=== PATIENT | male | born 1960 ===

== ENCOUNTER 2020-02-18 11:00 | Outpatient (RCR) | payer OTHER, SELFPAY ==
--- NOTE | 2020-02-22 08:10 | MHC.OT.DC ---
[address] [phone] F: [phone] Occupational Therapy Discharge Note Provider: Phil Hogan PA-C Diagnosis: Left Wrist Pain Date of Surgery: Date of Evaluation: 01/10/20 Date of Discharge: 02/18/20 Treatments to Date: 8 Cancellations to Date: 0 No Shows to Date: 0 Discharge Status: Achieved Goals Improved Function Independent with HEP Discharge Summary: Ramiro was referred to OT for management of left wrist pain, he is now mostly pain free, except with some aggravating activities, such as ulnar deviation and weight bearing through palm. He has been educated on activity modification and home exercise program. Please Sign and return to therapist, thank you for your referral.
== END 2020-03-02 10:26 | disposition other institution (70) ==
LOC: HO.OT 11:00
PROVIDERS: Visit Provider Physician Assistant
DX: M25.532 Pain in left wrist (principal)
CPT/HCPCS: 97033; 97535

== ENCOUNTER 2020-03-07 16:50 | Outpatient (REF) | payer OTHER, SELFPAY | END 2020-03-07 16:51 | disposition home or self-care (01) | LOC: HO.LAB 16:50 | PROVIDERS: Visit Provider Internal Medicine | DX: Z20.828 Contact with and (suspected) exposure to other viral communicable diseases (principal) | CPT/HCPCS: 87635 ==

== ENCOUNTER 2020-03-13 09:56 | Outpatient (REF) | payer OTHER, SELFPAY | END 2020-03-13 09:57 | disposition home or self-care (01) | LOC: HO.LAB 09:56 | PROVIDERS: Visit Provider Internal Medicine | DX: Z20.828 Contact with and (suspected) exposure to other viral communicable diseases (principal) | CPT/HCPCS: 87635 ==

== ENCOUNTER 2020-03-14 15:10 | Outpatient (REF) | payer OTHER, SELFPAY ==
--- NOTE | 2020-03-14 15:23 | XR_ITS ---
EXAMINATION: XR LUMBOSACRAL SPINE CLINICAL INFORMATION: Low back pain. COMPARISON: None TECHNIQUE: Three views of the lumbosacral spine. FINDINGS: There is mild straightening of lumbar lordosis. The vertebral heights, alignment and disc heights are normal. There is no visible acute fracture, dislocation or lytic process seen. There is and degenerative spurring L2-L3 disc level. No lytic or sclerotic process seen. The paravertebral soft tissues are normal XR/XR lumbar spine 2-3V IMPRESSION: Mild degenerative disc spurring L2-L3 disc level. Otherwise unremarkable lumbar spine exam
== END 2020-03-14 15:11 | disposition home or self-care (01) ==
LOC: HO.XRAY 15:10
PROVIDERS: Visit Provider Emergency Medicine
DX: M54.5 Low back pain (principal)
CPT/HCPCS: 72100

== ENCOUNTER 2020-06-15 15:35 | Outpatient (REF) | payer OTHER, SELFPAY ==
[2020-06-19 11:23] LABS: Testosterone, Total 220 ng/dL (250-1100)
== END 2020-06-15 15:36 | disposition home or self-care (01) ==
LOC: HO.LAB 15:35
PROVIDERS: PCP Internal Medicine; Visit Provider Urology
DX: R39.12 Poor urinary stream (principal); E29.1 Testicular hypofunction; R00.2 Palpitations; R06.02 Shortness of breath; G47.33 Obstructive sleep apnea (adult) (pediatric); M25.50 Pain in unspecified joint; Z12.5 Encounter for screening for malignant neoplasm of prostate; Z23 Encounter for immunization; Z99.89 Dependence on other enabling machines and devices
CPT/HCPCS: 36415; 84153; 84403

== ENCOUNTER 2020-06-20 08:03 | Outpatient (REF) | payer OTHER, SELFPAY ==
--- NOTE | 2020-06-20 08:29 | ECG_ITS ---
Test Reason : PALPITATIONS Blood Pressure : / mmHG Vent. Rate : 068 BPM Atrial Rate : 068 BPM P-R Int : 156 ms QRS Dur : 112 ms QT Int : 400 ms P-R-T Axes : 064 064 052 degrees QTc Int : 425 ms Normal sinus rhythm Normal ECG No previous ECGs available Referred By: Florina Martienz Electronically Signed By:BÁRBARA QUINN MD
[2020-06-20 08:39] LABS: MANUAL DIFF FLAG NO
--- NOTE | 2020-06-20 08:40 | XR_ITS ---
EXAMINATION: XR CHEST CLINICAL INFORMATION: Shortness of breath COMPARISON: Chest x-ray 09/02/2019 TECHNIQUE: 2 views of the chest were obtained. FINDINGS: Cardiac silhouette is normal in size. The lungs are well aerated. Mild biapical scarring. There is no lobar consolidation. No pleural effusion or pneumothorax. No acute osseous abnormality. XR/XR chest 2V IMPRESSION: No acute pulmonary pathology.
[2020-06-20 08:41] LABS: Basophils Percent Auto 0.7 % (0-2); Eosinophils Absolute Auto 0.2 X10*3/uL (0.0-0.4); Eosinophils Percent Auto 3.6 % (0-4); Hematocrit 43.1 % (42-52); Hemoglobin 14.4 g/dl (14.0-18.0); Imm Gran Abs Auto 0.01 X10*3/uL (0.00-0.03); Imm Gran Pct Auto 0.2 % (0.0-0.4); Lymphocytes Absolute Auto 1.4 X10*3/uL (1.2-4.9); Lymphocytes Percent Auto 30.8 % (20-40); Mean Corpuscular HGB Conc 33.4 g/dl (31.0-36.0); Mean Corpuscular Hemoglobin 30.5 pg (27.0-33.0); Mean Corpuscular Volume 91.3 fL (80-98); Mean Platelet Volume 10.4 fL (9.4-12.4); Monocytes Absolute Auto 0.4 X10*3/uL (0.1-1.2); Monocytes Percent Auto 9.4 % (2-11); Neutrophils Absolute Auto 2.5 X10*3/uL (2.0-8.3); Neutrophils Percent Auto 55.3 % (45-73); Platelet Count 233 X10*3/uL (160-400); Red Blood Count 4.72 X10*6/uL (4.60-5.80); Red Cell Distribution Width 12.4 % (11.0-16.0); White Blood Count 4.5 X10*3/uL (4.8-10.8)
[2020-06-20 09:07] LABS: Alanine Aminotransferase 27 U/L (0-40); Albumin Level 4.1 g/dL (3.5-5.0); Alkaline Phosphatase 57 U/L (39-117); Anion Gap 12 (12-20); Aspartate Amino Transferase 25 U/L (5-37); Bilirubin Total 0.6 mg/dL (0.0-1.0); Blood Urea Nitrogen 19 mg/dL (9-16); Calcium 8.8 mg/dL (8.4-10.2); Carbon Dioxide 25 mmol/L (22-29); Chloride 107 mmol/L (96-108); Cholesterol 191 mg/dL; Estimated Glomerular Filt Rate > 60; Glucose Fasting 83 mg/dL (60-99); HDL Cholesterol 33 mg/dL; LDL Cholesterol Calculated 137 mg/dl; Potassium 4.4 mmol/L (3.3-5.1); Rheumatoid Factor 78.5 IU/mL (<15.0); Sodium 140 mmol/L (135-145); Total Protein 8.6 g/dL (6.5-8.0); Triglycerides 107 mg/dL
[2020-06-20 09:29] LABS: TSH reflex Free T4 1.19 uIU/mL (0.32-4.0)
[2020-06-20 09:51] LABS: Erythrocyte Sedimentation Rate 14 MM/HR (0-15)
[2020-06-20 10:31] LABS: Folate 11.1 ng/mL (> or = 4.0); Vitamin B12 377 pg/mL (200-900)
[2020-06-21 12:22] LABS: Cyclic Citrullinated Peptide <16 UNITS
[2020-06-24 21:52] LABS: Vitamin D 25-OH, D2 <4 ng/mL; Vitamin D 25-OH, D3 21 ng/mL; Vitamin D 25-OH, Total 21 ng/mL (30-100)
== END 2020-06-20 08:04 | disposition home or self-care (01) ==
LOC: HO.LAB 08:03
PROVIDERS: PCP Internal Medicine; Visit Provider Internal Medicine
DX: E66.9 Obesity, unspecified (principal); G47.33 Obstructive sleep apnea (adult) (pediatric); R00.2 Palpitations; M25.50 Pain in unspecified joint; R06.02 Shortness of breath; I10 Essential (primary) hypertension; E78.5 Hyperlipidemia, unspecified; E55.9 Vitamin D deficiency, unspecified; Z99.89 Dependence on other enabling machines and devices
CPT/HCPCS: 36415; 71046; 80053; 80061; 82306; 82607; 82746; 84443; 85025; 85652; 86140; 86200; 86431; 93005

== ENCOUNTER → 2020-06-22 10:41 | Outpatient (BNVA) | payer OTHER, SELFPAY | PROVIDERS: PCP Internal Medicine; Visit Provider Urology ==

== ENCOUNTER 2020-07-14 07:54 | Outpatient (REF) | payer OTHER, SELFPAY ==
[2020-07-14 09:55] LABS: MANUAL DIFF FLAG NO
[2020-07-14 10:04] LABS: Basophils Percent Auto 0.4 % (0-2); Eosinophils Absolute Auto 0.1 X10*3/uL (0.0-0.4); Eosinophils Percent Auto 1.9 % (0-4); Hematocrit 42.5 % (42-52); Imm Gran Abs Auto 0.01 X10*3/uL (0.00-0.03); Imm Gran Pct Auto 0.2 % (0.0-0.4); Lymphocytes Absolute Auto 1.6 X10*3/uL (1.2-4.9); Lymphocytes Percent Auto 35.3 % (20-40); Mean Corpuscular HGB Conc 32.9 g/dl (31.0-36.0); Mean Corpuscular Hemoglobin 30.1 pg (27.0-33.0); Mean Corpuscular Volume 91.4 fL (80-98); Mean Platelet Volume 10.4 fL (9.4-12.4); Monocytes Absolute Auto 0.4 X10*3/uL (0.1-1.2); Monocytes Percent Auto 8.6 % (2-11); Neutrophils Absolute Auto 2.5 X10*3/uL (2.0-8.3); Neutrophils Percent Auto 53.6 % (45-73); Platelet Count 223 X10*3/uL (160-400); Red Blood Count 4.65 X10*6/uL (4.60-5.80); Red Cell Distribution Width 12.6 % (11.0-16.0); White Blood Count 4.7 X10*3/uL (4.8-10.8)
[2020-07-14 10:45] LABS: Erythrocyte Sedimentation Rate 23 MM/HR (0-15)
--- NOTE | 2020-07-14 17:42 | PFT_ITS ---
Forced vital capacity and FEV1 are normal. [id number] and MVV are also normal. Post bronchodilator therapy, there is no significant change. Total lung capacity and residual volume normal. Diffusion capacity normal. CONCLUSION: Normal pulmonary function test. MD SAVANAH Mathis/TRAVISL / [id number]
[2020-07-17 17:06] LABS: Cyclic Citrullinated Peptide <16 UNITS
== END 2020-07-14 07:55 | disposition home or self-care (01) ==
LOC: HO.RESP 07:54
PROVIDERS: PCP Internal Medicine; Visit Provider Internal Medicine
DX: R06.02 Shortness of breath (principal); M25.50 Pain in unspecified joint
CPT/HCPCS: 36415; 85025; 85652; 86200; 94060; 94727; 94729

== ENCOUNTER → 2020-08-10 09:24 | Outpatient (BNVA) | payer OTHER, SELFPAY | PROVIDERS: PCP Internal Medicine; Visit Provider Internal Medicine Pulmonary Disease ==

== ENCOUNTER 2020-08-14 13:07 | Outpatient (REF) | payer OTHER, SELFPAY | END 2020-08-14 13:08 | disposition home or self-care (01) | LOC: HO.LAB 13:07 | PROVIDERS: Visit Provider Internal Medicine | DX: Z20.822 Contact with and (suspected) exposure to COVID-19 (principal) | CPT/HCPCS: 36415; C9803; U0003; U0005 ==

== ENCOUNTER → 2020-09-05 09:50 | Outpatient (REF) | payer OTHER, SELFPAY | LOC: HO.SL 09:50 | PROVIDERS: PCP Internal Medicine; Visit Provider Internal Medicine Pulmonary Disease | DX: G47.33 Obstructive sleep apnea (adult) (pediatric) (principal) | CPT/HCPCS: 95806 ==

== ENCOUNTER 2020-09-08 14:02 | Outpatient (REF) | payer OTHER, SELFPAY ==
--- NOTE | ~2020-09-08 | XR_ITS ---
EXAMINATION: THORACIC AND LUMBAR SPINE X-RAY CLINICAL INFORMATION: Pain COMPARISON: None TECHNIQUE: 3 views of the thoracic spine and 3 views of the lumbar spine FINDINGS: Thoracic spine: Bone alignment is normal. No fracture or dislocation is seen. There is mild degenerative spondylosis of the lower thoracic spine. Disc spaces are normal. Paraspinal soft tissues are normal. Lumbar spine: Bone alignment is normal. No fracture or dislocation is seen. There is degenerative spondylosis at L2-L3. Disc spaces are normal. XR/XR thoracic spine 2V IMPRESSION: Thoracic spine: Mild degenerative spondylosis of the lower thoracic spine. Lumbar spine: Mild degenerative spondylosis at L2-L3.
--- NOTE | ~2020-09-08 | XR_ITS ---
EXAMINATION: XR SHOULDER , RIGHT CLINICAL INFORMATION: Pain COMPARISON: None available at the time of this dictation. TECHNIQUE: AP external rotation, Grashey, scapular Y, and axillary views of the shoulder. FINDINGS: BONES: There is no fracture or dislocation, no osteolytic or osteoblastic lesion. JOINTS: Glenohumeral joint is properly positioned. There is mild degenerative osteoarthritis of the acromioclavicular joint. SOFT TISSUE AND INCLUDED LUNG: Normal. XR/XR shoulder RT min 2V IMPRESSION: Except for mild DJD of the AC joint, exam is normal.
--- NOTE | ~2020-09-08 | XR_ITS ---
EXAMINATION: XR BILATERAL HANDS CLINICAL INFORMATION: Joint pain COMPARISON: Correlation left wrist x-ray 02/27/2018 TECHNIQUE: Bilateral hands each 3 views. FINDINGS: Right Hand: Old healed fracture of the 4th metacarpal diaphysis. Multiple punctate densities suggesting metallic foreign bodies in the soft tissue projected in this region. Prominent cyst in the proximal aspect 4th middle phalanx. Small cyst in the distal 5th proximal phalanx. Mild DIP joint space narrowing, more prominent in the 2nd and 5th DIP joints. No erosions. No abnormal soft tissue calcification. Left hand: Flexed positioning of the 2nd distal phalanx at the 2nd DIP joint. Mild IP joint arthritic changes, including the 3rd and 5th DIP joints. No erosions seen. No abnormal soft tissue calcification. No acute fracture. XR/XR hand RT min 3V IMPRESSION: 1. Prominent flexed positioning of the 2nd distal phalanx at the 2nd DIP joint. 2. Mild bilateral hand arthritis, appearing osteoarthritic in nature. 3. Old right 4th metacarpal fracture.
--- NOTE | ~2020-09-08 | XR_ITS ---
EXAMINATION: XR BILATERAL HANDS CLINICAL INFORMATION: Joint pain COMPARISON: Correlation left wrist x-ray 02/27/2018 TECHNIQUE: Bilateral hands each 3 views. FINDINGS: Right Hand: Old healed fracture of the 4th metacarpal diaphysis. Multiple punctate densities suggesting metallic foreign bodies in the soft tissue projected in this region. Prominent cyst in the proximal aspect 4th middle phalanx. Small cyst in the distal 5th proximal phalanx. Mild DIP joint space narrowing, more prominent in the 2nd and 5th DIP joints. No erosions. No abnormal soft tissue calcification. Left hand: Flexed positioning of the 2nd distal phalanx at the 2nd DIP joint. Mild IP joint arthritic changes, including the 3rd and 5th DIP joints. No erosions seen. No abnormal soft tissue calcification. No acute fracture. XR/XR hand LT min 3V IMPRESSION: 1. Prominent flexed positioning of the 2nd distal phalanx at the 2nd DIP joint. 2. Mild bilateral hand arthritis, appearing osteoarthritic in nature. 3. Old right 4th metacarpal fracture.
--- NOTE | ~2020-09-08 | XR_ITS ---
EXAMINATION: THORACIC AND LUMBAR SPINE X-RAY CLINICAL INFORMATION: Pain COMPARISON: None TECHNIQUE: 3 views of the thoracic spine and 3 views of the lumbar spine FINDINGS: Thoracic spine: Bone alignment is normal. No fracture or dislocation is seen. There is mild degenerative spondylosis of the lower thoracic spine. Disc spaces are normal. Paraspinal soft tissues are normal. Lumbar spine: Bone alignment is normal. No fracture or dislocation is seen. There is degenerative spondylosis at L2-L3. Disc spaces are normal. XR/XR lumbar spine 2-3V IMPRESSION: Thoracic spine: Mild degenerative spondylosis of the lower thoracic spine. Lumbar spine: Mild degenerative spondylosis at L2-L3.
[2020-09-08 15:08] LABS: MANUAL DIFF FLAG NO
[2020-09-08 15:16] LABS: Basophils Percent Auto 0.6 % (0-2); Eosinophils Absolute Auto 0.1 X10*3/uL (0.0-0.4); Eosinophils Percent Auto 2.5 % (0-4); Hematocrit 43.1 % (42-52); Hemoglobin 14.5 g/dl (14.0-18.0); Imm Gran Abs Auto 0.01 X10*3/uL (0.00-0.03); Imm Gran Pct Auto 0.2 % (0.0-0.4); Lymphocytes Percent Auto 21.6 % (20-40); Mean Corpuscular HGB Conc 33.6 g/dl (31.0-36.0); Mean Corpuscular Hemoglobin 30.5 pg (27.0-33.0); Mean Corpuscular Volume 90.7 fL (80-98); Mean Platelet Volume 10.3 fL (9.4-12.4); Monocytes Absolute Auto 0.4 X10*3/uL (0.1-1.2); Monocytes Percent Auto 8.4 % (2-11); Neutrophils Absolute Auto 3.2 X10*3/uL (2.0-8.3); Neutrophils Percent Auto 66.7 % (45-73); Platelet Count 249 X10*3/uL (160-400); Red Blood Count 4.75 X10*6/uL (4.60-5.80); Red Cell Distribution Width 12.6 % (11.0-16.0); White Blood Count 4.8 X10*3/uL (4.8-10.8)
[2020-09-08 15:49] LABS: Alanine Aminotransferase 22 U/L (0-40); Alkaline Phosphatase 56 U/L (39-117); Anion Gap 10 (12-20); Aspartate Amino Transferase 16 U/L (5-37); Bilirubin Total 0.4 mg/dL (0.0-1.0); Blood Urea Nitrogen 18 mg/dL (9-16); C Reactive Protein 0.06 mg/dL (< or = 0.50); Calcium 9.1 mg/dL (8.4-10.2); Carbon Dioxide 25 mmol/L (22-29); Chloride 106 mmol/L (96-108); Estimated Glomerular Filt Rate > 60; Glucose Random 131 mg/dL (60-115); Potassium 4.2 mmol/L (3.3-5.1); Rheumatoid Factor 74.3 IU/mL (<15.0); Sodium 137 mmol/L (135-145); Total Protein 8.2 g/dL (6.5-8.0)
[2020-09-08 16:10] LABS: Thyroid Stimulating Hormone 0.27 uIU/mL (0.32-4.0)
[2020-09-08 16:32] LABS: Erythrocyte Sedimentation Rate 16 MM/HR (0-15)
[2020-09-11 08:12] LABS: Hepatitis B Surface Antigen Negative (Negative); ~HepC Num1 0.11 S/CO (0.00-0.79); ~Hepatitis C Antibody Nonreactive (Nonreactive)
[2020-09-11 08:52] LABS: HBS Num1 0.07 mIU/mL (0-7.99); HBc Num1 0.11 S/CO (0.00-0.79); Hepatitis B Core Antibody Nonreactive (Nonreactive); ~Hepatitis B Surface Antibody NONREACTIVE (Nonreactive)
[2020-09-11 15:41] LABS: Cyclic Citrullinated Peptide <16 UNITS
[2020-09-13 08:22] LABS: ~Hepatitis A Antibody IgM Nonreactive (Nonreactive)
[2020-09-13 20:57] LABS: Vitamin D 25-OH, D2 <4 ng/mL; Vitamin D 25-OH, D3 25 ng/mL; Vitamin D 25-OH, Total 25 ng/mL (30-100)
== END 2020-09-08 14:03 | disposition home or self-care (01) ==
LOC: HO.LAB 14:02
PROVIDERS: PCP Internal Medicine; Visit Provider Student in an Organized Health Care Education/Training Program
DX: M25.50 Pain in unspecified joint (principal); I10 Essential (primary) hypertension; E55.9 Vitamin D deficiency, unspecified; E66.9 Obesity, unspecified; G47.33 Obstructive sleep apnea (adult) (pediatric); R00.2 Palpitations; Z99.89 Dependence on other enabling machines and devices; Z87.891 Personal history of nicotine dependence
CPT/HCPCS: 36415; 72070; 72100; 73030; 73130; 80053; 82306; 84443; 85025; 85652; 86140; 86200; 86431; 86704; 86706; 86709; 86803; 87340

== ENCOUNTER → 2020-09-19 08:50 | Outpatient (BNVA) | payer OTHER, SELFPAY | PROVIDERS: PCP Internal Medicine; Referring Provider Internal Medicine; Visit Provider Psychiatry & Neurology Neurology ==

== ENCOUNTER → 2020-10-06 08:56 | Outpatient (BNVA) | payer OTHER, SELFPAY | PROVIDERS: Visit Provider Student in an Organized Health Care Education/Training Program ==

== ENCOUNTER 2020-10-12 11:44 | Outpatient (REF) | payer OTHER, SELFPAY ==
[2020-10-12 12:57] LABS: Free T4 (Free Thyroxine) 0.92 ng/dL (0.71-1.85); Thyroid Stimulating Hormone 0.57 uIU/mL (0.32-4.0)
[2020-10-13 07:07] LABS: Thyroglobulin Antibodies <1 IU/mL (< or = 1); Thyroid Peroxidase Antibodies 3 IU/mL (<9)
== END 2020-10-12 11:45 | disposition home or self-care (01) ==
LOC: HO.LAB 11:44
PROVIDERS: PCP Internal Medicine; Visit Provider Internal Medicine
DX: R79.89 Other specified abnormal findings of blood chemistry (principal)
CPT/HCPCS: 36415; 84439; 84443; 86376; 86800

== ENCOUNTER → 2020-12-12 10:21 | Outpatient (BNVA) | payer OTHER, SELFPAY | PROVIDERS: PCP Internal Medicine; Visit Provider Psychiatry & Neurology Neurology ==

== ENCOUNTER → 2020-12-21 09:34 | Outpatient (BNVA) | payer OTHER, SELFPAY | PROVIDERS: PCP Internal Medicine; Visit Provider Urology | DX: N40.1 Benign prostatic hyperplasia with lower urinary tract symptoms (principal); N13.8 Other obstructive and reflux uropathy; E29.1 Testicular hypofunction | CPT/HCPCS: 51798 ==

== ENCOUNTER → 2021-01-08 14:56 | Outpatient (BNVA) | payer OTHER, SELFPAY | PROVIDERS: PCP Internal Medicine; Visit Provider Internal Medicine ==

== ENCOUNTER 2021-01-10 07:43 | Outpatient (REF) | payer OTHER, SELFPAY ==
[2021-01-10 08:45] LABS: Anion Gap 11 (12-20); Blood Urea Nitrogen 17 mg/dL (9-16); Calcium 9.2 mg/dL (8.4-10.2); Carbon Dioxide 25 mmol/L (22-29); Chloride 106 mmol/L (96-108); Estimated Glomerular Filt Rate > 60; Glucose Random 98 mg/dL (60-115); Potassium 4.1 mmol/L (3.3-5.1); Sodium 138 mmol/L (135-145)
[2021-01-10 08:56] LABS: Osmolality, Serum 301 mosm/kg (281-305)
[2021-01-10 09:06] LABS: Free T4 (Free Thyroxine) 1.05 ng/dL (0.71-1.85); Thyroid Stimulating Hormone 0.98 uIU/mL (0.32-4.0)
[2021-01-11 09:21] LABS: Thyroid Peroxidase Antibodies 2 IU/mL (<9)
[2021-01-11 18:22] LABS: Thyroglobulin Antibodies <1 IU/mL (< or = 1)
[2021-01-12 02:47] LABS: Triiodothyronine T3 Total 138 ng/dL (76-181)
[2021-01-12 07:12] LABS: Sex Hormone Binding Globulin 21 nmol/L (22-77)
[2021-01-12 12:26] LABS: Follicle Stimulating Hormone 9.9 mIU/mL (1.6-8.0); Lutenizing Hormone 6.4 mIU/mL (1.5-9.3); Prolactin Undiluted 16.5 ng/mL (2.0-18.0)
[2021-01-12 16:16] LABS: Adrenocorticotropic Hormone 74 pg/mL (6-50)
[2021-01-14 08:37] LABS: Thyrotropin Receptor Antibody <1.00 IU/L (<=2.00)
[2021-01-14 15:51] LABS: Testosterone, Free 61.7 pg/mL (35.0-155.0); Testosterone, Total 291 ng/dL (250-1100)
[2021-01-14 16:36] LABS: IGF-1 (Somatomedin C) 171 ng/mL (50-317); IGF-1 Z Score (Male) 0.6 SD (-2.0 - +2.0)
[2021-01-15 15:06] LABS: Thyroid Stimulating Immunoglob <89 % baseline (<140)
== END 2021-01-10 07:44 | disposition home or self-care (01) ==
LOC: HO.LAB 07:43
PROVIDERS: PCP Internal Medicine; Visit Provider Internal Medicine
DX: E05.90 Thyrotoxicosis, unspecified without thyrotoxic crisis or storm (principal); Z86.39 Personal history of other endocrine, nutritional and metabolic disease
CPT/HCPCS: 36415; 80048; 82024; 82533; 83001; 83002; 83520; 83930; 84146; 84270; 84305; 84402; 84403; 84439; 84443; 84445; 84480; 86376; 86800

== ENCOUNTER → 2021-02-20 09:46 | Outpatient (REF) | payer OTHER, SELFPAY | LOC: HO.SL 09:46 | PROVIDERS: PCP Internal Medicine; Visit Provider Psychiatry & Neurology Neurology | DX: G47.33 Obstructive sleep apnea (adult) (pediatric) (principal) | CPT/HCPCS: 99211 ==

== ENCOUNTER → 2021-03-20 09:38 | Outpatient (BNVA) | payer OTHER, SELFPAY | PROVIDERS: PCP Internal Medicine; Visit Provider Internal Medicine Pulmonary Disease ==

== ENCOUNTER 2021-04-17 09:15 | Outpatient (REF) | payer OTHER, SELFPAY ==
[2021-04-17 10:27] LABS: MANUAL DIFF FLAG NO
[2021-04-17 10:43] LABS: Basophils Percent Auto 0.8 % (0-2); Eosinophils Absolute Auto 0.2 X10*3/uL (0.0-0.4); Eosinophils Percent Auto 3.1 % (0-4); Hematocrit 44.5 % (42.0-52.0); Imm Gran Abs Auto 0.01 X10*3/uL (0.00-0.03); Imm Gran Pct Auto 0.2 % (0.0-0.4); Lymphocytes Absolute Auto 1.7 X10*3/uL (1.2-4.9); Lymphocytes Percent Auto 32.6 % (20-40); Mean Corpuscular HGB Conc 33.7 g/dl (31.0-36.0); Mean Corpuscular Hemoglobin 30.2 pg (27.0-33.0); Mean Corpuscular Volume 89.7 fL (80.0-98.0); Mean Platelet Volume 10.2 fL (9.4-12.4); Monocytes Absolute Auto 0.4 X10*3/uL (0.1-1.2); Monocytes Percent Auto 7.7 % (2-11); Neutrophils Absolute Auto 2.9 x10*3/uL (2.0-8.3); Neutrophils Percent Auto 55.6 % (45-73); Platelet Count 231 X10*3/uL (160-400); Red Blood Count 4.96 X10*6/uL (4.60-5.80); Red Cell Distribution Width 12.4 % (11.0-16.0); White Blood Count 5.2 X10*3/uL (4.8-10.8)
[2021-04-17 11:14] LABS: Alanine Aminotransferase 40 U/L (0-40); Albumin Level 4.2 g/dL (3.5-5.0); Alkaline Phosphatase 63 U/L (39-117); Anion Gap 14 (12-20); Aspartate Amino Transferase 28 U/L (5-37); Bilirubin Total 0.4 mg/dL (0.0-1.0); Blood Urea Nitrogen 14 mg/dL (9-16); Calcium 9.3 mg/dL (8.4-10.2); Carbon Dioxide 23 mmol/L (22-29); Chloride 104 mmol/L (96-108); Estimated Glomerular Filt Rate > 60; Glucose Random 95 mg/dL (60-115); Potassium 4.1 mmol/L (3.3-5.1); Sodium 137 mmol/L (135-145); Total Protein 8.7 g/dL (6.5-8.0)
[2021-04-17 11:29] LABS: Vitamin D 25-OH Total 25.3 ng/mL (>30)
[2021-04-17 11:35] LABS: Erythrocyte Sedimentation Rate 14 MM/HR (0-15)
== END 2021-04-17 09:16 | disposition home or self-care (01) ==
LOC: HO.LAB 09:15
PROVIDERS: PCP Internal Medicine; Visit Provider Nurse Practitioner Family
DX: M47.814 Spondylosis without myelopathy or radiculopathy, thoracic region (principal); M25.50 Pain in unspecified joint; E55.9 Vitamin D deficiency, unspecified; Z79.899 Other long term (current) drug therapy
CPT/HCPCS: 36415; 80053; 82306; 85025; 85652; 86140

== ENCOUNTER 2021-05-07 09:50 | Outpatient (REF) | payer OTHER, SELFPAY ==
[2021-05-07 12:02] LABS: COVID-19 Test Negative (Negative)
== END 2021-05-07 09:51 | disposition home or self-care (01) ==
LOC: HO.LAB 09:50
PROVIDERS: Visit Provider Internal Medicine
DX: Z20.822 Contact with and (suspected) exposure to COVID-19 (principal)
CPT/HCPCS: 36415; 87635; C9803

== ENCOUNTER → 2021-06-06 09:15 | Outpatient (BNVA) | payer OTHER, SELFPAY | PROVIDERS: PCP Internal Medicine; Visit Provider Internal Medicine ==

== ENCOUNTER 2021-06-07 08:02 | Outpatient (REF) | payer OTHER, SELFPAY ==
[2021-06-07 08:36] LABS: Anion Gap 12 (12-20); Blood Urea Nitrogen 19 mg/dL (9-16); Calcium 9.4 mg/dL (8.4-10.2); Carbon Dioxide 26 mmol/L (22-29); Chloride 104 mmol/L (96-108); Estimated Glomerular Filt Rate > 60; Glucose Random 88 mg/dL (60-115); Potassium 4.2 mmol/L (3.3-5.1); Sodium 138 mmol/L (135-145)
[2021-06-07 09:46] LABS: Cortisol Random 10.5 ug/dL
[2021-06-10 15:32] LABS: Adrenocorticotropic Hormone 68 pg/mL (6-50)
== END 2021-06-07 08:03 | disposition home or self-care (01) ==
LOC: HO.LAB 08:02
PROVIDERS: PCP Internal Medicine; Visit Provider Internal Medicine
DX: E27.0 Other adrenocortical overactivity (principal)
CPT/HCPCS: 36415; 80048; 82024; 82533

== ENCOUNTER 2021-06-26 07:46 | Outpatient (REF) | payer OTHER, SELFPAY ==
[2021-06-28 06:21] LABS: Cortisol 60 Minute 25.4 mcg/dL; Cortisol Baseline 12.2 mcg/dL
[2021-06-29 11:07] LABS: Adrenocorticotropic Hormone 46 pg/mL (6-50)
== END 2021-06-26 07:47 | disposition home or self-care (01) ==
LOC: HO.MDS 07:46
PROVIDERS: PCP Internal Medicine; Visit Provider Internal Medicine
DX: E27.40 Unspecified adrenocortical insufficiency (principal)
CPT/HCPCS: 36415; 82024; 82533; 96365; J0834

== ENCOUNTER → 2021-07-18 09:34 | Outpatient (BNVA) | payer OTHER, SELFPAY | PROVIDERS: PCP Internal Medicine; Visit Provider Internal Medicine ==

== ENCOUNTER 2021-07-21 07:19 | Outpatient (REF) | payer OTHER, SELFPAY ==
[2021-07-21 09:10] LABS: Cortisol Random < 1.0 ug/dL
[2021-07-23 14:36] LABS: Adrenocorticotropic Hormone 18 pg/mL (6-50)
[2021-08-01 15:37] LABS: Dexamethasone 229 ng/dL
== END 2021-07-21 07:20 | disposition home or self-care (01) ==
LOC: HO.LAB 07:19
PROVIDERS: Visit Provider Internal Medicine
DX: E27.0 Other adrenocortical overactivity (principal)
CPT/HCPCS: 36415; 80299; 82024; 82533

== ENCOUNTER → 2021-10-12 08:33 | Outpatient (BNVA) | payer OTHER, SELFPAY | PROVIDERS: PCP Internal Medicine; Visit Provider Nurse Practitioner Family | DX: M25.50 Pain in unspecified joint (principal) ==

== ENCOUNTER 2021-11-01 07:09 | Outpatient (REF) | payer OTHER, SELFPAY ==
[2021-11-01 08:08] LABS: MANUAL DIFF FLAG NO
[2021-11-01 08:39] LABS: Basophils Percent Auto 0.6 % (0-2); Eosinophils Absolute Auto 0.1 X10*3/uL (0.0-0.4); Eosinophils Percent Auto 2.6 % (0-4); Hematocrit 42.9 % (42.0-52.0); Hemoglobin 14.4 g/dl (14.0-18.0); Imm Gran Abs Auto 0.01 X10*3/uL (0.00-0.03); Imm Gran Pct Auto 0.2 % (0.0-0.4); Lymphocytes Absolute Auto 1.5 X10*3/uL (1.2-4.9); Lymphocytes Percent Auto 32.1 % (20-40); Mean Corpuscular HGB Conc 33.6 g/dl (31.0-36.0); Mean Corpuscular Hemoglobin 30.1 pg (27.0-33.0); Mean Corpuscular Volume 89.7 fL (80.0-98.0); Mean Platelet Volume 10.5 fL (9.4-12.4); Monocytes Absolute Auto 0.4 X10*3/uL (0.1-1.2); Monocytes Percent Auto 8.8 % (2-11); Neutrophils Absolute Auto 2.6 x10*3/uL (2.0-8.3); Neutrophils Percent Auto 55.7 % (45-73); Platelet Count 258 X10*3/uL (160-400); Red Blood Count 4.78 X10*6/uL (4.60-5.80); Red Cell Distribution Width 12.6 % (11.0-16.0); White Blood Count 4.7 X10*3/uL (4.8-10.8)
[2021-11-01 09:03] LABS: Alanine Aminotransferase 29 U/L (0-40); Albumin Level 4.2 g/dL (3.5-5.0); Alkaline Phosphatase 60 U/L (39-117); Anion Gap 10 (12-20); Aspartate Amino Transferase 20 U/L (5-37); Bilirubin Direct 0.2 mg/dL (0.0-0.5); Bilirubin Total 0.5 mg/dL (0.0-1.0); Blood Urea Nitrogen 8 mg/dL (9-16); C Reactive Protein 0.06 mg/dL (< or = 0.50); Carbon Dioxide 26 mmol/L (22-29); Chloride 105 mmol/L (96-108); Estimated Glomerular Filt Rate > 60; Glucose Random 100 mg/dL (60-115); Potassium 4.3 mmol/L (3.3-5.1); Sodium 137 mmol/L (135-145); Total Protein 8.7 g/dL (6.5-8.0)
[2021-11-01 09:13] LABS: Erythrocyte Sedimentation Rate 14 MM/HR (0-15)
[2021-11-01 09:58] LABS: Cortisol Random 8.1 ug/dL
[2021-11-05 23:02] LABS: Adrenocorticotropic Hormone 38 pg/mL (6-50)
== END 2021-11-01 07:10 | disposition home or self-care (01) ==
LOC: HO.LAB 07:09
PROVIDERS: Nurse Practitioner Family; PCP Internal Medicine; Visit Provider Internal Medicine
DX: E27.0 Other adrenocortical overactivity (principal); R10.11 Right upper quadrant pain; M25.50 Pain in unspecified joint
CPT/HCPCS: 36415; 80053; 80076; 82024; 82248; 82533; 85025; 85652; 86140

== ENCOUNTER 2021-12-08 08:39 | Outpatient (REF) | payer OTHER, SELFPAY ==
[2021-12-08 10:24] LABS: Prostate Specific Antigen 1.25 ng/mL (<0.05-4.0)
[2021-12-13 14:36] LABS: Testosterone, Total 318 ng/dL (250-1100)
== END 2021-12-08 08:40 | disposition home or self-care (01) ==
LOC: HO.LAB 08:39
PROVIDERS: PCP Internal Medicine; Visit Provider Urology
DX: Z12.5 Encounter for screening for malignant neoplasm of prostate (principal); N40.1 Benign prostatic hyperplasia with lower urinary tract symptoms; N13.8 Other obstructive and reflux uropathy
CPT/HCPCS: 36415; 84153; 84403

== ENCOUNTER 2021-12-19 07:53 | Outpatient (REF) | payer OTHER, SELFPAY ==
--- NOTE | ~2021-12-19 | US_ITS ---
EXAMINATION: US ABDOMEN COMPLETE CLINICAL INFORMATION: Right upper quadrant pain. COMPARISON: CT abdomen and pelvis 11/11/2018. X-ray abdomen 05/27/2017. Renal ultrasound 01/20/2015. TECHNIQUE: Real-time imaging of the abdominal viscera. FINDINGS: PANCREAS: Normal. ABDOMINAL AORTA: The proximal, mid, and distal segments are normal in caliber. INFERIOR VENA CAVA: Visualized portions are normal. LIVER: The liver is normal in size. The liver contour is normal. Liver echotexture is slightly increased. No focal hepatic lesion. There is no intrahepatic biliary duct dilatation seen. GALLBLADDER: Normal. The gallbladder is physiologically distended without evidence of stones, sludge, polyps, wall thickening or pericholecystic fluid. COMMON BILE DUCT: Normal in caliber measuring 0.4 cm in diameter. RIGHT KIDNEY: Normal. No hydronephrosis. No renal calculi or focal parenchymal lesions. The kidney measures 13.5 cm in maximum dimension. LEFT KIDNEY: Normal. No hydronephrosis. No renal calculi or focal parenchymal lesions. The kidney measures 12.3 cm in maximum dimension. SPLEEN: Normal. The spleen measures 10.1 cm in maximum dimension. FREE FLUID: None. US/US abdomen complete IMPRESSION: Slightly echogenic liver otherwise unremarkable exam.
== END 2021-12-19 07:54 | disposition home or self-care (01) ==
LOC: HO.US 07:53
PROVIDERS: Visit Provider Internal Medicine
DX: R10.11 Right upper quadrant pain (principal)
CPT/HCPCS: 76700

== ENCOUNTER → 2021-12-21 09:33 | Outpatient (BNVA) | payer OTHER, SELFPAY | PROVIDERS: PCP Internal Medicine; Visit Provider Urology | DX: N40.1 Benign prostatic hyperplasia with lower urinary tract symptoms (principal); N13.8 Other obstructive and reflux uropathy; N52.01 Erectile dysfunction due to arterial insufficiency; E29.1 Testicular hypofunction | CPT/HCPCS: 51798 ==

== ENCOUNTER 2022-03-30 07:26 | Outpatient (REF) | payer OTHER, SELFPAY ==
[2022-03-30 08:37] LABS: Alanine Aminotransferase 27 U/L (0-40); Albumin Level 4.2 g/dL (3.5-5.0); Alkaline Phosphatase 62 U/L (39-117); Anion Gap 16 (12-20); Aspartate Amino Transferase 20 U/L (5-37); Bilirubin Total 0.4 mg/dL (0.0-1.0); Blood Urea Nitrogen 16 mg/dL (9-16); Carbon Dioxide 23 mmol/L (22-29); Chloride 104 mmol/L (96-108); Cholesterol 232 mg/dL; Estimated Glomerular Filt Rate > 60; Glucose Fasting 101 mg/dL (60-99); HDL Cholesterol 37 mg/dL; LDL Cholesterol Calculated 173 mg/dl; Potassium 4.5 mmol/L (3.3-5.1); Sodium 138 mmol/L (135-145); Total Protein 8.7 g/dL (6.5-8.0); Triglycerides 110 mg/dL
== END 2022-03-30 07:27 | disposition home or self-care (01) ==
LOC: HO.LAB 07:26
PROVIDERS: PCP Internal Medicine; Visit Provider Internal Medicine
DX: Z00.00 Encounter for general adult medical examination without abnormal findings (principal); E78.5 Hyperlipidemia, unspecified
CPT/HCPCS: 36415; 80053; 80061

== ENCOUNTER 2022-06-09 11:48 | Outpatient (REF) | payer OTHER, SELFPAY ==
[2022-06-09 12:24] LABS: COVID-19 Test Negative (Negative); IDNOW Serial# 16C4AD1C
== END 2022-06-09 11:49 | disposition home or self-care (01) ==
LOC: HO.LAB 11:48
PROVIDERS: Absent Provider Internal Medicine; PCP Internal Medicine; Visit Provider Internal Medicine
DX: Z20.822 Contact with and (suspected) exposure to COVID-19 (principal)
CPT/HCPCS: 87635

== ENCOUNTER 2022-06-10 09:52 | Outpatient (REF) | payer OTHER, SELFPAY ==
[2022-06-10 10:51] LABS: Influenza A PCR NEGATIVE (Negative); Influenza B PCR NEGATIVE (Negative); Resp Syncy Virus RNA Qual PCR NEGATIVE (Negative); SARS COV2 PCR INHOUSE NEGATIVE (Negative)
== END 2022-06-10 09:53 | disposition home or self-care (01) ==
LOC: HO.LAB 09:52
PROVIDERS: Visit Provider Physician Assistant Medical
DX: Z20.822 Contact with and (suspected) exposure to COVID-19 (principal)
CPT/HCPCS: 0241U; C9803

== ENCOUNTER 2022-09-14 07:47 | Outpatient (REF) | payer OTHER, SELFPAY ==
[2022-09-14 08:22] LABS: MANUAL DIFF FLAG NO
[2022-09-14 08:34] LABS: Basophils Absolute Auto 0.1 X10*3/uL (0.0-0.2); Basophils Percent Auto 1.4 % (0-2); Eosinophils Absolute Auto 0.3 X10*3/uL (0.0-0.4); Eosinophils Percent Auto 5.4 % (0-4); Hematocrit 43.3 % (42.0-52.0); Hemoglobin 14.6 g/dl (14.0-18.0); Lymphocytes Absolute Auto 1.3 X10*3/uL (1.2-4.9); Lymphocytes Percent Auto 26.8 % (20-40); Mean Corpuscular HGB Conc 33.7 g/dl (31.0-36.0); Mean Corpuscular Hemoglobin 30.1 pg (27.0-33.0); Mean Corpuscular Volume 89.3 fL (80.0-98.0); Mean Platelet Volume 10.2 fL (9.4-12.4); Monocytes Absolute Auto 0.4 X10*3/uL (0.1-1.2); Monocytes Percent Auto 8.6 % (2-11); Neutrophils Absolute Auto 2.9 x10*3/uL (2.0-8.3); Neutrophils Percent Auto 57.8 % (45-73); Platelet Count 247 X10*3/uL (160-400); Red Blood Count 4.85 X10*6/uL (4.60-5.80); Red Cell Distribution Width 12.6 % (11.0-16.0)
[2022-09-14 11:03] LABS: Alanine Aminotransferase 22 U/L (0-40); Albumin Level 4.1 g/dL (3.5-5.0); Alkaline Phosphatase 57 U/L (39-117); Anion Gap 12 (12-20); Aspartate Amino Transferase 19 U/L (5-37); Bilirubin Total 0.5 mg/dL (0.0-1.0); Blood Urea Nitrogen 13 mg/dL (9-16); Carbon Dioxide 24 mmol/L (22-29); Chloride 107 mmol/L (96-108); Cholesterol 213 mg/dL; Estimated Glomerular Filt Rate > 60; Glucose Fasting 93 mg/dL (60-99); HDL Cholesterol 34 mg/dL; Potassium 4.4 mmol/L (3.3-5.1); Sodium 139 mmol/L (135-145); Total Protein 8.3 g/dL (6.5-8.0)
[2022-09-14 11:09] LABS: Thyroid Stimulating Hormone 1.02 uIU/mL (0.32-4.0); Vitamin D 25-OH Total 21.2 ng/mL (>30)
[2022-09-18 16:06] LABS: LDL Cholesterol Calculated 156 mg/dl; Triglycerides 117 mg/dL
== END 2022-09-14 07:48 | disposition home or self-care (01) ==
LOC: HO.LAB 07:47
PROVIDERS: PCP Internal Medicine; Visit Provider Internal Medicine
DX: R53.83 Other fatigue (principal); E55.9 Vitamin D deficiency, unspecified; R25.2 Cramp and spasm; E78.5 Hyperlipidemia, unspecified
CPT/HCPCS: 36415; 80053; 80061; 82306; 83735; 84443; 85025

== ENCOUNTER 2022-11-14 14:17 | Outpatient (REF) | payer OTHER, SELFPAY ==
--- NOTE | 2022-11-14 14:20 | EMG_ITS ---
Please see scanned EMG / Nerve Conduction Report. MTDD
== END 2022-11-14 14:18 | disposition home or self-care (01) ==
LOC: HO.NEURO 14:17
PROVIDERS: PCP Internal Medicine; Visit Provider Internal Medicine
DX: R20.2 Paresthesia of skin (principal)
CPT/HCPCS: 95885; 95910

== ENCOUNTER 2022-12-07 08:55 | Outpatient (REF) | payer OTHER, SELFPAY ==
[2022-12-07 10:54] LABS: Prostate Specific Antigen 1.32 ng/mL (<0.05-4.0)
[2022-12-12 16:02] LABS: Testosterone, Total 334 ng/dL (250-1100)
== END 2022-12-07 08:56 | disposition home or self-care (01) ==
LOC: HO.LAB 08:55
PROVIDERS: PCP Internal Medicine; Visit Provider Urology
DX: E29.1 Testicular hypofunction (principal); Z12.5 Encounter for screening for malignant neoplasm of prostate
CPT/HCPCS: 36415; 84153; 84403

== ENCOUNTER 2023-01-08 15:40 | Outpatient (AMB) | payer OTHER, SELFPAY ==
--- NOTE | 2023-01-08 15:43 | MHC.OFFVIS ---
Intake Vital Signs 01/08/23 15:44 Height 6 ft Weight 242 lb 1.081 oz BMI 32.8 BP 148/86 H Blood Pressure Location Rt brachial Position Sitting Temp 97.9 F Temp Source Skin Intake Visit Reasons: positive rheumatoid factor. Intake Note: Here for +RF follow up. c/o right hand pain, numbness, hurts more at night. Customer Acquisition Specialist Required: Yes Customer Acquisition Specialist Language: Ice Skating Teacher Name: Zach Mendez236 Accompanied by: Self / Same As Patient Allergies No Known Allergies [No Known Allergies*] Allergy (Verified 01/08/23 15:49) HPI HPI Comments History of Present Illness Details This is a 62-year-old male who presents for evaluation of positive rheumatoid factor. He was last evaluated by Ольга Kruger 03/2022. Patient has history of a positive rheumatoid factor and previously he followed for development of rheumatoid arthritis, he had no signs of inflammatory arthritis. Over the last 6 months patient has been having tingling and numbness, weakness of his right hand, worse with activity, usually worse in the morning and at night. An EMG/NCS was done 2 months ago and it showed moderately severe carpal tunnel syndrome of the right hand. He feels well otherwise [facility] Medical History ACTH elevation Degenerative arthritis of thoracic spine Essential hypertension GERD (gastroesophageal reflux disease) History of hyperprolactinemia Hyperthyroidism Hypovitaminosis D Low TSH level Obesity GARRET on CPAP Palpitations Polyarthralgia Shortness of breath Surgical History H/O umbilical hernia repair Family History Mother Heart problem Father Stroke Social History Housing: House Alcohol intake: current Alcohol intake frequency: holidays/special occasions only Patient Tobacco Use Status: Former Tobacco user Tobacco use type: Cigarette e-Cigarette/Vaping Use: Never Used Second Hand Smoke Exposure: No Advance Directives Date on File: 02/18/20 service: No Current occupational status: employed 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 Current occupational exposures/hazards: No Cognitive needs: No Hearing needs: No Vision needs: No Review of Systems Musc Reports numbness and Reports tingling Neuro Reports numbness and Reports tingling Physical Exam Vital Signs: Last Vital Signs Temp 97.9 F 01/08/23 15:44 BP 148/86 H 01/08/23 15:44 BMI result Body Mass Index 32.8 Const General: cooperative, healthy appearing and comfortable Nutritional Appearance: obese Orientation/consciousness: patient oriented x3 Limitations: no limitations HEENT Head: Yes normocephalic and Yes atraumatic Mouth: moist mucous membranes Resp Effort & Inspection: normal respiratory effort and able to speak in complete sentences Neuro Other: Positive Tinel sign right hand General: patient oriented x3 Extrem Other: Osteoarthritic changes of both hands with no active synovitis Negative MCP squeeze test bilaterally 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 Assessment & Plan Assessment & Plan (1) Carpal tunnel syndrome: Code(s): G56.00 - Carpal tunnel syndrome, unspecified upper limb Qualifiers: Laterality: right Qualified Code(s): G56.01 - Carpal tunnel syndrome, right upper limb Plan: This is a 62-year-old male who is being followed by Rheumatology for a positive rheumatoid factor. On previous evaluation patient did not have any signs of inflammatory arthritis. Over the last 6 months patient has been having tingling, numbness, weakness of his right hand. EMG/NCS was consistent with moderately severe right hand carpal tunnel syndrome. I prescribed a wrist splint. Advised patient to wear it nightly and as much as possible throughout the day. Referred patient to Hand surgery for further evaluation. Follow-up in 1 year Plan I spent 15 minutes reviewing patient's chart, evaluating patient, placing orders, counseling patient and documenting in the chart Orders: Referrals Hand Surgery Referral G56.00 - Carpal tunnel syndrome, unspecified upper limb Medications: New [wrist splint] for right hand. wear nightly & as much as possible throughout the day 1 ea 0RF G56.00 - Carpal tunnel syndrome, unspecified upper limb Coding Level of Care Code Est Pt Level 3 (62229) Diagnoses Carpal tunnel syndrome G56.01 Laterality: right
[2023-01-08 15:44] VITALS: BP 148/86; TEMP 36.6; BMI 32.8
== END 2023-01-08 16:14 | disposition home or self-care (01) ==
PROVIDERS: PCP Internal Medicine; Visit Provider Student in an Organized Health Care Education/Training Program
DX: G56.01 Carpal tunnel syndrome, right upper limb (principal)
CPT/HCPCS: 99213

== ENCOUNTER → 2023-01-08 15:40 | Outpatient (BNVA) | payer OTHER, SELFPAY | PROVIDERS: PCP Internal Medicine; Visit Provider Student in an Organized Health Care Education/Training Program ==

== ENCOUNTER 2023-03-04 11:02 | Outpatient (AMB) | payer OTHER, SELFPAY ==
--- NOTE | 2023-03-04 11:35 | A.OFFVIS_ITS ---
Intake Vital Signs 03/04/23 11:46 Height 6 ft Weight 242 lb BMI 32.8 Intake Visit Reasons: New Prob- CTS right wrist Intake Note: Ramiro 62 yr old right hand dominant male who presents today as a new patient for further evaluation of his right hand CTS. State he has CTS in bilateral hands but his right is worse for the last 6 months. States he has weakness, constant numbness thought out the day. Patient has tried braces with little relieve. States also he has locking of his middle finger and thumb for the last couple months and has worsen. EMG done for his right hand. Allergies No Known Allergies [No Known Allergies*] Allergy (Verified 03/04/23 11:45) HPI New Prob- CTS right wrist HPI Details Ramiro is a 62 year old right hand dominant man who presents to discuss his bilateral hand numbness. He complains of numbness in both of his hands, in the median nerve distribution. He says his right hand is worse, and only completed a NCS for his right side. He says his right hand numbness is constant, and his left is intermittent but daily He has wrist braces he wears at night, without relief. He also complains of painful stiffness in his right hand, primarily in the thumb & middle finger. He says this primarily occurs overnight and patient access coordinator, saying he wakes up with his fingers stuck and he has to manually extend them with his other hand. 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 [facility] Medical History ACTH elevation Degenerative arthritis of thoracic spine Essential hypertension GERD (gastroesophageal reflux disease) History of hyperprolactinemia Hyperthyroidism Hypovitaminosis D Low TSH level Obesity GARRET on CPAP Palpitations Polyarthralgia Shortness of breath Surgical History H/O umbilical hernia repair Family History Mother Heart problem Father Stroke Social History (Reviewed 03/04/23 @ 11:45 by Ama Harrington [facility]) Housing: House Alcohol intake: current Alcohol intake frequency: holidays/special occasions only Patient Tobacco Use Status: Former Tobacco user Tobacco use type: Cigarette e-Cigarette/Vaping Use: Never Used Second Hand Smoke Exposure: No Advance Directives Date on File: 02/18/20 service: No Current occupational status: employed 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 Current occupational exposures/hazards: No Cognitive needs: No Hearing needs: No Vision needs: No Review of Systems Const All systems reviewed & are unremarkable except as noted in HPI and below Physical Exam Vital Signs: BMI result Body Mass Index 32.8 Const General: cooperative, healthy appearing and no acute distress Orientation/consciousness: patient oriented x3 HEENT Head: Yes normocephalic and Yes atraumatic Eyes EOM: EOMs intact bilaterally Resp Effort & Inspection: normal respiratory effort and able to speak in complete sentences Cardio Jugular venous distension: no JVD Skin General skin exam: turgor normal Rashes: no rashes Neuro General: patient oriented x3 Extrem Other: Evaluation of Bilateral Upper Extremity: The patient is alert, oriented, and in no acute distress Neuro: Dense numbness in the median nerve distribution of the right hand. Normal sensation in the median nerve distribution of the left hand Normal sensation in the ulnar nerve distribution bilaterally No thenar or intrinsic wasting Good APB muscle belly firing and good finger cross Vascular: Cap refill brisk ROM: He can make a fist and extend all his digits He has some stiffness in the right middle finger PIP joint This improved after working on ROM exercises in clinic No locking or catching Skin: No lacerations or abrasions. General: No Ecchymosis. No Erythema or evidence of infection. Nerve Conduction Study: Moderately severe right carpal tunnel syndrome Dr. Mercer 11/14/22 Psych Appearance: grossly normal Affect: normal affect Attitude: cooperative Assessment & Plan Assessment & Plan (1) Carpal tunnel syndrome of right wrist: Code(s): G56.01 - Carpal tunnel syndrome, right upper limb (2) Numbness of left hand: Code(s): R20.0 - Anesthesia of skin (3) Polyarthralgia: Code(s): M25.50 - Pain in unspecified joint (4) Stiffness of right hand joint: Code(s): M25.641 - Stiffness of right hand, not elsewhere classified (5) Osteoarthritis of right hand: Code(s): M19.041 - Primary osteoarthritis, right hand Plan Assessment & Plan: 1. Right carpal tunnel syndrome, moderate-severe With dense numbness 2. left Carpal tunnel syndrome, based on PE and history Symptoms intermittent, but daily, worse at night I educated him about this condition I discussed operative and non-operative treatment options The patient would like to proceed with surgery The risks and benefits of operative treatment were discussed with the patient and the patient wishes to proceed with surgery. These risks include, but are not limited to risk of damage to blood vessels, nerves, tendons, infection, recurrence, incomplete relief of preoperative symptoms, persistent pain, possi ble need for further surgery and the risks associated with regional blocks and anesthesia. The plan is to take the patient to the operating room sometime in the next few weeks for the following procedures: 1. Right carpal tunnel release, under local All of the preoperative paperwork including the consent was filled out today. All the patient's questions were answered. The patient understands that they will be contacted by our surgery assistant soon to schedule this procedure He denies Diabetes, blood thinners, asthma, heart, lung, kidney issues 3. Right hand osteoarthritis 4. Right hand stiffness I educated him about this condition I discussed activity modification, he is to limit or avoid any heavy or repetitive pinching or gripping activities He should work on gentle ROM exercises daily to improve his stiffness He should consider using gadgets or assistive tools to assist him with daily activities. Scribed for Ольга Jackson MD by Baldo Mock, special forces medical sergeant, on [ ] at [ ], EST. Coding Level of Care Code New Pt Level 4 (84474) Diagnoses Carpal tunnel syndrome of right wrist G56.01 Numbness of left hand R20.0 Polyarthralgia M25.50 Stiffness of right hand joint M25.641 Osteoarthritis of right hand M19.041
[2023-03-04 11:46] VITALS: BMI 32.8
== END 2023-03-04 11:55 | disposition home or self-care (01) ==
PROVIDERS: PCP Internal Medicine; Visit Provider Orthopaedic Surgery
DX: G56.01 Carpal tunnel syndrome, right upper limb (principal); R20.0 Anesthesia of skin; M25.50 Pain in unspecified joint; M25.641 Stiffness of right hand, not elsewhere classified; M19.041 Primary osteoarthritis, right hand
CPT/HCPCS: 99204

== ENCOUNTER → 2023-03-04 11:02 | Outpatient (BNVA) | payer OTHER, SELFPAY | PROVIDERS: PCP Internal Medicine; Visit Provider Orthopaedic Surgery ==

== ENCOUNTER 2023-03-14 13:03 | Outpatient (AMB) | payer OTHER, SELFPAY ==
--- NOTE | 2023-03-14 13:09 | MHC.OFFVIS ---
Intake Intake Visit Reasons: 1Y PSA/Testo(set) Intake Note: Patient is Present for Follow Up Urology Medication: Tadalafil Antibiotic Allergies: None Blood Thinners: None Pharmacy: [facility] Allergies No Known Allergies [No Known Allergies*] Allergy (Verified 03/14/23 13:12) Medication List - Last Reconciled 03/14/23 by Justice Tran MD atorvastatin 20 mg PO BEDTIME 90 days cholecalciferol (vitamin D3) 25 mcg PO DAILY 90 days losartan 25 mg PO DAILY 90 days omeprazole 20 mg PO DAILY 90 days tadalafil 20 mg PO ONCE PRN 30 days triamcinolone acetonide 0.1% 1 appl topical DAILY 30 days [wrist splint for right hand. wear nightly & as much as possible throughout the day] HPI HPI Comments History of Present Illness Details Mikey BATISTA is a very pleasant Bulgarian male They are a patient of Dr. Lundy They are seen in the office today for the following urologic conditions - hypogonadism - lower urinary tract symptoms - erectile dysfunction Bulgarian translation provided in office by qualified biomedical engineering internship Low normal testosterone Some urinary urge Drinks 3 coffees a day Recommend decrease Continue with terazosin Does respond to 20 mg on demand tadalafil Twelve month follow-up Erectile dysfunction Effective results with 20 mg on demand tadalafil Lower Urinary Tract Symptoms: Nocturia x2 Current visit is for further evaluation of, lower urinary tract symptoms, predominate irritative symptoms, Current treatment includes alpha eric, terazosin. Prostate Symptom Score Moderate (9-19), Bother 3. Symptoms include 10/17 , incomplete emptying, urgency, weak stream, and are stable. Prior Prostate Score moderate. Testing at next visit will include bladder scan. Hypogonadism: Borderline He presents today for evaluated with endocrinology Had over-response with T in 2018 1cc q 2wk IM. Initial symptoms include erectile dysfunction Yes decreased libido Yes change in mood/depression Yes in muscle size/strength Yes increased fatigue/malaise Yes Associate conditions include obstructive sleep apnea Yes Laboratory investigations - 06/08 testosterone 220, PSA 1.2, 12/07 320 P 1.2, 12/08 330 P 1.3 PFSH Medical History ACTH elevation Degenerative arthritis of thoracic spine History of hyperprolactinemia Hyperthyroidism Low TSH level GERD (gastroesophageal reflux disease) Hypovitaminosis D Shortness of breath GARRET on CPAP Palpitations Polyarthralgia Obesity Essential hypertension Surgical History H/O umbilical hernia repair Family History Mother Heart problem Father Stroke Social History Housing: House Alcohol intake: current Alcohol intake frequency: holidays/special occasions only Patient Tobacco Use Status: Former Tobacco user Tobacco use type: Cigarette e-Cigarette/Vaping Use: Never Used Second Hand Smoke Exposure: No Advance Directives Date on File: 02/18/20 service: No Current occupational status: employed 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 Current occupational exposures/hazards: No Cognitive needs: No Hearing needs: No Vision needs: No Review of Systems Const Denies chills and Denies fever(s) Card Reports no additional complaints and Denies syncope Resp Denies cough GI Denies abdominal pain and Denies heartburn Reports as per HPI and Denies change in libido Neuro Denies syncope Psych Denies change in libido Endo Denies change in libido Physical Exam Const General: cooperative, healthy appearing, comfortable and no acute distress Orientation/consciousness: patient oriented x3 HEENT Face and sinus: Yes normal facial exam Mouth: moist mucous membranes Neck Neck: Yes normal visual inspection, Yes full ROM and Yes trachea midline Chest Chest palpation & inspection: normal inspection of the chest Resp Effort & Inspection: normal respiratory effort, able to speak in complete sentences and no respiratory distress GI Inspection: Yes normal to inspection Back/Spine/Pelvis Cervical Spine: normal cervical lordosis Thoracic/Lumbar Spine: thoracic and lumbar spine normal to inspection Skin General skin exam: no rashes or lesions noted Neuro General: patient oriented x3, gait normal, tone normal and moves all extremities Extrem General: Yes normal to inspection and Yes capillary refill normal Assessment & Plan Assessment & Plan (1) Hypogonadism in male: Code(s): E29.1 - Testicular hypofunction (2) Erectile dysfunction due to arterial insufficiency: Code(s): N52.01 - Erectile dysfunction due to arterial insufficiency (3) Nocturia more than twice per night: Code(s): R35.1 - Nocturia Plan Twelve month follow-up Orders: Orders Testosterone, Free/Total 364 Days E29.1 - Testicular hypofunction, R68.82 - Decreased libido Prostate Specific Antigen 364 Days E29.1 - Testicular hypofunction Medications: New terazosin 5 mg PO BEDTIME 90 caps 1RF 90 days E29.1 - Testicular hypofunction, N40.1 - Benign prostatic hyperplasia with lower urinary tract symptoms, R35.0 - Frequency of micturition Refilled tadalafil [facility]IN [facility] DR33 [id number] 20 mg PO ONCE PRN 30 tabs 4RF sexual activity 30 days N52.01 - Erectile dysfunction due to arterial insufficiency Patient Instructions: Imaging studies, laboratory and physical exam results were discussed and reviewed in detail. No major barriers to patient understanding were identified. An opportunity to ask questions regarding the treatment plan was provided. All questions were answered. The patient expressed understanding and agreement with the above treatment plan. The patient is aware they should contact our office by phone for worsening of their current condition or the appearance of new urologic symptoms. Compliance is encouraged with any medications and followup testing that is ordered. It is a privilege to participate in the urologic care of your patient. If you have any questions or concerns regarding treatment for the above conditions, or other urologic issues, please do not hesitate to contact me. The office telephone contact is [phone]. This note is constructed using voice recognition software. While every effort has been made to ensure accuracy wafer abrading machine tender errors may have been included. Yours sincerely, Dr Justice Tran MD, [facility] - Urology Providers of Expert, Compassionate Care for the Genitourinary System Coding Level of Care Code Est Pt Level 4 (71899) Diagnoses Hypogonadism in male E29.1 Erectile dysfunction due to arterial insufficiency N52.01 Nocturia more than twice per night R35.1
== END 2023-03-14 13:34 | disposition home or self-care (01) ==
PROVIDERS: PCP Internal Medicine; Visit Provider Urology
DX: E29.1 Testicular hypofunction (principal); N52.01 Erectile dysfunction due to arterial insufficiency; R35.1 Nocturia
CPT/HCPCS: 99214

== ENCOUNTER → 2023-03-14 13:03 | Outpatient (BNVA) | payer OTHER, SELFPAY | PROVIDERS: PCP Internal Medicine; Visit Provider Urology ==

== ENCOUNTER 2023-04-01 08:20 | Outpatient (AMB) | payer OTHER, SELFPAY ==
[2023-04-01 08:21] VITALS: BP 152/88; PULSE 76; O2SAT 97; BMI 33.4
--- NOTE | 2023-04-01 08:21 | A.OFFPC_ITS ---
Vital Signs 04/01/23 08:21 04/01/23 08:50 Height 6 ft Weight 246 lb BMI 33.4 BP 152/88 H 150/80 H Blood Pressure Location Lt brachial Lt brachial Position Sitting Sitting Pulse 76 Pulse Source Pulse Oximeter Pulse Oximetry (%) 97 Oxygen Delivery Method Room Air Intake Visit Reasons: Annual Exam Intake Note: Patient here for an annual physical exam Embroidery Assistant Required: No Accompanied by: Self / Same As Patient Allergies No Known Allergies [No Known Allergies*] Allergy (Verified 04/01/23 08:36) Medication List - Last Reconciled 04/01/23 by Florina Martinez MD atorvastatin 20 mg PO BEDTIME 90 days cholecalciferol (vitamin D3) 25 mcg PO DAILY 90 days losartan 25 mg PO DAILY 90 days omeprazole 20 mg PO DAILY 90 days tadalafil 20 mg PO ONCE PRN 30 days terazosin 5 mg PO BEDTIME 90 days triamcinolone acetonide 0.1% 1 appl topical DAILY 30 days [wrist splint for right hand. wear nightly & as much as possible throughout the day] Tobacco use date assessed: 09/12/22 Dental Screening Dental Screen Date: 04/01/23 Did you have a dental visit in the last 12 months?: Yes Did you have a dental problem in the last 6 months where you did not have access to dental care?: No Was dental information given to patient?: Patient has dentist HPI HPI Comments History of Present Illness Details This is a 62-year-old male that comes for his physical exam. Last colonoscopy was over 10 years ago as per patient in [place] and was normal. Complains of heartburn that is relieved by PPIs. No chest pain or shortness of breath. Blood pressure elevated and he ran out of losartan for a few weeks now. Blood pressure will be recheck in 3 weeks by nurse navigator. Losartan was refilled today. [facility] Medical History ACTH elevation Degenerative arthritis of thoracic spine History of hyperprolactinemia Hyperthyroidism Low TSH level GERD (gastroesophageal reflux disease) Hypovitaminosis D Shortness of breath GARRET on CPAP Palpitations Polyarthralgia Obesity Essential hypertension Surgical History H/O umbilical hernia repair Family History Mother Heart problem Father Stroke Social History Housing: House Alcohol intake: current Alcohol intake frequency: holidays/special occasions only Patient Tobacco Use Status: Former Tobacco user Tobacco use type: Cigarette e-Cigarette/Vaping Use: Never Used Second Hand Smoke Exposure: No Advance Directives Date on File: 02/18/20 service: No Current occupational status: employed 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 Shimon Kennedy, Hilda De Jesus, Ta De La Garza and colleagues, with an educational quita from [employer]. Review of Systems Const All systems reviewed & are unremarkable except as noted in HPI and below Eyes Reports no additional complaints, Denies change in vision and Denies other visual disturbances Card Denies chest pain at rest, Denies chest pain with activity, Denies edema, Denies irregular heart rhythm, Denies claudication, Denies dyspnea, Denies dyspnea on exertion, Denies orthopnea, Denies paroxysmal nocturnal dyspnea and Denies slow heart rate Resp Denies cough, Denies dyspnea and Denies dyspnea on exertion GI Denies abdominal pain, Denies change in bowel habits, Denies excessive flatus, Denies nausea and Denies vomiting Denies urinary hesitancy, Denies urinary incontinence and Denies urinary urgency Musc Denies abnormal gait, Denies atrophy, Denies deformity and Denies limited range of motion Skin/Breast Denies bleeding lesions, Denies changing lesions and Denies rash Neuro Denies abnormal gait and Denies lack of coordination Physical exam (Primary Care) Vital Signs: Last Vital Signs Pulse 76 04/01/23 08:21 BP 152/88 H 04/01/23 08:21 Pulse Ox 97 04/01/23 08:21 Oxygen Delivery Method Room Air 04/01/23 08:21 BMI result Body Mass Index 33.4 Tobacco/Smoking Status: Tobacco use Status Tobacco use date assessed 09/12/22 04/01/23 08:26 Patient Tobacco Use Status Former Tobacco user 04/01/23 08:26 Tobacco use type Cigarette 04/01/23 08:26 e-Cigarette/Vaping Use Never Used 04/01/23 08:26 Thrive Assessment: Date of Thrive Assessment Date Thrive assessed 09/12/22 04/01/23 08:26 Const Orientation/consciousness: patient oriented x3 HENMT Head: Yes normal to inspection, Yes normocephalic and Yes atraumatic Ears: external ears normal Eyes General: appearance normal, both eyes and all related structures Eyelids: Yes eyelids normal Conjunctivae: conjunctivae normal Neck Neck: Yes normal visual inspection and Yes supple Resp Effort & Inspection: normal respiratory effort Auscultation: clear to auscultation bilaterally Cardio Jugular venous distension: no JVD Rate: regular rate Rhythm: regular rhythm Heart sounds: S1 normal heart sound present and S2 normal heart sound present GI Inspection: Yes normal to inspection Palpation (GI): Soft to palpation and nontender Auscultation: normal bowel sounds Skin General skin exam: no rashes or lesions noted Neuro General: patient oriented x3 and no focal motor deficits Extrem General: Yes full ROM Psych Appearance: grossly normal Office Procedures Flu Questionnaire Does the patient have a severe egg allergy?: No Immunizations flu vacc [id number] 6mos up(PF) 60 mcg(15 mcgx4)/0.5 mL IM syringe Performing Provider: Florina Martinez MD [facility] Documented (not given) by: DAVID Coronel on 04/01/23 08:27 Reason Not Given: Patient Refused Assessment and Plan Assessment & Plan (1) Physical exam: Code(s): Z00.00 - Encounter for general adult medical examination without abnormal findings Plan: Repeat in a year. Orders: Orders Influenza [id number] Immunization Today Z23 - Encounter for immunization Lipid Panel Today E78.5 - Hyperlipidemia, unspecified Thyroid Stimulating Hormone Today R79.89 - Other specified abnormal findings of blood chemistry Comprehensive [place]. Panel Fast Today Z00.00 - Encounter for general adult medical examination without abnormal findings Vitamin D 25-OH Total Today E55.9 - Vitamin D deficiency, unspecified [place] upper GI series Today K21.9 - Gastro-esophageal reflux disease without esophagitis Free T4 (Free Thyroxine) Today R79.89 - Other specified abnormal findings of blood chemistry Referrals Open Access Screening Colonoscopy Referral Z12.11 - Encounter for screening for malignant neoplasm of colon Medications: Refilled losartan 25 mg PO DAILY 90 tabs 3RF 90 days I10 - Essential (primary) hypertension omeprazole 20 mg PO DAILY 90 caps 1RF 90 days K21.9 - Gastro-esophageal reflux disease without esophagitis Coding Level of Care Code Est Pt Prev Care 40-64y(52649) Diagnoses Physical exam Z00.00 Time Spent (min) 31
[2023-04-01 08:50] VITALS: BP 150/80
== END 2023-04-01 08:54 | disposition home or self-care (01) ==
LOC: HO.HMGH 08:20
PROVIDERS: PCP Internal Medicine; Visit Provider Internal Medicine
DX: Z00.00 Encounter for general adult medical examination without abnormal findings (principal)
CPT/HCPCS: 99396

== ENCOUNTER → 2023-05-20 12:31 | Outpatient (BNVA) | payer OTHER, SELFPAY | PROVIDERS: PCP Internal Medicine; Visit Provider Orthopaedic Surgery ==

== ENCOUNTER 2023-05-26 12:57 | Day surgery (SDC) | payer OTHER, SELFPAY ==
[2023-05-26 13:31] VITALS: BMI 33.3
[2023-05-26 13:36] VITALS: BP 119/61; PULSE 78; RESP 16; TEMP 36.4; O2SAT 93
--- NOTE | 2023-05-26 14:24 | MHC.SHP ---
Pre-Procedural Eval Section A Date of Service: 05/26/23 The patient is an INPATIENT: No Changes since office visit: No Cold of Flu in the past 2 weeks, No New Medical Problems, No Changes in Medication and No Patient answered all questions The History & Physical has been completed within 30 days and I have reviewed it.: Yes Section B Chief Complaint: Carpal tunnel syndrome, right upper limb Allergies: Allergies Allergy/AdvReac Type Severity Reaction Status Date / Time No Known Allergies Allergy Verified 05/26/23 13:31 [No Known Allergies*] Plan I have reviewed the history and physical and performed a pertinent physical examination on my patient. No changes have occurred unless specified. Time Spent With Patient Time: Total time managing care of this patient today ____ minutes.
--- NOTE | 2023-05-26 14:30 | PC.NURSE ---
Care transitioned to [facility] PACU.
--- NOTE | 2023-07-16 13:46 | W.PM.OPN ---
Operative Note Operative Note Date of Service: 07/16/23 Narrative: Preop diagnosis: 1. Right Carpal tunnel syndrome Postop diagnosis: same Procedure: 1. Right Carpal tunnel release Surgeon: Ольга Jackson MD Anesthesia: local block using 1% lidocaine with epinephrine Findings: Thickened transverse carpal ligament. EBL: Less than 5 mL Specimens: None Complications: None Disposition: Brought to recovery room in stable condition Plan: Follow-up for 10-14 days for wound check and suture removal Indications: The patient is 62 years old, with right carpal tunnel syndrome that has been unresponsive to nonoperative management. The risks and benefits of operative treatment including but not limited to risk of damage to blood vessels, nerves, tendons, infection, persistent pain, persistent symptoms, or possible need for additional surgery were discussed with the patient and the patient wishes to proceed with surgery. Procedure: Once consent was obtained a local block was performed using a combination of 1% lidocaine with epinephrine. The patient was then brought back to the operating suite and placed on the operative table in supine position. The right upper extremity was prepped and draped in a standard surgical fashion. Once assured that we had a good block, a 2.0 cm longitudinal incision was made centered over the carpal tunnel. The incision was made through the skin to the subcutaneous tissues using a #15 blade. Dissection was made down to the level of the transverse carpal ligament with care being taken to protect the palmar cutaneous nerve. Once the transverse carpal ligament was clearly visualized, a longitudinal incision was made in the transverse carpal ligament 1st using a #15 blade, then using tenotomy scissors under direct visualization. Care was taken to look for and protect the motor branch of the median nerve when seen in this area. Once satisfied with our carpal tunnel release the wound was copiously irrigated with normal saline and hemostasis was obtained with a brief period of local pressure. The skin edges were reapproximated with some 5.0 nylon suture material and a sterile dressing was applied. The patient appears to have tolerated the procedure well and with no complications. All digits were well vascularized at the conclusion of the case.
== END 2023-05-26 16:07 | disposition home or self-care (01) ==
PROVIDERS: PCP Internal Medicine; Visit Provider Orthopaedic Surgery
PROC: (CPT 64721; principal; 2023-05-26 14:10)
DX: G56.01 Carpal tunnel syndrome, right upper limb (principal); R20.0 Anesthesia of skin; M25.641 Stiffness of right hand, not elsewhere classified; M19.041 Primary osteoarthritis, right hand; I10 Essential (primary) hypertension; E27.0 Other adrenocortical overactivity; E55.9 Vitamin D deficiency, unspecified; G47.33 Obstructive sleep apnea (adult) (pediatric); M47.814 Spondylosis without myelopathy or radiculopathy, thoracic region; Z99.89 Dependence on other enabling machines and devices; Z79.899 Other long term (current) drug therapy; Z87.891 Personal history of nicotine dependence
CPT/HCPCS: 64721; J0171

== ENCOUNTER → 2023-05-26 12:57 | Outpatient (BNV) | payer OTHER, SELFPAY | PROVIDERS: PCP Internal Medicine; Visit Provider Orthopaedic Surgery | DX: G56.01 Carpal tunnel syndrome, right upper limb (principal) | CPT/HCPCS: 64721 ==

== ENCOUNTER 2023-06-11 14:21 | Outpatient (AMB) | payer OTHER, SELFPAY ==
--- NOTE | 2023-06-11 14:26 | A.OFFVIS_ITS ---
Intake Vital Signs 06/11/23 14:33 Height 6 ft Weight 245 lb BMI 33.2 Intake Visit Reasons: PO RT CTR 05/26/23AR Intake Note: Ramiro a 62 year old male presents today for a post operative right CTR on 05/26/23 AR. Patient reports he is doing well, however he has discomfort with making a fist. Allergies No Known Allergies [No Known Allergies*] Allergy (Verified 06/11/23 14:34) HPI PO RT CTR 05/26/23AR HPI Details 62-year-old male who returns to the [facility] today with an seismic interpreter for post-op right CTR, 05/26/[address] Jackson. He continues to have numbness in his right wrist as well as discomfort with making a fist. He is doing well otherwise and has no other concerns today. [facility] Medical History ACTH elevation Degenerative arthritis of thoracic spine History of hyperprolactinemia Hyperthyroidism Low TSH level GERD (gastroesophageal reflux disease) Hypovitaminosis D Shortness of breath GARRET on CPAP Palpitations Polyarthralgia Obesity Essential hypertension Surgical History H/O umbilical hernia repair Family History Mother Heart problem Father Stroke Social History Housing: House Alcohol intake: current Alcohol intake frequency: holidays/special occasions only Patient Tobacco Use Status: Former Tobacco user Tobacco use type: Cigarette e-Cigarette/Vaping Use: Never Used Second Hand Smoke Exposure: No Advance Directives Date on File: 02/18/20 service: No Current occupational status: employed 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 No erythema or drainage. NVI. Assessment & Plan Assessment & Plan (1) Carpal tunnel syndrome of right wrist: Code(s): G56.01 - Carpal tunnel syndrome, right upper limb Plan Sutures removed today, steri strips applied. He will continue working on ROM and unix systems administrator strengthening. I did put in an order for occupational therapy in the office today. He will see us back as symptoms arise, otherwise as needed. Orders: Orders OT Evaluation and Treatment 06/11/23 G56.01 - Carpal tunnel syndrome, right upper limb Patient Instructions: Scribed for Phil Hogan PA-C, by Declan Garcia medical technical writer, on 06/11/2023 at 2:30 PM EST. I, Phil Hogan PA-C, have personally reviewed and agree with the information entered by the scribe. Coding Level of Care Code Global (85444) Diagnoses Carpal tunnel syndrome of right wrist G56.01
[2023-06-11 14:33] VITALS: BMI 33.2
== END 2023-06-11 14:48 | disposition home or self-care (01) ==
PROVIDERS: PCP Internal Medicine; Visit Provider Physician Assistant
DX: G56.01 Carpal tunnel syndrome, right upper limb (principal)
CPT/HCPCS: 99024

== ENCOUNTER → 2023-06-11 14:21 | Outpatient (BNVA) | payer OTHER, SELFPAY | PROVIDERS: PCP Internal Medicine; Visit Provider Physician Assistant ==

== ENCOUNTER 2023-06-20 10:06 | Outpatient (REF) | payer OTHER, SELFPAY ==
--- NOTE | ~2023-06-20 | FL_ITS ---
EXAMINATION: XR FLUOROSCOPY UPPER GI WITH AIR CLINICAL INFORMATION: Dysphagia. Reflux. COMPARISON: Barium swallow 07/29/2018 TECHNIQUE: Fluoroscopic air contrast upper GI examination was performed utilizing standard techniques with thin and thick barium and effervescent granules. Numerous spot images were obtained. FINDINGS: Lateral cine images of the oropharynx and hypopharynx demonstrate normal swallow mechanism with normal epiglottic inversion and soft palate elevation. There is trace laryngeal penetration with thick barium. No tracheal penetration, glottic or subglottic aspiration identified. No nasopharyngeal reflux present. Hypopharyngeal structures appear normal without evidence of mass or diverticulum. There was no significant cricopharyngeal achalasia. Dual and single contrast images of the esophagus demonstrate normal caliber, contour, and mucosal pattern. No evidence of stricture, mass, or ulcerations identified. Primary Esophageal peristalsis was normal. There are mild disorganized tertiary contractions noted in the distal esophagus. A small type I hiatal hernia is present. Gastroesophageal reflux is seen up to the thoracic inlet. Dual contrast and single contrast images of the stomach demonstrated normal contour and mucosal pattern without evidence of mass, ulceration, or other abnormality. Contrast freely passed into the gastric antrum and duodenal bulb without delay. Single and air-contrast images of the duodenal bulb demonstrate no abnormality. The duodenal sweep has a normal appearance, course, and mucosal fold appearance. No malrotation. The imaged proximal jejunum has a normal fold pattern and caliber. FLUOROSCOPY TIME: 3 minutes 13 seconds Number of Spot Images: 9 Number of Cine: 12 DOSE AREA PRODUCT: 2416 uGy-m2 (microgray-meter squared) FL/FL upper GI series IMPRESSION: 1. Trace laryngeal penetration with thick barium 2. Mildly disorganized esophageal peristalsis 3. Small type I hiatal hernia 4. Significant gastroesophageal reflux This procedure was performed by Oscar Lee PA-C, and supervised by Dr. Mansfield
== END 2023-06-20 10:07 | disposition home or self-care (01) ==
LOC: HO.XRAY 10:06
PROVIDERS: PCP Internal Medicine; Visit Provider Internal Medicine
DX: K21.9 Gastro-esophageal reflux disease without esophagitis (principal)
CPT/HCPCS: 74240

== ENCOUNTER → 2023-06-20 10:08 | Outpatient (BNV) | payer OTHER, SELFPAY | PROVIDERS: PCP Internal Medicine; Visit Provider Radiology Diagnostic Radiology | DX: K21.9 Gastro-esophageal reflux disease without esophagitis (principal); R13.10 Dysphagia, unspecified | CPT/HCPCS: 74246 ==

== ENCOUNTER 2023-07-28 09:00 | Outpatient (RCR) | payer OTHER, SELFPAY ==
--- NOTE | 2023-06-17 08:53 | MHC.OT.OEV ---
[address] [phone] F: [phone] Occupational Therapy Evaluation Patient Name: Ramiro Coleman Diagnosis: post (R)CTR on 05/26/2023 Date of Onset: Date of Surgery: 05/26/23 Attending Provider: Phil Hogan Prescribed Treatment: MD Follow Up Appointment: History of Current Condition: Patient a 62 year old right hand dominate male who presents s/p operative right CTR on 05/26/23, referred by SONNY Andrews for strengthening and ROM. 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/IADLs Living Situation, Family and/or Social Support: Lives with in apartment on the 1st floor with 3 NIRAV Current Level of Function and Occupation Self Care, Employment, Leisure: Currently out on medical leave, will return to work in about 4 weeks assists with IADLs mod (A)IADLs Sleep: (I) Driving: Vision: Balance: Pain Assessment Pain Score: 6 Pain Scale Used: Numeric (0 - 10) Pain Location and Description: volar hand to forearm Aggravating Factors: movement, heavy lifting Alleviating Factors: Ibuprofen Skin and Soft Tissue Assessment Skin and Soft Tissue: Scar Tissue Comments: scare on volar wrist, no sign/symptom of infection Nerve assessment Ulnar Nerve: Median Nerve: Right Impaired Radial Nerve: Comments: Patient reports mild pins and needles in finger tips Sensory Assessment Temperature: WFL Light Touch: WFL Proprioception: WFL Vibration: Comments: Monofilament Test Edema Assessment Upper Extremity: WNL Lower Extremity: Comments: Dexterity Assessment Dexterity: B/L Impaired Comments: Finger opposition minimally impaired Functional Dexterity Test: (R) 34.19 seconds (L) 31.08 seconds Special Tests Comments: AROM(PROM) Strength Cervical Cervical Flexion: Cervical Extension: Cervical Lateral Flexion: Cervical Rotation: Comments: Shoulder Flexion: Extension: Abduction: Internal Rotation: External Rotation: Comments: WFL Flexion: Extension: Abduction: Internal Rotation: External Rotation: Comments: WFL Elbow Flexion: Extension: Pronation: Supination: Comments: WFL Flexion: Extension: Pronation: Supination: Comments: WFL Wrist Flexion: (R)75 Extension: (R)35 Ulnar Deviation: Radial Deviation: Comments: Flexion: Extension: Ulnar Deviation: Radial Deviation: Comments: not tested Thumb Thumb CMC Flexion: Thumb MCP Flexion: Thumb IP Flexion: Radial Abduction: Palmar Abduction: Bertram (Kapandji 0-10): Comments: WFL Digits Index MCP: PIP: DIP: Long MCP: PIP: DIP: Ring MCP: PIP: DIP: Small MCP: PIP: DIP: Comments: WFL Gross Grasp: Lateral Pinch: Two-Point Pinch: Three-Jaw Alec: Comments: (R) not tested (L) 83.3 lbs. submaximal effort Patient Education Primary Language: Storage Center Manager Required: Yes Current Knowledge: Understands information with skills for self-management Teaching Method: Demonstration Handouts Verbal Education Needs Identified on Evaluation: ADL's Exercise Pain How did patient/family demonstrate learning? Patient demonstrates Barriers to Learning: None Readiness for Learning: Accepting Who was educated? 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 Patient reports he lives with his in an apartment on the 1 floor. 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 He reports his has 0/10 pain at rest and 6/10 pain during movement, at times he has pins an needles in his finger types. His (R) litigator strength was not tested due to surgical precaution. (R)wrist ROM measurements are as follows: 75* flexion, 35* extension. Quick DASH score= 63.3 indicating patient's perceived impairment of upper extremity during self care tasks. Functional Dexterity Test= (R) 34.19 seconds, (L) 31.08 second indicating impairment. Based on initial evaluation patient's current level of function is min (A) ADLs as patient presents with impaired functional activity tolerance as patient reports 6/10 pain, impaired strength, impaired ROM and impaired performance during self care tasks. Due to the documented impairments it is recommended that patient receive skilled OT in order for patient to achieve his PLOF. Thank you for your referral. STG Duration: 2 weeks Short Term Goals: Patient will increase wrist ROM by 10* in order to perform ADLs (I) Patient will report decreased pain to 5/10 Patient will be (I) with scare massage LTG Duration: 4 weeks Custodial Goals: Patient will have wrist ROM WFL for (I) performance of ADLS Patient will report 0/10 pain Patient will be (I) with HEP Frequency and Duration: The patient will be seen 2x a week for 4 weeks Treatment Plan: Therapeutic Exercise Therapeutic Activity Home Exercise Program Patient Education Edema Control ADL Training Ultrasound Kinesiotaping OT eval and teat Electronically Signed By: Marychuy Rm Reviewed/agree with student documentation: Therapist: Please sign and return to therapist, Thank you for your referral.
--- NOTE | 2023-07-28 11:54 | MHC.OT.DC ---
[address] [phone] F: [phone] Occupational Therapy Discharge Note Patient Name: Ramiro Coleman Provider: Phil Hogan Diagnosis: post (R)CTR on 05/26/2023 Date of Surgery: 05/26/23 Date of Evaluation: 06/16/23 Date of Discharge: Treatments to Date: 8 Cancellations to Date: 1 No Shows to Date: Discharge Status: Achieved Goals Improved Function Independent with HEP Discharge Summary: Patient is discharged from skilled occupational therapy as he has achieved all of his ST and LTGs. Patient reports 0/10 pain in (R)wrist, has full range of motion of the wrist and (I) with his HEP and scar massage. He reports pain and stiffness of the fingers when he wakes and will contact his PCP about having a referral sent for OA of the hands. Thank you for your referral, patient was a pleasure to work with. Electronically Signed By: Marychuy Rm Reviewed/agree with student documentation: Therapist: Please Sign and return to therapist, thank you for your referral.
== END 2023-07-28 11:54 | disposition home or self-care (01) ==
LOC: HO.OT 09:00
PROVIDERS: PCP Internal Medicine; Visit Provider Physician Assistant
DX: G56.01 Carpal tunnel syndrome, right upper limb (principal)
CPT/HCPCS: 97110; 97140; 97166

== ENCOUNTER 2023-08-25 07:17 | Outpatient (REF) | payer OTHER, SELFPAY ==
[2023-08-25 08:45] LABS: Alanine Aminotransferase 23 U/L (0-40); Albumin Level 3.9 g/dL (3.5-5.0); Alkaline Phosphatase 66 U/L (39-117); Anion Gap 8 (12-20); Aspartate Amino Transferase 16 U/L (5-37); Bilirubin Total 0.3 mg/dL (0.0-1.0); Blood Urea Nitrogen 13 mg/dL (9-16); Carbon Dioxide 28 mmol/L (22-29); Chloride 106 mmol/L (96-108); Cholesterol 205 mg/dL (<200); Estimated Glomerular Filt Rate > 60; Glucose Fasting 92 mg/dL (60-99); HDL Cholesterol 30 mg/dL (>40); LDL Cholesterol Calculated 144 mg/dL (<100); Potassium 3.7 mmol/L (3.3-5.1); Sodium 138 mmol/L (135-145); Total Protein 8.7 g/dL (6.5-8.0); Triglycerides 159 mg/dL (<150)
[2023-08-25 09:00] LABS: Free T4 (Free Thyroxine) 0.98 ng/dL (0.71-1.85); Thyroid Stimulating Hormone 0.92 uIU/mL (0.32-4.0); Vitamin D 25-OH Total 19.9 ng/mL (>30)
== END 2023-08-25 07:18 | disposition home or self-care (01) ==
LOC: HO.LAB 07:17
PROVIDERS: PCP Internal Medicine; Visit Provider Internal Medicine
DX: Z00.00 Encounter for general adult medical examination without abnormal findings (principal); E55.9 Vitamin D deficiency, unspecified; R79.89 Other specified abnormal findings of blood chemistry; E78.5 Hyperlipidemia, unspecified
CPT/HCPCS: 36415; 80053; 80061; 82306; 84439; 84443

== ENCOUNTER 2023-09-01 07:59 | Outpatient (AMB) | payer OTHER, SELFPAY ==
--- NOTE | 2023-09-01 08:09 | A.OFFPC_ITS ---
Vital Signs 09/01/23 08:10 Height 6 ft Weight 246 lb BMI 33.4 BP 132/86 Blood Pressure Location Lt brachial Position Sitting Intake Visit Reasons: 5M Follow up, Lipids Intake Note: Patient here for a 5 month follow up lipids, c/o bilateral hand pain, unable to make fist in the mornings, frequent headaches Insurance Legal Assistant Required: No Accompanied by: Self / Same As Patient Allergies No Known Allergies [No Known Allergies*] Allergy (Verified 09/01/23 08:22) Medication List - Last Reconciled 09/01/23 by Florina Martinez MD atorvastatin 20 mg PO BEDTIME 90 days cholecalciferol (vitamin D3) 25 mcg PO DAILY 90 days losartan 25 mg PO DAILY 90 days omeprazole 20 mg PO DAILY 90 days tadalafil 20 mg PO ONCE PRN 30 days terazosin 5 mg PO BEDTIME 90 days triamcinolone acetonide 0.1% 1 appl topical DAILY 30 days [wrist splint for right hand. wear nightly & as much as possible throughout the day] Tobacco use date assessed: 09/01/23 Dental Screening Dental Screen Date: 09/01/23 Did you have a dental visit in the last 12 months?: Yes Did you have a dental problem in the last 6 months where you did not have access to dental care?: No Was dental information given to patient?: Patient has dentist HPI HPI Comments History of Present Illness Details This is a 63-year-old male with pure hypercholesterolemia and GERD that complains of bilateral hand pain secondary to osteoarthritis making him not able to make a fist at a.m. for about 30 minutes. Will be referred to occupational therapy. He also complains of headaches that happens either in parietal area or occipital area that happens almost every day and an MRI will be order. No neurological deficit associated with it. He also has occasional dizziness and I will start him on meclizine as needed. Has an elevated total protein and protein electrophoresis was ordered. Cholesterol well controlled with statins. On PPIs for GERD in which upper GI series shows severe GERD and this is follow by Gastroenterology which has an appointment next month. [facility] Medical History (Updated 09/01/23 @ 08:57 by Florina Martinez MD) ACTH elevation Degenerative arthritis of thoracic spine History of hyperprolactinemia Hyperthyroidism Low TSH level GERD (gastroesophageal reflux disease) Hypovitaminosis D Shortness of breath GARRET on CPAP Palpitations Polyarthralgia Obesity Essential hypertension Surgical History Carpal tunnel syndrome of right wrist H/O umbilical hernia repair Family History Mother Heart problem Father Stroke Social History Housing: House Alcohol intake: current Alcohol intake frequency: holidays/special occasions only Patient Tobacco Use Status: Former Tobacco user Tobacco use type: Cigarette e-Cigarette/Vaping Use: Never Used Second Hand Smoke Exposure: No Advance Directives Date on File: 02/18/20 service: No Current occupational status: employed 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 1. Little interest or pleasure in doing things: not at all 2. Feeling down, depressed, or hopeless: not at all 3. Trouble falling or staying asleep, or sleeping too much: not at all 4. Feeling tired or having little energy: not at all 5. Poor appetite or overeating: not at all 6. Feeling bad about yourself - or that you are a failure or have let yourself or your family down: not at all 7. Trouble concentrating on things, such as reading the newspaper or watching television: not at all 8. Moving or speaking so slowly that other people could have noticed. Or the opposite - being so fidgety or restless that you have been moving around a lot more than usual: not at all 9. Thoughts that you would be better off or of hurting yourself in some way: not at all Total score: 0 Depression Screening Interpretation: Negative Depression Screening Done: Yes 42647 - PHQ-9 Billing: Yes Source: Developed by Drs. Shimon Kennedy, Hilda De Jesus, Ta De La Garza and colleagues, with an educational quita from [employer]. Thrive Questionnaire Date Thrive assessed: 09/01/23 I am a: Patient What is your living situation today?: I have a steady place to live Within the past 12 months, did the food you bought not last and you didn't have the money to get more?: Never true Within the past 12 months, did you worry whether your food would run out before you got money to buy more?: Never true Do you have trouble paying for medicines?: No Do you have trouble getting transportation to medical appointments?: No Do you have trouble paying your heating and electricity bill?: No Do you have trouble taking care of your child, family member or friend?: No Do you have trouble with day-to-day activities such as bathing, preparing meals, shopping, managing finances, etc.?: No Are you currently unemployed and looking for a job?: No Are you interested in more education?: No Please select the resources that you would like help with: None Currently or been in a relationship where the following occur: no concerns reported THRIVE Score: 0 AUDIT C Alcohol Use Questionnaire (AUDIT-C) 1. How often do you have a drink containing alcohol?: Never Total Score: 0 ORIANA-7 AMB Questionnaire ORIANA-7 Date ORIANA - 7 assessed: 09/01/23 Feeling nervous, anxious, or on edge: 0 = Not at all Not being able to stop or control worryin = Not at all Worrying too much about different things: 0 = Not at all Trouble relaxin = Not at all Being so restless that it is hard to sit still: 0 = Not at all Becoming easily annoyed or irritable: 0 = Not at all Feeling afraid as if something awful might happen: 0 = Not at all Total ORIANA-7 score (0-4 normal; 5-9 mild; 10-14 moderate; 15-21 severe): 0 Source: Developed by Drs. Shimon Kennedy, Hilda De Jesus, Ta De La Garza and colleagues, with an educational quita from [employer]. Review of Systems Const All systems reviewed & are unremarkable except as noted in HPI and below Eyes Reports no additional complaints, Denies change in vision and Denies other visual disturbances Musc Reports arthralgias Skin/Breast Denies bleeding lesions, Denies changing lesions and Denies rash Neuro Denies lack of coordination Physical exam (Primary Care) Vital Signs: Last Vital Signs BP 132/86 09/01/23 08:10 BMI result Body Mass Index 33.4 Tobacco/Smoking Status: Tobacco use Status Tobacco use date assessed 09/01/23 09/01/23 08:18 Patient Tobacco Use Status Former Tobacco user 09/01/23 08:18 Tobacco use type Cigarette 09/01/23 08:18 e-Cigarette/Vaping Use Never Used 09/01/23 08:18 PHQ-9: PHQ-9 Score PHQ-9: Total score 0 09/01/23 08:24 Depression Screening Interpretation: Negative Thrive Assessment: Date of Thrive Assessment Date Thrive assessed 09/01/23 09/01/23 08:18 Currently or been in a relationship where the following occur: no concerns reported Resp Effort & Inspection: normal respiratory effort Auscultation: clear to auscultation bilaterally Cardio Jugular venous distension: no JVD Rate: regular rate Rhythm: regular rhythm Heart sounds: S1 normal heart sound present and S2 normal heart sound present Extrem General: Yes full ROM Assessment and Plan Assessment & Plan (1) Pure hypercholesterolemia: Code(s): E78.00 - Pure hypercholesterolemia, unspecified Plan: Continue statins. (2) Osteoarthritis of right hand: Code(s): M19.041 - Primary osteoarthritis, right hand Plan: X-ray of the hand order. Referred to occupational therapy. (3) Left hand pain: Code(s): M79.642 - Pain in left hand Plan: X-ray of the hand ordered. Referred to occupational therapy. (4) Persistent headaches: Code(s): R51.9 - Headache, unspecified Plan: MRI of the brain ordered. (5) Elevated total protein: Code(s): R77.8 - Other specified abnormalities of plasma proteins Plan: Protein electrophoresis order. (6) Dizziness: Code(s): R42 - Dizziness and giddiness Plan: Start meclizine as needed. (7) GERD (gastroesophageal reflux disease): Code(s): K21.9 - Gastro-esophageal reflux disease without esophagitis Qualifiers: Esophagitis presence: esophagitis presence not specified Qualified Code(s): K21.9 - Gastro-esophageal reflux disease without esophagitis Plan: Follow-up with Gastroenterology. Continue PPIs. Orders: Orders XR hand RT 2V Today M19.041 - Primary osteoarthritis, right hand MR head/brain wo con Today R51.9 - Headache, unspecified Protein Electrophoresis, Serum Today R77.8 - Other specified abnormalities of plasma proteins XR hand LT 2V Today M79.642 - Pain in left hand OT Evaluation and Treatment Today M19.041 - Primary osteoarthritis, right hand, M79.642 - Pain in left hand Medications: New meclizine 25 mg PO BID 7 days PRN 14 tabs 1RF dizziness Changed From omeprazole 20 mg PO DAILY 90 days 90 caps 1RF K21.9 - Gastro-esophageal reflux disease without esophagitis To omeprazole 20 mg PO DAILY 30 days 30 caps 6RF K21.9 - Gastro-esophageal reflux disease without esophagitis Refilled triamcinolone acetonide 0.1% 1 appl topical DAILY 30 days 30 grams 3RF cholecalciferol (vitamin D3) 25 mcg PO DAILY 90 days 90 caps 1RF E55.9 - Vitamin D deficiency, unspecified Coding Level of Care Code Est Pt Level 4 (99231) Diagnoses Pure hypercholesterolemia E78.00 Osteoarthritis of right hand M19.041 Left hand pain M79.642 Persistent headaches R51.9 Elevated total protein R77.8 Dizziness R42 Gastroesophageal reflux disease, unspecified whether esophagitis present K21.9 Esophagitis presence: esophagitis presence not specified Time Spent (min) 23
[2023-09-01 08:10] VITALS: BP 132/86; BMI 33.4
== END 2023-09-01 08:33 | disposition home or self-care (01) ==
PROVIDERS: PCP Internal Medicine; Visit Provider Internal Medicine
DX: E78.00 Pure hypercholesterolemia, unspecified (principal); M19.041 Primary osteoarthritis, right hand; M79.642 Pain in left hand; R51.9 Headache, unspecified; R77.8 Other specified abnormalities of plasma proteins; R42 Dizziness and giddiness; K21.9 Gastro-esophageal reflux disease without esophagitis
CPT/HCPCS: 99214

== ENCOUNTER 2023-09-02 07:45 | Outpatient (REF) | payer OTHER, SELFPAY ==
--- NOTE | ~2023-09-02 | XR_ITS ---
EXAMINATION: X-RAYS BILATERAL HANDS CLINICAL INFORMATION: Primary osteoarthritis right hand. Pain in left hand. COMPARISON: 09/08/2020 TECHNIQUE: 3 views of each hand. FINDINGS: Left hand: Redemonstration of flexion positioning of the distal phalanx of the second digit with degenerative changes. Mild degenerative changes in the third DIP joint. Right hand: Redemonstration of old healed fracture of the fourth metacarpal shaft. Redemonstration of multiple punctate densities in the soft tissues in this region suggesting metallic foreign bodies. 5 mm cyst redemonstrated at the base of the third middle phalanx. Mild degenerative changes first carpometacarpal joint and in second and fifth DIP joints. XR/XR hand RT 2V IMPRESSION: 1. Redemonstration of old healed fracture of the right fourth metacarpal shaft with multiple punctate densities in the soft tissues in this region suggesting metallic foreign bodies. 2. Redemonstration of flexion positioning of the distal phalanx of the left second digit with degenerative changes. 3. Mild degenerative changes in bilateral hands as detailed above.
--- NOTE | ~2023-09-02 | XR_ITS ---
EXAMINATION: X-RAYS BILATERAL HANDS CLINICAL INFORMATION: Primary osteoarthritis right hand. Pain in left hand. COMPARISON: 09/08/2020 TECHNIQUE: 3 views of each hand. FINDINGS: Left hand: Redemonstration of flexion positioning of the distal phalanx of the second digit with degenerative changes. Mild degenerative changes in the third DIP joint. Right hand: Redemonstration of old healed fracture of the fourth metacarpal shaft. Redemonstration of multiple punctate densities in the soft tissues in this region suggesting metallic foreign bodies. 5 mm cyst redemonstrated at the base of the third middle phalanx. Mild degenerative changes first carpometacarpal joint and in second and fifth DIP joints. XR/XR hand LT 2V IMPRESSION: 1. Redemonstration of old healed fracture of the right fourth metacarpal shaft with multiple punctate densities in the soft tissues in this region suggesting metallic foreign bodies. 2. Redemonstration of flexion positioning of the distal phalanx of the left second digit with degenerative changes. 3. Mild degenerative changes in bilateral hands as detailed above.
[2023-09-03 21:29] LABS: Prot Elec - Albumin 4.3 g/dL (3.8-4.8); Prot Elec - Alpha1 0.2 g/dL (0.2-0.3); Prot Elec - Alpha2 0.6 g/dL (0.5-0.9); Prot Elec - Beta 1 0.4 g/dL (0.4-0.6); Prot Elec - Beta 2 0.4 g/dL (0.2-0.5); Prot Elec - Gamma 2.7 g/dL (0.8-1.7); Prot Elec - Total Protein 8.6 g/dL (6.1-8.1)
== END 2023-09-02 07:46 | disposition home or self-care (01) ==
LOC: HO.LAB 07:45
PROVIDERS: PCP Internal Medicine; Visit Provider Internal Medicine
DX: M19.041 Primary osteoarthritis, right hand (principal); R77.8 Other specified abnormalities of plasma proteins; M79.642 Pain in left hand
CPT/HCPCS: 36415; 73120; 84165

== ENCOUNTER 2023-09-12 10:22 | Outpatient (REF) | payer OTHER, SELFPAY ==
--- NOTE | ~2023-09-12 | MR_ITS ---
EXAMINATION: MR BRAIN WITHOUT CONTRAST CLINICAL INFORMATION: Headache COMPARISON: MR brain 05/25/2019 TECHNIQUE: MRI of the brain was obtained using routine sequences without contrast. FINDINGS: There is no reduced diffusion to suggest acute infarct. Susceptibility weighted sequence is within normal limits. No mass effect, extra-axial collection, midline shift, or other herniation. Stable mild flattening of the pituitary gland. Mild generalized volume loss with associated ventricular and sulcal prominence. Scattered periventricular and subcortical T2/FLAIR hyperintense foci are nonspecific but likely represent chronic microvascular ischemic change. Intracranial flow voids are preserved. Moderate mucosal thickening in the ethmoid air cells with additional scattered paranasal sinus because of thickening. Right maxillary sinus mucus retention cyst/polyp. Large left greater the right mastoid effusions. MR/MR head/brain wo con IMPRESSION: No acute infarction or mass effect. Mild chronic microvascular ischemic change. Large left greater than right mastoid effusions.
== END 2023-09-12 10:23 | disposition home or self-care (01) ==
LOC: HO.MRI 10:22
PROVIDERS: PCP Internal Medicine; Visit Provider Internal Medicine
DX: R51.9 Headache, unspecified (principal)
CPT/HCPCS: 70551

== ENCOUNTER 2023-09-17 10:00 | Outpatient (AMB) | payer OTHER, SELFPAY ==
[2023-09-17 10:04] VITALS: BP 137/69; PULSE 80; BMI 33.8
--- NOTE | 2023-09-17 10:04 | A.OFFVIS_ITS ---
Vital Signs 3 09/17/23 10:04 Height 6 ft Weight 248 lb 14.43 oz BMI 33.8 BP 137/69 Blood Pressure Location Lt brachial Position Sitting Pulse 80 Intake Visit Reasons: Colonoscopy Screening Intake Note: Patient presents as a new patient in office today for colonoscopy screening. CC: Patient last colonoscopy in 2009 per PT. He reports nausea, acid reflux, heartburn, and abdominal cramps sometimes. 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 He is referred by Florina Kincaid of [facility] [place] [facility]. PMX GARRET Hypertension High cholesterol Hyperthyroidism Persistent headaches Degenerative disc disease of the thoracic spine Polyarthralgia BPH Erectile dysfunction GERD Carpal tunnel syndrome of the wrist Nephrolithiasis History of H pylori infection-treated with quadruple therapy patient failed to do test for eradication -2018 * SURGICAL HISTORY Carpal tunnel release right hand Umbilical hernia repair Lithotripsy * ALLERGIES: NKDA * [place] LABS: Laboratory Tests 09/14/22 08/25/23 08:20 07:26 WBC 5.0 Hgb 14.6 Hct 43.3 Plt Count 247 Estimated GFR > 60 Total Bilirubin 0.3 AST 16 ALT 23 Alkaline Phosphatase 66 TODAY'S VISIT He has had a prior colonoscopy and it was in [place] and was negative. (he works in [employer]!) He has occasional CIC skipping a day of BM and when he pushes he will have some RLQ cramping. He has dysphagia in the oropharyngeal phase and recent barium swallow showed disorganized esophageal peristalsis. He had an EGD for this in 2019. There are no prior problems with anesthesia or sedation. He has Garret and denies any cardiac problems NO ID problems. There is no known FHX of crc or polyps. [facility] Medical History Physical exam ACTH elevation Degenerative arthritis of thoracic spine History of hyperprolactinemia Hyperthyroidism Low TSH level GERD (gastroesophageal reflux disease) Hypovitaminosis D Shortness of breath GARRET on CPAP Palpitations Polyarthralgia Obesity Essential hypertension Surgical History H/O colonoscopy H/O lithotripsy Carpal tunnel syndrome of right wrist H/O umbilical hernia repair Family History Mother Heart problem Father Stroke Social History Housing: House Alcohol intake: current Alcohol intake frequency: holidays/special occasions only Patient Tobacco Use Status: Former Tobacco user Tobacco use type: Cigarette e-Cigarette/Vaping Use: Never Used Second Hand Smoke Exposure: No Advance Directives Date on File: 02/18/20 service: No Current occupational status: employed 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 Current occupational exposures/hazards: No Cognitive needs: No Hearing needs: No Vision needs: No Review of Systems Const Denies fatigue, Denies fever(s), Denies night sweats, Denies poor appetite and Denies weight loss ENT Reports Normal hearing present, Denies dental pain, Reports dysphagia, Denies hearing loss, Denies mouth pain, Denies odynophagia, Denies throat swelling, Denies tongue swelling and Reports other (Dentition adequate) Card Reports no additional complaints Resp Reports no additional complaints GI Details: Denies abdominal pain, Denies melena, Denies bloating, Denies hematochezia, Reports constipation, Denies GI cramping, Reports dysphagia, Denies excessive flatus, Denies early satiety, Reports heartburn, Denies diarrhea, Denies nausea, Denies odynophagia, Denies vomiting and Denies hematemesis Skin/Breast Denies pruritus, Denies lesions, Denies rash and Denies jaundice Neuro Reports Normal hearing present and Denies Abnormal speech present Endo Denies fatigue Aller/Immun Denies throat swelling and Denies tongue swelling Physical Exam Vital Signs: Last Vital Signs Pulse 80 09/17/23 10:04 BP 137/69 09/17/23 10:04 BMI result Body Mass Index 33.8 Const General: cooperative, no acute distress, well developed and well groomed Nutritional Appearance: average body habitus and well nourished Orientation/consciousness: oriented to person, oriented to place and oriented to time Limitations: language barrier HEENT Head: Yes normocephalic and Yes atraumatic Eyes General: appearance normal, both eyes and all related structures Pupils: Equal, round and reactive pupils present Neck Neck: Yes normal visual inspection and Yes no lymphadenopathy Thyroid: Thyroid normal Resp Effort & Inspection: normal respiratory effort and able to speak in complete sentences Auscultation: clear to auscultation bilaterally Cardio Rate: regular rate Rhythm: regular rhythm Heart sounds: Normal, physiologic split S2 sound present Peripheral pulses: radial pulses present and posterior tibial pulses present GI Inspection: No distended, No Abdominal panniculus present and Yes scar Palpation (GI): Soft to palpation, nontender, no guarding, not rigid and No hepatosplenomegaly present Percussion: Yes normal to percussion Auscultation: normal bowel sounds Rectal Exam - Male: Yes deferred Abdomen image: 2 1. surgical scar Skin General skin exam: no rashes or lesions noted, turgor normal, skin not dry, no jaundice, No spider nevi and no striae Rashes: no rashes Nails: normal Neuro General: oriented to person, oriented to place and oriented to time Cranial nerves: Yes Equal, round and reactive pupils present and Yes Normal hearing present Speech: No Abnormal speech present Extrem General: Yes normal to inspection, No clubbing, No cyanosis and No edema Psych Appearance: grossly normal and well kempt Mental Status: mental status grossly normal Speech and movement: Normal speech and movement present Affect: normal affect Attitude: cooperative Thought process: Normal thought process present and not confabulating Thought content: Normal thought content present Insight: Limited insight present (Psych) Judgement: Limited judgement present (Psych) Assessment & Plan Assessment & Plan (1) Pre-op examination: Code(s): Z01.818 - Encounter for other preprocedural examination Category: Medical (2) GERD (gastroesophageal reflux disease): Code(s): K21.9 - Gastro-esophageal reflux disease without esophagitis Category: Medical Qualifiers: Esophagitis presence: esophagitis presence not specified Qualified Code(s): K21.9 - Gastro-esophageal reflux disease without esophagitis (3) GARRET on CPAP: Code(s): G47.33 - Obstructive sleep apnea (adult) (pediatric); Z99.89 - Dependence on other enabling machines and devices Category: Medical Plan He has had a prior colonoscopy and it was in [facility] and was negative. (he works in [employer]!) He has occasional CIC skipping a day of BM and when he pushes he will have some RLQ cramping. He has dysphagia in the oropharyngeal phase and recent barium swallow showed disorganized esophageal peristalsis. He had an EGD for this in 2019. There are no prior problems with anesthesia or sedation. He has Garret and denies any cardiac problems NO ID problems. There is no known FHX of crc or polyps. Orders: Orders 2 Colonoscopy - GI Use Only Today Medications: New 2 sod sulf-pot chloride-mag sulf 1.479-0.188- 0.225 gram (Sutab) PO PER PKG DIR for colonoscopy prep 24 tabs 0RF Coding Level of Care Code New Pt Level 3 (68927) Diagnoses Pre-op examination Z01.818 Gastroesophageal reflux disease, unspecified whether esophagitis present K21.9 Esophagitis presence: esophagitis presence not specified GARRET on CPAP G47.33; Z99.89
== END 2023-09-17 10:45 | disposition home or self-care (01) ==
PROVIDERS: PCP Internal Medicine; Visit Provider Nurse Practitioner
DX: Z01.818 Encounter for other preprocedural examination (principal); Z12.11 Encounter for screening for malignant neoplasm of colon; K21.9 Gastro-esophageal reflux disease without esophagitis; K59.04 Chronic idiopathic constipation; G47.33 Obstructive sleep apnea (adult) (pediatric); Z99.89 Dependence on other enabling machines and devices
CPT/HCPCS: S0285

== ENCOUNTER → 2023-09-17 10:00 | Outpatient (BNVA) | payer OTHER, SELFPAY | PROVIDERS: PCP Internal Medicine; Visit Provider Nurse Practitioner ==

== ENCOUNTER → 2023-09-22 07:52 | Outpatient (BNV) | payer OTHER, SELFPAY | PROVIDERS: PCP Internal Medicine; Visit Provider Internal Medicine Medical Oncology | DX: D47.2 Monoclonal gammopathy (principal) | CPT/HCPCS: 99204; 99213 ==

== ENCOUNTER 2023-10-08 12:38 | Outpatient (AMB) | payer OTHER, SELFPAY ==
[2023-10-08 12:48] VITALS: BMI 33.6
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
== END 2023-10-08 13:25 | disposition home or self-care (01) ==
PROVIDERS: PCP Internal Medicine; Visit Provider Orthopaedic Surgery
DX: M79.641 Pain in right hand (principal); M25.641 Stiffness of right hand, not elsewhere classified; M19.041 Primary osteoarthritis, right hand; G56.01 Carpal tunnel syndrome, right upper limb; R20.0 Anesthesia of skin; M85.641 Other cyst of bone, right hand
CPT/HCPCS: 99213

== ENCOUNTER → 2023-10-08 12:38 | Outpatient (BNVA) | payer OTHER, SELFPAY | PROVIDERS: PCP Internal Medicine; Visit Provider Orthopaedic Surgery ==

== ENCOUNTER 2023-10-15 12:38 | Emergency (ER) | payer OTHER, SELFPAY ==
--- NOTE | 2023-10-15 12:41 | ED_ITS ---
HPI - General Adult General Chief complaint: Skin/Abscess/Foreign Body Stated complaint: Rash? Time Seen by Provider: 10/15/23 12:41 Source: patient and parts interpreter (all interactions with this patient were facilitated via an [facility] [place] interpreter/translator) Mode of arrival: ambulatory Limitations: language barrier (all interactions with this patient were facilitated via an [facility] [place] interpreter/translator) History of Present Illness ED Provider: Nancy Rebolledo PA-C HPI narrative: Patient is a 63 year old assigned male at with a history of GERD, HTN, hyperthyroidism, and GARRET presenting to the emergency department today with a left chest wall abscess. Patient states that he has been having this mass to the left side of his chest for over a week. Patient denies any dizziness, lightheadedness, abdominal pain, nausea, vomiting, fever, chills, blurry vision, double vision, loss of vision, chest pain, difficulty breathing, shortness of breath, back pain, night sweats, pain with urination, increased urinary frequency, increased urinary urgency, blood in his urine or stool, syncope or a near syncopal episode, recent trauma or falls, bowel incontinence, bladder incontinence, bowel retention, bladder retention, or any other complaints at this time. Onset (ago): week(s) Location: chest and left Radiation: non-radiation Severity: mild Severity scale (1-10): 3 Relieving factors: none Exacerbating factors: none Associated symptoms: denies other symptoms Treatments prior to arrival: none Related Data Previous Rx's ?Medication ?Instructions ?Recorded atorvastatin 20 mg tablet 20 mg PO BEDTIME 90 days #90 tabs 09/15/22 wrist splint #1 ea 01/08/23 tadalafil 20 mg tablet 20 mg PO ONCE PRN sexual activity 03/14/23 30 days #30 tabs losartan 25 mg tablet 25 mg PO DAILY 90 days #90 tabs 04/01/23 cholecalciferol (vitamin D3) 25 25 mcg PO DAILY 90 days #90 caps 09/01/23 mcg (1,000 unit) capsule meclizine 25 mg tablet 25 mg PO BID PRN dizziness 7 days 09/01/23 #14 tabs omeprazole 20 mg capsule,delayed 20 mg PO DAILY 30 days #30 caps 09/01/23 release triamcinolone acetonide 0.1 % 1 appl topical DAILY 30 days #30 09/01/23 topical cream grams sodium sul 1.479 gram-potas ch See Rx Instructions PO PER PKG DIR 09/17/23 0.188 gram-magnes sul 0.225 gram #24 tabs tablet (Sutab) cephalexin 500 mg capsule 500 mg PO Q6H 7 days #28 caps 10/15/23 Allergies Allergy/AdvReac Type Severity Reaction Status Date / Time No Known Allergies Allergy Verified 10/15/23 13:11 [No Known Allergies*] Review of Systems 2 Constitutional: Constitutional: Reports no additional constitutional complaints, Denies chills, Denies fever(s) and Denies night sweats Eyes: Eyes: Reports no additional eye complaints, Denies blurry vision, Denies change in vision, Denies diplopia, Denies eye discharge, Denies loss of vision and Denies eye pain ENT: Denies dizziness Cardiovascular: Cardiovascular: Reports no additional cardiovascular complaints, Denies chest pain, Denies lightheadedness, Denies Loss of Consciousness and Denies dyspnea Respiratory: Respiratory: Reports no additional respiratory complaints and Denies dyspnea Gastrointestinal: Gastrointestinal: Reports no additional gastrointestinal complaints, Denies abdominal pain, Denies melena, Denies hematochezia, Denies change in bowel habits and Denies change in stool character Genitourinary: Genitourinary: Reports no additional male genitourinary complaints, Denies hematuria, Denies oliguria, Denies difficulty urinating, Denies dysuria, Denies urinary frequency, Denies urinary hesitancy, Denies urinary incontinence and Denies urinary urgency Musculoskeletal: Musculoskeletal: Reports no additional musculoskeletal complaints, Denies numbness and Denies tingling Comments: left chest abscess Neurologic: Denies dizziness, Denies loss of vision, Denies numbness and Denies tingling Psychiatric: Psychiatric: Reports no additional psychiatric complaints Endocrine: Endocrine: Reports no additional endocrine complaints Hematologic/Lymphatic: Hematologic/Lymphatic: Reports no additional hematologic/lymphatic complaints Allergic/Immunologic: Allergic/Immunologic: Reports no additional allergic/immunologic complaints PMFSH Past Medical History Attestation statement: The following information was validated with the patient. Source: old records reviewed and nursing notes reviewed Medical History Physical exam ACTH elevation Degenerative arthritis of thoracic spine History of hyperprolactinemia Hyperthyroidism Low TSH level GERD (gastroesophageal reflux disease) Hypovitaminosis D Shortness of breath GARRET on CPAP Palpitations Polyarthralgia Obesity Essential hypertension Surgical History H/O colonoscopy H/O lithotripsy Carpal tunnel syndrome of right wrist H/O umbilical hernia repair Family History Family History Mother Heart problem Father Stroke Social History Social History Housing: House Alcohol intake: current Alcohol intake frequency: holidays/special occasions only Patient Tobacco Use Status: Former Tobacco user Tobacco use type: Cigarette e-Cigarette/Vaping Use: Never Used Second Hand Smoke Exposure: No Advance Directives: Yes Advance Directives on File: Yes Advance Directives Date on File: 02/18/20 service: No Current occupational status: employed 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 Current occupational exposures/hazards: No Cognitive needs: No Hearing needs: No Vision needs: No Physical Exam ED Const General: cooperative, no acute distress, alert and awake Nutritional Appearance: well nourished Orientation/consciousness: patient oriented x3 Limitations: no limitations HENMT Head: Yes normal to inspection and Yes atraumatic Ears: hearing grossly normal bilaterally and external ears normal General nose exam: Normal external nose present, no nasal discharge noted and no epistaxis Face and sinus: Yes normal facial exam, No abrasion and No laceration Mouth: Normal oral and palatal mucosa present, no drooling and no muffled voice Eyes General: appearance normal, both eyes and all related structures Periorbital: periorbital findings normal Eyelids: Yes eyelids normal Conjunctivae: conjunctivae normal Pupils: Equal, round and reactive pupils present EOM: EOMs intact bilaterally Neck Neck: Yes normal visual inspection, Yes full ROM and Yes no lymphadenopathy Chest Chest/axillae images: 2 1. large indurated area with a fluctuant center, erythematous, and warm to the touch Resp Effort & Inspection: normal respiratory effort and able to speak in complete sentences GI Inspection: Yes normal to inspection Neuro General: patient oriented x3 and moves all extremities Cranial nerves: Yes Equal, round and reactive pupils present Cognition (Neuro): normal cognition Motor exam (neuro): 5/5 motor strength present throughout Sensory Exam: Normal double simultaneous stimulation for sensation Coordination: [id number] test normal Extrem General: Yes normal to inspection, Yes full ROM and Yes capillary refill normal Psych Appearance: grossly normal Mental Status: mental status grossly normal Affect: normal affect Attitude: cooperative Thought process: Normal thought process present Thought content: Normal thought content present Insight: Good insight present (Psych) Procedures Abscess I/D Site: chest Side (if applicable): left Local Anesthetic: lidocaine 1% Amount of anesthesia used (mL): 5 Technique: incised with blade Amount of fluid expressed (mL): 15 Sent for culture/gram staining?: No Irrigation: No Packing used?: none Medical Decision Making Medical Decision Making MDM Narrative: Patient is a 63 year old assigned male at with a history of GERD, HTN, hyperthyroidism, and GARRET presenting to the emergency department today with a left chest wall abscess. Patient's physical exam was as noted in the physical exam portion of this note. I explained my physical exam findings to the patient. I answered all questions asked by the patient. Patient's abscess was incised and drained however, the purulent discharge had multiple areas of loculation. I consulted with general surgery who agreed to see him in the office, tomorrow. Patient's I&D site was bandaged. I stressed the importance of the patient taking his medication as prescribed. I stressed the importance of the patient following up with his primary care provider and the general surgeon. I stressed the importance of the patient returning to the emergency department immediately if his symptoms were to worsen or if he were to develop any dizziness, shortness of breath, difficulty breathing, chest pain, blurry vision, loss of vision, nausea, vomiting, abdominal pain, fever, chills, back pain, or any other complaints. Patient verbalized agreement and understanding with this treatment plan and discharge. Differential Diagnosis Differential Diagnoses: The differential diagnosis associated with the presentation includes Chest wall abscess Abscess Admission/Observation Consideration of admission/observation: Escalation of care including admission/observation considered Patient would have been admitted to the hospital had his clinical presentation warranted hospital admission. Consult Healthcare Provider Management of the patient was discussed with: Intelligence Senior Sergeant (consulted the general surgery team as noted in the MDM Rationale portion of this note.) Prescription Management I considered prescription management with: Antibiotic (patient prescribed an antibiotic given clinical presentation) Chronic Conditions Patient?s care impacted by: Hypertension Critical Care Time Critical Care Time Critical Care Time: Yes Total Critical Care Time: 38 Attestation: I spent 38 minutes of Critical Care Time with this patient. This does not include time spent on separately reported billable procedures. Discharge Plan Discharge Clinical Impression: Chest wall abscess Patient Disposition: Home, Self-Care Instructions: Abscess (ED), Abscess Incision and Drainage (DC) Additional Instructions: Call today to schedule an appointment with Dr. Rodriguez tomorrow in the office. Be sure to tell them that you were in seen in the emergency department and the surgeon has requested to see you tomorrow. Take your antibiotic as prescribed. Follow up with your primary care provider. Return to the emergency department immediately if your symptoms worsen or if you develop any dizziness, shortness of breath, difficulty breathing, chest pain, blurry vision, loss of vision, nausea, vomiting, abdominal pain, fever, chills, back pain, or any other complaints. Prescriptions: New cephalexin 500 mg capsule 500 mg PO Q6H 7 Days Qty: 28 0RF No Action atorvastatin 20 mg tablet 20 mg PO BEDTIME 90 Days Qty: 90 3RF losartan 25 mg tablet 25 mg PO DAILY 90 Days Qty: 90 3RF triamcinolone acetonide 0.1 % cream 1 appl topical DAILY 30 Days Qty: 30 3RF cholecalciferol (vitamin D3) 25 mcg (1,000 unit) capsule 25 mcg PO DAILY 90 Days Qty: 90 1RF omeprazole 20 mg capsule,delayed release(DR/EC) 20 mg PO DAILY 30 Days Qty: 30 6RF meclizine 25 mg tablet 25 mg PO BID PRN (Reason: dizziness) 7 Days Qty: 14 1RF (DME) wrist splint See Rx Instructions .Route .MEDSUPPLY Qty: 1 0RF Rx Instructions: for right hand. wear nightly & as much as possible throughout the day Sutab 1.479-0.188- 0.225 gram tablet See Rx Instructions PO PER PKG DIR Qty: 24 0RF Rx Instructions: PO PER PKG DIR for colonoscopy prep tadalafil 20 mg tablet 20 mg PO ONCE PRN (Reason: sexual activity) 30 Days Qty: 30 4RF Rx Instructions: [facility] PCN Group [facility] [id number] [place] [facility] [place] Sur[place] [Provider Group] (Call to establish and follow up with Dr. Rodriguez.) Florina Kincaid MD [Primary Care Provider] - Print Language: Latvian
[2023-10-15 13:09] VITALS: BMI 33.6
== END 2023-10-15 14:14 | disposition home or self-care (01) ==
PROVIDERS: Emergency Provider Emergency Medicine; PCP Internal Medicine
DX: L02.213 Cutaneous abscess of chest wall (principal)
CPT/HCPCS: 10060; 99281; 99284

== ENCOUNTER 2023-10-16 12:57 | Outpatient (AMB) | payer OTHER, SELFPAY ==
--- NOTE | 2023-10-16 12:59 | A.OFFVIS_ITS ---
Vital Signs 10/16/23 13:05 Height 6 ft Weight 247 lb BMI 33.5 BP 153/83 H Blood Pressure Location Lt brachial Position Sitting Pulse 79 Intake Visit Reasons: post I&D chest wall abscess Intake Note: Patient is seen in office for ER follow up visit, post I&D of a chest wall abscess. Pt admits to pain, discharge, redness and warm to the touch, is taking antbx Maintenance And Engineering Manager Required: Yes Maintenance And Engineering Manager Language: Slate Worker Name: Mahnaz HERNANDEZ Information Interpreted: non-clinical & clinical Accompanied by: Self / Same As Patient Allergies No Known Allergies [No Known Allergies*] Allergy (Verified 10/15/23 13:11) Medication List - Last Reconciled 10/21/23 by Bartolo Rodriguez MD atorvastatin 20 mg PO BEDTIME 90 days cephalexin 500 mg PO Q6H 7 days cholecalciferol (vitamin D3) 25 mcg PO DAILY 90 days losartan 25 mg PO DAILY 90 days meclizine 25 mg PO BID PRN 7 days omeprazole 20 mg PO DAILY 30 days sod sulf-pot chloride-mag sulf 1.479-0.188- 0.225 gram (Sutab) PO PER PKG DIR for colonoscopy prep tadalafil 20 mg PO ONCE PRN 30 days triamcinolone acetonide 0.1% 1 appl topical DAILY 30 days [wrist splint for right hand. wear nightly & as much as possible throughout the day] HPI Comments Details: 63-year-old male patient returning following recent evaluation in the emergency department yesterday for an abscess of the left chest wall. He reports a painful lump in this location with surrounding area of redness. Evaluation in the emergency department suggested an abscess and he subsequently underwent incision and drainage. Incision did not produce a significant amount of purulent discharge. He was subsequently discharged home and placed on Keflex 500 mg p.o. q.i.d. for 7 days. Since yesterday he reports improvement in the pain and redness. He denies any fever or chills. [facility] Medical History Physical exam ACTH elevation Degenerative arthritis of thoracic spine History of hyperprolactinemia Hyperthyroidism Low TSH level GERD (gastroesophageal reflux disease) Hypovitaminosis D Shortness of breath GARRET on CPAP Palpitations Polyarthralgia Obesity Essential hypertension Surgical History H/O colonoscopy H/O lithotripsy Carpal tunnel syndrome of right wrist H/O umbilical hernia repair Family History Mother Heart problem Father Stroke Social History Housing: House Alcohol intake: current Alcohol intake frequency: holidays/special occasions only Patient Tobacco Use Status: Former Tobacco user Tobacco use type: Cigarette e-Cigarette/Vaping Use: Never Used Second Hand Smoke Exposure: No Advance Directives Date on File: 02/18/20 service: No Current occupational status: employed 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 Current occupational exposures/hazards: No Cognitive needs: No Hearing needs: No Vision needs: No Review of Systems Const All systems reviewed & are unremarkable except as noted in HPI and below Physical Exam Vital Signs: Last Vital Signs Pulse 79 10/16/23 13:05 BP 153/83 H 10/16/23 13:05 BMI result Body Mass Index 33.5 Const General: cooperative and no acute distress Nutritional Appearance: well nourished Orientation/consciousness: patient oriented x3 Limitations: no limitations HEENT Head: Yes normocephalic and Yes atraumatic Ears: hearing grossly normal bilaterally Chest Other: Incision and drainage site at the left upper chest is clean with no purulence and no fluctuance. No evidence of residual abscess. There is a mild area of slight erythema. No further incision and drainage is required at this time. Resp Effort & Inspection: normal respiratory effort, no audible wheezes, no cough and no respiratory distress Cardio Jugular venous distension: no JVD GI Inspection: Yes normal to inspection Skin Other: Warm, dry, no rash Neuro General: patient oriented x3 Extrem General: Yes no clubbing, cyanosis or edema Assessment & Plan Assessment & Plan (1) Chest wall abscess: Code(s): L02.213 - Cutaneous abscess of chest wall Category: Medical Plan 63-year-old male patient returning for ER follow-up after incision and drainage performed yesterday. ED physician was concerned about residual abscess however on examined no residual abscess is identified. Overall the patient is improved following the procedure. He should continue with the antibiotics as prescribed and follow-up in 1 week wound examination. He is welcome to call p.r.n. for any new concerns. Coding Level of Care Code New Pt Level 4 (40509) Diagnoses Chest wall abscess L02.213
[2023-10-16 13:05] VITALS: BP 153/83; PULSE 79; BMI 33.5
== END 2023-10-16 13:13 | disposition home or self-care (01) ==
PROVIDERS: PCP Internal Medicine; Visit Provider Surgery
DX: L02.213 Cutaneous abscess of chest wall (principal)
CPT/HCPCS: 99203

== ENCOUNTER → 2023-10-16 12:57 | Outpatient (BNVA) | payer OTHER, SELFPAY | PROVIDERS: PCP Internal Medicine; Visit Provider Surgery ==

== ENCOUNTER 2023-10-24 11:26 | Outpatient (AMB) | payer OTHER, SELFPAY ==
--- NOTE | 2023-10-24 11:29 | MHC.OFFVIS ---
Intake Visit Reasons: 1 wk follow up post I&D chest wall abscess Intake Note: Patient is seen in office for one week follow up visit, post I&D chest wall abscess. Pt c/o: reports pain, hard lump. Central Office Operator Required: Yes Central Office Operator Language: Pulp Grinder Feeder Name: Stephani Information Interpreted: non-clinical & clinical Accompanied by: Self / Same As Patient Allergies No Known Allergies [No Known Allergies*] Allergy (Verified 10/24/23 11:33) Medication List - Last Reconciled 10/27/23 by Bartolo Rodriguez MD atorvastatin 20 mg PO BEDTIME 90 days cephalexin 500 mg PO Q6H 7 days cholecalciferol (vitamin D3) 25 mcg PO DAILY 90 days losartan 25 mg PO DAILY 90 days meclizine 25 mg PO BID PRN 7 days omeprazole 20 mg PO DAILY 30 days sod sulf-pot chloride-mag sulf 1.479-0.188- 0.225 gram (Sutab) PO PER PKG DIR for colonoscopy prep tadalafil 20 mg PO ONCE PRN 30 days triamcinolone acetonide 0.1% 1 appl topical DAILY 30 days [wrist splint for right hand. wear nightly & as much as possible throughout the day] HPI Comments Details: 63-year-old male patient returning 1 week following incision and drainage of a left chest wall abscess. He continues to have some pain but denies any further discharge. He feels a residual lump similar to the initial lump. He completed antibiotics as recommended. He denies any fever or chills. [facility] Medical History Physical exam ACTH elevation Degenerative arthritis of thoracic spine History of hyperprolactinemia Hyperthyroidism Low TSH level GERD (gastroesophageal reflux disease) Hypovitaminosis D Shortness of breath GARRET on CPAP Palpitations Polyarthralgia Obesity Essential hypertension Surgical History H/O colonoscopy H/O lithotripsy Carpal tunnel syndrome of right wrist H/O umbilical hernia repair Family History Mother Heart problem Father Stroke Social History Housing: House Alcohol intake: current Alcohol intake frequency: holidays/special occasions only Patient Tobacco Use Status: Former Tobacco user Tobacco use type: Cigarette e-Cigarette/Vaping Use: Never Used Second Hand Smoke Exposure: No Advance Directives Date on File: 02/18/20 service: No 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 occupational status: employed 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 No further discharge or fluctuance is appreciated. The overlying erythema has resolved. A residual epidermal inclusion cyst is palpable within the subcutaneous tissue. Chest/axillae images: 1. Site of epidermal inclusion cyst Resp Effort & Inspection: normal respiratory effort, no audible wheezes, no cough and no respiratory distress Cardio Jugular venous distension: no JVD GI Inspection: Yes normal to inspection Skin Other: Warm, dry, no rash Neuro General: patient oriented x3 Extrem General: Yes no clubbing, cyanosis or edema Assessment & Plan Assessment & Plan (1) Chest wall abscess: Code(s): L02.213 - Cutaneous abscess of chest wall Category: Medical Plan 63-year-old male patient returning for ER follow-up after incision and drainage performed last week. He is much improved with decreased erythema and no further fluctuance. I recommended consideration of a wider excision of the epidermal inclusion cyst to help prevent further infections. After discussion of the procedure, risks, and alternatives, he consents to the surgery. He will be scheduled as an office based procedure at his earliest convenience. Coding Level of Care Code Est Pt Level 3 (53544) Diagnoses Chest wall abscess L02.213
== END 2023-10-24 11:37 | disposition home or self-care (01) ==
PROVIDERS: PCP Internal Medicine; Visit Provider Surgery
DX: L02.213 Cutaneous abscess of chest wall (principal)
CPT/HCPCS: 99213

== ENCOUNTER → 2023-10-24 11:26 | Outpatient (BNVA) | payer OTHER, SELFPAY | PROVIDERS: PCP Internal Medicine; Visit Provider Surgery ==

== ENCOUNTER 2023-10-31 08:39 | Outpatient (REF) | payer OTHER, SELFPAY ==
[2023-10-31 10:22] LABS: Appearance Urine Clear; Color Urine Yellow; Glucose Urine UA Negative (Negative); Leukocyte Esterase Urine Negative (Negative); Nitrite Urine Negative (Negative); PH 5.5 (5.0-9.0); Urine Blood Negative (Negative); Urine Ketones Negative (Negative); Urine Protein Negative (Neg-Trace)
[2023-10-31 10:31] LABS: Bacteria Urine None Seen (None Seen); Hyaline Casts Urine 0-2 /LPF (0-2); RBC Urine 0-2 /HPF (0-2); Squamous Epithelial Cell Urine 0-2 /HPF (0-2); WBC Urine 0-5 /HPF (0-5)
== END 2023-10-31 08:40 | disposition home or self-care (01) ==
LOC: HO.LAB 08:39
PROVIDERS: Visit Provider Urology
DX: N40.1 Benign prostatic hyperplasia with lower urinary tract symptoms (principal); N13.8 Other obstructive and reflux uropathy; R35.1 Nocturia
CPT/HCPCS: 81001; 87086

== ENCOUNTER 2023-11-06 08:46 | Outpatient (REF) | payer OTHER, SELFPAY ==
[2023-11-06 10:25] LABS: Appearance Urine Clear; Color Urine Yellow; Glucose Urine UA Negative (Negative); Leukocyte Esterase Urine Negative (Negative); Nitrite Urine Negative (Negative); PH 5.5 (5.0-9.0); Urine Blood Negative (Negative); Urine Ketones Negative (Negative); Urine Protein Negative (Neg-Trace)
[2023-11-06 10:35] LABS: Bacteria Urine None Seen (None Seen); Hyaline Casts Urine 0-2 /LPF (0-2); RBC Urine 0-2 /HPF (0-2); Squamous Epithelial Cell Urine 0-2 /HPF (0-2); WBC Urine 0-5 /HPF (0-5)
== END 2023-11-06 08:47 | disposition home or self-care (01) ==
LOC: HO.LAB 08:46
PROVIDERS: PCP Internal Medicine; Visit Provider Urology
DX: N40.1 Benign prostatic hyperplasia with lower urinary tract symptoms (principal); N13.8 Other obstructive and reflux uropathy; R35.1 Nocturia; L72.0 Epidermal cyst
CPT/HCPCS: 11402; 81001; 87086

== ENCOUNTER 2023-11-06 10:06 | Outpatient (AMB) | payer OTHER, SELFPAY ==
--- NOTE | 2023-11-06 10:16 | A.OFFVIS_ITS ---
Vital Signs 11/06/23 10:20 Height 6 ft Weight 246 lb BMI 33.4 BP 136/76 Blood Pressure Location Lt brachial Position Sitting Pulse 82 Intake Visit Reasons: excision cyst left chest wall Intake Note: Patient is seen in office for office procedure, excision of cyst of the left chest wall. 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: No Accompanied by: Self / Same As Patient Allergies No Known Allergies [No Known Allergies*] Allergy (Verified 11/06/23 10:20) Medication List - Last Reconciled 11/06/23 by Bartolo Rodriguez MD atorvastatin 20 mg PO BEDTIME 90 days cephalexin 500 mg PO Q6H 7 days cholecalciferol (vitamin D3) 25 mcg PO DAILY 90 days losartan 25 mg PO DAILY 90 days meclizine 25 mg PO BID PRN 7 days omeprazole 20 mg PO DAILY 30 days sod sulf-pot chloride-mag sulf 1.479-0.188- 0.225 gram (Sutab) PO PER PKG DIR for colonoscopy prep tadalafil 20 mg PO ONCE PRN 30 days triamcinolone acetonide 0.1% 1 appl topical DAILY 30 days [wrist splint for right hand. wear nightly & as much as possible throughout the day] HPI Comments Details: Patient returns for excision of a previously infected epidermal inclusion cyst of the left chest. [facility] Medical History Physical exam ACTH elevation Degenerative arthritis of thoracic spine History of hyperprolactinemia Hyperthyroidism Low TSH level GERD (gastroesophageal reflux disease) Hypovitaminosis D Shortness of breath GARRET on CPAP Palpitations Polyarthralgia Obesity Essential hypertension Surgical History H/O colonoscopy H/O lithotripsy Carpal tunnel syndrome of right wrist H/O umbilical hernia repair Family History Mother Heart problem Father Stroke Social History Housing: House Alcohol intake: current Alcohol intake frequency: holidays/special occasions only Patient Tobacco Use Status: Former Tobacco user Tobacco use type: Cigarette e-Cigarette/Vaping Use: Never Used Second Hand Smoke Exposure: No Advance Directives Date on File: 02/18/20 service: No Current occupational status: employed 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 Current occupational exposures/hazards: No Cognitive needs: No Hearing needs: No Vision needs: No Office Procedures Excision Details: Preoperative diagnosis: Epidermal inclusion cyst left chest Postoperative diagnosis: Same Procedure: Excision of epidermal inclusion cyst left chest Surgeon: Bartolo Rodriguez MD Fabrication Supervisor: None Anesthesia: Local lidocaine 1% with epinephrine Indications for procedure: 63-year-old male with a previous infected epidermal inclusion cyst of the left chest status post incision and drainage now presenting for excision to prevent further infection Operative findings: 1.5 cm epidermal inclusion cyst left chest Specimen: Epidermal inclusion cyst left chest Estimated blood loss: Less than 2 mL Complications: None Procedure details: Patient was brought to the procedure room and placed in a supine position. The site of surgery was confirmed with the patient in the left chest. After assuring informed consent, the skin was prepped with Betadine and draped in a sterile fashion. Local anesthesia consisting of lidocaine 1% with epinephrine was infiltrated around the cyst. An elliptical incision oriented transversely was then created with a scalpel. This was carried out through subcutaneous tissue and around the cyst wall. The lesion was completely excised and sent to pathology for further examination. Wounds were then irrigated with saline solution and additional local was infiltrated into the subcutaneous tissue. Skin was then closed using interrupted 3-0 nylon sutures. Sterile dressings consisting of 2 x 2 gauze and Tegaderm were then applied. The patient tolerated the procedure well and was discharged in stable condition. 45218-fhcfs/arms/legs 1.1-2cm Procedure code (CPT) selection complete Assessment & Plan Assessment & Plan (1) Epidermal inclusion cyst: Code(s): L72.0 - Epidermal cyst Category: Medical Plan 63-year-old male with a prior history of infected sebaceous cyst of the left chest returning for excision of this previously infected cyst. He tolerated the procedure well and will return in 1 week for suture removal. He should remain out of work today but may return to normal activity tomorrow. Orders: Orders Surgical Today L72.0 - Epidermal cyst Coding Level of Care Code Procedure Only Diagnoses Epidermal inclusion cyst L72.0 CPT Codes Trunk/Arms/Legs - CPT: 83643-hyeif/arms/legs 1.1-2cm ([id number])
[2023-11-06 10:20] VITALS: BP 136/76; PULSE 82; BMI 33.4
== END 2023-11-06 10:42 | disposition home or self-care (01) ==
PROVIDERS: PCP Internal Medicine; Visit Provider Surgery
DX: L72.0 Epidermal cyst (principal)
CPT/HCPCS: 11402

== ENCOUNTER 2023-11-06 10:21 | Outpatient (REF) | payer OTHER, SELFPAY | END 2023-11-06 10:22 | disposition home or self-care (01) | LOC: HO.LNP 10:21 | PROVIDERS: Visit Provider Surgery | DX: L72.0 Epidermal cyst (principal) | CPT/HCPCS: 88304 ==

== ENCOUNTER 2023-11-07 14:59 | Outpatient (AMB) | payer OTHER, SELFPAY ==
--- NOTE | 2023-11-07 15:03 | MHC.OFFVIS ---
Intake Visit Reasons: Urinating issues Intake Note: Pt presents to the office today for urinating issues. Urology Meds: Tadalafil Blood Thinners: None Allergies No Known Allergies [No Known Allergies*] Allergy (Verified 11/07/23 15:03) HPI Comments Details: Mikey BATISTA is a very pleasant Togolese male They are a patient of Dr. Lundy They are seen in the office today for the following urologic conditions - hypogonadism - lower urinary tract symptoms - erectile dysfunction Togolese translation provided in office by qualified medical lab tech instructor Weakness of stream Apparently no longer taking terazosin Restart terazosin Bladder ultrasound Erectile dysfunction Effective results with 20 mg on demand tadalafil Lower Urinary Tract Symptoms: Nocturia x2 Current visit is for further evaluation of, lower urinary tract symptoms, predominate irritative symptoms, Current treatment includes alpha eric, terazosin. Prostate Symptom Score Moderate (9-19), Bother 3. Symptoms include 10/17 , incomplete emptying, urgency, weak stream, and are stable. Prior Prostate Score moderate. Testing at next visit will include bladder scan. Hypogonadism: Borderline He presents today for evaluated with endocrinology Had over-response with T in 2018 1cc q 2wk IM. Initial symptoms include erectile dysfunction Yes decreased libido Yes change in mood/depression Yes in muscle size/strength Yes increased fatigue/malaise Yes Associate conditions include obstructive sleep apnea Yes Laboratory investigations - 06/08 testosterone 220, PSA 1.2, 12/07 320 P 1.2, 12/08 330 P 1.3 PFSH Medical History Physical exam ACTH elevation Degenerative arthritis of thoracic spine History of hyperprolactinemia Hyperthyroidism Low TSH level GERD (gastroesophageal reflux disease) Hypovitaminosis D Shortness of breath GARRET on CPAP Palpitations Polyarthralgia Obesity Essential hypertension Surgical History H/O colonoscopy H/O lithotripsy Carpal tunnel syndrome of right wrist H/O umbilical hernia repair Family History Mother Heart problem Father Stroke Social History Housing: House Alcohol intake: current Alcohol intake frequency: holidays/special occasions only Patient Tobacco Use Status: Former Tobacco user Tobacco use type: Cigarette e-Cigarette/Vaping Use: Never Used Second Hand Smoke Exposure: No Advance Directives Date on File: 02/18/20 service: No Current occupational status: employed 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 Current occupational exposures/hazards: No Cognitive needs: No Hearing needs: No Vision needs: No Review of Systems Const Denies chills and Denies fever(s) Card Reports no additional complaints and Denies syncope Resp Denies cough GI Denies abdominal pain and Denies heartburn Reports as per HPI and Denies change in libido Neuro Denies syncope Psych Denies change in libido Endo Denies change in libido Physical Exam Const General: cooperative, healthy appearing, comfortable and no acute distress Orientation/consciousness: patient oriented x3 HEENT Face and sinus: Yes normal facial exam Mouth: moist mucous membranes Neck Neck: Yes normal visual inspection, Yes full ROM and Yes trachea midline Chest Chest palpation & inspection: normal inspection of the chest Resp Effort & Inspection: normal respiratory effort, able to speak in complete sentences and no respiratory distress GI Inspection: Yes normal to inspection Back/Spine/Pelvis Cervical Spine: normal cervical lordosis Thoracic/Lumbar Spine: thoracic and lumbar spine normal to inspection Skin General skin exam: no rashes or lesions noted Neuro General: patient oriented x3, gait normal, tone normal and moves all extremities Extrem General: Yes normal to inspection and Yes capillary refill normal Office Procedures Post Void Residual Post Residual Void Post Void Residual (PVR): 29 [id number] Void Residual by ultrasound Assessment & Plan Assessment & Plan (1) Nephrolithiasis: Code(s): N20.0 - Calculus of kidney Category: Medical (2) Erectile dysfunction due to arterial insufficiency: Code(s): N52.01 - Erectile dysfunction due to arterial insufficiency Category: Medical (3) BPH w urinary obs/LUTS: Code(s): N40.1 - Benign prostatic hyperplasia with lower urinary tract symptoms; N13.8 - Other obstructive and reflux uropathy Category: Medical Plan Restart terazosin Bladder ultrasound February follow-up Orders: Orders AMB Post Void Residual by ultrasound 11/07/23 Z13.9 - Encounter for screening, unspecified Medications: New terazosin 5 mg PO BEDTIME 90 caps 1RF 90 days N40.1 - Benign prostatic hyperplasia with lower urinary tract symptoms, R35.0 - Frequency of micturition, R35.1 - Nocturia Patient Instructions: Imaging studies, laboratory and physical exam results were discussed and reviewed in detail. No major barriers to patient understanding were identified. An opportunity to ask questions regarding the treatment plan was provided. All questions were answered. The patient expressed understanding and agreement with the above treatment plan. The patient is aware they should contact our office by phone for worsening of their current condition or the appearance of new urologic symptoms. Compliance is encouraged with any medications and followup testing that is ordered. It is a privilege to participate in the urologic care of your patient. If you have any questions or concerns regarding treatment for the above conditions, or other urologic issues, please do not hesitate to contact me. The office telephone contact is [phone]. This note is constructed using voice recognition software. While every effort has been made to ensure accuracy teacher of the emotionally disturbed errors may have been included. Yours sincerely, Dr Justice Tran MD, MIN [facility] - Urology Providers of Expert, Compassionate Care for the Genitourinary System Coding Level of Care Code Est Pt Level 4 (10983) Diagnoses Nephrolithiasis N20.0 Erectile dysfunction due to arterial insufficiency N52.01 BPH w urinary obs/LUTS N40.1; N13.8 CPT Codes Post Residual Void - PVR CPT Code: 49109-Ywjn Void Residual by ultrasound ([id number])
== END 2023-11-07 16:26 | disposition home or self-care (01) ==
PROVIDERS: PCP Internal Medicine; Visit Provider Urology
DX: N20.0 Calculus of kidney (principal); N52.01 Erectile dysfunction due to arterial insufficiency; N40.1 Benign prostatic hyperplasia with lower urinary tract symptoms; N13.8 Other obstructive and reflux uropathy
CPT/HCPCS: 99213

== ENCOUNTER → 2023-11-07 14:59 | Outpatient (BNVA) | payer OTHER, SELFPAY | PROVIDERS: PCP Internal Medicine; Visit Provider Urology | DX: N20.0 Calculus of kidney (principal); N52.01 Erectile dysfunction due to arterial insufficiency; N40.1 Benign prostatic hyperplasia with lower urinary tract symptoms; N13.8 Other obstructive and reflux uropathy; R35.0 Frequency of micturition; R35.1 Nocturia | CPT/HCPCS: 51798 ==

== ENCOUNTER 2023-11-13 11:20 | Outpatient (AMB) | payer OTHER, SELFPAY ==
--- NOTE | 2023-11-13 11:34 | A.OFFVIS_ITS ---
Intake Visit Reasons: post off proc, exc left chest wall cyst Intake Note: Patient is seen in office for post op assessment post excision of left chest wall cyst. Pt c/o: denies any concerns at the time of visit Allergies No Known Allergies [No Known Allergies*] Allergy (Verified 11/07/23 15:03) HPI Comments Details: 63-year-old male patient status post excision of a previously infected epidermal inclusion cyst of the left chest. He returns today for wound check and suture removal. Pathology confirmed a benign epidermal inclusion cyst. He tolerated the procedure well. [facility] Medical History Physical exam ACTH elevation Degenerative arthritis of thoracic spine History of hyperprolactinemia Hyperthyroidism Low TSH level GERD (gastroesophageal reflux disease) Hypovitaminosis D Shortness of breath GARRET on CPAP Palpitations Polyarthralgia Obesity Essential hypertension Surgical History H/O colonoscopy H/O lithotripsy Carpal tunnel syndrome of right wrist H/O umbilical hernia repair Family History Mother Heart problem Father Stroke Social History Housing: House Alcohol intake: current Alcohol intake frequency: holidays/special occasions only Patient Tobacco Use Status: Former Tobacco user Tobacco use type: Cigarette e-Cigarette/Vaping Use: Never Used Second Hand Smoke Exposure: No Advance Directives Date on File: 02/18/20 service: No Current occupational status: employed 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 Sutures removed and wounds found to be well healed. Resp Effort & Inspection: normal respiratory effort Skin Other: Warm, dry, no rash Assessment & Plan Assessment & Plan (1) Epidermal inclusion cyst: Code(s): L72.0 - Epidermal cyst Category: Medical Plan 63-year-old male patient status post excision of an epidermal inclusion cyst of left chest. He tolerated the procedure well the wounds healing nicely. Should follow up as needed. Coding Level of Care Code Global (77406) Diagnoses Epidermal inclusion cyst L72.0
[2023-11-13 11:41] VITALS: BP 120/80; BMI 33.2
== END 2023-11-13 11:42 | disposition home or self-care (01) ==
PROVIDERS: PCP Internal Medicine; Visit Provider Surgery
DX: L72.0 Epidermal cyst (principal)
CPT/HCPCS: 99024

== ENCOUNTER → 2023-11-13 11:20 | Outpatient (BNVA) | payer OTHER, SELFPAY | PROVIDERS: PCP Internal Medicine; Visit Provider Surgery ==

== ENCOUNTER 2023-11-18 11:24 | Outpatient (REF) | payer OTHER, SELFPAY ==
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
[2023-11-18] MEDS: gadobutroL 10 ML VIAL IVPUSH (12:52)
== END 2023-11-18 11:25 | disposition home or self-care (01) ==
LOC: HO.MRI 11:24
PROVIDERS: PCP Internal Medicine; Visit Provider Orthopaedic Surgery
DX: M19.041 Primary osteoarthritis, right hand (principal); M85.641 Other cyst of bone, right hand
CPT/HCPCS: 73220; A9585

== ENCOUNTER 2024-01-15 08:23 | Outpatient (AMB) | payer OTHER, SELFPAY ==
[2024-01-15 08:29] VITALS: BP 124/78; PULSE 69; O2SAT 96; BMI 34.7
--- NOTE | 2024-01-15 08:29 | MHC.OFFVIS ---
Vital Signs 01/15/24 08:29 Height 6 ft Weight 255 lb 8.252 oz BMI 34.7 BP 124/78 Blood Pressure Location Lt brachial Position Sitting Pulse 69 Pulse Source Pulse Oximeter Pulse Oximetry (%) 96 Oxygen Delivery Method Room Air Intake Visit Reasons: +RF Intake Note: Patient is here for follow up on +RF. Asset Availability Leader Required: Yes Asset Availability Leader Services: Asset Availability Leader Present Asset Availability Leader Name: Bernardo [id number] Allergies No Known Allergies [No Known Allergies*] Allergy (Verified 01/15/24 08:33) Medication List - Last Reconciled 01/15/24 by Alaina Elizabeth MD atorvastatin 20 mg PO BEDTIME 90 days cholecalciferol (vitamin D3) 25 mcg PO DAILY 90 days losartan 25 mg PO DAILY 90 days meclizine 25 mg PO BID PRN 7 days omeprazole 20 mg PO DAILY 30 days sod sulf-pot chloride-mag sulf 1.479-0.188- 0.225 gram (Sutab) PO PER PKG DIR for colonoscopy prep tadalafil 20 mg PO ONCE PRN 30 days terazosin 5 mg PO BEDTIME 90 days triamcinolone acetonide 0.1% 1 appl topical DAILY 30 days [wrist splint for right hand. wear nightly & as much as possible throughout the day] HPI Comments Details: This is a 63-year-old male who was follow-up periodically by Rheumatology for a positive rheumatoid factor. Last visit his symptoms were more consistent with carpal tunnel syndrome, I referred him to hand surgery, he is s/p right hand carpal tunnel release with improved numbness. Denies to have some stiffness, mild achiness and limited range of motion of the joints in his hands. [facility] Medical History Physical exam ACTH elevation Degenerative arthritis of thoracic spine History of hyperprolactinemia Hyperthyroidism Low TSH level GERD (gastroesophageal reflux disease) Hypovitaminosis D Shortness of breath GARRET on CPAP Palpitations Polyarthralgia Obesity Essential hypertension Surgical History H/O colonoscopy H/O lithotripsy Carpal tunnel syndrome of right wrist H/O umbilical hernia repair Family History Mother Heart problem Father Stroke Social History Housing: House Alcohol intake: current Alcohol intake frequency: holidays/special occasions only Patient Tobacco Use Status: Former Tobacco user Tobacco use type: Cigarette e-Cigarette/Vaping Use: Never Used Second Hand Smoke Exposure: No Advance Directives Date on File: 02/18/20 service: No Current occupational status: employed 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 Current occupational exposures/hazards: No Cognitive needs: No Hearing needs: No Vision needs: No Review of Systems Musc Reports arthralgias, Denies joint swelling and Reports limited range of motion Physical Exam Vital Signs: Last Vital Signs Pulse 69 01/15/24 08:29 BP 124/78 01/15/24 08:29 Pulse Ox 96 01/15/24 08:29 Oxygen Delivery Method Room Air 01/15/24 08:29 BMI result Body Mass Index 34.7 Const General: cooperative, healthy appearing and comfortable Nutritional Appearance: obese Orientation/consciousness: patient oriented x3 Limitations: no limitations HEENT Head: Yes normocephalic and Yes atraumatic Mouth: moist mucous membranes Resp Effort & Inspection: normal respiratory effort and able to speak in complete sentences Neuro General: patient oriented x3 Extrem Other: Osteoarthritic changes of both hands with no active synovitis Negative MCP squeeze test bilaterally 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 Assessment & Plan Assessment & Plan (1) Osteoarthritis of hands, bilateral: Code(s): M19.041 - Primary osteoarthritis, right hand; M19.042 - Primary osteoarthritis, left hand Category: Medical Qualifiers: Osteoarthritis type: primary Qualified Code(s): M19.041 - Primary osteoarthritis, right hand; M19.042 - Primary osteoarthritis, left hand Plan: This is a 63-year-old male who followed periodically by Rheumatology for a positive rheumatoid factor. He has not developed inflammatory arthritis on multiple evaluations. Right hand MRI 02/2024 did not show synovitis or tenosynovitis. Today his symptoms are more consistent with bilateral hand osteoarthritis. I discussed nature of this condition. Follow-up with me as needed Plan I spent 15 minutes reviewing patient's chart, evaluating patient, counseling patient and documenting in the chart Coding Level of Care Code Est Pt Level 3 (74815) Diagnoses Primary osteoarthritis of both hands M19.041; M19.042 Osteoarthritis type: primary
== END 2024-01-15 08:48 | disposition home or self-care (01) ==
PROVIDERS: PCP Internal Medicine; Visit Provider Student in an Organized Health Care Education/Training Program
DX: M19.041 Primary osteoarthritis, right hand (principal); M19.042 Primary osteoarthritis, left hand
CPT/HCPCS: 99213

== ENCOUNTER → 2024-01-15 08:23 | Outpatient (BNVA) | payer OTHER, SELFPAY | PROVIDERS: PCP Internal Medicine; Visit Provider Student in an Organized Health Care Education/Training Program ==

== ENCOUNTER 2024-01-20 08:51 | Outpatient (REF) | payer OTHER, SELFPAY ==
--- NOTE | ~2024-01-20 | US_ITS ---
EXAMINATION: US RETROPERITONEAL COMPLETE (RENAL) CLINICAL INFORMATION: Calculus of kidney. COMPARISON: Ultrasound of the abdomen 12/19/2021. TECHNIQUE: Real-time imaging of the kidneys and bladder. FINDINGS: RIGHT KIDNEY: 13.4 x 7.3 x 7.8 cm (SAG x AP x TRV). A 0.4 cm right midpole calculus. No hydronephrosis. Renal cortical thickness is normal. Limited visualization. LEFT KIDNEY: 13.0 x 7.0 x 5.2 cm (SAG x AP x TRV). No hydronephrosis. No renal calculi. Renal cortical thickness is normal. Limited visualization. US/US renal BI IMPRESSION: Right renal 0.4 cm mid pole calculus. No hydronephrosis Electronically signed by: Gabby Nelson MD 01/21/2024 04:50 PM EDT
== END 2024-01-20 08:52 | disposition home or self-care (01) ==
LOC: HO.US 08:51
PROVIDERS: PCP Internal Medicine; Visit Provider Urology
DX: N20.0 Calculus of kidney (principal)
CPT/HCPCS: 76775

== ENCOUNTER 2024-02-17 08:44 | Day surgery (SDC) | payer OTHER, SELFPAY ==
--- NOTE | 2024-02-16 13:20 | HO.ANESPROP2 ---
Documented by User: Marychuy Dyson NP 02/16/24 13:21 HPI - Anesthesia Eval Consult details Narrative: 63yo M for Colonoscopy PMFSH Active Problems Active Problems: All Active Problems Osteoarthritis of hands, bilateral (Acute) Epidermal inclusion cyst (Acute) Mass of finger of right hand (Acute) MGUS (monoclonal gammopathy of unknown significance) (Acute) Pre-op examination (Acute) Nephrolithiasis (Acute) Foreign body of right hand (Acute) Left hand pain (Acute) Persistent headaches (Acute) Elevated total protein (Acute) Osteoarthritis of right hand (Acute) Stiffness of right hand joint (Acute) Numbness of left hand (Acute) Carpal tunnel syndrome of right wrist (Acute) Carpal tunnel syndrome (Acute) Pure hypercholesterolemia (Acute) Paresthesia (Acute) Muscle cramps (Acute) Fatigue (Acute) Dizziness (Acute) Abdominal pain (Acute) Hypogonadism in male (Acute) Degenerative arthritis of thoracic spine (Acute) History of hyperprolactinemia (Acute) Hyperthyroidism (Acute) Low TSH level (Acute) GERD (gastroesophageal reflux disease) (Acute) GARRET (obstructive sleep apnea) (Acute) Hypovitaminosis D (Acute) Erectile dysfunction due to arterial insufficiency (Acute) Nocturia more than twice per night (Acute) BPH w urinary obs/LUTS (Acute) Shortness of breath (Acute) GARRET on CPAP (Acute) Palpitations (Acute) Polyarthralgia (Acute) Obesity (Acute) Essential hypertension (Acute) Past Medical History Medical History Physical exam ACTH elevation Degenerative arthritis of thoracic spine History of hyperprolactinemia Hyperthyroidism Low TSH level GERD (gastroesophageal reflux disease) Hypovitaminosis D Shortness of breath GARRET on CPAP Palpitations Polyarthralgia Obesity Essential hypertension Family History Family History Mother Heart problem Father Stroke Surgical History Surgical History H/O colonoscopy H/O lithotripsy Carpal tunnel syndrome of right wrist H/O umbilical hernia repair Social History Social History Housing: House Alcohol intake: current Alcohol intake frequency: does not drink Patient Tobacco Use Status: Former Tobacco user Tobacco use type: Cigarette e-Cigarette/Vaping Use: Never Used Second Hand Smoke Exposure: No Use of substances other than those prescribed or required for medical reasons: No Advance Directives: No Advance Directives Information Provided: Yes Advance Directives Date on File: 02/18/20 service: No Current occupational status: employed 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 Current occupational exposures/hazards: No Cognitive needs: No Hearing needs: No Vision needs: No Meds Allergies Allergy/AdvReac Type Severity Reaction Status Date / Time No Known Allergies Allergy Verified 02/17/24 10:31 [No Known Allergies*] Assessment and Plan Assessment Anesthesia Assessment: Chart Reviewed Documented by User: Edna Lopes MD 02/17/24 11:38 PMFSH Past Medical History Medical History Physical exam ACTH elevation Degenerative arthritis of thoracic spine History of hyperprolactinemia Hyperthyroidism Low TSH level GERD (gastroesophageal reflux disease) Hypovitaminosis D Shortness of breath GARRET on CPAP Palpitations Polyarthralgia Obesity Essential hypertension Family History Family History Mother Heart problem Father Stroke Family history of problems with anesthesia: No Surgical History Surgical History H/O colonoscopy H/O lithotripsy Carpal tunnel syndrome of right wrist H/O umbilical hernia repair History of Problems with Anesthesia: No Social History Social History Housing: House Alcohol intake: current Alcohol intake frequency: does not drink Patient Tobacco Use Status: Former Tobacco user Tobacco use type: Cigarette e-Cigarette/Vaping Use: Never Used Second Hand Smoke Exposure: No Use of substances other than those prescribed or required for medical reasons: No Advance Directives: No Advance Directives Information Provided: Yes Advance Directives Date on File: 02/18/20 service: No Current occupational status: employed 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 Current occupational exposures/hazards: No Cognitive needs: No Hearing needs: No Vision needs: No Meds Allergies Allergy/AdvReac Type Severity Reaction Status Date / Time No Known Allergies Allergy Verified 02/17/24 10:31 [No Known Allergies*] Exam Airway Mallampati Class: II TM Dist: >3cm Neck ROM: Full Heart: rrr Lungs: cta Assessment and Plan Assessment Anesthesia Assessment: Anesthesia Plan Discussed Final Anesthetic Review Family History of Problems with Anesthesia: No History of Problems with Anesthesia: No NPO: Yes ASA Class: III Final Preanesthetic Review: No Changes in Pt Med Stat, Meds/Allgs Chart Reviewed, Consent Obtained/Reviewed and Anes Risks/Benef Reviewed Patient Risk: Intermediate Procedure Risk: Low Anesthetic Plan Anesthetic Plan: MAC: Disposition: Standard PACU
--- NOTE | 2024-02-17 10:12 | MHC.SHP ---
Pre-Procedural Eval Section A - 24 Hr Update-Section A only Date of Service: 02/17/24 Section B - Complete if H&P > 30 days Chief Complaint: screening Relevant Family History (Specify if Yes): No Relevant Social History: None Present Medications: see Short Stay Collaborative assessment Medical History: Significant History (ACTH elevation Degenerative arthritis of thoracic spine History of hyperprolactinemia Hyperthyroidism Low TSH level GERD (gastroesophageal reflux disease) Hypovitaminosis D Shortness of breath GARRET on CPAP Palpitations Polyarthralgia Obesity Essential hypertension) History of Previous Operations: Relevant previous surgery/procedure and date(s) ( H/O colonoscopy H/O lithotripsy Carpal tunnel syndrome of right wrist H/O umbilical hernia repair) Allergies: Allergies Allergy/AdvReac Type Severity Reaction Status Date / Time No Known Allergies Allergy Verified 01/15/24 08:33 [No Known Allergies*] Review of Systems Sugical H&P ROS: Negative: Constitution, Cardiovascular, Respiratory, Neurological, Psychiatric, Hem-Onc, Allergic/Immunologic, Gastrointestinal, Genitourinary, Musculoskeletal, Integumentary, Endocrine and Eyes/Ears/Nose/Throat Exam Surgical H&P Exam: Normal: HEENT, Normal: Heart, Normal: Lungs, Normal: Extremities, Normal: Abdomen, Normal: Skin and Normal: Neurological Plan Diagnosis/Plan: Unchanged I have reviewed the history and physical and performed a pertinent physical examination on my patient. No changes have occurred unless specified. Time Spent With Patient Time: Total time managing care of this patient today ____ minutes.
[2024-02-17 10:32] VITALS: BMI 33.2
[2024-02-17 10:33] VITALS: BP 163/83; PULSE 75; RESP 16; TEMP 36.9; O2SAT 96
[2024-02-17] MEDS: Lactated Ringers 1,000 ML 100 ML IVCONT (10:46)
--- NOTE | 2024-02-17 13:21 | P.OPN-COLO_ITS ---
Colonoscopy Operative Note Operative Note Date of Service: 02/17/24 Narrative: Operative Information Procedure Description: Colonoscopy Indication: screening Anesthesia: MAC COLONOSCOPY Instrument: Olympus variable stiffness pediatric scope 190L Colonoscopy Monitoring: Vital signs and clinical assessment, continuous EKG monitoring, Pulse oximetry, Carbon Dioxide monitoring and blood pressure monitoring were done throughout the procedure. Colon withdrawal time was 10 minutes. Procedure: The patient was placed in the left lateral decubitis position and pre-procedure medications were administered. After a digital rectal examination of the ano-rectum, the video colonoscope was inserted into the rectum and advanced through the colon to the cecum/TI. The colonoscope was slowly withdrawn in a retrograde panoramic fashion and the colon mucosa was carefully examined including a retroflexed view of the rectum. Findings and interventions are described below. Procedure Difficulty: easy Findings: Terminal Ileum-normal Cecum:normal right sided retrofelxion- normal Ascending Colon: normal Transverse Colon -normal Descending Colon: x 4 sessile polyps 8-10 mm removed with cold snare Sigmoid Colon: normal Rectum: Retroflexion with small internal hemorrhoids seen, grade I, 4-6 mm sessile polyp removed with cold forceps Anorectum - normal Intervention: cold forceps, cold snare Colon preparation: Garvin Bowel Preparation Scale Right colon; 2 Transverse colon: 2 Left colon; 2 (0 = Unprepared colon segment with mucosa not seen due to solid stool that cannot be cleared. 1 = Portion of mucosa of the colon segment seen, but other areas of the colon se gment not well seen due to staining, residual stool and/or opaque liquid. 2 = Minor amount of residual staining, small fragments of stool and/or opaque liquid, but mucosa of colon segment seen well. 3 = Entire mucosa of colon segment seen well with no residual staining, small fragments of stool or opaque liquid) Impression and Post Procedure Diagnosis: colon polyps internal hemorrhoids Plan: High fiber diet leaflet Avoid straining at stool, epsom salts and sitz bath, anusol supps or cream Repeat Colonoscopy in 3-5 years if adenomatous polyps, 10 yrs if hyperplastic or earlier if clinically indicated Above findings were reviewed with the patient and relevant handouts were provided if indicated.
[2024-02-17 13:28] VITALS: BP 122/62; PULSE 63; RESP 16; TEMP 36.6; O2SAT 96
[2024-02-17 13:43] VITALS: BP 135/60; PULSE 60; RESP 15; O2SAT 98
[2024-02-17 13:58] VITALS: BP 125/67; PULSE 66; RESP 16; TEMP 36.8; O2SAT 99
== END 2024-02-17 14:21 | disposition home or self-care (01) ==
PROVIDERS: PCP Internal Medicine; Visit Provider Internal Medicine Gastroenterology
PROC: 0DJD8ZZ Inspection of Lower Intestinal Tract, Via Natural or Artificial Opening Endoscopic (ICD-10-PCS; CPT 45378; principal; 2024-02-17 11:00)
DX: Z12.11 Encounter for screening for malignant neoplasm of colon (principal); D12.4 Benign neoplasm of descending colon; K62.1 Rectal polyp; K64.8 Other hemorrhoids; I10 Essential (primary) hypertension; E78.00 Pure hypercholesterolemia, unspecified; E05.90 Thyrotoxicosis, unspecified without thyrotoxic crisis or storm; G47.33 Obstructive sleep apnea (adult) (pediatric); Z99.89 Dependence on other enabling machines and devices; Z87.891 Personal history of nicotine dependence
CPT/HCPCS: 45385; 45380; 88305; J2704

== ENCOUNTER → 2024-02-17 08:44 | Outpatient (BNV) | payer OTHER, SELFPAY | PROVIDERS: PCP Internal Medicine; Visit Provider Internal Medicine Gastroenterology | DX: Z12.11 Encounter for screening for malignant neoplasm of colon (principal); D12.4 Benign neoplasm of descending colon; K63.5 Polyp of colon; K64.0 First degree hemorrhoids | CPT/HCPCS: 45380; 45385 ==

== ENCOUNTER 2024-03-02 13:16 | Outpatient (AMB) | payer OTHER, SELFPAY ==
[2024-03-02 13:23] VITALS: BP 142/71; PULSE 78; BMI 34.4
--- NOTE | 2024-03-02 13:23 | A.OFFVIS_ITS ---
Vital Signs 03/02/24 13:23 Height 6 ft Weight 253 lb 8.505 oz BMI 34.4 BP 142/71 H Blood Pressure Location Lt brachial Position Sitting Pulse 78 Intake Visit Reasons: s/p colon Intake Note: Ramiro presents to in office follow up s/p colonoscopy. CC: Patient continues to have nausea, acid reflux, and heartburn sometimes. Denies other GI concerns today. [employer]airer [employer] Building Required: Yes Accompanied by: Self / Same As Patient Allergies No Known Allergies [No Known Allergies*] Allergy (Verified 04/30/24 10:59) HPI HPI s/p colon: Details: Assessment & Plan (1) Pre-op examination: Code(s): Z01.818 - Encounter for other preprocedural examination Category: Medical (2) GERD (gastroesophageal reflux disease): Code(s): K21.9 - Gastro-esophageal reflux disease without esophagitis Category: Medical Qualifiers: Esophagitis presence: esophagitis presence not specified Qualified C ode(s): K21.9 - Gastro-esophageal reflux disease without esophagitis (3) GARRET on CPAP: Code(s): G47.33 - Obstructive sleep apnea (adult) (pediatric); Z99.89 - Dependence on other enabling machines and devices Category: Medical Plan He has had a prior colonoscopy and it was in [place] and was negative. 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 He has dysphagia in the oropharyngeal phase and recent barium swallow showed disorganized esophageal peristalsis. He had an EGD for this in 2019. There are no prior problems with anesthesia or sedation. He has Garret and denies any cardiac problems NO ID problems. There is no known FHX of crc or polyps. Orders: Orders Colonoscopy - GI Use Only Today Medications: New sod sulf-pot chloride-mag sulf 1.479-0.188- 0.225 gram (Sutab) PO PER PKG DIR for colonoscopy prep 24 tabs 0RF COLONOSCOPY 02/17/24 Findings: Terminal Ileum-normal Cecum:normal right sided retrofelxion- normal Ascending Colon: normal Transverse Colon -normal Descending Colon: x 4 sessile polyps 8-10 mm removed with cold snare Sigmoid Colon: normal Rectum: Retroflexion with small internal hemorrhoids seen, grade I, 4-6 mm sessile polyp removed with cold forceps Anorectum - normal Intervention: cold forceps, cold snare Impression and Post Procedure Diagnosis: colon polyps internal hemorrhoids Plan: High fiber diet leaflet Avoid straining at stool, epsom salts and sitz bath, anusol supps or cream Repeat Colonoscopy in 3-5 years if adenomatous polyps, 10 yrs if hyperplastic or earlier if clinically indicated BISOPSY Received: 02/17/24 Diagnosis A. Colon, descending, polypectomy: Tubular adenoma; negative for high-grade dysplasia or carcinoma. B. Rectum, polypectomy: Hyperplastic mucosal polyp TODAYS VISIT He is agreeable to a 5 year follow up. The procedure was well tolerated. The results were explained and the patient is agreeable to the follow-up interval as stated. The bowel pattern has returned to normal. Education was provided to tell any 1st degree relatives about their findings to be sure that they are screened by age 45. Educated that they will be put on a recall list when it is time for their repeat scope but should they move out of state or away from the hospital they will need to remember along with their primary to repeat the procedure in a timely fashion to avoid any adverse complications. The only thing he has trouble swallowing is a fruit that grows only in [place]. He dislikes taking the omeprazole daily and finds he has rebound HB when he is taking it p.r.n.. WIll change to famotidine 40mg. 8 weeks. [facility] Medical History (Updated 05/04/24 @ 13:50 by MERRICK Villasenor) Physical exam ACTH elevation Degenerative arthritis of thoracic spine History of hyperprolactinemia Hyperthyroidism Low TSH level GERD (gastroesophageal reflux disease) Hypovitaminosis D Shortness of breath GARRET on CPAP Palpitations Polyarthralgia Obesity Essential hypertension Surgical History H/O colonoscopy H/O lithotripsy Carpal tunnel syndrome of right wrist H/O umbilical hernia repair Family History Mother Heart problem Father Stroke Social History (Updated 04/07/24 @ 08:47 by Florina Martinez MD) Housing: House Alcohol intake: current Alcohol intake frequency: does not drink Alcohol type: beer and hard liquor Patient Tobacco Use Status: Former Tobacco user Tobacco use type: Cigarette e-Cigarette/Vaping Use: Never Used Second Hand Smoke Exposure: No Advance Directives Date on File: 02/18/20 service: No Current occupational status: employed 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 Current occupational exposures/hazards: No Cognitive needs: No Hearing needs: No Vision needs: No Review of Systems Const Denies fatigue, Denies fever(s), Denies night sweats, Denies poor appetite and Denies weight loss ENT Reports Normal hearing present, Denies dental pain, Denies dysphagia, Denies hearing loss, Denies mouth pain, Denies odynophagia, Denies throat swelling, Denies tongue swelling and Reports other (Dentition adequate) Card Reports no additional complaints Resp Reports no additional complaints GI Details: Denies abdominal pain, Denies melena, Denies bloating, Denies hematochezia, Denies constipation, Denies GI cramping, Denies dysphagia, Denies excessive flatus, Denies early satiety, Reports heartburn, Denies diarrhea, Denies nausea, Denies odynophagia, Denies vomiting and Denies hematemesis Skin/Breast Denies pruritus, Denies lesions, Denies rash and Denies jaundice Neuro Reports Normal hearing present and Denies Abnormal speech present Endo Denies fatigue Aller/Immun Denies throat swelling and Denies tongue swelling Physical Exam Vital Signs: Last Vital Signs Pulse 78 03/02/24 13:23 BP 142/71 H 03/02/24 13:23 BMI result Body Mass Index 34.4 Const General: cooperative, no acute distress, well developed and well groomed Nutritional Appearance: average body habitus and well nourished Orientation/consciousness: oriented to person, oriented to place and oriented to time Limitations: No language barrier HEENT Head: Yes normocephalic and Yes atraumatic Eyes General: appearance normal, both eyes and all related structures Pupils: Equal, round and reactive pupils present Neck Neck: Yes normal visual inspection and Yes no lymphadenopathy Thyroid: Thyroid normal Resp Effort & Inspection: normal respiratory effort and able to speak in complete sentences Auscultation: clear to auscultation bilaterally Cardio Rate: regular rate Rhythm: regular rhythm Heart sounds: Normal, physiologic split S2 sound present Peripheral pulses: radial pulses present and posterior tibial pulses present GI Inspection: No distended and No Abdominal panniculus present Palpation (GI): Soft to palpation, nontender, no guarding, not rigid and No hepatosplenomegaly present Percussion: Yes normal to percussion Auscultation: normal bowel sounds Rectal Exam - Male: Yes deferred Skin General skin exam: no rashes or lesions noted, turgor normal, skin not dry, no jaundice, No spider nevi and no striae Rashes: no rashes Nails: normal Neuro General: oriented to person, oriented to place and oriented to time Cranial nerves: Yes Equal, round and reactive pupils present and Yes Normal hearing present Speech: No Abnormal speech present Extrem General: Yes normal to inspection, No clubbing, No cyanosis and No edema Psych Appearance: grossly normal and well kempt Mental Status: mental status grossly normal Speech and movement: Normal speech and movement present Affect: normal affect Attitude: cooperative Thought process: Normal thought process present and not confabulating Thought content: Normal thought content present Insight: Fair insight present (Psych) Judgement: Fair judgement present (Psych) Results Reviewed Results Reviewed: COLONOSCOPY 02/17/24 Findings: Terminal Ileum-normal Cecum:normal right sided retrofelxion- normal Ascending Colon: normal Transverse Colon -normal Descending Colon: x 4 sessile polyps 8-10 mm removed with cold snare Sigmoid Colon: normal Rectum: Retroflexion with small internal hemorrhoids seen, grade I, 4-6 mm sessile polyp removed with cold forceps Anorectum - normal Intervention: cold forceps, cold snare Impression and Post Procedure Diagnosis: colon polyps internal hemorrhoids Plan: High fiber diet leaflet Avoid straining at stool, epsom salts and sitz bath, anusol supps or cream Repeat Colonoscopy in 3-5 years if adenomatous polyps, 10 yrs if hyperplastic or earlier if clinically indicated BISOPSY Received: 02/17/24 Diagnosis A. Colon, descending, polypectomy: Tubular adenoma; negative for high-grade dysplasia or carcinoma. B. Rectum, polypectomy: Hyperplastic mucosal polyp Assessment & Plan Assessment & Plan (1) GERD (gastroesophageal reflux disease): Code(s): K21.9 - Gastro-esophageal reflux disease without esophagitis Category: Medical Qualifiers: Esophagitis presence: esophagitis presence not specified Qualified Code(s): K21.9 - Gastro-esophageal reflux disease without esophagitis (2) Tubular adenoma of colon: Comment: 2023 scope repeat 5 years Code(s): D12.6 - Benign neoplasm of colon, unspecified Category: Medical Plan e is agreeable to a 5 year follow up. The procedure was well tolerated. The results were explained and the patient is agreeable to the follow-up interval as stated. The bowel pattern has returned to normal. Education was provided to tell any 1st degree relatives about their findings to be sure that they are screened by age 45. Educated that they will be put on a recall list when it is time for their repeat scope but should they move out of state or away from the hospital they will need to remember along with their primary to repeat the procedure in a timely fashion to avoid any adverse complications. The only thing he has trouble swallowing is a fruit that grows only in [place]. He dislikes taking the omeprazole daily and finds he has rebound HB when he is taking it p.r.n.. WIll change to famotidine 40mg. 8 weeks. Medications: New famotidine (Pepcid) 40 mg PO DAILY PRN 30 tabs 6RF heartburn K21.9 - Gastro-esophageal reflux disease without esophagitis Discontinued omeprazole Discontinued Reason: Doctor's Order 20 mg PO DAILY 30 days 30 caps 6RF K21.9 - Gastro-esophageal reflux disease without esophagitis Coding Level of Care Code Est Pt Level 3 (49543) Diagnoses Gastroesophageal reflux disease, unspecified whether esophagitis present K21.9 Esophagitis presence: esophagitis presence not specified Tubular adenoma of colon D12.6
== END 2024-03-02 15:14 | disposition home or self-care (01) ==
PROVIDERS: PCP Internal Medicine; Visit Provider Nurse Practitioner
DX: K21.9 Gastro-esophageal reflux disease without esophagitis (principal); D12.6 Benign neoplasm of colon, unspecified
CPT/HCPCS: 99213

== ENCOUNTER → 2024-03-02 13:16 | Outpatient (BNVA) | payer OTHER, SELFPAY | PROVIDERS: PCP Internal Medicine; Visit Provider Nurse Practitioner ==

== ENCOUNTER 2024-03-16 09:29 | Outpatient (AMB) | payer OTHER, SELFPAY ==
--- NOTE | 2024-03-16 09:36 | A.OFFVIS_ITS ---
Intake Visit Reasons: PVR/Ultrasound(set) Intake Note: Patient is present for Ultrasound/PVR Follow Up Urology Med:Tadalafil Antibiotic Allergy: None Blood Thinner: None Last PVR: 29 Todays PVR: 0ml Last Labs: PSA: 11/2022 1.32 TESTOSTERONE: 334 Development Professional Required: Yes Development Professional Language: American Indian Policy Specialist Services: Development Professional Present Accompanied by: Self / Same As Patient Allergies No Known Allergies [No Known Allergies*] Allergy (Verified 04/30/24 10:59) Medication List - Last Reconciled 03/16/24 by Justice Tran MD famotidine (Pepcid) 40 mg PO DAILY PRN losartan 25 mg PO DAILY 90 days tadalafil 20 mg (4 x 5 mg) PO DAILY 90 days [wrist splint for right hand. wear nightly & as much as possible throughout the day] HPI Comments Details: Mikey BATISTA is a very pleasant [place] male They are a patient of Dr. Lundy They are seen in the office today for the following urologic conditions - hypogonadism - lower urinary tract symptoms - erectile dysfunction Swiss translation provided by qualified medical collections Follow-up after restarting terazosin Bladder scan 0 cc Recent ultrasound with small stone right side 4 mm asymptomatic Does not feel starting terazosin was beneficial Has nocturia 3-4 times Does have urgency during the day but not severe frequency Also states urine has foul smell Check UA Plan office cystoscopy Erectile dysfunction Effective results with 20 mg on demand tadalafil Lower Urinary Tract Symptoms: Nocturia x2 Current visit is for further evaluation of, lower urinary tract symptoms, predominate irritative symptoms, Current treatment includes alpha eric, terazosin. Prostate Symptom Score Moderate (9-19), Bother 3. Symptoms include 10/17 , incomplete emptying, urgency, weak stream, and are stable. Prior Prostate Score moderate. Testing at next visit will include bladder scan. Hypogonadism: Borderline He presents today for evaluated with endocrinology Had over-response with T in 2018 1cc q 2wk IM. Initial symptoms include erectile dysfunction Yes decreased libido Yes change in mood/depression Yes in muscle size/strength Yes increased fatigue/malaise Yes Associate conditions include obstructive sleep apnea Yes Laboratory investigations - 06/08 testosterone 220, PSA 1.2, 12/07 320 P 1.2, 12/08 330 P 1.3 PFSH Medical History (Updated 11/20/24 @ 08:57 by Florina Martinez MD) Physical exam ACTH elevation Degenerative arthritis of thoracic spine History of hyperprolactinemia Hyperthyroidism Low TSH level GERD (gastroesophageal reflux disease) Hypovitaminosis D Shortness of breath GARRET on CPAP Palpitations Polyarthralgia Obesity Essential hypertension Surgical History H/O colonoscopy H/O lithotripsy Carpal tunnel syndrome of right wrist H/O umbilical hernia repair Family History Mother Heart problem Father Stroke Social History (Updated 04/07/24 @ 08:47 by Florina Martinez MD) Housing: House Alcohol intake: current Alcohol intake frequency: does not drink Alcohol type: beer and hard liquor Patient Tobacco Use Status: Former Tobacco user Tobacco use type: Cigarette e-Cigarette/Vaping Use: Never Used Second Hand Smoke Exposure: No Advance Directives Date on File: 02/18/20 service: No Current occupational status: employed 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 Current occupational exposures/hazards: No Cognitive needs: No Hearing needs: No Vision needs: No Review of Systems Const Denies chills and Denies fever(s) Card Reports no additional complaints and Denies syncope Resp Denies cough GI Denies abdominal pain and Denies heartburn Reports as per HPI and Denies change in libido Neuro Denies syncope Psych Denies change in libido Endo Denies change in libido Physical Exam Const General: cooperative, healthy appearing, comfortable and no acute distress Orientation/consciousness: patient oriented x3 HEENT Face and sinus: Yes normal facial exam Mouth: moist mucous membranes Neck Neck: Yes normal visual inspection, Yes full ROM and Yes trachea midline Chest Chest palpation & inspection: normal inspection of the chest Resp Effort & Inspection: normal respiratory effort, able to speak in complete sentences and no respiratory distress GI Inspection: Yes normal to inspection Back/Spine/Pelvis Cervical Spine: normal cervical lordosis Thoracic/Lumbar Spine: thoracic and lumbar spine normal to inspection Skin General skin exam: no rashes or lesions noted Neuro General: patient oriented x3, gait normal, tone normal and moves all extremities Extrem General: Yes normal to inspection and Yes capillary refill normal Office Procedures Post Void Residual Post Residual Void Post Void Residual (PVR): 0 [id number] Void Residual by ultrasound Assessment & Plan Assessment & Plan (1) BPH w urinary obs/LUTS: Code(s): N40.1 - Benign prostatic hyperplasia with lower urinary tract symptoms; N13.8 - Other obstructive and reflux uropathy Category: Medical (2) Nocturia more than twice per night: Code(s): R35.1 - Nocturia Category: Medical Plan Office cystoscopy Orders: Orders AMB Post Void Residual by ultrasound 03/16/24 N40.1 - Benign prostatic hyperplasia with lower urinary tract symptoms, N13.8 - Other obstructive and reflux uropathy Medications: New tadalafil 20 mg (4 x 5 mg) PO DAILY 90 tabs 1RF 90 days N52.01 - Erectile dysfunction due to arterial insufficiency Patient Instructions: Imaging studies, laboratory and physical exam results were discussed and reviewed in detail. No major barriers to patient understanding were identified. An opportunity to ask questions regarding the treatment plan was provided. All questions were answered. The patient expressed understanding and agreement with the above treatment plan. The patient is aware they should contact our office by phone for worsening of their current condition or the appearance of new urologic symptoms. Compliance is encouraged with any medications and followup testing that is ordered. It is a privilege to participate in the urologic care of your patient. If you have any questions or concerns regarding treatment for the above conditions, or other urologic issues, please do not hesitate to contact me. The office telephone contact is [phone]. This note is constructed using voice recognition software. While every effort has been made to ensure accuracy rn sexual assault errors may have been included. Yours sincerely, Dr Justice Tran MD, [facility] - Urology Providers of Expert, Compassionate Care for the Genitourinary System Coding Level of Care Code Est Pt Level 3 (67088) Diagnoses BPH w urinary obs/LUTS N40.1; N13.8 Nocturia more than twice per night R35.1 CPT Codes Post Residual Void - PVR CPT Code: 80282-[id number] Void Residual by ultrasound ([id number])
== END 2024-03-16 10:27 | disposition home or self-care (01) ==
LOC: HO.HUSH 09:30
PROVIDERS: PCP Internal Medicine; Visit Provider Urology
DX: N40.1 Benign prostatic hyperplasia with lower urinary tract symptoms (principal); N13.8 Other obstructive and reflux uropathy; R35.1 Nocturia
CPT/HCPCS: 99213

== ENCOUNTER → 2024-03-16 09:29 | Outpatient (BNVA) | payer OTHER, SELFPAY | PROVIDERS: PCP Internal Medicine; Visit Provider Urology | DX: N40.1 Benign prostatic hyperplasia with lower urinary tract symptoms (principal); N31.8 Other neuromuscular dysfunction of bladder; R35.1 Nocturia; N52.01 Erectile dysfunction due to arterial insufficiency | CPT/HCPCS: 51798 ==

== ENCOUNTER 2024-04-05 09:54 | Emergency (ER) | payer OTHER, SELFPAY ==
--- NOTE | ~2024-04-05 | XR_ITS ---
EXAMINATION: XR LUMBOSACRAL SPINE CLINICAL INFORMATION: pain, injury COMPARISON: Lumbar spine 09/08/2000 TECHNIQUE: Three views of the lumbosacral spine. FINDINGS: There is straightening of the lumbar spine. Degenerative changes are seen at L2-L3 with some disc space narrowing sclerosis and osteophyte formation. These findings have progressed slightly when compared to 09/08/2020. No acute finding is seen. XR/XR lumbar spine 2-3V IMPRESSION: Degenerative changes at L2-L3 with some progression when compared to 09/08/2020. Electronically signed by: Otto Robert MD 04/05/2024 04:52 PM EST
[2024-04-05 10:01] VITALS: BP 142/68; PULSE 83; RESP 16; TEMP 36.9; O2SAT 98; BMI 33.8
[2024-04-05 10:26] LABS: MANUAL DIFF FLAG NO
[2024-04-05 10:32] LABS: Basophils Percent Auto 0.9 % (0-2); Eosinophils Absolute Auto 0.2 X10*3/uL (0.0-0.4); Eosinophils Percent Auto 3.5 % (0-4); Hematocrit 41.7 % (42.0-52.0); Hemoglobin 14.4 g/dl (14.0-18.0); Imm Gran Abs Auto 0.01 X10*3/uL (0.00-0.03); Imm Gran Pct Auto 0.2 % (0.0-0.4); Lymphocytes Percent Auto 23.9 % (20-40); Mean Corpuscular HGB Conc 34.5 g/dl (31.0-36.0); Mean Corpuscular Hemoglobin 30.2 pg (27.0-33.0); Mean Corpuscular Volume 87.4 fL (80.0-98.0); Mean Platelet Volume 10.5 fL (9.4-12.4); Monocytes Absolute Auto 0.4 X10*3/uL (0.1-1.2); Monocytes Percent Auto 8.2 % (2-11); Neutrophils Absolute Auto 2.7 x10*3/uL (2.0-8.3); Neutrophils Percent Auto 63.3 % (45-73); Platelet Count 80 X10*3/uL (160-400); Red Blood Count 4.77 X10*6/uL (4.60-5.80); Red Cell Distribution Width 12.5 % (11.0-16.0); White Blood Count 4.3 X10*3/uL (4.8-10.8)
[2024-04-05 10:34] LABS: Appearance Urine Clear; Color Urine Yellow; Glucose Urine UA Negative (Negative); Leukocyte Esterase Urine Negative (Negative); Nitrite Urine Negative (Negative); PH 5.5 (5.0-9.0); Specific Gravity - Urine 1.025 (1.005-1.025); UMIC TRIGGER UACC YES; Urine Blood Negative (Negative); Urine Ketones Negative (Negative); Urine Protein 30 (1+) mg/dL (Neg-Trace)
[2024-04-05 10:39] LABS: Bacteria Urine None Seen (None Seen); RBC Urine 0-2 /HPF (0-2); Squamous Epithelial Cell Urine 0-2 /HPF (0-2); WBC Urine 0-5 /HPF (0-5)
[2024-04-05 10:51] LABS: Anion Gap 12 (12-20); Blood Urea Nitrogen 16 mg/dL (9-16); Calcium 8.9 mg/dL (8.4-10.2); Carbon Dioxide 21 mmol/L (22-29); Chloride 108 mmol/L (96-108); Creatinine Clr Calc Pharmacy 94.6; Estimated Glomerular Filt Rate > 60; Glucose Random 137 mg/dL (60-115); Potassium 3.9 mmol/L (3.3-5.1); Sodium 137 mmol/L (135-145)
--- NOTE | 2024-04-05 14:12 | ED.GENADULT ---
HPI - General Adult General Chief complaint: Back Pain/Injury Stated complaint: back pain Time Seen by Provider: 04/05/24 14:11 Source: patient and translator/interpreter (all interactions with this patient were facilitated with an [facility] educational interpreter) Mode of arrival: ambulatory Limitations: language barrier (all interactions with this patient were facilitated with an [facility] educational interpreter) History of Present Illness ED Provider: Nancy Rebolledo PA-C HPI narrative: Patient is a 63 year old assigned male at with a history of HTN and GERD presenting to the emergency department today with left sided low back pain. Patient states that over the last 2 weeks he has had left lower back pain that does not radiate anywhere. Patient states that the pain is worse with certain movements. Patient denies any dizziness, lightheadedness, abdominal pain, nausea, vomiting, fever, chills, blurry vision, double vision, loss of vision, chest pain, difficulty breathing, shortness of breath, night sweats, pain with urination, increased urinary frequency, increased urinary urgency, blood in his urine or stool, syncope or a near syncopal episode, recent trauma or falls, bowel incontinence, bladder incontinence, or any other complaints at this time. Onset (ago): week(s) (2) Location: back and left Relieving factors: none Exacerbating factors: none Associated symptoms: denies other symptoms Treatments prior to arrival: none Related Data Previous Rx's ?Medication ?Instructions ?Recorded wrist splint #1 ea 01/08/23 losartan 25 mg tablet 25 mg PO DAILY 90 days #90 tabs 11/05/23 famotidine 40 mg tablet (Pepcid) 40 mg PO DAILY PRN heartburn #30 03/02/24 tabs tadalafil 5 mg tablet 20 mg (4 x 5 mg) PO DAILY 90 days 03/16/24 #90 tabs prednisone 20 mg tablet See Rx Instructions .Route 04/05/24 .COMPLEX 12 days #26 tabs Allergies Allergy/AdvReac Type Severity Reaction Status Date / Time No Known Allergies Allergy Verified 04/05/24 10:07 [No Known Allergies*] Review of Systems Constitutional: Constitutional: Reports no additional constitutional complaints, Denies chills, Denies fever(s) and Denies night sweats Eyes: Eyes: Reports no additional eye complaints, Denies blurry vision, Denies change in vision, Denies diplopia, Denies eye discharge, Denies loss of vision and Denies eye pain ENT: Denies dizziness Cardiovascular: Cardiovascular: Reports no additional cardiovascular complaints, Denies chest pain, Denies lightheadedness, Denies Loss of Consciousness and Denies dyspnea Respiratory: Respiratory: Reports no additional respiratory complaints and Denies dyspnea Gastrointestinal: Gastrointestinal: Reports no additional gastrointestinal complaints, Denies abdominal pain, Denies melena, Denies hematochezia, Denies change in bowel habits and Denies change in stool character Genitourinary: Genitourinary: Reports no additional male genitourinary complaints, Denies hematuria, Denies oliguria, Denies difficulty urinating, Denies dysuria, Denies urinary frequency, Denies urinary hesitancy, Denies urinary incontinence and Denies urinary urgency Musculoskeletal: Musculoskeletal: Reports no additional musculoskeletal complaints, Reports back pain, Denies numbness and Denies tingling Neurologic: Denies dizziness, Denies loss of vision, Denies numbness and Denies tingling Psychiatric: Psychiatric: Reports no additional psychiatric complaints Endocrine: Endocrine: Reports no additional endocrine complaints Hematologic/Lymphatic: Hematologic/Lymphatic: Reports no additional hematologic/lymphatic complaints Allergic/Immunologic: Allergic/Immunologic: Reports no additional allergic/immunologic complaints [facility] Past Medical History Attestation statement: The following information was validated with the patient. Source: old records reviewed and nursing notes reviewed Medical History Physical exam ACTH elevation Degenerative arthritis of thoracic spine History of hyperprolactinemia Hyperthyroidism Low TSH level GERD (gastroesophageal reflux disease) Hypovitaminosis D Shortness of breath GARRET on CPAP Palpitations Polyarthralgia Obesity Essential hypertension Surgical History H/O colonoscopy H/O lithotripsy Carpal tunnel syndrome of right wrist H/O umbilical hernia repair Family History Family History Mother Heart problem Father Stroke Social History Social History Housing: House Alcohol intake: current Alcohol intake frequency: does not drink Patient Tobacco Use Status: Former Tobacco user Tobacco use type: Cigarette e-Cigarette/Vaping Use: Never Used Second Hand Smoke Exposure: No Advance Directives: Yes Advance Directives on File: Yes Advance Directives Date on File: 02/18/20 Do you have a plan to hurt others: No Plan service: No Current occupational status: employed 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 Current occupational exposures/hazards: No Cognitive needs: No Hearing needs: No Vision needs: No Physical Exam ED Vital Signs: Vital Signs - 24 hr 04/05/24 10:01 04/05/24 17:12 Temperature 98.4 F 98.4 F Pulse Rate 83 83 Respiratory Rate 16 16 Blood Pressure 142/68 H 142/68 H Pulse Oximetry 98 98 Oxygen Delivery Method Room Air Room Air BMI result Body Mass Index 33.8 Const General: cooperative, no acute distress, alert and awake Nutritional Appearance: well nourished Orientation/consciousness: patient oriented x3 Limitations: no limitations HENMT Head: Yes normal to inspection and Yes atraumatic Ears: hearing grossly normal bilaterally and external ears normal General nose exam: Normal external nose present, no nasal discharge noted and no epistaxis Face and sinus: Yes normal facial exam, No abrasion and No laceration Mouth: Normal oral and palatal mucosa present, no drooling and no muffled voice Eyes General: appearance normal, both eyes and all related structures Periorbital: periorbital findings normal Eyelids: Yes eyelids normal Conjunctivae: conjunctivae normal Pupils: Equal, round and reactive pupils present EOM: EOMs intact bilaterally Neck Neck: Yes normal visual inspection, Yes full ROM and Yes no lymphadenopathy Chest Chest palpation & inspection: normal inspection of the chest Resp Effort & Inspection: normal respiratory effort and able to speak in complete sentences GI Inspection: Yes normal to inspection Neuro General: patient oriented x3 and moves all extremities Cranial nerves: Yes Equal, round and reactive pupils present Cognition (Neuro): normal cognition Extrem General: Yes normal to inspection, Yes full ROM and Yes capillary refill normal Psych Appearance: grossly normal Mental Status: mental status grossly normal Affect: normal affect Attitude: cooperative Thought process: Normal thought process present Thought content: Normal thought content present Insight: Good insight present (Psych) Medications Administered Discontinued Medications Generic Name Dose Route Start Last Admin Trade Name Freq PRN Reason Stop Dose Admin Cyclobenzaprine HCl 5 mg 04/05/24 14:24 04/05/24 14:57 Cyclobenzaprine Hcl 5 Mg Tablet PO 04/05/24 14:25 5 mg ONCE ONE Administration Ketorolac Tromethamine 15 mg 04/05/24 14:24 04/05/24 14:59 Ketorolac Tromethamine 15 Mg/Ml Vial IM 04/05/24 14:25 15 mg ONCE ONE Administration Methylprednisolone Sodium Succinate 60 mg 04/05/24 14:24 04/05/24 14:58 Methylprednisolone Sod Succ 125 Mg/2 Ml Vial IM 04/05/24 14:25 60 mg ONCE ONE Administration Medical Decision Making Medical Decision Making [facility] Narrative: Patient is a 63 year old assigned male at with a history of HTN and GERD presenting to the emergency department today with left sided low back pain. Patient's physical exam was as noted in the physical exam portion of this note. Patient's blood work was unremarkable. Patient's urine showed no acute process. Patient's lumbar x-ray showed increased degenerative changes. I explained my physical exam findings as well as all test results to the patient. I answered all questions asked by the patient. Patient received PO Flexeril, IM Toradol, and IM ceferino-medrol which, upon re-evaluation, he stated it helped his symptoms significantly. I stressed the importance of the patient taking his medication as directed (either prescribed or as the over the counter packaging recommends). I stressed the importance of the patient following up with his primary care provider and a mechanical specialist. I stressed the importance of the patient returning to the emergency department immediately if his symptoms were to worsen or if he were to develop any dizziness, shortness of breath, difficulty breathing, chest pain, blurry vision, loss of vision, nausea, vomiting, abdominal pain, fever, chills, back pain, or any other complaints. Patient verbalized agreement and understanding with this treatment plan and discharge. Differential Diagnosis Differential Diagnoses: The differential diagnosis associated with the presentation includes Low back pain Lumbar radiculopathy Sciatica DDD Admission/Observation Consideration of admission/observation: Escalation of care including admission/observation considered Patient would have been admitted to the hospital had his work up had any findings where hospital admission was appropriate and his clinical presentation warranted hospital admission. Lab Data [facility] Lab Attestation statement: I reviewed the patient's lab results. My interpretation of these results are in the [facility] Rationale portion of this note. 04/05/24 10:23 04/05/24 10:23 Labs: Lab Results 04/05/24 04/05/24 Range/Units 10:23 10:28 WBC 4.3 L (4.8-10.8) X10*3/uL RBC 4.77 (4.60-5.80) X10*6/uL Hgb 14.4 (14.0-18.0) g/dl Hct 41.7 L (42.0-52.0) % MCV 87.4 (80.0-98.0) fL MCH 30.2 (27.0-33.0) pg MCHC 34.5 (31.0-36.0) g/dl RDW 12.5 (11.0-16.0) % Plt Count 80 L (160-400) X10*3/uL MPV 10.5 (9.4-12.4) fL Immature Gran % (Auto) 0.2 (0.0-0.4) % Neut % (Auto) 63.3 (45-73) % Lymph % (Auto) 23.9 (20-40) % [place] % (Auto) 8.2 (2-11) % Eos % (Auto) 3.5 (0-4) % Baso % (Auto) 0.9 (0-2) % Lymph # (Auto) 1.0 L (1.2-4.9) X10*3/uL [place] # (Auto) 0.4 (0.1-1.2) X10*3/uL Eos # (Auto) 0.2 (0.0-0.4) X10*3/uL Baso # (Auto) 0.0 (0.0-0.2) X10*3/uL Abs Immat Gran (auto) 0.01 (0.00-0.03) X10*3/uL Absolute Neuts (auto) 2.7 (2.0-8.3) x10*3/uL Absolute Nucleated RBC 0.000 (0.0-0.012) X10*3/uL Nucleated RBC % (auto) 0.0 (0.0-0.2) /100WBC Sodium 137 (135-145) mmol/L Potassium 3.9 (3.3-5.1) mmol/L Chloride 108 (96-108) mmol/L Carbon Dioxide 21 L (22-29) mmol/L Anion Gap 12 (12-20) BUN 16 (9-16) mg/dL Creatinine 1.05 (0.5-1.4) mg/dL Estim Creat Clear Calc 94.6 Estimated GFR > 60 Random Glucose 137 H (60-115) mg/dL Calcium 8.9 (8.4-10.2) mg/dL Urine Color Yellow Urine Appearance Clear Urine pH 5.5 (5.0-9.0) Ur Specific [place] 1.025 (1.005-1.025) Urine Protein 30 (1+) H (Neg-Trace) mg/dL Urine Glucose (UA) Negative (Negative) mg/dL Urine Ketones Negative (Negative) mg/dL Urine Blood Negative (Negative) Urine Nitrite Negative (Negative) Ur Leukocyte Esterase Negative (Negative) Urine RBC 0-2 (0-2) /HPF Urine WBC 0-5 (0-5) /HPF Ur Squamous Epith Cells 0-2 (0-2) /HPF Urine Bacteria None Seen (None Seen) Hyaline Casts 3-5 (0-2) /LPF Independent Interpretation I performed an independent interpretation of an: Plain X-Ray Interpretation: My interpretation is in agreement with the radiologist's impression of this imaging study. EXAMINATION: XR LUMBOSACRAL SPINE CLINICAL INFORMATION: pain, injury COMPARISON: Lumbar spine 09/08/2000 TECHNIQUE: Three views of the lumbosacral spine. FINDINGS: There is straightening of the lumbar spine. Degenerative changes are seen at L2-L3 with some disc space narrowing sclerosis and osteophyte formation. These findings have progressed slightly when compared to 09/08/2020. No acute finding is seen. XR/XR lumbar spine 2-3V IMPRESSION: Degenerative changes at L2-L3 with some progression when compared to 09/08/2020. Electronically signed by: Otto Robert MD 04/05/2024 04:52 PM [facility] Dictated By: Otto Robert MD Signed By: Electronically signed by Otto Robert MD 04/05/24 1964 Radiology Impression Discussion of test interpretation with radiology: I have reviewed the radiologist's reading. Discharge Plan Discharge Clinical Impression: Low back pain Patient Disposition: Home, Self-Care Instructions: Acute Low Back Pain (ED) Additional Instructions: Follow up with your primary care provider and a mechanical specialist. Return to the emergency department immediately if your symptoms worsen or if you develop any dizziness, shortness of breath, difficulty breathing, chest pain, blurry vision, loss of vision, nausea, vomiting, abdominal pain, fever, chills, back pain, or any other complaints. Acuda a quezada m?dico de cabecera y a un especialista en [place] vertebral. Vuelva al servicio de urgencias inmediatamente si brigitte s?ntomas empeoran o si presenta mareos, falta de aliento, dificultad para respirar, dolor tor?cico, visi?n borrosa, p?rdida de visi?n, n?useas, v?mitos, dolor abdominal, fiebre, escalofr?os, dolor de espalda o cualquier otra molestia. Prescriptions: New prednisone 20 mg tablet See Rx Instructions .ROUTE .COMPLEX 12 Days Qty: 26 0RF Rx Instructions: 20 mg orally, Take 3 tablets for 5 days THEN; Take 2 tablets for 4 days THEN; Take 1 tablet for 3 days No Action losartan 25 mg tablet 25 mg PO DAILY 90 Days Qty: 90 3RF (DME) wrist splint See Rx Instructions .Route .MEDSUPPLY Qty: 1 0RF Rx Instructions: for right hand. wear nightly & as much as possible throughout the day tadalafil 5 mg tablet 20 mg PO DAILY 90 Days Qty: 90 1RF famotidine [Pepcid] 40 mg tablet 40 mg PO DAILY PRN (Reason: heartburn) Qty: 30 6RF Referrals: [facility] [Provider Group] (Call to establish and follow up with a mechanical specialist. Llame para establecer y realizar un seguimiento con un especialista en [place] vertebral.) Florina Kincaid MD [Primary Care Provider] - Stand Alone Forms: Work/School Release Interventions: ED Discharge Assessment Last Done: 04/05/24 17:12 Discharge Date/Time: 04/05/24 17:15 Print Language: Urdu
[2024-04-05] MEDS: Cyclobenzaprine HCl 5 MG TABLET PO (14:57)
[2024-04-05] MEDS: methylPREDNISolone Sod Succ 125 MG/2 ML VIAL 60 MG IM (14:58)
[2024-04-05] MEDS: Ketorolac Tromethamine 15 MG/ML VIAL IM (14:59)
[2024-04-05 17:12] VITALS: BP 142/68; PULSE 83; RESP 16; TEMP 36.9; O2SAT 98
== END 2024-04-05 17:15 | disposition home or self-care (01) ==
PROVIDERS: Emergency Provider Emergency Medicine Emergency Medical Services; PCP Internal Medicine
DX: M54.50 Low back pain, unspecified (principal); I10 Essential (primary) hypertension
CPT/HCPCS: 36415; 72100; 80048; 81001; 85025; 96372; 99283; 99284; J1885; J2919

== ENCOUNTER 2024-04-07 07:54 | Outpatient (AMB) | payer OTHER, SELFPAY ==
--- NOTE | 2024-04-07 08:00 | A.OFFPC_ITS ---
Vital Signs 04/07/24 08:01 Height 6 ft Weight 253 lb BMI 34.3 BP 150/82 H Blood Pressure Location Lt brachial Position Sitting Intake Visit Reasons: annual Intake Note: Patient here for an annual physical exam Planning Consultant Required: No Accompanied by: Self / Same As Patient Allergies No Known Allergies [No Known Allergies*] Allergy (Verified 04/07/24 08:42) Medication List - Last Reconciled 04/07/24 by Florina Martinez MD famotidine (Pepcid) 40 mg PO DAILY PRN losartan 25 mg PO DAILY 90 days tadalafil 20 mg (4 x 5 mg) PO DAILY 90 days [wrist splint for right hand. wear nightly & as much as possible throughout the day] Tobacco use date assessed: 09/01/23 Dental Screening Dental Screen Date: 04/07/24 Did you have a dental visit in the last 12 months?: No Did you have a dental problem in the last 6 months where you did not have access to dental care?: No Was dental information given to patient?: Patient has dentist HPI HPI Comments History of Present Illness Details The patient is a 63-year-old male presenting with concerns about elevated blood pressure and persistent back pain presents today for his physical exam. He reports taking Losartan 25 mg for hypertension but did not take the medication on the day of the visit due to missing breakfast. The patient notes that his blood pressure was elevated, potentially influenced by a recent physical activity involving walking nearly a mile. Additionally, he experiences persistent back pain that prompts occasional visits to the emergency department. A previous X-ray revealed findings consistent with arthritis, but the patient denies leg pain or urinary incontinence associated with this. He also experiences dyspnea and fatigue upon exertion. The patient has a history of monoclonal gammopathy of undetermined significance (MGUS), with recent lab results indicating decreased platelets. He is under the care of hematology, with recommended follow-ups including additional lab work and a urine protein electrophoresis. The patient?s back pain has been attributed to lumbar degeneration. Will send him to physical therapy and refer him to pain management. Colonoscopy was done last month and showed tubular adenoma and hyperplastic polyp. Next colonoscopy should be in 3-5 years. No rectal bleeding. No chest pain or shortness on breath. [facility] Medical History (Updated 04/07/24 @ 08:57 by Florina Martinez MD) Physical exam ACTH elevation Degenerative arthritis of thoracic spine History of hyperprolactinemia Hyperthyroidism Low TSH level GERD (gastroesophageal reflux disease) Hypovitaminosis D Shortness of breath GARRET on CPAP Palpitations Polyarthralgia Obesity Essential hypertension Surgical History H/O colonoscopy H/O lithotripsy Carpal tunnel syndrome of right wrist H/O umbilical hernia repair Family History Mother Heart problem Father Stroke Social History (Updated 04/07/24 @ 08:47 by Florina Martinez MD) Housing: House Alcohol intake: current Alcohol intake frequency: does not drink Alcohol type: beer and hard liquor Patient Tobacco Use Status: Former Tobacco user Tobacco use type: Cigarette e-Cigarette/Vaping Use: Never Used Second Hand Smoke Exposure: No Advance Directives Date on File: 02/18/20 service: No Current occupational status: employed 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 Shimon Kennedy, Hilda De Jesus, Ta De La Garza and colleagues, with an educational quita from [employer]. Review of Systems Const All systems reviewed & are unremarkable except as noted in HPI and below Card Denies chest pain at rest, Denies chest pain with activity, Denies edema, Denies irregular heart rhythm, Denies claudication, Denies dyspnea, Denies dyspnea on exertion, Denies orthopnea, Denies paroxysmal nocturnal dyspnea and Denies slow heart rate Resp Denies cough, Denies dyspnea and Denies dyspnea on exertion Physical exam (Primary Care) Vital Signs: Last Vital Signs BP 150/82 H 04/07/24 08:01 BMI result Body Mass Index 34.3 BMI Assessment/Plan discussion: High BMI High, discussed plan: lifestyle, weight reduction, dietary and physical activity Tobacco/Smoking Status: Tobacco use Status Tobacco use date assessed 09/01/23 04/07/24 08:08 Patient Tobacco Use Status Former Tobacco user 04/07/24 08:47 Tobacco use type Cigarette 04/07/24 08:47 e-Cigarette/Vaping Use Never Used 04/07/24 08:47 Thrive Assessment: Date of Thrive Assessment Date Thrive assessed 09/01/23 04/07/24 08:08 HENMT Head: Yes normal to inspection, Yes normocephalic and Yes atraumatic Ears: external ears normal Eyes General: appearance normal, both eyes and all related structures Eyelids: Yes eyelids normal Conjunctivae: conjunctivae normal Neck Neck: Yes normal visual inspection and Yes supple Resp Effort & Inspection: normal respiratory effort Auscultation: clear to auscultation bilaterally Cardio Jugular venous distension: no JVD Rate: regular rate Rhythm: regular rhythm Heart sounds: Murmur heart sound present GI Inspection: Yes normal to inspection Palpation (GI): Soft to palpation and nontender Auscultation: normal bowel sounds Skin General skin exam: no rashes or lesions noted Neuro General: no focal motor deficits Extrem General: Yes full ROM Psych Appearance: grossly normal Office Procedures Flu Questionnaire Does the patient have a severe egg allergy?: No Immunizations Fluarix Triv [id number] (PF) 45 mcg (15 mcg x 3)/0.5 mL IM syringe Performing Provider: Florina Martinez MD [facility] Documented (not given) by: DAVID Coronel on 04/07/24 08:09 Reason Not Given: Patient Refused Coding Level of Care Code Est Pt Level 4 (97317) Est Pt Prev Care 40-64y(52625) Diagnoses Physical exam Z00.00 Lumbar pain M54.50 Murmur R01.1 MGUS (monoclonal gammopathy of unknown significance) D47.2 Essential hypertension I10 Time Spent (min) 40 Assessment & Plan Assessment & Plan (1) Physical exam: Code(s): Z00.00 - Encounter for general adult medical examination without abnormal findings Category: Medical (2) Lumbar pain: Code(s): M54.50 - Low back pain, unspecified Category: Medical (3) Murmur: Code(s): R01.1 - Cardiac murmur, unspecified Category: Medical (4) MGUS (monoclonal gammopathy of unknown significance): Code(s): D47.2 - Monoclonal gammopathy Category: Medical (5) Essential hypertension: Code(s): I10 - Essential (primary) hypertension Category: Medical Plan - Essential Hypertension: Repeat blood pressure monitoring; continue Losartan 25 mg daily. - Monoclonal Gammopathy of Undetermined Significance MGUS): Follow up with hematology; repeat lab tests and urine protein electrophoresis as scheduled. - Erectile Dysfunction: Transition from Tadalafil 20 mg to 5 mg daily if recommended by urology. - Lumbar Degeneration and Arthritis: Referral to pain management and physical therapy. - Adenomatous and Hyperplastic Polyps: Follow-up appointment scheduled next month to discuss future colonoscopy. - Cardiac Murmur: Schedule an echocardiogram for further evaluation. Patient was informed and verbally consented to the use of an ambient scribe for clinic note documentation during this visit. During the visit, I discussed with the patient the management of essential hypertension, including medication adherence and the impact of physical activity on blood pressure. We reviewed the implications of monoclonal gammopathy of undetermined significance (MGUS) and the need for ongoing monitoring and tests. The patient's back pain, attributed to lumbar degeneration, was addressed with referrals for physical therapy and pain management. We also evaluated a heart murmur noted on examination, recommending an echocardiogram. The patient opted not to receive the flu vaccine today. Future appointments for follow-up on his hematological and gastrointestinal conditions were confirmed, and I emphasized the importance of adhering to the follow-up plan, including laboratory evaluations. Orders: Orders PT Evaluation and Treatment Today M54.50 - Low back pain, unspecified Influenza [id number] Immunization Today Z23 - Encounter for immunization Comprehensive [place]. Panel Fast Today Z00.00 - Encounter for general adult medical examination without abnormal findings Lipid Panel Today Z00.00 - Encounter for general adult medical examination without abnormal findings CA echo transthoracic complete Today R01.1 - Cardiac murmur, unspecified Referrals Pain Management Referral M54.50 - Low back pain, unspecified Patient Instructions: - Adhere to daily Losartan 25 mg intake and monitor blood pressure at home. - Follow up with hematology as scheduled and complete required laboratory testing next month. - Engage with physical therapy as referred, and attend scheduled visits for pain management. - Attend the appointment with the custodial worker and discuss colonoscopy timeline. - Undergo an echocardiogram for further cardiac evaluation. - Maintain record of any new or worsening symptoms and seek immediate care if necessary.
[2024-04-07 08:01] VITALS: BP 150/82; BMI 34.3
== END 2024-04-07 09:04 | disposition home or self-care (01) ==
PROVIDERS: PCP Internal Medicine; Visit Provider Internal Medicine
DX: Z00.00 Encounter for general adult medical examination without abnormal findings (principal); M54.50 Low back pain, unspecified; R01.1 Cardiac murmur, unspecified; D47.2 Monoclonal gammopathy; I10 Essential (primary) hypertension

== ENCOUNTER 2024-04-21 11:16 | Outpatient (AMB) | payer OTHER, SELFPAY ==
--- NOTE | 2024-04-21 11:30 | MHC.OFFVIS ---
Vital Signs 04/21/24 11:46 Height 6 ft Weight 247 lb 4 oz BMI 33.5 BP 144/76 H Blood Pressure Location Rt brachial Position Sitting Respiration 17 Pulse 62 Pulse Source Pulse Oximeter Pulse Oximetry (%) 95 Oxygen Delivery Method Room Air Intake Visit Reasons: Low back pain, unspecified Intake Note: Patient comes in for initial visit was referred by [facility] primary care. Reports pain 05/28. Residential Mortgage Underwriter Required: Yes Residential Mortgage Underwriter Services: Residential Mortgage Underwriter Present Residential Mortgage Underwriter Name: Tarsha Ferrell Allergies No Known Allergies [No Known Allergies*] Allergy (Verified 04/21/24 11:48) HPI Comments Details: Ramiro is very pleasant 63 years old gentleman he is employee of [employer], he has Latvian-speaking individual, he presented today in my office with complains on 2 months of the lower back pain. Pain is mostly located in the projection of the most lateral portion of the left iliac crest. He denies radiation of the pain. Flexing forward and flexing backwards does not aggravate the pain. Prolonged sitting or prolonged standing does not aggravate the pain. He has onset of the pain was gradual. He is able to sleep normally, he can do activities of daily living he can take care of himself he can function normally. In terms of tissue damage he reports his pain as pulsing, throbbing, pounding, stabbing, lancinating, dull, sore, hurting, aching, heavy sensation. He received x-ray of the lumbar spine results of which dictated as below. It demonstrates some spondylotic changes. It demonstrates straightening of the lumbar spine. He never had any physical therapy. He never had chiropractic manipulations. No massage therapy was offered to the patient. No injections was done to the patient. His past medical history significant for hypertension. His past surgical history significant for hernia repair and carpal tunnel syndrome surgery. He denies smoking cigarettes he does not drink alcohol he denies recreational drugs. He is employee of [employer]. [facility] Medical History (Updated 04/07/24 @ 08:57 by Florina Martinez MD) Physical exam ACTH elevation Degenerative arthritis of thoracic spine History of hyperprolactinemia Hyperthyroidism Low TSH level GERD (gastroesophageal reflux disease) Hypovitaminosis D Shortness of breath GARRET on CPAP Palpitations Polyarthralgia Obesity Essential hypertension Surgical History H/O colonoscopy H/O lithotripsy Carpal tunnel syndrome of right wrist H/O umbilical hernia repair Family History Mother Heart problem Father Stroke Social History (Updated 04/07/24 @ 08:47 by Florina Martinez MD) Housing: House Alcohol intake: current Alcohol intake frequency: does not drink Alcohol type: beer and hard liquor Patient Tobacco Use Status: Former Tobacco user Tobacco use type: Cigarette e-Cigarette/Vaping Use: Never Used Second Hand Smoke Exposure: No Advance Directives Date on File: 02/18/20 service: No Current occupational status: employed 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 Current occupational exposures/hazards: No Cognitive needs: No Hearing needs: No Vision needs: No Review of Systems Const All systems reviewed & are unremarkable except as noted in HPI and below ENT Reports Normal hearing present Neuro Reports Normal hearing present, Denies Abnormal speech present, Denies confusion and Denies Sensory deficit (Neuro) Psych Denies confusion Physical Exam Vital Signs: Last Vital Signs Pulse 62 04/21/24 11:46 Resp 17 04/21/24 11:46 BP 144/76 H 04/21/24 11:46 Pulse Ox 95 04/21/24 11:46 Oxygen Delivery Method Room Air 04/21/24 11:46 BMI result Body Mass Index 33.5 Const General: no acute distress; No confusion Orientation/consciousness: patient oriented x3 and No confusion Eyes General: appearance normal, both eyes and all related structures Pupils: Equal, round and reactive pupils present EOM: EOMs intact bilaterally Neck Neck: Yes full ROM Chest Chest palpation & inspection: normal inspection of the chest Resp Effort & Inspection: normal respiratory effort, able to speak in complete sentences, normal respiratory pattern, no audible wheezes and no cough Cardio Jugular venous distension: no JVD GI Inspection: Yes normal to inspection Back/Spine/Pelvis Other: There is tenderness on palpation in projection of the most lateral portion of the left iliac crest. No tenderness on palpation in projection of the lumbar spine or medial left iliac crest. Sgae test is negative on the left. Flexing forward and flexing backwards do not affect his pain. Valsalva maneuver is negative for pain increase. The pain is not radiating into the lower extremities. Neuro General: patient oriented x3, gait normal and No confusion Cranial nerves: Yes CN's II-XII intact bilaterally, Yes Equal, round and reactive pupils present, Yes Normal hearing present and Yes Ability to bilaterally elevate shoulders present Speech: No Abnormal speech present Gait exam (Neuro): Normal gait present Motor exam (neuro): 5/5 motor strength present throughout Sensory Exam: No Sensory deficit (Neuro) Extrem General: No pedal edema Psych Speech and movement: Normal speech and movement present Affect: normal affect Attitude: cooperative Thought process: Normal thought process present Thought content: Normal thought content present Insight: Good insight present (Psych) Judgement: Good judgement present (Psych) Results Reviewed Results Reviewed: XR LUMBOSACRAL SPINE CLINICAL INFORMATION: pain, injury COMPARISON: Lumbar spine 09/08/2000 TECHNIQUE: Three views of the lumbosacral spine. FINDINGS: There is straightening of the lumbar spine. Degenerative changes are seen at L2-L3 with some disc space narrowing sclerosis and osteophyte formation. These findings have progressed slightly when compared to 09/08/2020. No acute finding is seen. Assessment & Plan Assessment & Plan (1) Low back pain: Code(s): M54.50 - Low back pain, unspecified Category: Medical Plan The x-ray changes of this patient are demonstrating mostly advanced changes at L2-L3 interval. However the pain of the patient is located at the most lower portion of the lumbar area on the left in the projection of the left lateral iliac crest . Therefore I do not believe this changes on the lumbar spine are related to the pain in the lower back. He has straightening of the lumbar spine due to the probably heavy lifting and hardworking. I decided to send him for physical therapy of the lumbar spine. I also will prescribe him ibuprofen 400 mg on the clock p.r.n. for next 10 days. He was explained how to use the medication. Orders: Orders PT Evaluation and Treatment Today M54.50 - Low back pain, unspecified Medications: New ibuprofen 400 mg PO Q6H 8 days 32 tabs 0RF Patient Instructions: Tarsha Ferrell donor relations officer who is certified event marketing coordinator helped us to maintain this conversation in Latvian. Coding Level of Care Code New Pt Level 3 (94435) Diagnoses Low back pain M54.50
[2024-04-21 11:46] VITALS: BP 144/76; PULSE 62; RESP 17; O2SAT 95; BMI 33.5
== END 2024-04-21 11:57 | disposition home or self-care (01) ==
PROVIDERS: PCP Internal Medicine; Visit Provider Anesthesiology
DX: M54.50 Low back pain, unspecified (principal)
CPT/HCPCS: 99203

== ENCOUNTER → 2024-04-21 11:16 | Outpatient (BNVA) | payer OTHER, SELFPAY | PROVIDERS: PCP Internal Medicine; Visit Provider Anesthesiology ==

== ENCOUNTER → 2024-04-28 07:48 | Outpatient (REF) | payer OTHER, SELFPAY ==
--- NOTE | 2024-04-28 07:51 | CA_ITS ---
Transthoracic Echocardiogram Patient (Last, First, Middle): Ramiro Lerma A Gender: Male Date of : 1960 Age: 63 Procedure Date: 04/28/2024 Procedure Type: Transthoracic Echocardiogram Location: OP Height: 182.88 cm Weight: 112.04 kg BSA: 2.33 m2 Heart Rate: bpm BP: 144 / 76 mmHg Nut Sorter Operator: Referring MD: Florina Martinez MD Ferry Captain: Rick Briggs MD Symptoms: R01.1 - Cardiac murmur, unspecified Study Quality: Good ECG Rhythm: Sinus Conclusions: - 1. Normal LV ejection fraction of 60 65% with impaired relaxation filling pattern 2. Normal cardiac valvular Dopplers 3. No gross pericardial effusion Findings Left Ventricle Normal left ventricular size, thickness, and systolic function. The visually estimated ejection fraction is between 60-65%. Spectral Doppler is indicative of an impaired relaxation filling pattern. E/E prime ratio is between 8 and 15 consistent with indeterminate filling pressures. Right Ventricle Normal right ventricular cavity size and systolic function. Atria The left atrium is likely dilated. Interatrial shunt cannot be excluded. The right atrium is normal in size. Aortic Valve Normal aortic valve structure and function. There is no aortic valve stenosis. There is no aortic valve regurgitation. Mitral Valve Normal mitral valve structure and function. There is trace mitral valve regurgitation. There is no mitral valve stenosis. Pulmonic Valve The pulmonic valve was not well visualized. Tricuspid Valve Likely normal tricuspid valve structure and function. Tricuspid regurgitation envelope is inadequate for calculation of right ventricular systolic pressure. Normal right atrial pressure. Great Vessels All visible segments of the aorta are normal in size. The pulmonary artery was not well visualized. There is no dilatation of the ascending aorta measuring 3.20 cm. Venous The inferior vena cava is normal in size and collapses greater than 50% with inspiration. Pericardium/Pleural There is no evidence of pericardial effusion. Prior Study Comparison No prior study available for comparison. Measurements 2D Linear Measurements IVSd: 1.23 0.6-0.9/0.6-1.0 cm LVIDd: 4.66 3.9-5.3/4.2-5.9 cm LVIDd Index: 2.00 2.4-3.2/2.2-3.1 cm/m2 LVIDs: 2.67 2.0-3.6 cm LVPWd: 1.21 0.7-1.1 cm Ao Root: 3.00 2.1-3.5 cm LA Diam: 4.10 2.7-3.8/3.0-4.0 cm LAIDs Index: 1.76 1.5-2.3 cm/m2 LV Mass: 266.98 67-162/88-224 g LV Mass Index: 114.59 43-95/49-115 g/m2 LVOT Diam: 2.20 3.0+(-)1.3 cm Mitral Valve MV Pk E: 0.76 MV PK A: 1.08 MV Decel Time: 190.00 E/A: 0.70 E'Lateral: 6.96 E'Medial: 5.66 E/E' Med: 13.40 E/E' Lat: 10.90 PHT: 56.00 MVA PHT: 3.93 Decel Metcalfe: 4.00 Aortic Valve AoV Pk Zurdo: 1.56 AoV Mn Zurdo: 1.06 AoV VTI: 0.34 AoV Pk Grad: 10.00 Aov Mn Grad: 5.00 ROCK Cont.VTI: 2.67 LVOT LVOT Pk Zurdo: 1.10 LVOT Mn Zurdo: 0.75 LVOT VTI: 0.24 LVOT Pk Grad: 5.00 LVOT Mn Grad: 3.00 LVOT Diam: 2.20 LVOT Area: 3.80 Diastolic Function MV Pk E: 0.76 MV Pk A: 1.08 E/A: 0.70 E'Medial: 5.66 E/E' Med: 13.40 E' Laterial: 6.96 E/E' Lat: 10.90 Right Ventricle TAPSE (mm): 32.00 Tricuspid Valve TR Pk Zurdo: 2.30 TR Pk Grad: 21.00 RA Press: 3.00 Great Vessels Aorta Ao Root-2D: 3.00 2.0-3.7 cm Ao Asc: 3.20 2.1-3.4 cm Pulmonary Valve PV Pk Zurdo: 1.22 Peak PV Grad: 6.00 Updated in Other Vendor System with Status of Final Rick Briggs MD electronically signed on 04/29/2024 1:26:47 PM with status of Final
== END ==
LOC: HO.CARD 07:48
PROVIDERS: PCP Internal Medicine; Visit Provider Internal Medicine
DX: R01.1 Cardiac murmur, unspecified (principal)
CPT/HCPCS: 93306

== ENCOUNTER → 2024-04-28 07:51 | Outpatient (BNV) | payer OTHER, SELFPAY | PROVIDERS: PCP Internal Medicine; Visit Provider Internal Medicine Cardiovascular Disease | DX: I51.89 Other ill-defined heart diseases (principal) | CPT/HCPCS: 93306 ==

== ENCOUNTER 2024-04-30 10:53 | Outpatient (AMB) | payer OTHER, SELFPAY ==
--- NOTE | 2024-04-30 10:56 | MHC.OFFVIS ---
Intake Visit Reasons: cysto Intake Note: Patient is present for Cystoscopy Urology Medication:TADALAFIL Antibiotic Allergy:NONE Blood Thinner:NONE Lot:[id number] Exp:03/22/27 Terminal Gauger Required: No Allergies No Known Allergies [No Known Allergies*] Allergy (Verified 04/30/24 10:59) HPI Comments Details: Mikey BATISTA is a very pleasant Monegasque male They are a patient of Dr. Lundy They are seen in the office today for the following urologic conditions - hypogonadism - lower urinary tract symptoms - erectile dysfunction Monegasque translation provided by qualified medical physics teacher Here for cystoscopy Persistent nocturia 3-4 times with urgency UA normal Recent ultrasound with small stone right side 4 mm asymptomatic Cystoscopy with irritated bladder Mildly enlarged prostate Trial low-dose Bactrim with finasteride May benefit from prostate procedure Erectile dysfunction Effective results with 20 mg on demand tadalafil Lower Urinary Tract Symptoms: Nocturia x2 Current visit is for further evaluation of, lower urinary tract symptoms, predominate irritative symptoms, Current treatment includes alpha eric, terazosin. Prostate Symptom Score Moderate (9-19), Bother 3. Symptoms include 10/17 , incomplete emptying, urgency, weak stream, and are stable. Prior Prostate Score moderate. Testing at next visit will include bladder scan. Hypogonadism: Borderline He presents today for evaluated with endocrinology Had over-response with T in 2018 1cc q 2wk IM. Initial symptoms include erectile dysfunction Yes decreased libido Yes change in mood/depression Yes in muscle size/strength Yes increased fatigue/malaise Yes Associate conditions include obstructive sleep apnea Yes Laboratory investigations - 06/08 testosterone 220, PSA 1.2, 12/07 320 P 1.2, 12/08 330 P 1.3 PFSH Medical History (Updated 04/07/24 @ 08:57 by Florina Martinez MD) Physical exam ACTH elevation Degenerative arthritis of thoracic spine History of hyperprolactinemia Hyperthyroidism Low TSH level GERD (gastroesophageal reflux disease) Hypovitaminosis D Shortness of breath GARRET on CPAP Palpitations Polyarthralgia Obesity Essential hypertension Surgical History H/O colonoscopy H/O lithotripsy Carpal tunnel syndrome of right wrist H/O umbilical hernia repair Family History Mother Heart problem Father Stroke Social History (Updated 04/07/24 @ 08:47 by Florina Martinez MD) Housing: House Alcohol intake: current Alcohol intake frequency: does not drink Alcohol type: beer and hard liquor Patient Tobacco Use Status: Former Tobacco user Tobacco use type: Cigarette e-Cigarette/Vaping Use: Never Used Second Hand Smoke Exposure: No Advance Directives Date on File: 02/18/20 service: No Current occupational status: employed 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 Current occupational exposures/hazards: No Cognitive needs: No Hearing needs: No Vision needs: No Review of Systems Const Denies chills and Denies fever(s) Card Reports no additional complaints and Denies syncope Resp Denies cough GI Denies abdominal pain and Denies heartburn Reports as per HPI and Denies change in libido Neuro Denies syncope Psych Denies change in libido Endo Denies change in libido Physical Exam Const General: cooperative, healthy appearing, comfortable and no acute distress Orientation/consciousness: patient oriented x3 HEENT Face and sinus: Yes normal facial exam Mouth: moist mucous membranes Neck Neck: Yes normal visual inspection, Yes full ROM and Yes trachea midline Chest Chest palpation & inspection: normal inspection of the chest Resp Effort & Inspection: normal respiratory effort, able to speak in complete sentences and no respiratory distress GI Inspection: Yes normal to inspection Back/Spine/Pelvis Cervical Spine: normal cervical lordosis Thoracic/Lumbar Spine: thoracic and lumbar spine normal to inspection Skin General skin exam: no rashes or lesions noted Neuro General: patient oriented x3, gait normal, tone normal and moves all extremities Extrem General: Yes normal to inspection and Yes capillary refill normal Office Procedures Cystoscopy Consent Discussed risk and benefit or proposed procedure with the patient. Information consent for procedure given to the patient. Discussed technical aspects, risks, benefits and alternatives in full. Addressed all of the patient's questions and concerns regarding the procedure. The patient demonstrated knowledge and understanding. They wish to proceed with this procedure. Preparation The patient was prepped in the usual manner. A chief sales officer was present and in the room. Genitalia was prepped with betadine solution in a sterile manner. Lidocaine Jelly 2% was placed into the urethra and 16Fr flexible Olympus cystoscope was inserted into the meatus after adequate lubrication. Procedure Cystoscopy performed using a disposable MonkeyFindvue digital 16 Congolese cystoscope. Meatus uncircumcised Urethra anterior and posterior urethra normal Prostatic Urethra unremarkable Bladder examination with retroflexion of cystoscope Bladder Orifices normal shape and position Bladder Capacity median Trabeculations grade 1 Cellule Formation yes Diverticulum Formation no Mucosal Erythema irritation Bladder Tumor - [id number] DISPOSABLE SCOPE URO-G FLEXIBLE SCOPE Procedure code (CPT) selection complete Office Meds lidocaine HCl 2 % mucosal jelly in applicator Performing Provider: Justice Tran MD [place] [facility] [place] [facility] Administered by: Justice Tran MD on 05/02/24 17:33 Dose Route Admin Location Dispensed Lot Number Expiration Date [facility] Trust Operations Assistant 10 mL intra-urethral 10 mL Results AMB Urinalysis, Automated UA Leukoctes 0 Harjit/uL Last Edit by VALDEMAR Hussein on 04/30/24 11:34 UA Nitrite Negative Last Edit by VALDEMAR Hussein on 04/30/24 11:34 UA Urobilinogen 0.2 mg/dL Last Edit by VALDEMAR Hussein on 04/30/24 11:34 UA Protein 30 mg/dL Last Edit by VALDEMAR Hussein on 04/30/24 11:34 UA pH 5.5 Last Edit by VALDEMAR Hussein on 04/30/24 11:34 UA Blood 25 Phil/uL Last Edit by VALDEMAR Hussein on 04/30/24 11:34 UA Specific [place] 1.030 Last Edit by VALDEMAR Hussein on 04/30/24 11:34 UA Ketone Negative Last Edit by VALDEMAR Hussein on 04/30/24 11:34 UA Bilirubin 0 mg/dL Last Edit by VALDEMAR Hussein on 04/30/24 11:34 UA Glucose 0 mg/dL Last Edit by VALDEMAR Hussein on 04/30/24 11:34 Results Reviewed Results Reviewed: Laboratory Last Values Urine pH (Auto) 5.5 04/30/24 11:33 Specific [place] (Auto) 1.030 04/30/24 11:33 Urine Protein (Auto) 30 mg/dL 04/30/24 11:33 Glucose (UA)(Auto) 0 mg/dL 04/30/24 11:33 Urine Ketones (Auto) Negative 04/30/24 11:33 Urine Blood (Auto) 25 Phil/uL 04/30/24 11:33 Urine Nitrite (Auto) Negative 04/30/24 11:33 Urine Bilirubin (Auto) 0 mg/dL 04/30/24 11:33 Urine Urobilinogen (Auto) 0.2 mg/dL 04/30/24 11:33 Leukocyte Esterase (Auto) 0 Harjit/uL 04/30/24 11:33 Assessment & Plan Assessment & Plan (1) Nocturia more than twice per night: Code(s): R35.1 - Nocturia Category: Medical (2) Erectile dysfunction due to arterial insufficiency: Code(s): N52.01 - Erectile dysfunction due to arterial insufficiency Category: Medical (3) Nephrolithiasis: Code(s): N20.0 - Calculus of kidney Category: Medical Plan Bactrim plus finasteride Orders: Orders AMB Urinalysis Automated 04/30/24 Z13.9 - Encounter for screening, unspecified AMB Cystoscopy 04/30/24 R35.1 - Nocturia Medications: New sulfamethoxazole-trimethoprim 400-80 mg (Bactrim) 1 tab PO BEDTIME 90 tabs 0RF 90 days N13.8 - Other obstructive and reflux uropathy, N39.0 - Urinary tract infection, site not specified, N40.1 - Benign prostatic hyperplasia with lower urinary tract symptoms lidocaine HCl 2% 10 mL intra-urethral ONCE 10 mL 0RF R35.1 - Nocturia finasteride 5 mg PO DAILY 90 tabs 1RF 90 days N13.8 - Other obstructive and reflux uropathy, N40.1 - Benign prostatic hyperplasia with lower urinary tract symptoms, R33.9 - Retention of urine, unspecified Patient Instructions: Imaging studies, laboratory and physical exam results were discussed and reviewed in detail. No major barriers to patient understanding were identified. An opportunity to ask questions regarding the treatment plan was provided. All questions were answered. The patient expressed understanding and agreement with the above treatment plan. The patient is aware they should contact our office by phone for worsening of their current condition or the appearance of new urologic symptoms. Compliance is encouraged with any medications and followup testing that is ordered. It is a privilege to participate in the urologic care of your patient. If you have any questions or concerns regarding treatment for the above conditions, or other urologic issues, please do not hesitate to contact me. The office telephone contact is [phone]. This note is constructed using voice recognition software. While every effort has been made to ensure accuracy data entry specialist errors may have been included. Yours sincerely, Dr Justice Tran MD, [facility] - Urology Providers of Expert, Compassionate Care for the Genitourinary System Coding Level of Care Code Est Pt Level 4 (40911) Diagnoses Nocturia more than twice per night R35.1 Erectile dysfunction due to arterial insufficiency N52.01 Nephrolithiasis N20.0 CPT Codes Cystoscopy - CPT: 27889-[id number] ([id number])
== END 2024-04-30 12:11 | disposition home or self-care (01) ==
PROVIDERS: PCP Internal Medicine; Visit Provider Urology
DX: Z13.9 Encounter for screening, unspecified (principal)

== ENCOUNTER 2024-05-06 09:54 | Outpatient (AMB) | payer OTHER, SELFPAY ==
--- NOTE | 2024-05-06 10:01 | A.OFFVIS_ITS ---
Vital Signs 05/06/24 10:03 Height 6 ft Weight 247 lb 5.738 oz BMI 33.5 BP 145/79 H Blood Pressure Location Lt brachial Position Sitting Pulse 76 Intake Visit Reasons: GERD 8 wks f/u Intake Note: Ramiro presents to in office follow up of GERD. CC: Patient continues to acid reflux, and heartburn sometimes. Denies other GI concerns today. Commissary Officer Required: Yes Accompanied by: Self / Same As Patient Allergies No Known Allergies [No Known Allergies*] Allergy (Verified 05/06/24 10:04) HPI HPI GERD 8 wks f/u: Details: Assessment & Plan (1) GERD (gastroesophageal reflux disease): Code(s): K21.9 - Gastro-esophageal reflux disease without esophagitis Category: Medical Qualifiers: Esophagitis presence: esophagitis presence not specified Qualified Code(s): K21.9 - Gastro-esophageal reflux disease without esophagitis (2) Tubular adenoma of colon: Comment: 2023 scope repeat 5 years Code(s): D12.6 - Benign neoplasm of colon, unspecified Category: Medical Plan e is agreeable to a 5 year follow up. The procedure was well tolerated. The results were explained and the patient is agreeable to the follow-up interval as stated. The bowel pattern has returned to normal. Education was provided to t ell any 1st degree relatives about their findings to be sure that they are screened by age 45. Educated that they will be put on a recall list when it is time for their repeat scope but should they move out of state or away from the hospital they will need to remember along with their primary to repeat the procedure in a timely fashion to avoid any adverse complications. The only thing he has trouble swallowing is a fruit that grows only in [place]. He dislikes taking the omeprazole daily and finds he has rebound HB when he is taking it p.r.n.. WIll change to famotidine 40mg. 8 weeks. Medications: New famotidine (Pepcid) 40 mg PO DAILY PRN 30 tabs 6RF heartburn K21.9 - Gastro- esophageal reflux disease without esophagitis Discontinued omeprazole Discontinued Reason: Doctor's Order 20 mg PO DAILY 30 days 30 caps 6RF K21.9 - Gastro-esophageal reflux disease without esophagitis A TODAY'S VISIT [place] #Ambar Escoto He finds that the famotidine does not work well enough for him, but he does not want to go back to the omeprazole. He really dislikes taking any medication and would prefer something that he does not HAVE to take every day. He is complaining of malodorous gas. We review his diet and he eats a lot of eggs, which may be the cause. I also tell him about OdaFree. ROV 8 weeks. [facility] Medical History (Updated 05/06/24 @ 10:30 by MERRICK Villasenor) GARRET on CPAP Shortness of breath Low TSH level Abdominal pain Fatigue Muscle cramps Paresthesia Numbness of left hand Stiffness of right hand joint Nephrolithiasis Left hand pain Foreign body of right hand Physical exam ACTH elevation Degenerative arthritis of thoracic spine History of hyperprolactinemia Hyperthyroidism GERD (gastroesophageal reflux disease) Hypovitaminosis D Palpitations Polyarthralgia Obesity Essential hypertension Surgical History (Updated 05/06/24 @ 10:12 by MERRICK Villasenor) Carpal tunnel syndrome of right wrist H/O colonoscopy H/O lithotripsy H/O umbilical hernia repair Family History Mother Heart problem Father Stroke Social History Housing: House Alcohol intake: current Alcohol intake frequency: does not drink Alcohol type: beer and hard liquor Patient Tobacco Use Status: Former Tobacco user Tobacco use type: Cigarette e-Cigarette/Vaping Use: Never Used Second Hand Smoke Exposure: No Advance Directives Date on File: 02/18/20 service: No Current occupational status: employed 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 Current occupational exposures/hazards: No Cognitive needs: No Hearing needs: No Vision needs: No Review of Systems Const Denies fatigue, Denies fever(s), Denies night sweats, Denies poor appetite and Denies weight loss ENT Reports Normal hearing present, Denies dental pain, Denies dysphagia, Denies hearing loss, Denies mouth pain, Denies odynophagia, Denies throat swelling, Denies tongue swelling and Reports other (Dentition adequate) Card Reports no additional complaints Resp Reports no additional complaints GI Details: Denies abdominal pain, Denies melena, Denies bloating, Denies hematochezia, Denies constipation, Denies GI cramping, Denies dysphagia, Reports excessive flatus, Denies early satiety, Reports heartburn, Denies diarrhea, Denies nausea, Denies odynophagia, Denies vomiting and Denies hematemesis Skin/Breast Denies pruritus, Denies lesions, Denies rash and Denies jaundice Neuro Reports Normal hearing present and Denies Abnormal speech present Endo Denies fatigue Aller/Immun Denies throat swelling and Denies tongue swelling Physical Exam Vital Signs: Last Vital Signs Pulse 76 05/06/24 10:03 BP 145/79 H 05/06/24 10:03 BMI result Body Mass Index 33.5 Const General: cooperative, no acute distress, well developed and well groomed Nutritional Appearance: well nourished and overweight Orientation/consciousness: oriented to person, oriented to place and oriented to time Limitations: language barrier HEENT Head: Yes normocephalic and Yes atraumatic Eyes General: appearance normal, both eyes and all related structures Pupils: Equal, round and reactive pupils present Neck Neck: Yes normal visual inspection and Yes no lymphadenopathy Thyroid: Thyroid normal Resp Effort & Inspection: normal respiratory effort and able to speak in complete sentences Auscultation: clear to auscultation bilaterally Cardio Rate: regular rate Rhythm: regular rhythm Heart sounds: Normal, physiologic split S2 sound present Peripheral pulses: radial pulses present and posterior tibial pulses present GI Inspection: No distended and No Abdominal panniculus present Palpation (GI): Soft to palpation, nontender, no guarding, not rigid and No hepatosplenomegaly present Percussion: Yes normal to percussion Auscultation: normal bowel sounds Rectal Exam - Male: Yes deferred Skin General skin exam: no rashes or lesions noted, turgor normal, skin not dry, no jaundice, No spider nevi and no striae Rashes: no rashes Nails: normal Neuro General: oriented to person, oriented to place and oriented to time Cranial nerves: Yes Equal, round and reactive pupils present and Yes Normal hearing present Speech: No Abnormal speech present Extrem General: Yes normal to inspection, No clubbing, No cyanosis and No edema Psych Appearance: grossly normal and well kempt Mental Status: mental status grossly normal Speech and movement: Normal speech and movement present Affect: normal affect Attitude: cooperative Thought process: Normal thought process present and not confabulating Thought content: Normal thought content present Insight: Fair insight present (Psych) Judgement: Fair judgement present (Psych) Assessment & Plan Assessment & Plan (1) GERD (gastroesophageal reflux disease): Code(s): K21.9 - Gastro-esophageal reflux disease without esophagitis Category: Medical Qualifiers: Esophagitis presence: esophagitis presence not specified Qualified Code(s): K21.9 - Gastro-esophageal reflux disease without esophagitis (2) Flatulence: Comment: Malodorous Code(s): R14.3 - Flatulence Category: Medical Plan [place] #Ambar Escoto He finds that the famotidine does not work well enough for him, but he does not want to go back to the omeprazole. He really dislikes taking any medication and would prefer something that he does not HAVE to take every day. He is complaining of malodorous gas. We review his diet and he eats a lot of eggs, which may be the cause. I also tell him about OdaFree. ROV 8 weeks. Medications: New cimetidine 800 mg PO BEDTIME 30 tabs 6RF K21.9 - Gastro-esophageal reflux disease without esophagitis Discontinued famotidine (Pepcid) Discontinued Reason: Change Referral Type 40 mg PO DAILY PRN 30 tabs 6RF heartburn K21.9 - Gastro-esophageal reflux disease without esophagitis Coding Level of Care Code Est Pt Level 3 (48040) Diagnoses Gastroesophageal reflux disease, unspecified whether esophagitis present K21.9 Esophagitis presence: esophagitis presence not specified Flatulence R14.3
[2024-05-06 10:03] VITALS: BP 145/79; PULSE 76; BMI 33.5
== END 2024-05-06 13:08 | disposition home or self-care (01) ==
PROVIDERS: PCP Internal Medicine; Visit Provider Nurse Practitioner
DX: K21.9 Gastro-esophageal reflux disease without esophagitis (principal); R14.3 Flatulence
CPT/HCPCS: 99213

== ENCOUNTER → 2024-05-14 08:20 | Outpatient (BNVA) | payer OTHER, SELFPAY | PROVIDERS: PCP Internal Medicine ==

== ENCOUNTER 2024-06-11 09:55 | Outpatient (AMB) | payer OTHER, SELFPAY ==
--- NOTE | 2024-06-11 09:56 | A.OFFVIS_ITS ---
Intake Visit Reasons: Office cryotherapy wart 15 minute Intake Note: Patient is present for OFFICE CRYOTHERAPY WART 15 MINUTE Urology Medication:TADALAFIL,FINASTERIDE,BACTRIM Antibiotic Allergy:NONE Blood Thinner:NONE Survey Data Technician Required: No Allergies No Known Allergies [No Known Allergies*] Allergy (Verified 06/11/24 09:57) HPI Comments Details: Mikey BATISTA is a very pleasant Serbian male They are a patient of Dr. Lundy They are seen in the office today for the following urologic conditions - hypogonadism - lower urinary tract symptoms - erectile dysfunction Serbian translation provided by qualified director medical science Presents for cryotherapy of penile lesion Office procedure - penile wart cryotherapy CPT penile lesion greater than 7 mm [id number] Penile lesion greater than 7 mm - location superior dorsal base Double freeze thaw method using office cryo ablation was performed This allows full thickness freezing Cryo cone was taken and measured 9 mm Cryogen sprayed at 45 degree angle inside cone for accumulation of 1/4 inch cryo edge in Collagen allowed to evaporate for 35-40 seconds Full-time of 40 seconds performed Repeat cryogen application performed [facility] Medical History (Updated 06/11/24 @ 11:12 by Justice Tran MD) GARRET on CPAP Shortness of breath Low TSH level Abdominal pain Fatigue Muscle cramps Paresthesia Numbness of left hand Stiffness of right hand joint Nephrolithiasis Left hand pain Foreign body of right hand Physical exam ACTH elevation Degenerative arthritis of thoracic spine History of hyperprolactinemia Hyperthyroidism GERD (gastroesophageal reflux disease) Hypovitaminosis D Palpitations Polyarthralgia Obesity Essential hypertension Surgical History (Updated 05/06/24 @ 10:12 by MERRICK Villasenor) Carpal tunnel syndrome of right wrist H/O colonoscopy H/O lithotripsy H/O umbilical hernia repair Family History Mother Heart problem Father Stroke Social History Housing: House Alcohol intake: current Alcohol intake frequency: does not drink Alcohol type: beer and hard liquor Patient Tobacco Use Status: Former Tobacco user Tobacco use type: Cigarette e-Cigarette/Vaping Use: Never Used Second Hand Smoke Exposure: No Advance Directives Date on File: 02/18/20 service: No Current occupational status: employed 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 Current occupational exposures/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: No Cognitive needs: No Hearing needs: No Vision needs: No Review of Systems Const Denies chills and Denies fever(s) Card Reports no additional complaints and Denies syncope Resp Denies cough GI Denies abdominal pain and Denies heartburn Reports as per HPI and Denies change in libido Neuro Denies syncope Psych Denies change in libido Endo Denies change in libido Physical Exam Const General: cooperative, healthy appearing, comfortable and no acute distress Orientation/consciousness: patient oriented x3 HEENT Face and sinus: Yes normal facial exam Mouth: moist mucous membranes Neck Neck: Yes normal visual inspection, Yes full ROM and Yes trachea midline Chest Chest palpation & inspection: normal inspection of the chest Resp Effort & Inspection: normal respiratory effort, able to speak in complete sentences and no respiratory distress GI Inspection: Yes normal to inspection Back/Spine/Pelvis Cervical Spine: normal cervical lordosis Thoracic/Lumbar Spine: thoracic and lumbar spine normal to inspection Skin General skin exam: no rashes or lesions noted Neuro General: patient oriented x3, gait normal, tone normal and moves all extremities Extrem General: Yes normal to inspection and Yes capillary refill normal Results AMB Urinalysis, Automated UA Leukoctes 0 Harjit/uL Last Edit by VALDEMAR Hussein on 06/11/24 10:51 UA Nitrite Negative Last Edit by VALDEMAR Hussein on 06/11/24 10:51 UA Urobilinogen 0.2 mg/dL Last Edit by VALDEMAR Hussein on 06/11/24 10:5 1 UA Protein 15 mg/dL Last Edit by VALDEMAR Hussein on 06/11/24 10:51 UA pH 6.0 Last Edit by VALDEMAR Hussein on 06/11/24 10:51 UA Blood 10 Phil/uL Last Edit by VALDEMAR Hussein on 06/11/24 10:51 UA Specific Howe 1.025 Last Edit by VALDEMAR Hussein on 06/11/24 10: 51 UA Ketone Negative Last Edit by VALDEMAR Hussein on 06/11/24 10:51 UA Bilirubin 0 mg/dL Last Edit by Phillip Boothe CCM on 06/11/24 10:51 UA Glucose 0 mg/dL Last Edit by VALDEMAR Hussein on 06/11/24 10:51 Results Reviewed Results Reviewed: Laboratory Last Values Urine pH (Auto) 6.0 06/11/24 10:50 Specific Howe (Auto) 1.025 06/11/24 10:50 Urine Protein (Auto) 15 mg/dL 06/11/24 10:50 Glucose (UA)(Auto) 0 mg/dL 06/11/24 10:50 Urine Ketones (Auto) Negative 06/11/24 10:50 Urine Blood (Auto) 10 Phil/uL 06/11/24 10:50 Urine Nitrite (Auto) Negative 06/11/24 10:50 Urine Bilirubin (Auto) 0 mg/dL 06/11/24 10:50 Urine Urobilinogen (Auto) 0.2 mg/dL 06/11/24 10:50 Leukocyte Esterase (Auto) 0 Harjit/uL 06/11/24 10:50 Assessment & Plan Assessment & Plan (1) Penile wart: Code(s): A63.0 - Anogenital (venereal) warts Category: Medical Plan Cryotherapy performed Orders: Orders AMB Urinalysis Automated Today Z13.9 - Encounter for screening, unspecified Patient Instructions: Imaging studies, laboratory and physical exam results were discussed and reviewed in detail. No major barriers to patient understanding were identified. An opportunity to ask questions regarding the treatment plan was provided. All questions were answered. The patient expressed understanding and agreement with the above treatment plan. The patient is aware they should contact our office by phone for worsening of their current condition or the appearance of new urologic symptoms. Compliance is encouraged with any medications and followup testing that is ordered. It is a privilege to participate in the urologic care of your patient. If you have any questions or concerns regarding treatment for the above conditions, or other urologic issues, please do not hesitate to contact me. The office telephone contact is [phone]. This note is constructed using voice recognition software. While every effort has been made to ensure accuracy pharmacy care coordinator errors may have been included. Yours sincerely, Dr Justice Tran MD, [facility] - Urology Providers of Expert, Compassionate Care for the Genitourinary System Coding Level of Care Code Procedure Only Diagnoses Penile wart A63.0
--- OUTSIDE RECORDS SUMMARY | 2024-06-11 10:51 | XMS_ITS | Clinical Summary ---
Author Organization [employer] Address [address] [place] [address] Care Team Providers Care Sous Chef Name Role Phone Unavailable Primary Care Provider Unavailabl e Social History Tobacco Use Types Packs/Day Years Used Date Smoking Tobacco: Never Assessed Sex and Gender Information Value Date Recorded Sex Assigned at Male 03/18/2022 10:25 AM EDT Legal Sex Male 10:25 AM EDT Gender Identity Choose not to disclose 10:25 AM EDT Sexual Orientation Choose not to disclose 2021 10:25 AM EDT Last Filed Vital Signs Vital Sign Reading Time Taken Comments Blood Pressure 132/90 07/11/2020 12:02 AM EST Pulse 78 07/11/2020 12:02 AM EST Temperature - - Respiratory Rate - - Oxygen Saturation - - Inhaled Oxygen Concentration - - Weight 108 kg (237 lb) 07/22/2019 12:03 AM EST Height 185.4 cm (6' 1 ) 07/11/2020 12:02 AM EST Body Mass Index 31.27 07/22/2019 12:03 AM EST Plan of Treatment Health Maintenance Due Date Last Done Comments CT Colonography 1961 Colonoscopy 1961 Colorectal Cancer Screening 1961 Depression Screening 1961 FIT DNA/Cologuard 1961 FIT 1961 FOBT 1961 Lipid Panel 1961 Sigmoidoscopy 1961 Alcohol/Substance Use Screening 1973 Tobacco Screening 1973 DTaP/Tdap/Td Vaccines (1 - Tdap) 1980 Zoster Vaccines (1 of 2) 07/19/2011 COVID-19 Vaccine ( season) 2024 08/03/2021, 07/06/2020, 06/08/2020 Influenza Vaccine (#1) 2024 9, 02/26/2018, 02/12/2017, Additional history exists RSV Patients and Patients Aged 60 years or older (1 - 1-dose 75+ series) 2036 Hepatitis B Vaccines Aged Out 09/12/2017, 10/21/2016, 09/18/2016 No longer eligible based on patient's age to complete this topic HIB Vaccines Aged Out No longer eligi ble based on patient's age to complete this topic HPV Vaccines Aged Out No longer eligi ble based on patient's age to complete this topic Hepatitis A Vaccines Aged Out No long er eligible based on patient's age to complete this topic IPV Vaccines Aged Out No longer eligi ble based on patient's age to complete this topic Meningococcal Vaccine Aged Out No godfrey jeovanny eligible based on patient's age to complete this topic Pneumococcal Vaccine: Pediatrics (0 to 5 Years) and At-Risk Patients (6 to 64 Years) Aged Out No longer eligible based on patient's age to complete this topic RSV under 20 months Aged Out No longe r eligible based on patient's age to complete this topic Rotavirus Vaccines Aged Out No longer eligible based on patient's age to complete this topic
== END 2024-06-11 11:09 | disposition home or self-care (01) ==
PROVIDERS: PCP Internal Medicine; Visit Provider Urology
DX: A63.0 Anogenital (venereal) warts (principal); Z13.9 Encounter for screening, unspecified
CPT/HCPCS: 54056

== ENCOUNTER → 2024-06-11 09:55 | Outpatient (BNVA) | payer OTHER, SELFPAY | PROVIDERS: PCP Internal Medicine; Visit Provider Urology | DX: A63.0 Anogenital (venereal) warts (principal) | CPT/HCPCS: 54056; 81003 ==

== ENCOUNTER 2024-06-22 09:49 | Outpatient (AMB) | payer OTHER, SELFPAY ==
[2024-06-22 10:17] VITALS: BMI 33.5
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
--- OUTSIDE RECORDS SUMMARY | 2024-06-22 10:30 | XMS_ITS | Clinical Summary ---
Author Organization [employer] Address [address] [place] [address] Care Team Providers Care Hand Deicer Element Winder Name Role Phone Unavailable Primary Care Provider [...] 1973 DTaP/Tdap/Td Vaccines (1 - Tdap) 1980 Pneumococcal Vaccine: 50+ Years (1 of 1 - PCV) 07/19/2011 Zoster Vaccines (1 of 2) 07/19/2011 COVID-19 [...] 5 Years) and At-Risk Patients (6 to 49) Years) Aged Out No longer eligible based on patient's age to complete this topic RSV under 20 months Aged Out No longe r eligible based on patient's age to complete this topic Rotavirus Vaccines Aged Out No longer eligible based on patient's age to complete this topic
== END 2024-06-22 10:53 | disposition home or self-care (01) ==
PROVIDERS: PCP Internal Medicine; Visit Provider Orthopaedic Surgery
DX: M79.642 Pain in left hand (principal); R29.898 Other symptoms and signs involving the musculoskeletal system
CPT/HCPCS: 99214

== ENCOUNTER → 2024-06-22 09:49 | Outpatient (BNVA) | payer OTHER, SELFPAY | PROVIDERS: PCP Internal Medicine; Visit Provider Orthopaedic Surgery ==

== ENCOUNTER 2024-07-16 10:58 | Outpatient (AMB) | payer OTHER, SELFPAY ==
--- NOTE | 2024-07-16 10:59 | MHC.OFFVIS ---
Intake Visit Reasons: Office cryotherapy wart 15 minute Intake Note: Pt presents to the office today for a follow up cryotherapy wart. Allergies No Known Allergies [No Known Allergies*] Allergy (Verified 07/16/24 10:59) HPI Comments Details: Mikey BATISTA is a very pleasant [place] male They are a patient of Dr. Lundy They are seen in the office today for the following urologic conditions - hypogonadism - lower urinary tract symptoms - erectile dysfunction Danish translation provided by qualified medical diagnostic radiographer Well-healed after cryoablation of penile wart Balanitis Describes recurrent balanitis Would like to proceed with circumcision Risks and benefits have been discussed [facility] Medical History Left hand pain GARRET on CPAP Shortness of breath Low TSH level Abdominal pain Fatigue Muscle cramps Paresthesia Numbness of left hand Stiffness of right hand joint Nephrolithiasis Foreign body of right hand Physical exam ACTH elevation Degenerative arthritis of thoracic spine History of hyperprolactinemia Hyperthyroidism GERD (gastroesophageal reflux disease) Hypovitaminosis D Palpitations Polyarthralgia Obesity Essential hypertension Surgical History Carpal tunnel syndrome of right wrist H/O colonoscopy H/O lithotripsy H/O umbilical hernia repair Family History Mother Heart problem Father Stroke Social History Housing: House Alcohol intake: current Alcohol intake frequency: does not drink Alcohol type: beer and hard liquor Patient Tobacco Use Status: Former Tobacco user Tobacco use type: Cigarette e-Cigarette/Vaping Use: Never Used Second Hand Smoke Exposure: No Advance Directives Date on File: 02/18/20 service: No Current occupational status: employed 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 Current occupational exposures/hazards: No Cognitive needs: No Hearing needs: No Vision needs: No Review of Systems Const Denies chills and Denies fever(s) Card Reports no additional complaints and Denies syncope Resp Denies cough GI Denies abdominal pain and Denies heartburn Reports as per HPI and Denies change in libido Neuro Denies syncope Psych Denies change in libido Endo Denies change in libido Physical Exam Const General: cooperative, healthy appearing, comfortable and no acute distress Orientation/consciousness: patient oriented x3 HEENT Face and sinus: Yes normal facial exam Mouth: moist mucous membranes Neck Neck: Yes normal visual inspection, Yes full ROM and Yes trachea midline Chest Chest palpation & inspection: normal inspection of the chest Resp Effort & Inspection: normal respiratory effort, able to speak in complete sentences and no respiratory distress GI Inspection: Yes normal to inspection Back/Spine/Pelvis Cervical Spine: normal cervical lordosis Thoracic/Lumbar Spine: thoracic and lumbar spine normal to inspection Skin General skin exam: no rashes or lesions noted Neuro General: patient oriented x3, gait normal, tone normal and moves all extremities Extrem General: Yes normal to inspection and Yes capillary refill normal Assessment & Plan Assessment & Plan (1) Balanitis: Code(s): N48.1 - Balanitis Category: Medical Plan Risks, benefits and alternatives to therapy were discussed. These include but are not limited to infection, bleeding, damage to local organs and tissues, need for further interventions. Anesthetic risks regarding cardiac arrhythmia, blood clots, and potential mortality were discussed. The patient understands the typical recovery time and the outpatient nature of the procedure. After consideration of these risks the patient gives full informed consent and they wish to move ahead with the procedure. - circumcision Patient Instructions: This note is constructed using voice recognition software. While every effort has been made to ensure accuracy transverse abdominal muscle nurse errors may have been included. Imaging studies, laboratory and physical exam results were discussed and reviewed in detail. No major barriers to patient understanding were identified. An opportunity to ask questions regarding the treatment plan was provided. All questions were answered. The patient expressed understanding and agreement with the above treatment plan. The patient is aware they should contact our office by phone for worsening of their current condition or the appearance of new urologic symptoms. Compliance is encouraged with any medications and followup testing that is ordered. It is a privilege to participate in the urologic care of your patient. If you have any questions or concerns regarding treatment for the above conditions, or other urologic issues, please do not hesitate to contact me. The office telephone contact is [phone]. Sincerely, Dr Justice Tran MD, [facility] - Urology Compassionate Specialist Care for the Genitourinary System Coding Level of Care Code Est Pt Level 4 (20700) Diagnoses Balanitis N48.1
--- OUTSIDE RECORDS SUMMARY | 2024-07-16 12:36 | XMS_ITS | Clinical Summary ---
Author Organization [employer] Address [address] [place] [address] Care Team Providers Care Employment Officer Name Role Phone Unavailable Primary Care Provider [...]
--- OUTSIDE RECORDS SUMMARY | 2024-07-16 12:36 | XMS_ITS | Encounter Summary ---
Author Organization [employer] Address [address] [facility] [address] [place] [address] Care Team Providers Care Clay Artist Name Role Phone Unavailable Primary Care Provider Unavailabl e Encounter Details Date Type Department Care Team (Latest Contact Info) Description 05/05/2019 Abstract [facility] CONVERSIONS Dental, Provider, DDS Social History Tobacco Use Types Packs/Day Years Used Date Smoking Tobacco: Never Assessed Sex and Gender Information Value Date Recorded Sex Assigned at Male 03/18/2022 10:25 AM EDT Legal Sex Male 10:25 AM EDT Gender Identity Choose not to disclose 10:25 AM EDT Sexual Orientation Choose not to disclose 2021 10:25 AM EDT documented as of this encounter Plan of Treatment Not on file documented as of this encounter Visit Diagnoses Not on filedocumented in this encounter
== END 2024-07-16 11:23 | disposition home or self-care (01) ==
PROVIDERS: PCP Internal Medicine; Visit Provider Urology
DX: N48.1 Balanitis (principal)
CPT/HCPCS: 99214

== ENCOUNTER → 2024-07-16 10:58 | Outpatient (BNVA) | payer OTHER, SELFPAY | PROVIDERS: PCP Internal Medicine; Visit Provider Urology ==

== ENCOUNTER 2024-08-06 07:10 | Outpatient (REF) | payer OTHER, SELFPAY ==
[2024-08-06 08:30] LABS: Alanine Aminotransferase 35 U/L (0-40); Albumin Level 3.9 g/dL (3.5-5.0); Alkaline Phosphatase 62 U/L (39-117); Anion Gap 9 (12-20); Aspartate Amino Transferase 25 U/L (5-37); Bilirubin Total 0.3 mg/dL (0.0-1.0); Blood Urea Nitrogen 14 mg/dL (9-16); Calcium 8.8 mg/dL (8.4-10.2); Carbon Dioxide 25 mmol/L (22-29); Chloride 110 mmol/L (96-108); Cholesterol 217 mg/dL (<200); Estimated Glomerular Filt Rate > 60; Glucose Fasting 88 mg/dL (60-99); HDL Cholesterol 34 mg/dL (>40); LDL Cholesterol Calculated 161 mg/dL (<100); Sodium 140 mmol/L (135-145); Total Protein 8.7 g/dL (6.5-8.0); Triglycerides 113 mg/dL (<150)
== END 2024-08-06 07:11 | disposition home or self-care (01) ==
LOC: HO.LAB 07:10
PROVIDERS: PCP Internal Medicine; Visit Provider Internal Medicine
DX: Z00.00 Encounter for general adult medical examination without abnormal findings (principal); Z13.6 Encounter for screening for cardiovascular disorders
CPT/HCPCS: 36415; 80053; 80061

== ENCOUNTER 2024-08-11 15:15 | Outpatient (AMB) | payer OTHER, SELFPAY ==
--- NOTE | 2024-08-11 15:19 | A.OFFPC_ITS ---
Vital Signs 08/11/24 15:21 Height 6 ft Weight 250 lb BMI 33.9 BP 130/80 Blood Pressure Location Lt brachial Position Sitting Intake Visit Reasons: 4mth f/u Intake Note: Patient here for a 4 month follow up Recreation Therapy Director Required: Yes Recreation Therapy Director Language: Cooker Casing Name: Florina Martinez MD Information Interpreted: non-clinical & clinical Accompanied by: Self / Same As Patient Allergies No Known Allergies [No Known Allergies*] Allergy (Verified 08/11/24 15:26) Tobacco use date assessed: 08/11/24 Dental Screening Dental Screen Date: 08/11/24 Did you have a dental visit in the last 12 months?: Yes Did you have a dental problem in the last 6 months where you did not have access to dental care?: No Was dental information given to patient?: Patient has dentist HPI HPI Comments History of Present Illness Details The patient is a 64-year-old male presenting with hypercholesterolemia. Laboratory findings revealed elevated cholesterol levels. The patient expresses concerns about the associated risk of cerebrovascular incidents, given a calculated 10-year risk of 19.6%. He reports class 1 obesity with a BMI of 33. Additionally, the patient is under observation for elevated protein levels, possibly related to his monoclonal gammopathy of undetermined significance. This is follow by Hematology-Oncology. An echocardiogram performed in April showed an impaired relaxation filling pattern, although it was not deemed significantly abnormal. The patient requires a follow-up immunofixation urine test. Essential hypertension well control with losartan 25 mg. [facility] Medical History (Updated 08/11/24 @ 15:46 by Florina Martinez MD) Left hand pain GARRET on CPAP Shortness of breath Low TSH level Abdominal pain Fatigue Muscle cramps Paresthesia Numbness of left hand Stiffness of right hand joint Nephrolithiasis Foreign body of right hand Physical exam ACTH elevation Degenerative arthritis of thoracic spine History of hyperprolactinemia Hyperthyroidism GERD (gastroesophageal reflux disease) Hypovitaminosis D Palpitations Polyarthralgia Obesity Essential hypertension Surgical History Carpal tunnel syndrome of right wrist H/O colonoscopy H/O lithotripsy H/O umbilical hernia repair Family History Mother Heart problem Father Stroke Social History Housing: House Alcohol intake: current Alcohol intake frequency: does not drink Alcohol type: beer and hard liquor Patient Tobacco Use Status: Former Tobacco user Tobacco use type: Cigarette e-Cigarette/Vaping Use: Never Used Second Hand Smoke Exposure: No Advance Directives Date on File: 02/18/20 service: No Current occupational status: employed 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 1. Little interest or pleasure in doing things: not at all 2. Feeling down, depressed, or hopeless: not at all 3. Trouble falling or staying asleep, or sleeping too much: not at all 4. Feeling tired or having little energy: not at all 5. Poor appetite or overeating: not at all 6. Feeling bad about yourself - or that you are a failure or have let yourself or your family down: not at all 7. Trouble concentrating on things, such as reading the newspaper or watching television: not at all 8. Moving or speaking so slowly that other people could have noticed. Or the opposite - being so fidgety or restless that you have been moving around a lot more than usual: not at all 9. Thoughts that you would be better off or of hurting yourself in some way: not at all Total score: 0 Depression Screening Interpretation: Negative Depression Screening Done: Yes 31958 - PHQ-9 Billing: Yes Source: Developed by Drs. Shimon Kennedy, Hilda De Jesus, Ta De La Garza and colleagues, with an educational quita from [employer]. Thrive Questionnaire Date Thrive assessed: 08/11/24 I am a: Patient What is your living situation today?: I have a steady place to live Within the past 12 months, did the food you bought not last and you didn't have the money to get more?: Never true Within the past 12 months, did you worry whether your food would run out before you got money to buy more?: Never true Do you have trouble paying for medicines?: No Do you have trouble getting transportation to medical appointments?: No Do you have trouble paying your heating and electricity bill?: No Do you have trouble taking care of your child, family member or friend?: No Do you have trouble with day-to-day activities such as bathing, preparing meals, shopping, managing finances, etc.?: No Are you currently unemployed and looking for a job?: No Are you interested in more education?: No Please select the resources that you would like help with: None Currently or been in a relationship where the following occur: No concerns reported THRIVE Score: 0 AUDIT C Alcohol Use Questionnaire (AUDIT-C) 1. How often do you have a drink containing alcohol?: Never Total Score: 0 Score Reviewed/Action Taken: No ORIANA-7 AMB Questionnaire ORIANA-7 Date ORIANA - 7 assessed: 08/11/24 Feeling nervous, anxious, or on edge: 0 = Not at all Not being able to stop or control worryin = Not at all Worrying too much about different things: 0 = Not at all Trouble relaxin = Not at all Being so restless that it is hard to sit still: 0 = Not at all Becoming easily annoyed or irritable: 0 = Not at all Feeling afraid as if something awful might happen: 0 = Not at all Total ORIANA-7 score (0-4 normal; 5-9 mild; 10-14 moderate; 15-21 severe): 0 Source: Developed by Drs. Shimon Kennedy, Hilda De Jesus, Ta De La Garza and colleagues, with an educational quita from [employer]. ORIANA-7 Assessment Billing ORIANA-7 Assessment Tool: ORIANA-7 Assessment 61071 Review of Systems Const All systems reviewed & are unremarkable except as noted in HPI and below Card Denies chest pain at rest, Denies chest pain with activity, Denies edema, Denies irregular heart rhythm, Denies claudication, Denies dyspnea, Denies dyspnea on exertion, Denies orthopnea, Denies paroxysmal nocturnal dyspnea and Denies slow heart rate Resp Denies cough, Denies dyspnea and Denies dyspnea on exertion GI Denies abdominal pain, Denies change in bowel habits, Denies excessive flatus, Denies nausea and Denies vomiting Denies urinary hesitancy, Denies urinary incontinence and Denies urinary urgency Physical exam (Primary Care) Vital Signs: Last Vital Signs BP 130/80 08/11/24 15:21 BMI result Body Mass Index 33.9 BMI Assessment/Plan discussion: High BMI High, discussed plan: lifestyle, weight reduction, dietary and physical activity Tobacco/Smoking Status: Tobacco use Status Tobacco use date assessed 08/11/24 08/11/24 15:27 Patient Tobacco Use Status Former Tobacco user 08/11/24 15:27 Tobacco use type Cigarette 08/11/24 15:27 e-Cigarette/Vaping Use Never Used 08/11/24 15:27 PHQ-9: PHQ-9 Score PHQ-9: Total score 0 08/11/24 15:40 Depression Screening Interpretation: Negative Thrive Assessment: Date of Thrive Assessment Date Thrive assessed 08/11/24 08/11/24 15:27 Currently or been in a relationship where the following occur: No concerns reported Resp Effort & Inspection: normal respiratory effort Auscultation: clear to auscultation bilaterally Cardio Jugular venous distension: no JVD Rate: regular rate Rhythm: regular rhythm Heart sounds: S1 normal heart sound present and S2 normal heart sound present Neuro General: no focal motor deficits Extrem General: Yes full ROM Coding Level of Care Code Est Pt Level 4 (67046) Complex EM visit Add On G2211 Diagnoses Pure hypercholesterolemia E78.00 MGUS (monoclonal gammopathy of unknown significance) D47.2 Class 1 obesity due to excess calories with serious comorbidity and body mass index (BMI) of 31.0 to 31.9 in adult E66.09; Z68.31 Obesity type: due to excess calories Obesity classification: adult class 1 (BMI 30 - 34.9) Serious obesity comorbidity presence: with serious comorbidity Body mass index: BMI 31.0-31.9 Essential hypertension I10 Additional Codes ORIANA-7 Assessment Billing - ORIANA-7 Assessment Tool: ORIANA-7 Assessment 73226 ([id number]) PHQ-9 - 22257 - PHQ-9 Billing: Yes ([id number]) Time Spent (min) 22 Assessment & Plan Assessment & Plan (1) Pure hypercholesterolemia: Code(s): E78.00 - Pure hypercholesterolemia, unspecified Category: Medical (2) MGUS (monoclonal gammopathy of unknown significance): Code(s): D47.2 - Monoclonal gammopathy Category: Medical (3) Obesity: Code(s): E66.9 - Obesity, unspecified Category: Medical Qualifiers: Obesity type: due to excess calories Obesity classification: adult class 1 (BMI 30 - 34.9) Serious obesity comorbidity presence: with serious comorbidity Body mass index: BMI 31.0-31.9 Qualified Code(s): E66.09 - Other obesity due to excess calories; Z68.31 - Body mass index [BMI] 31.0-31.9, adult (4) Essential hypertension: Code(s): I10 - Essential (primary) hypertension Category: Medical Plan For the management of hypercholesterolemia, we have initiated a cholesterol- lowering medication with instructions to take it at night, recognizing possible side effects like muscle aches and elevated enzyme levels. The necessity of repeated lipid panel testing in four months is emphasized to gauge the treatment's impact. Concerning monoclonal gammopathy, we plan a repeat immunofixation urine test. Coordination with his oncologist will continue to manage elevated protein levels, including addressing chronic fatigue. The patient is advised to adhere closely to scheduled consultations with all healthcare specialists managing his care. Patient was informed and verbally consented to the use of an ambient scribe for clinic note documentation during this visit. I provided a detailed discussion with the patient regarding the risks associated with his elevated cholesterol, including the substantial 19.6% ten-year risk of cerebrovascular events and discussed the necessity of initiating statin therapy. Benefits and potential adverse effects were discussed, including possible muscle soreness and enzyme elevation. I emphasized the importance of lifestyle modifications alongside pharmacotherapy. The patient is aware of follow-up requirements, including repeat lipid testing after four months. Discussion also covered the need for ongoing monitoring of protein levels connected to his MGUS, and a new immunofixation urine test was ordered. I advised the patient to continue his follow-ups with all necessary specialists to manage his overall health effectively. Orders: Orders Lipid Panel Today E78.5 - Hyperlipidemia, unspecified Immunofixation, Random Urine 5 Months D47.2 - Monoclonal gammopathy Comprehensive [place]. Panel Fast Today E78.00 - Pure hypercholesterolemia, unspecified Medications: New atorvastatin 40 mg PO BEDTIME 90 days 90 tabs 1RF E78.00 - Pure hypercholesterolemia, unspecified atorvastatin 40 mg PO BEDTIME 90 tabs 1RF 90 days E78.00 - Pure hypercholesterolemia, unspecified Refilled losartan 25 mg PO DAILY 90 tabs 3RF 90 days I10 - Essential (primary) hypertension Patient Instructions: - Begin taking the prescribed cholesterol medication at night as directed. - Be alert for possible muscle aches or enzyme changes and report any concerns immediately. - Repeat cholesterol testing in four months' time. - Follow up with oncologist about elevated protein levels and complete ordered urine test. - Maintain scheduled appointments with specialists, including gastroenterology in September. - Continue any recommended lifestyle modifications for weight management and cardiovascular health.
[2024-08-11 15:21] VITALS: BP 130/80; BMI 33.9
--- OUTSIDE RECORDS SUMMARY | 2024-08-11 18:17 | XMS_ITS | Encounter Summary ---
Author Organization [employer] Address [address] [place] [address] Care Team Providers Care Space Systems Operations Craftsman Name Role Phone Unavailable Primary Care Provider Unavailabl e Encounter Details Date Type Department Care Team (Latest Contact Info) Description 05/05/2019 Abstract [facility] CONVERSIONS Dental, Provider, DDS Social History Tobacco [...]
--- OUTSIDE RECORDS SUMMARY | 2024-08-11 18:17 | XMS_ITS | Clinical Summary ---
Author Organization [employer] Address [address] [place] [address] Care Team Providers Care Swim Coach Name Role Phone Unavailable Primary Care Provider [...]
== END 2024-08-11 15:56 | disposition home or self-care (01) ==
LOC: HO.HMCH 15:16
PROVIDERS: PCP Internal Medicine; Visit Provider Internal Medicine
DX: E78.00 Pure hypercholesterolemia, unspecified (principal); D47.2 Monoclonal gammopathy; E66.09 Other obesity due to excess calories; Z68.31 Body mass index [BMI] 31.0-31.9, adult; I10 Essential (primary) hypertension

== ENCOUNTER → 2024-08-11 15:15 | Outpatient (BNVA) | payer OTHER, SELFPAY | PROVIDERS: PCP Internal Medicine; Visit Provider Internal Medicine | DX: E78.00 Pure hypercholesterolemia, unspecified (principal); D47.2 Monoclonal gammopathy; E66.09 Other obesity due to excess calories; Z68.31 Body mass index [BMI] 31.0-31.9, adult; I10 Essential (primary) hypertension | CPT/HCPCS: 96127 ==

== ENCOUNTER 2024-08-14 11:28 | Emergency (ER) | payer OTHER, SELFPAY ==
[2024-08-14 11:55] VITALS: BP 121/80; PULSE 100; RESP 18; TEMP 36.6; O2SAT 95; BMI 33.9
--- NOTE | 2024-08-14 12:07 | ED_ITS ---
HPI - Male Genitourinary General Chief complaint: Urogenital-Male Stated complaint: pain upon urination Time Seen by Provider: 08/14/24 12:07 Source: patient, RN notes reviewed, old records reviewed and peoplesoft hr developer (luxembourger) Mode of arrival: ambulatory Limitations: language barrier (luxembourger) History of Present Illness ED Provider: MONY WASSERMAN PA-C HPI Narrative: 64 year old Indonesian speaking male with pmhx significant for GERD, HTN, HLD, hyperthyroidism, erectile dysfunction, BPH with urinary obstruction presents to the ED today for evaluation of dysuria and sensation of incomplete bladder emptying x2 days. Reports history of similar however cannot recall what he was diagnosed with. He states he is sexually active with one female partner. He occasionally uses protection. He has never been tested for STDs. No hx of renal stones. Denies fever, chills, abdominal pain, flank pain, back pain, hematuria, penile discharge or lesions, constipation/ diarrhea, N/V. Related Data Previous Rx's ?Medication ?Instructions ?Recorded wrist splint #1 ea 01/08/23 tadalafil 5 mg tablet 20 mg (4 x 5 mg) PO DAILY 90 days 06/18/24 #360 tabs atorvastatin 40 mg tablet 40 mg PO BEDTIME 90 days #90 tabs 08/11/24 losartan 25 mg tablet 25 mg PO DAILY 90 days #90 tabs 08/11/24 clotrimazole-betamethasone 1 1 appl topical BID 4 weeks #45 08/12/24 %-0.05 % topical cream grams cefuroxime axetil 250 mg tablet 250 mg PO BID 7 days #14 tabs 08/14/24 Allergies Allergy/AdvReac Type Severity Reaction Status Date / Time No Known Allergies Allergy Verified 08/14/24 11:58 [No Known Allergies*] Review of Systems Review of Systems: Yes all other systems are reviewed and are negative PMFSH Past Medical History Attestation statement: The following information was validated with the patient. Source: old records reviewed and nursing notes reviewed Medical History Left hand pain GARRET on CPAP Shortness of breath Low TSH level Abdominal pain Fatigue Muscle cramps Paresthesia Numbness of left hand Stiffness of right hand joint Nephrolithiasis Foreign body of right hand Physical exam ACTH elevation Degenerative arthritis of thoracic spine History of hyperprolactinemia Hyperthyroidism GERD (gastroesophageal reflux disease) Hypovitaminosis D Palpitations Polyarthralgia Obesity Essential hypertension Surgical History Carpal tunnel syndrome of right wrist H/O colonoscopy H/O lithotripsy H/O umbilical hernia repair Family History Family History Mother Heart problem Father Stroke Social History Social History Housing: House Alcohol intake: current Alcohol intake frequency: does not drink Alcohol type: beer and hard liquor Patient Tobacco Use Status: Former Tobacco user Tobacco use type: Cigarette Smoked in Last 30 Days: No e-Cigarette/Vaping Use: Never Used Second Hand Smoke Exposure: No Advance Directives: No Advance Directives Information Provided: No Advance Directives Date on File: 02/18/20 Do you have a plan to hurt others: No Plan service: No Current occupational status: employed 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 Skin: Warm, dry, intact. No rashes or lesions. Head: Normocephalic, atraumatic. EENT: Hearing is intact b/l. Conjunctiva clear. PERRLA. EOM intact. Moist mucous membranes.? Cardiac: Chest wall symmetric. RRR Lungs: Normal respiratory effort without accessory muscle use. CTA bilaterally Abdomen: Soft, non-tender, non-distended. No rebound tenderness or guarding. Po sitive BS x4. no cvat. Back: No midline spinous or paraspinal tenderness. No step off deformity. : deferred per patient Ext: Upper and lower extremities atraumatic, without tenderness, deformity, swelling or erythema Neuro: AOx3. Normal speech.Ambulating with steady gait. Psych: Appropriate mood and affect. Responds appropriately to questions. Course Course Course Narrative: Medical screening exam performed. Please refer to detailed history, exam, evaluation, and management by primary provider. Dysuria and incomplete voiding. UA and bladder scan. Reevaluation(s) Reevaluation #1: bladder scan shows 23 ml in bladder. he has been able to void twice while in ED. no concern for obstructive uropathy. urine mildly infected. ct/ng pending. will treat for UTI. patient will be called with results from ctng testing. does not wish to be treated presumptively at this time. no indication for imaging/ blood work. well appearing, no abdominal or flank pain. Patient has remained stable throughout ED visit today. Discussed worrisome signs and symptoms and when to return to the ED. All questions answered at this time. Patient is agreeable with disposition and stable for discharge. Medical Decision Making Medical Decision Making [facility] Narrative: 64 year old Indonesian speaking male with pmhx significant for GERD, HTN, HLD, hyperthyroidism, erectile dysfunction, BPH with urinary obstruction presents to the ED today for evaluation of dysuria and sensation of incomplete bladder emptying x2 days. vitals stable. well appearing. exam is benign. exam deferred per patient. Differential diagnosis includes UTI, sexually transmitted infection. Lower suspicion for renal colic, nephrolithiasis, hydronpehrosis, prostatitis. No concern for obstructive uropathy, urosepsis, testicular torsion, orchitis. Plan - UA, ct/ng, bladder scan, disposition. Differential Diagnosis Differential Diagnoses: The differential diagnosis associated with the presentation includes as above Admission/Observation not indicated. Lab Data [facility] Lab Attestation statement: I reviewed the patient's lab results. as above. Labs: Lab Results 08/14/24 08/14/24 Range/Units 12:15 13:34 Urine Color Yellow Urine Appearance Clear Urine pH 6.0 (5.0-9.0) Ur Specific [place] 1.025 (1.005-1.025) Urine Protein Trace (Neg-Trace) mg/dL Urine Glucose (UA) Negative (Negative) mg/dL Urine Ketones Trace (Negative) mg/dL Urine Blood Negative (Negative) Urine Nitrite Negative (Negative) Ur Leukocyte Esterase Moderate (2+) H (Negative) Urine RBC 0-2 (0-2) /HPF Urine WBC 21-50 H (0-5) /HPF Ur Squamous Epith Cells 0-2 (0-2) /HPF Urine Bacteria None Seen (None Seen) Hyaline Casts 0-2 (0-2) /LPF Chlam trachomat DNA PCR NOT DETECTED (Not Detect.) N.gonorrhoeae DNA (PCR) NOT DETECTED (Not Detect.) External Record Review External record reviewed: Inpatient record, Office record, Outpatient record, Prior outpatient labs, Prior outpatient radiology, Primary care record and Outside ED record Prescription Management I considered prescription management with: Antibiotic (ceftin) Social Determinants Patient?s care significantly limited by Social Determinants of Health including: Other Social Determinant of Health Critical Care Time Critical Care Time Critical Care Time: No Discharge Plan Discharge Clinical Impression: Urinary tract infection Patient Disposition: Home, Self-Care Instructions: Urinary Tract Infection in Men (ED) Additional Instructions: Your urine today is positive for infection. Ceftin is an antibiotic that has been sent to your pharmacy. Take this as prescribed and do not miss any doses. You must complete the entire course of antibiotics. If you do not, there is a risk of the infection coming back or worsening. Your urine was sent to the lab to test for gonorrhea and chlamydia. You will be called with any positive results and will be treated appropriately at that time. Follow up with your primary care provider as needed. If you develop a fever or new/ worsening symptoms call 911 or come back to the ER for further evaluation. Prescriptions: New cefuroxime axetil 250 mg tablet 250 mg PO BID 7 Days Qty: 14 0RF No Action tadalafil 5 mg tablet 20 mg PO DAILY 90 Days Qty: 360 1RF Rx Instructions: USE COUPON ATTACHED NOT INSURANCE BIN N Group [facility] [id number] clotrimazole-betamethasone 1-0.05 % cream 1 appl topical BID 28 Days Qty: 45 0RF Rx Instructions: Apply thin coat 2 times per day (DME) wrist splint See Rx Instructions .Route .MEDSUPPLY Qty: 1 0RF Rx Instructions: for right hand. wear nightly & as much as possible throughout the day atorvastatin 40 mg tablet 40 mg PO BEDTIME 90 Days Qty: 90 1RF losartan 25 mg tablet 25 mg PO DAILY 90 Days Qty: 90 3RF Referrals: Florina Kincaid MD [Primary Care Provider] - 5 days Interventions: ED Discharge Assessment Last Done: 08/14/24 14:11 Discharge Date/Time: 08/14/24 14:17 Print Language: Indonesian
[2024-08-14 12:46] LABS: Appearance Urine Clear; Color Urine Yellow; Glucose Urine UA Negative (Negative); Leukocyte Esterase Urine Moderate (2+) (Negative); Nitrite Urine Negative (Negative); Specific Gravity - Urine 1.025 (1.005-1.025); UMIC TRIGGER UACC YES; Urine Blood Negative (Negative); Urine Ketones Trace mg/dL (Negative); Urine Protein Trace mg/dL (Neg-Trace)
[2024-08-14 13:26] LABS: Bacteria Urine None Seen (None Seen); Hyaline Casts Urine 0-2 /LPF (0-2); RBC Urine 0-2 /HPF (0-2); Squamous Epithelial Cell Urine 0-2 /HPF (0-2); UACC Culture Trigger YES; WBC Urine 21-50 /HPF (0-5)
[2024-08-14 14:11] VITALS: BP 133/77; PULSE 78; RESP 16; TEMP 36.5; O2SAT 97
[2024-08-14 15:11] LABS: CT PCR NOT DETECTED (Not Detect.); NG PCR NOT DETECTED (Not Detect.)
== END 2024-08-14 14:17 | disposition home or self-care (01) ==
PROVIDERS: Physician Assistant Medical; Emergency Provider Internal Medicine; PCP Internal Medicine
DX: R30.0 Dysuria (principal); R33.9 Retention of urine, unspecified; N40.0 Benign prostatic hyperplasia without lower urinary tract symptoms; Z87.891 Personal history of nicotine dependence; Z79.899 Other long term (current) drug therapy
CPT/HCPCS: 51798; 81001; 81003; 87086; 87491; 87591; 99283; 99284

== ENCOUNTER 2024-09-16 10:42 | Outpatient (AMB) | payer OTHER, SELFPAY ==
--- NOTE | 2024-09-16 10:44 | MHC.OFFVIS ---
Vital Signs 09/16/24 10:46 Height 6 ft Weight 248 lb BMI 33.6 BP 136/86 Blood Pressure Location Rt brachial Position Sitting Pulse 70 Pulse Source Pulse Oximeter Pulse Oximetry (%) 96 Oxygen Delivery Method Room Air Intake Visit Reasons: Follow up GERD Intake Note: ESTABLISHED PATIENT for GERD mgmt. Originally was supposed to have FUV in 8 weeks. SHRUTHI 05/06/2024. Chief Complaint; C/O esophageal burning + discomfort. Pt confirms still taking PPI. Pt also reports intermittent dysphagia with certain foods. No additional sx or concerns at this time. Cardiology Clinical Consultant Required: Yes Cardiology Clinical Consultant Services: Cardiology Clinical Consultant Present Cardiology Clinical Consultant Name: Aravind Haney2 Information Interpreted: clinical only Accompanied by: Self / Same As Patient Allergies No Known Allergies [No Known Allergies*] Allergy (Verified 09/16/24 10:45) HPI HPI Follow up GERD: Details: Assessment & Plan (1) GERD (gastroesophageal reflux disease): Code(s): K21.9 - Gastro-esophageal reflux disease without esophagitis Category: Medical Qualifiers: Esophagitis presence: esophagitis presence not specified Qualified Code(s): K21.9 - Gastro-esophageal reflux disease without esophagitis (2) Flatulence: Comment: Malodorous Code(s): R14.3 - Flatulence Category: Medical Plan Turkmen #[employer] He finds that the famotidine does not work well enough for him, but he does not want to go back to the omeprazole. He really dislikes taking any medication and would prefer something that he does not HAVE to take every day. He is complaining of malodorous gas. We review his diet and he eats a lot of eggs, which may be the cause. I also tell him about OdaFree. ROV 8 weeks. Medications: New cimetidine 800 mg PO BEDTIME 30 tabs 6RF K21.9 - Gastro-esophageal reflux disease without esophagitis Discontinued famotidine (Pepcid) Discontinued Reason: Change Referral Type 40 mg PO DAILY PRN 30 tabs 6RF heartburn K21.9 - Gastro-esophageal reflux disease without esophagitis TODAY'S VISIT Danish #[id number] I ask how he has been and he says the same. He had disliked the idea of taking a daily medication so I had changed him to cimetidine but this is not working well for him. He also did not do well with omeprazole, so we will progress to pantoprazole. His c/o severe burning in the upper throat and globus sensation. EOV 3 weeks. [facility] Medical History Left hand pain GARRET on CPAP Shortness of breath Low TSH level Abdominal pain Fatigue Muscle cramps Paresthesia Numbness of left hand Stiffness of right hand joint Nephrolithiasis Foreign body of right hand Physical exam ACTH elevation Degenerative arthritis of thoracic spine History of hyperprolactinemia Hyperthyroidism GERD (gastroesophageal reflux disease) Hypovitaminosis D Palpitations Polyarthralgia Obesity Essential hypertension Surgical History Carpal tunnel syndrome of right wrist H/O colonoscopy H/O lithotripsy H/O umbilical hernia repair Family History Mother Heart problem Father Stroke Social History Housing: House Alcohol intake: current Alcohol intake frequency: does not drink Alcohol type: beer and hard liquor Patient Tobacco Use Status: Former Tobacco user Tobacco use type: Cigarette e-Cigarette/Vaping Use: Never Used Second Hand Smoke Exposure: No Advance Directives Date on File: 02/18/20 service: No Current occupational status: employed 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 Current occupational exposures/hazards: No Cognitive needs: No Hearing needs: No Vision needs: No Review of Systems Const Denies fatigue, Denies fever(s), Denies night sweats, Denies poor appetite and Denies weight loss ENT Reports Normal hearing present, Denies dental pain, Denies dysphagia, Denies hearing loss, Denies mouth pain, Denies odynophagia, Denies throat swelling, Denies tongue swelling and Reports other (Dentition adequate) Card Reports no additional complaints Resp Reports no additional complaints GI Details: Denies abdominal pain, Denies melena, Denies bloating, Denies hematochezia, Denies constipation, Denies GI cramping, Denies dysphagia, Reports excessive flatus, Denies early satiety, Reports heartburn, Denies diarrhea, Denies nausea, Denies odynophagia, Denies vomiting and Denies hematemesis Skin/Breast Denies pruritus, Denies lesions, Denies rash and Denies jaundice Neuro Reports Normal hearing present and Denies Abnormal speech present Endo Denies fatigue Aller/Immun Denies throat swelling and Denies tongue swelling Physical Exam Vital Signs: Last Vital Signs Pulse 70 09/16/24 10:46 BP 136/86 09/16/24 10:46 Pulse Ox 96 09/16/24 10:46 Oxygen Delivery Method Room Air 09/16/24 10:46 BMI result Body Mass Index 33.6 Const General: cooperative, no acute distress, well developed and well groomed Nutritional Appearance: well nourished and overweight Orientation/consciousness: oriented to person, oriented to place and oriented to time Limitations: language barrier HEENT Head: Yes normocephalic and Yes atraumatic Eyes General: appearance normal, both eyes and all related structures Pupils: Equal, round and reactive pupils present Neck Neck: Yes normal visual inspection and Yes no lymphadenopathy Thyroid: Thyroid normal Resp Effort & Inspection: normal respiratory effort and able to speak in complete sentences Auscultation: clear to auscultation bilaterally Cardio Rate: regular rate Rhythm: regular rhythm Heart sounds: Normal, physiologic split S2 sound present Peripheral pulses: radial pulses present and posterior tibial pulses present GI Inspection: No distended, No Abdominal panniculus present and Yes obesity Palpation (GI): Soft to palpation, nontender, no guarding, not rigid and No hepatosplenomegaly present Percussion: Yes normal to percussion Auscultation: normal bowel sounds Rectal Exam - Male: Yes deferred Skin General skin exam: no rashes or lesions noted, turgor normal, skin not dry, no jaundice, No spider nevi and no striae Rashes: no rashes Nails: normal Neuro General: oriented to person, oriented to place and oriented to time Cranial nerves: Yes Equal, round and reactive pupils present and Yes Normal hearing present Speech: No Abnormal speech present Extrem General: Yes normal to inspection, No clubbing, No cyanosis and No edema Psych Appearance: grossly normal and well kempt Mental Status: mental status grossly normal Speech and movement: Normal speech and movement present Affect: normal affect Attitude: cooperative Thought process: Normal thought process present and not confabulating Thought content: Normal thought content present Insight: Limited insight present (Psych) Judgement: Limited judgement present (Psych) Assessment & Plan Assessment & Plan (1) GERD (gastroesophageal reflux disease): Code(s): K21.9 - Gastro-esophageal reflux disease without esophagitis Category: Medical Qualifiers: Esophagitis presence: esophagitis presence not specified Qualified Code(s): K21.9 - Gastro-esophageal reflux disease without esophagitis (2) Flatulence: Comment: Malodorous Code(s): R14.3 - Flatulence Category: Medical Plan Danish #[id number], Aravind I ask how he has been and he says the same. He had disliked the idea of taking a daily medication so I had changed him to cimetidine but this is not working well for him. He also did not do well with omeprazole, so we will progress to pantoprazole. His c/o severe burning in the upper throat and globus sensation. EOV 3 weeks. Orders: Orders EGD - GI Use Only Today K21.9 - Gastro-esophageal reflux disease without esophagitis FL barium swallow Today K21.9 - Gastro-esophageal reflux disease without esophagitis Medications: New pantoprazole (Protonix) 40 mg PO DAILY 30 days 30 tabs 1RF Coding Level of Care Code Est Pt Level 3 (82901) Diagnoses Gastroesophageal reflux disease, unspecified whether esophagitis present K21.9 Esophagitis presence: esophagitis presence not specified Flatulence R14.3
[2024-09-16 10:46] VITALS: BP 136/86; PULSE 70; O2SAT 96; BMI 33.6
--- OUTSIDE RECORDS SUMMARY | 2024-09-16 12:18 | XMS_ITS | Encounter Summary ---
Author Organization [employer] Address [address] [facility] [address] [place] [address] Care Team Providers Care Motor Runner Name Role Phone Unavailable Primary Care Provider Unavailabl e Encounter Details Date Type Department Care Team (Latest Contact Info) Description 05/05/2019 Abstract [facility] CONVERSIONS Dental, Provider, DDS Social History [...]
--- OUTSIDE RECORDS SUMMARY | 2024-09-16 12:18 | XMS_ITS | Clinical Summary ---
Author Organization [employer] Address [address] [facility] [address] [place] [address] Care Team Providers Care District Administrator Name Role Phone Unavailable Primary Care Provider [...]
== END 2024-09-16 11:27 | disposition home or self-care (01) ==
LOC: HO.HGI 10:43
PROVIDERS: PCP Internal Medicine; Visit Provider Nurse Practitioner
DX: K21.9 Gastro-esophageal reflux disease without esophagitis (principal); R14.3 Flatulence
CPT/HCPCS: 99213

== ENCOUNTER → 2024-09-16 10:42 | Outpatient (BNVA) | payer OTHER, SELFPAY | PROVIDERS: PCP Internal Medicine; Visit Provider Nurse Practitioner ==

== ENCOUNTER 2024-10-07 09:01 | Outpatient (AMB) | payer OTHER, SELFPAY ==
--- NOTE | 2024-10-07 09:13 | A.OFFVIS_ITS ---
Vital Signs 10/07/24 09:14 Height 6 ft Weight 249 lb BMI 33.8 BP 138/72 Blood Pressure Location Rt brachial Position Sitting Pulse 86 Pulse Source Pulse Oximeter Pulse Oximetry (%) 96 Oxygen Delivery Method Room Air Intake Visit Reasons: 3w GERD Intake Note: ESTABLISHED PATIENT for mgmt of GERD. CC; Pt denies any GI sx or concerns at this time and comments that his PPI is working well for him. Office Communication Professor Required: Yes Office Communication Professor Services: Office Communication Professor Present Office Communication Professor Name: Loraine [id number] + [facility] [place] Information Interpreted: clinical only Accompanied by: Self / Same As Patient Allergies No Known Allergies [No Known Allergies*] Allergy (Verified 10/07/24 09:14) HPI HPI 3w GERD: Details: Assessment & Plan (1) GERD (gastroesophageal reflux disease): Code(s): K21.9 - Gastro-esophageal reflux disease without esophagitis Category: Medical Qualifiers: Esophagitis presence: esophagitis presence not specified Qualified Code(s): K21.9 - Gastro-esophageal reflux disease without esophagitis (2) Flatulence: Comment: Malodorous Code(s): R14.3 - Flatulence Category: Medical Plan Amharic #[id number], Aravind I ask how he has been and he says the same. He had disliked the idea of taking a daily medication so I had changed him to cimetidine but this is not working well for him. He also did not do well with omeprazole, so we will progress to pantoprazole. His c/o severe burning in the upper throat and globus sensation. EOV 3 weeks. Orders: Orders EGD - GI Use Only Today K21.9 - Gastro-esophageal reflux disease without esophagitis FL barium swallow Today K21.9 - Gastro-esophageal reflux disease without esophagitis Medications: New pantoprazole (Protonix) 40 mg PO DAILY 30 days 30 tabs 1RF BARIUM SWALLOW 12/22/2024 EGD BIOPSY TODAY'S VISIT Vincentian #[employer] He says the medication agrees wtih him, but it will be good for 2 days, then the same. BUT he is forgetting to take the pantoprazole EVERY DAY. This prompts education about the need to take it every day, I s uggest that he move it to qhs dosing to promote easier compliance. After Barium Swallow PFSH Medical History Left hand pain GARRET on CPAP Shortness of breath Low TSH level Abdominal pain Fatigue Muscle cramps Paresthesia Numbness of left hand Stiffness of right hand joint Nephrolithiasis Foreign body of right hand Physical exam ACTH elevation Degenerative arthritis of thoracic spine History of hyperprolactinemia Hyperthyroidism GERD (gastroesophageal reflux disease) Hypovitaminosis D Palpitations Polyarthralgia Obesity Essential hypertension Surgical History Carpal tunnel syndrome of right wrist H/O colonoscopy H/O lithotripsy H/O umbilical hernia repair Family History Mother Heart problem Father Stroke Social History Housing: House Alcohol intake: current Alcohol intake frequency: does not drink Alcohol type: beer and hard liquor Patient Tobacco Use Status: Former Tobacco user Tobacco use type: Cigarette e-Cigarette/Vaping Use: Never Used Second Hand Smoke Exposure: No Advance Directives Date on File: 02/18/20 service: No Current occupational status: employed 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 Current occupational exposures/hazards: No Cognitive needs: No Hearing needs: No Vision needs: No Review of Systems Const Denies fatigue, Denies fever(s), Denies night sweats, Denies poor appetite and Denies weight loss ENT Reports Normal hearing present, Denies dental pain, Denies dysphagia, Denies hearing loss, Denies mouth pain, Denies odynophagia, Denies throat swelling, Denies tongue swelling and Reports other (Dentition adequate) Card Reports no additional complaints Resp Reports no additional complaints GI Details: Denies abdominal pain, Denies melena, Denies bloating, Denies hematochezia, Denies constipation, Denies GI cramping, Denies dysphagia, Denies excessive flatus, Denies early satiety, Reports heartburn, Denies diarrhea, Denies nausea, Denies odynophagia, Denies vomiting and Denies hematemesis Skin/Breast Denies pruritus, Denies lesions, Denies rash and Denies jaundice Neuro Reports Normal hearing present and Denies Abnormal speech present Endo Denies fatigue Aller/Immun Denies throat swelling and Denies tongue swelling Physical Exam Vital Signs: Last Vital Signs Pulse 86 10/07/24 09:14 BP 138/72 10/07/24 09:14 Pulse Ox 96 10/07/24 09:14 Oxygen Delivery Method Room Air 10/07/24 09:14 BMI result Body Mass Index 33.8 Const General: cooperative, no acute distress, well developed and well groomed Nutritional Appearance: well nourished and obese Orientation/consciousness: oriented to person, oriented to place and oriented to time Limitations: language barrier HEENT Head: Yes normocephalic and Yes atraumatic Eyes General: appearance normal, both eyes and all related structures Pupils: Equal, round and reactive pupils present Neck Neck: Yes normal visual inspection and Yes no lymphadenopathy Thyroid: Thyroid normal Resp Effort & Inspection: normal respiratory effort and able to speak in complete sentences Auscultation: clear to auscultation bilaterally Cardio Rate: regular rate Rhythm: regular rhythm Heart sounds: Normal, physiologic split S2 sound present Peripheral pulses: radial pulses present and posterior tibial pulses present GI Inspection: No distended and No Abdominal panniculus present Palpation (GI): Soft to palpation, nontender, no guarding, not rigid and No hepatosplenomegaly present Percussion: Yes normal to percussion Auscultation: normal bowel sounds Rectal Exam - Male: Yes deferred Skin General skin exam: no rashes or lesions noted, turgor normal, skin not dry, no jaundice, No spider nevi and no striae Rashes: no rashes Nails: normal Neuro General: oriented to person, oriented to place and oriented to time Cranial nerves: Yes Equal, round and reactive pupils present and Yes Normal hearing present Speech: No Abnormal speech present Extrem General: Yes normal to inspection, No clubbing, No cyanosis and No edema Psych Appearance: grossly normal and well kempt Mental Status: mental status grossly normal Speech and movement: Normal speech and movement present Affect: normal affect Attitude: cooperative Thought process: Normal thought process present and not confabulating Thought content: Normal thought content present Insight: Limited insight present (Psych) Judgement: Limited judgement present (Psych) Assessment & Plan Assessment & Plan (1) GERD (gastroesophageal reflux disease): Code(s): K21.9 - Gastro-esophageal reflux disease without esophagitis Category: Medical Qualifiers: Esophagitis presence: esophagitis presence not specified Qualified Code(s): K21.9 - Gastro-esophageal reflux disease without esophagitis Plan Vincentian #[employer] He says the medication agrees wtih him, but it will be good for 2 days, then the same. BUT he is forgetting to take the pantoprazole EVERY DAY. This prompts education about the need to take it every day, I s uggest that he move it to qhs dosing to promote easier compliance. After Barium Swallow Coding Level of Care Code Est Pt Level 3 (07745) Diagnoses Gastroesophageal reflux disease, unspecified whether esophagitis present K21.9 Esophagitis presence: esophagitis presence not specified
[2024-10-07 09:14] VITALS: BP 138/72; PULSE 86; O2SAT 96; BMI 33.8
--- OUTSIDE RECORDS SUMMARY | 2024-10-07 09:14 | XMS_ITS | Clinical Summary ---
Author Organization [employer] Address [address] [facility] [address] [place] [address] Care Team Providers Care Washhouse Hand Name Role Phone Unavailable Primary Care Provider [...] FOBT 1961 Lipid Panel 1961 Sigmoidoscopy 1961 Disability Screening 1961 Alcohol/Substance Use Screening 1973 Tobacco Screening [...] patient's age to complete this topic Meningococcal B Vaccine Aged Out No l onger eligible based on patient's age to complete [...]
--- OUTSIDE RECORDS SUMMARY | 2024-10-07 09:14 | XMS_ITS | Encounter Summary ---
Author Organization [employer] Address [address] [facility] [address] [place] [address] Care Team Providers Care Elementary [employer] Science Teacher Name Role Phone Unavailable Primary Care Provider Unavailabl e Encounter Details Date Type Department Care Team (Latest Contact Info) Description 05/05/[address] [facility] CONVERSIONS Dental, Provider, DDS Social History Tobacco [...]
== END 2024-10-07 09:42 | disposition home or self-care (01) ==
LOC: HO.HGI 09:01
PROVIDERS: PCP Internal Medicine; Visit Provider Nurse Practitioner
DX: K21.9 Gastro-esophageal reflux disease without esophagitis (principal)
CPT/HCPCS: 99213

== ENCOUNTER → 2024-10-25 07:24 | Day surgery (SDC) | payer OTHER, SELFPAY ==
--- OUTSIDE RECORDS SUMMARY | 2024-10-19 13:34 | XMS_ITS | Encounter Summary ---
Author Organization [employer] Address [address] [facility] [address] [place] [address] Care Team Providers Care Toolroom Keeper Name Role Phone Unavailable Primary Care Provider Unavailabl e Encounter Details Date Type Department Care Team (Latest Contact Info) Description 05/05/2019 Abstract [facility] CONVERSIONS Dental, Provider, DDS Social [...]
[2024-10-21 11:24] VITALS: BMI 33.8
--- NOTE | 2024-10-22 10:27 | HO.ANESPROP2 ---
HPI - Anesthesia Eval Consult details Narrative: 64yo M for Circumcision PMFSH Active Problems Active Problems: All Active Problems Pure hypercholesterolemia (Acute) Balanitis (Acute) Left hand weakness (Acute) Left hand pain (Acute) Penile wart (Acute) Flatulence (Acute) Tubular adenoma of colon (Acute) Lumbar pain (Acute) Murmur (Acute) Osteoarthritis of hands, bilateral (Acute) Epidermal inclusion cyst (Acute) Mass of finger of right hand (Acute) MGUS (monoclonal gammopathy of unknown significance) (Acute) Persistent headaches (Acute) Elevated total protein (Acute) Osteoarthritis of right hand (Acute) Carpal tunnel syndrome (Acute) Pure hypercholesterolemia (Acute) Dizziness (Acute) Hypogonadism in male (Acute) Degenerative arthritis of thoracic spine (Acute) History of hyperprolactinemia (Acute) Hyperthyroidism (Acute) GERD (gastroesophageal reflux disease) (Acute) GARRET (obstructive sleep apnea) (Acute) Hypovitaminosis D (Acute) Erectile dysfunction due to arterial insufficiency (Acute) Nocturia more than twice per night (Acute) BPH w urinary obs/LUTS (Acute) Palpitations (Acute) Polyarthralgia (Acute) Obesity (Acute) Essential hypertension (Acute) Past Medical History Medical History Left hand pain GARRET on CPAP Shortness of breath Low TSH level Abdominal pain Fatigue Muscle cramps Paresthesia Numbness of left hand Stiffness of right hand joint Nephrolithiasis Foreign body of right hand Physical exam ACTH elevation Degenerative arthritis of thoracic spine History of hyperprolactinemia Hyperthyroidism GERD (gastroesophageal reflux disease) Hypovitaminosis D Palpitations Polyarthralgia Obesity Essential hypertension Family History Family History Mother Heart problem Father Stroke Family history of problems with anesthesia: No Surgical History Surgical History Carpal tunnel syndrome of right wrist H/O colonoscopy H/O lithotripsy H/O umbilical hernia repair History of Problems with Anesthesia: No Social History Social History Housing: House Alcohol intake: current Alcohol intake frequency: does not drink Alcohol type: beer and hard liquor Patient Tobacco Use Status: Former Tobacco user Tobacco use type: Cigarette e-Cigarette/Vaping Use: Never Used Second Hand Smoke Exposure: No Advance Directives Date on File: 02/18/20 service: No Current occupational status: employed 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 Normal LV ejection fraction of 60 65% with impaired relaxation filling pattern 2. Normal cardiac valvular Dopplers 3. No gross pericardial effusion Assessment and Plan Assessment Anesthesia Assessment: Chart Reviewed Final Anesthetic Review Family History of Problems with Anesthesia: No History of Problems with Anesthesia: No
[2024-10-25 07:46] VITALS: BP 173/81; PULSE 83; RESP 16; TEMP 36.5; O2SAT 96
[2024-10-25 07:55] VITALS: BMI 33.5
--- NOTE | 2024-10-25 08:24 | MHC.SHP ---
Pre-Procedural Eval Section A - 24 Hr Update-Section A only Date of Service: 10/25/24 The patient is an INPATIENT: No Changes since office visit: No Cold of Flu in the past 2 weeks, No New Medical Problems, No Changes in Medication and No Patient answered all questions The patient has been examined within 24 hours of the surgical procedure. The History & Physical has been completed within 30 days and I have reviewed it.: Yes Section B - Complete if H&P > 30 days Chief Complaint: Balanitis Allergies: Allergies Allergy/AdvReac Type Severity Reaction Status Date / Time No Known Allergies Allergy Verified 10/25/24 07:49 [No Known Allergies*] Review of Systems Sugical H&P ROS: Negative: Constitution, Cardiovascular, Respiratory, Neurological, Psychiatric, Hem-Onc, Allergic/Immunologic, Gastrointestinal, Genitourinary, Musculoskeletal, Integumentary, Endocrine and Eyes/Ears/Nose/Throat Exam Surgical H&P Exam: Normal: HEENT, Normal: Heart, Normal: Lungs, Normal: Extremities, Normal: Abdomen, Normal: Skin and Normal: Neurological Plan Diagnosis/Plan: Unchanged (circumcision) I have reviewed the history and physical and performed a pertinent physical examination on my patient. No changes have occurred unless specified. Time Spent With Patient Time: Total time managing care of this patient today ____ minutes.
[2024-10-25] MEDS: Lactated Ringers 1,000 ML 100 ML IVCONT (08:26)
--- NOTE | 2024-10-25 08:47 | PC.NURSE ---
Dr Chopra Anesthesiologist at bedside with superintendent overhead distribution. patient stated he was having chest discomfort symptoms off and on, procedure cancelled, patient instructed to follow up with radio performer at this time, if symptoms persist to report to ER.
== END ==
LOC: HO.SSS 07:25
PROVIDERS: PCP Internal Medicine; Visit Provider Urology
DX: N48.1 Balanitis (principal); Z53.8 Procedure and treatment not carried out for other reasons; R07.9 Chest pain, unspecified
CPT/HCPCS: J0690

== ENCOUNTER 2024-10-25 11:28 | Inpatient (IN) | payer OTHER, SELFPAY ==
--- NOTE | ~2024-10-25 | CT_ITS ---
CLINICAL HISTORY: Bibasilar crackles, abnormal CXR, no PNA symptoms CT chest without contrast Comparison: None Findings: The heart is normal size. No pericardial effusion. The visualized thyroid and mediastinum are unremarkable. Bilateral patchy areas of ground-glass consolidation within the medial aspect of both lung bases, greater on the left than the right as well as within the anterior right middle lobe. The largest area of nodularity measures 14 mm left lower lobe image 102 series 4. Additional subsolid nodule medial right upper lobe image 76 measuring 13 mm. Biapical scarring. No dense consolidation or effusion. No pneumothorax. The upper abdomen is unremarkable. No acute fractures. IMPRESSION: 1. Scattered bilateral areas of nodular consolidation, ground-glass nodules and sub solid nodules. Findings could represent multifocal infection with malignancy not excluded. Follow-up to resolution is recommended. 2. No dense consolidation or effusion. No significant adenopathy within the chest. This document has been electronically signed by: Supriya Freire MD on 10/27/2024 08:35:16
--- NOTE | ~2024-10-25 | XR_ITS ---
EXAMINATION: XR CHEST 2 VIEWS HISTORY: pain COMPARISON: Comparison is made with the prior examination dated 06/20/2020. FINDINGS: PA and lateral views of the chest are submitted. There is patchy opacity at the right lung base, suspicious for early pneumonia. The left lung is clear. There is no pleural effusion, pneumothorax, or pulmonary vascular congestion. The heart is normal in size. The bones are intact. XR/XR chest 2V IMPRESSION: Patchy opacity at the right lung base, suspicious for early pneumonia. Follow-up is recommended, to document resolution. Electronically signed by: Shimon Laird MD 10/25/2024 11:50 AM EDT
--- NOTE | 2024-10-25 11:30 | ECG_ITS ---
Test Reason : cp Blood Pressure : */* mmHG Vent. Rate : 73 BPM Atrial Rate : 73 BPM P-R Int : 166 ms QRS Dur : 112 ms QT Int : 378 ms P-R-T Axes : 44 27 49 degrees QTcB Int : 416 ms Normal sinus rhythm Normal ECG When compared with ECG of 20-Jun-2020 08:36, No significant change was found Referred By: Generic ED Physician Electronically Signed By: BÁRBARA QUINN MD
[2024-10-25 11:36] VITALS: BP 192/93; PULSE 76; RESP 18; TEMP 36.8; O2SAT 98; BMI 33.5
--- NOTE | 2024-10-25 11:36 | ED_ITS ---
[facility] - General Adult General Chief complaint: Chest Pain Stated complaint: Chest Pain Time Seen by Provider: 10/25/24 12:39 Source: patient and heel seat laster Mode of arrival: ambulatory Limitations: language barrier History of Present Illness ED Provider: Kiley Murray PA-C HPI narrative: This is a 64-year-old Slovenian-speaking male, with a past medical history of hyperlipidemia, hypertension, GERD, hyperthyroidism, who presents emergency department with concerns of chest pressure and dizziness for the last month, worsening over the last 2-3 days. Patient describes his chest pain as a burning sensation, left-sided, and radiates to left back/shoulder. Patient states that the chest pain is typically occurring exertionally, denies any current pain at this time. Also reports associated fatigue. Denies any recent illness, no fevers, chills, shortness of breath, abdominal pain, nausea, vomiting or diarrhea. He does report recent travel to [place] in June. No calf tenderness or lower extremity swelling. No other complaints or concerns at this time. MD complaint: Chest pain Relieving factors: none Exacerbating factors: none Associated symptoms: denies other symptoms Treatments prior to arrival: none Related Data Previous Rx's ?Medication ?Instructions ?Recorded wrist splint #1 ea 01/08/23 losartan 25 mg tablet 25 mg PO DAILY 90 days #90 tabs 08/11/24 pantoprazole 40 mg tablet,delayed 40 mg PO DAILY 30 days #30 tabs 09/16/24 release (Protonix) aspirin 81 mg chewable tablet 81 mg PO DAILY #30 tabs 10/26/24 atorvastatin 40 mg tablet 40 mg PO BEDTIME #30 tabs 10/26/24 heparin (porcine) 25,000 unit/250 25,000 unit (250 mL) continuous IV 10/26/24 mL in 0.45 % sodium chloride IV infusion .Q0M #6,000 mL soln Allergies Allergy/AdvReac Type Severity Reaction Status Date / Time No Known Allergies Allergy Verified 10/25/24 11:37 [No Known Allergies*] Review of Systems 2 Review of Systems: Yes all other systems are reviewed and are negative Constitutional: Constitutional: Reports as per [facility] Past Medical History Attestation statement: The following information was validated with the patient. Medical History Left hand pain GARRET on CPAP Shortness of breath Low TSH level Abdominal pain Fatigue Muscle cramps Paresthesia Numbness of left hand Stiffness of right hand joint Nephrolithiasis Foreign body of right hand Physical exam ACTH elevation Degenerative arthritis of thoracic spine History of hyperprolactinemia Hyperthyroidism GERD (gastroesophageal reflux disease) Hypovitaminosis D Palpitations Polyarthralgia Obesity Essential hypertension Surgical History Carpal tunnel syndrome of right wrist H/O colonoscopy H/O lithotripsy H/O umbilical hernia repair Family History Family History Mother Heart problem Father Stroke Social History Social History Household Members: Family Housing: Apartment Are you a primary home health care physician to a significant other at home: No Do you presently have visiting nurse or other home services: No Alcohol intake: current Alcohol intake frequency: does not drink Alcohol type: beer and hard liquor Patient Tobacco Use Status: Former Tobacco user Tobacco use type: Cigarette Years Smoked: 20 e-Cigarette/Vaping Use: Former Use Second Hand Smoke Exposure: No Advance Directives Date on File: 02/18/20 service: No Current occupational status: employed 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 Current occupational exposures/hazards: No Cognitive needs: No Hearing needs: No Vision needs: No Physical Exam ED Vital Signs: Vital Signs - 24 hr 10/25/24 11:36 10/25/24 14:21 Temperature 98.2 F Pulse Rate 76 Respiratory Rate 18 Blood Pressure 192/93 H 145/78 H Pulse Oximetry 98 BMI result Body Mass Index 33.5 Const General: cooperative, comfortable and no acute distress Orientation/consciousness: patient oriented x3 Limitations: no limitations [facility] Head: Yes normal to inspection, Yes normocephalic and Yes atraumatic Ears: hearing grossly normal bilaterally General nose exam: Normal external nose present Face and sinus: Yes normal facial exam Mouth: Normal oral and palatal mucosa present, oropharynx normal and moist mucous membranes Throat: Yes posterior oropharynx normal Eyes General: appearance normal, both eyes and all related structures Eyelids: Yes eyelids normal Conjunctivae: conjunctivae normal Sclerae: sclerae normal Pupils: Equal, round and reactive pupils present EOM: EOMs intact bilaterally Neck Neck: Yes normal visual inspection, Yes full ROM and Yes no lymphadenopathy Lymphatic: no lymphadenopathy noted Chest Chest palpation & inspection: normal inspection of the chest Resp Effort & Inspection: normal respiratory effort and able to speak in complete sentences Auscultation: clear to auscultation bilaterally, no crackles, no rales, no rhonchi and no wheezes Cardio Rate: regular rate Rhythm: regular rhythm Heart sounds: S1 normal heart sound present and S2 normal heart sound present GI Inspection: Yes normal to inspection Skin General skin exam: no rashes or lesions noted Trauma: no lacerations or abrasions Wounds: no wounds Neuro General: patient oriented x3 and moves all extremities Cranial nerves: Yes Equal, round and reactive pupils present Extrem Other: No calf tenderness, no pedal edema. General: Yes normal to inspection Right upper extremity: normal to inspection Left upper extremity: normal to inspection Right lower extremity: normal to inspection Left lower extremity: normal to inspection Course Course Course Narrative: RME, this is a rapid medical exam performed by Dick Quigley please refer to primary provider for complete H&P- 64 year old male presents for evaluation of chest pain. Symptoms started a month ago but have gotten worse over the last 2-3 days. Plan for cardiac worlkup Medications Administered Discontinued Medications Generic Name Dose Route Start Last Admin Trade Name Freq PRN Reason Stop Dose Admin Aspirin 324 mg 10/25/24 16:03 10/25/24 16:39 Aspirin 81 Mg Tab.Chew PO 10/25/24 16:04 324 mg ONCE STA Administration Aspirin 324 mg 10/25/24 16:12 10/25/24 16:37 Aspirin 81 Mg Tab.Chew PO 10/25/24 16:13 Not Given ONCE ONE Aspirin 81 mg 10/26/24 09:00 10/26/24 08:31 Aspirin 81 Mg Tab.Chew PO 81 mg DAILY ARIANNA Administration Atorvastatin Calcium 40 mg 10/25/24 21:00 10/26/24 21:01 Atorvastatin Calcium 40 Mg Tablet PO 40 mg BEDTIME ARIANNA Administration Heparin Sodium (Porcine) 4,000 unit 10/25/24 15:46 10/25/24 15:56 Heparin Sodium,Porcine 5,000 Unit/Ml Vial IVPUSH 10/25/24 15:47 4,000 unit ONCE ONE Administration Heparin Sodium (Porcine) 4,500 unit 10/25/24 17:00 10/26/24 12:38 Heparin Sodium,Porcine 5,000 Unit/Ml Vial 40 unit/kg (4500 unit) 4,500 unit IVPUSH Administration PROTOCOL BOLUS PRN 40 unit/kg - Heparin Protocol Protocol Heparin Sodium/Sodium Chloride 25,000 unit in 250 mls @ 0 mls/hr 10/25/24 17:00 10/27/24 01:45 Heparin Sodium,Porcine/1/2ns IVCONT 10.93 units/kg/hr .Q0M ARIANNA 12.25 mls/hr Titration Protocol Per Protocol Losartan Potassium 25 mg 10/26/24 09:00 10/26/24 08:31 Losartan Potassium 25 Mg Tablet PO 25 mg DAILY ARIANNA Administration Protocol Nitroglycerin 0.5 inch 10/25/24 17:22 10/25/24 17:38 Nitroglycerin 2 % Oint 1 Gm Packet TRANSDERMA 10/25/24 17:23 0.5 inch ONCE ONE Administration Sodium Chloride 3 ml 10/26/24 00:00 10/27/24 01:47 0.9 % Sodium Chloride Flush 3 Ml Syringe IVFLUSH Not Given QSHIFT [facility] Procedures Procedure Narrative Procedure Narrative: EMERGENCY ULTRASOUND INTERPRETATION-Limited Echocardiography [This study was ordered, performed, and interpreted by myself. The study reveals: Impression: NORMAL LV FUNCTION, NO RV DYSFUNCTION, NO PERICARDIAL EFFUSION] [Emergent Cardiac for Indication: Views Used: PLAX, PSSA, A4, SX, Pericardial Effusion/Tamponade Findings: NONE RV Dilation (> LV diam in 4ch apical): NONE Global LV Fxn: NORMAL Performed by: MD Amelia Images were stored CPT:24464] Medical Decision Making Medical Decision Making MDM Narrative: This is a 64-year-old male who presents emergency department with ongoing intermittent chest pain for the last month. On arrival, blood pressure elevated 192/93 however I repeated this as blood pressure did not seem to be appropriately fitting him, repeat blood pressure 145/78. EKG normal sinus rhythm with no STEMI. Labs were obtained, slight leukopenia at 4.5, chemistry revealing no acute findings patient does have an elevated troponin at 1:33 a.m.. Case was discussed with Dr. Briggs, cardiology who recommends repeat in 3 hours. Patient is currently asymptomatic. Symptoms seem to start with exertion. Chest x-ray revealing possible early right lower lobe infiltrate, this does not fit clinical picture. Discussed case with my attending physician, Dr. Osito Díaz. BNP, and D-dimer added. Patient has no pleuritic chest pain. 1538 - repeat troponin revealing elevated troponin at 225.7, BNP within normal limits, D-dimer less than 150. Bedside echo was performed by my attending physician, see procedure note for detail. Discussed case with Dr. Briggs, recommending heparin and admission to hospital. Recommending trending troponins every 6-8 hours. Discussed with hospitalist, transfer of care initiated. Differential Diagnosis Differential Diagnoses: The differential diagnosis associated with the presentation includes ACS, NSTEMI, STEMI, costochondritis Admission/Observation Consideration of admission/observation: Escalation of care including admission/observation considered Consult Healthcare Provider Management of the patient was discussed with: Hospitalist and Skein Bander Dr. Briggs, commercial leasing manager Dr. Caden Devi Lab Data [facility] Lab Attestation statement: I reviewed the patient's lab results. See MDM and course 10/26/24 06:14 10/26/24 06:14 Labs: Lab Results 10/25/24 10/25/24 10/25/24 Range/Units 11:54 12:53 13:53 WBC 4.5 L (4.8-10.8) X10*3/uL RBC 4.75 (4.60-5.80) X10*6/uL Hgb 14.5 (14.0-18.0) g/dl Hct 42.5 (42.0-52.0) % MCV 89.5 (80.0-98.0) fL MCH 30.5 (27.0-33.0) pg MCHC 34.1 (31.0-36.0) g/dl RDW 12.6 (11.0-16.0) % Plt Count 201 (160-400) X10*3/uL MPV 10.4 (9.4-12.4) fL Immature Gran % (Auto) 0.2 (0.0-0.4) % Neut % (Auto) 64.1 (45-73) % Lymph % (Auto) 25.6 (20-40) % [place] % (Auto) 6.6 (2-11) % Eos % (Auto) 2.6 (0-4) % Baso % (Auto) 0.9 (0-2) % Lymph # (Auto) 1.2 (1.2-4.9) X10*3/uL [place] # (Auto) 0.3 (0.1-1.2) X10*3/uL Eos # (Auto) 0.1 (0.0-0.4) X10*3/uL Baso # (Auto) 0.0 (0.0-0.2) X10*3/uL Abs Immat Gran (auto) 0.01 (0.00-0.03) X10*3/uL Absolute Neuts (auto) 2.9 (2.0-8.3) x10*3/uL Absolute Nucleated RBC 0.000 (0.0-0.012) X10*3/uL Nucleated RBC % (auto) 0.0 (0.0-0.2) /100WBC PT (10.9-12.4) SEC INR (0.9-1.1) APTT (26.0-36.8) SEC D-Dimer High Sensitivty < 150 NG/ML Sodium 138 (135-145) mmol/L Potassium 4.2 (3.3-5.1) mmol/L Chloride 107 (96-108) mmol/L Carbon Dioxide 26 (22-29) mmol/L Anion Gap 9 L (12-20) BUN 13 (9-16) mg/dL Creatinine 0.93 (0.5-1.4) mg/dL Estim Creat Clear Calc 105.0 Estimated GFR > 60 Random Glucose 131 H (60-115) mg/dL Calcium 8.9 (8.4-10.2) mg/dL Magnesium 2.0 (1.6-2.6) mg/dL Total Bilirubin 0.4 (0.0-1.0) mg/dL AST 27 (5-37) U/L ALT 24 (0-40) U/L Alkaline Phosphatase 58 (39-117) U/L Troponin I High Sens 133.0 H* (<3.5-35.0) ng/L B-Natriuretic Peptide < 10 (<100) pg/mL Total Protein 8.2 H (6.5-8.0) g/dL Albumin 4.1 (3.5-5.0) g/dL Lipase 21 (8-78) U/L Influenza Type A (PCR) NEGATIVE (Negative) Influenza Type B (PCR) NEGATIVE (Negative) RSV RNA Qual (PCR) NEGATIVE (Negative) SARS-CoV-2 RNA (RT-PCR) NEGATIVE (Negative) 10/25/24 10/25/24 Range/Units 15:01 15:56 WBC (4.8-10.8) X10*3/uL RBC (4.60-5.80) X10*6/uL Hgb (14.0-18.0) g/dl Hct (42.0-52.0) % MCV (80.0-98.0) fL MCH (27.0-33.0) pg MCHC (31.0-36.0) g/dl RDW (11.0-16.0) % Plt Count (160-400) X10*3/uL MPV (9.4-12.4) fL Immature Gran % (Auto) (0.0-0.4) % Neut % (Auto) (45-73) % Lymph % (Auto) (20-40) % [place] % (Auto) (2-11) % Eos % (Auto) (0-4) % Baso % (Auto) (0-2) % Lymph # (Auto) (1.2-4.9) X10*3/uL [place] # (Auto) (0.1-1.2) X10*3/uL Eos # (Auto) (0.0-0.4) X10*3/uL Baso # (Auto) (0.0-0.2) X10*3/uL Abs Immat Gran (auto) (0.00-0.03) X10*3/uL Absolute Neuts (auto) (2.0-8.3) x10*3/uL Absolute Nucleated RBC (0.0-0.012) X10*3/uL Nucleated RBC % (auto) (0.0-0.2) /100WBC PT 12.6 H (10.9-12.4) SEC INR 1.1 (0.9-1.1) APTT 25.6 L (26.0-36.8) SEC D-Dimer High Sensitivty NG/ML Sodium (135-145) mmol/L Potassium (3.3-5.1) mmol/L Chloride (96-108) mmol/L Carbon Dioxide (22-29) mmol/L Anion Gap (12-20) BUN (9-16) mg/dL Creatinine (0.5-1.4) mg/dL Estim Creat Clear Calc Estimated GFR Random Glucose (60-115) mg/dL Calcium (8.4-10.2) mg/dL Magnesium (1.6-2.6) mg/dL Total Bilirubin (0.0-1.0) mg/dL AST (5-37) U/L ALT (0-40) U/L Alkaline Phosphatase (39-117) U/L Troponin I High Sens 225.7 H* D (<3.5-35.0) ng/L B-Natriuretic Peptide (<100) pg/mL Total Protein (6.5-8.0) g/dL Albumin (3.5-5.0) g/dL Lipase (8-78) U/L Influenza Type A (PCR) (Negative) Influenza Type B (PCR) (Negative) RSV RNA Qual (PCR) (Negative) SARS-CoV-2 RNA (RT-PCR) (Negative) Independent Interpretation I performed an independent interpretation of an: EKG Interpretation: 10/25/2024 1129 AM EKG normal sinus rhythm at a ventricular rate of 73 beats per minute, HI interval 166, QT QTC 378/416, no STEMI 10/25/2024 1543 normal sinus rhythm at a ventricular rate of 71, HI interval 170, QT QTC 400/434, no STEMI. Radiology Impression Discussion of test interpretation with radiology: I have reviewed the radiologist's reading. Radiologist Impression: HISTORY: pain COMPARISON: Comparison is made with the prior examination dated 06/20/2020. FINDINGS: PA and lateral views of the chest are submitted. There is patchy opacity at the right lung base, suspicious for early pneumonia. The left lung is clear. There is no pleural effusion, pneumothorax, or pulmonary vascular congestion. The heart is normal in size. The bones are intact. XR/XR chest 2V IMPRESSION: Patchy opacity at the right lung base, suspicious for early pneumonia. Follow-up is recommended, to document resolution. Electronically signed by: Shimon Laird MD 10/25/2024 11:50 AM EDT Dictated By: Shimon Laird MD External Record Review External record reviewed: Inpatient record, Office record, Outpatient record, Prior outpatient labs, Prior outpatient radiology, Primary care record and Outside ED record Chronic Conditions Patient?s care impacted by: Hypertension and Other (Hyperlipidemia) Critical Care Time Critical Care Time Critical Care Time: Yes Total Critical Care Time: 67 Attestation: I have personally provided critical care time exclusive of time spent on separately billable procedures. Time includes review of lab data, radiology results, discussion with consultants, and monitoring for potential decompensation. Intervention performed as documented. Discharge Plan Discharge Clinical Impression: Non-ST elevation ND (NSTEMI) Patient Disposition: Admitted As Inpatient Interventions: Admission Worksheet (ED) Last Done: 10/25/24 17:15 Discharge Date/Time: 10/25/24 18:25
[2024-10-25 12:12] LABS: MANUAL DIFF FLAG NO
[2024-10-25 12:15] LABS: Basophils Percent Auto 0.9 % (0-2); Eosinophils Absolute Auto 0.1 X10*3/uL (0.0-0.4); Eosinophils Percent Auto 2.6 % (0-4); Hematocrit 42.5 % (42.0-52.0); Hemoglobin 14.5 g/dl (14.0-18.0); Imm Gran Abs Auto 0.01 X10*3/uL (0.00-0.03); Imm Gran Pct Auto 0.2 % (0.0-0.4); Lymphocytes Absolute Auto 1.2 X10*3/uL (1.2-4.9); Lymphocytes Percent Auto 25.6 % (20-40); Mean Corpuscular HGB Conc 34.1 g/dl (31.0-36.0); Mean Corpuscular Hemoglobin 30.5 pg (27.0-33.0); Mean Corpuscular Volume 89.5 fL (80.0-98.0); Mean Platelet Volume 10.4 fL (9.4-12.4); Monocytes Absolute Auto 0.3 X10*3/uL (0.1-1.2); Monocytes Percent Auto 6.6 % (2-11); Neutrophils Absolute Auto 2.9 x10*3/uL (2.0-8.3); Neutrophils Percent Auto 64.1 % (45-73); Platelet Count 201 X10*3/uL (160-400); Red Blood Count 4.75 X10*6/uL (4.60-5.80); Red Cell Distribution Width 12.6 % (11.0-16.0); White Blood Count 4.5 X10*3/uL (4.8-10.8)
[2024-10-25 12:34] LABS: Alanine Aminotransferase 24 U/L (0-40); Albumin Level 4.1 g/dL (3.5-5.0); Alkaline Phosphatase 58 U/L (39-117); Anion Gap 9 (12-20); Aspartate Amino Transferase 27 U/L (5-37); Bilirubin Total 0.4 mg/dL (0.0-1.0); Blood Urea Nitrogen 13 mg/dL (9-16); Calcium 8.9 mg/dL (8.4-10.2); Carbon Dioxide 26 mmol/L (22-29); Chloride 107 mmol/L (96-108); Estimated Glomerular Filt Rate > 60; Glucose Random 131 mg/dL (60-115); Lipase 21 U/L (8-78); Potassium 4.2 mmol/L (3.3-5.1); Sodium 138 mmol/L (135-145); Total Protein 8.2 g/dL (6.5-8.0)
--- OUTSIDE RECORDS SUMMARY | 2024-10-25 13:25 | XMS_ITS | Encounter Summary ---
Author Organization [employer] Address [address] [place] [address] Care Team Providers Care Director Sales And Marketing Name Role Phone Unavailable Primary Care Provider Unavailabl e Encounter Details Date Type Department Care Team (Latest Contact Info) Description 05/05/2019 Abstract [facility] CONVERSIONS Dental, Provider, DDS Social [...]
[2024-10-25 13:38] LABS: Influenza A PCR NEGATIVE (Negative); Influenza B PCR NEGATIVE (Negative); Resp Syncy Virus RNA Qual PCR NEGATIVE (Negative); SARS COV2 PCR INHOUSE NEGATIVE (Negative)
[2024-10-25 14:06] LABS: B Type Natriuretic Peptide < 10 pg/mL (<100)
[2024-10-25 14:11] LABS: D Dimer High Sensitivity < 150 NG/ML
[2024-10-25 14:21] VITALS: BP 145/78
[2024-10-25 15:32] LABS: Troponin-I High Sensitivity 225.7 ng/L (<3.5-35.0)
--- NOTE | 2024-10-25 15:34 | ECG_ITS ---
Test Reason : REPEAT Blood Pressure : */* mmHG Vent. Rate : 71 BPM Atrial Rate : 71 BPM P-R Int : 170 ms QRS Dur : 108 ms QT Int : 400 ms P-R-T Axes : 56 37 44 degrees QTcB Int : 434 ms Normal sinus rhythm Normal ECG When compared with ECG of 25-Oct-2024 11:29, No significant change was found Referred By: Kiley Murray Electronically Signed By: BÁRBARA QUINN MD
--- NOTE | 2024-10-25 15:53 | PC.NURSE ---
MD preforming bedside echo; pt resting comfortably, care ongoing
[2024-10-25] MEDS: Heparin Sodium,Porcine 5,000 UNIT/ML VIAL 4000 UNIT IVPUSH (15:56)
[2024-10-25 16:11] LABS: INTERNATIONAL NORM RATIO 1.1 (0.9-1.1); Prothrombin Time 12.6 SEC (10.9-12.4)
[2024-10-25] MEDS: Aspirin 81 MG TAB.CHEW 324 MG PO (16:39)
[2024-10-25 16:42] LABS: Partial Thromboplastin Time 25.6 SEC (26.0-36.8)
[2024-10-25 16:56] LABS: Hematocrit 43.1 % (42.0-52.0); Hemoglobin 14.9 g/dl (14.0-18.0); Mean Corpuscular HGB Conc 34.6 g/dl (31.0-36.0); Mean Corpuscular Hemoglobin 30.5 pg (27.0-33.0); Mean Corpuscular Volume 88.1 fL (80.0-98.0); Platelet Count 206 X10*3/uL (160-400); Red Blood Count 4.89 X10*6/uL (4.60-5.80); Red Cell Distribution Width 12.7 % (11.0-16.0); White Blood Count 5.4 X10*3/uL (4.8-10.8)
--- NOTE | 2024-10-25 16:57 | PM.IMHP ---
History of Present Illness Date of Service: 10/25/24 Attending physician on admission: Cliff Devi Chief Complaint: Chest pain Interview addressed in Czech. Ramiro Coleman is a 64 years old man with past medical history significant for essential hypertension and hyperlipidemia presents to the emergency department complaining of left-sided chest pain that has been going on for the last month but has been getting worse over the last 3 days. He described the pain as a burning sensation and radiate to the back. Intensity is 7/10 and released with rest. Pain increases with exertion. Last night he experience diaphoresis but denied nausea, vomiting or abdominal pain. He also reported associated shortness of breath with exertion. Denied cough, fever or chills. 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 He denies history of CAD/myocardial infarction, congestive heart failure and diabetes mellitus. He does not take aspirin daily. Denies tobacco smoking, alcohol abuse or illicit drug use. He is currently free of chest pain. In the ED, he was found to have stable vital signs. His blood pressure has been elevated (max 192/93). Last blood pressure is 145/78. There is no tachycardia, fever and oxygen saturation is normal on room air. Blood workup showed normal CBC. There are no electrolyte imbalances. BUN creatinine are normal. Initial troponin was 133, most recent 1 is 225.7. BNP is < 10. LFTs and lipase are normal. Viral testing is negative for COVID-19, influenza and RSV. ECG X2 showed normal sinus rhythm without ischemic changes. CXR showed patchy opacity in the right lung base suspicious for early pneumonia. ED tx: Heparin 4000 units IV x1. Review of Systems Review of Systems: All 12 systems were reviewed and normal except as noted in HPI. FORMERLY [facility] Medical History Left hand pain GARRET on CPAP Shortness of breath Low TSH level Abdominal pain Fatigue Muscle cramps Paresthesia Numbness of left hand Stiffness of right hand joint Nephrolithiasis Foreign body of right hand Physical exam ACTH elevation Degenerative arthritis of thoracic spine History of hyperprolactinemia Hyperthyroidism GERD (gastroesophageal reflux disease) Hypovitaminosis D Palpitations Polyarthralgia Obesity Essential hypertension Family History Mother Heart problem Father Stroke Surgical History Carpal tunnel syndrome of right wrist H/O colonoscopy H/O lithotripsy H/O umbilical hernia repair Social History Housing: House Are you a primary early breastfeeding care specialist to a significant other at home: No Do you presently have visiting nurse or other home services: No Alcohol intake: current Alcohol intake frequency: does not drink Alcohol type: beer and hard liquor Patient Tobacco Use Status: Former Tobacco user Tobacco use type: Cigarette Years Smoked: 20 e-Cigarette/Vaping Use: Never Used Second Hand Smoke Exposure: No Advance Directives: No Advance Directives Information Provided: Yes Advance Directives Date on File: 02/18/20 Do you have a plan to hurt others: No Plan service: No Current occupational status: employed 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 Current occupational exposures/hazards: No Cognitive needs: No Hearing needs: No Vision needs: No Meds Allergies Allergy/AdvReac Type Severity Reaction Status Date / Time No Known Allergies Allergy Verified 10/25/24 11:37 [No Known Allergies*] Active Medications: Current Medications Acetaminophen (Acetaminophen 325 Mg Tablet) 975 mg PO Q6H PRN PRN Reason: Pain, Mild 1-3,fever,headache Aspirin (Aspirin 81 Mg Tab.Chew) 81 mg PO DAILY [facility] Atorvastatin Calcium (Atorvastatin Calcium 40 Mg Tablet) 40 mg PO DAILY [facility] Calcium Carbonate (Calcium Carbonate 750 Mg Tab.Chew) 750 mg PO Q4H PRN PRN Reason: Heartburn Heparin Sodium (Porcine) (Heparin Sodium,Porcine 5,000 Unit/Ml Vial) 9,000 unit 80 unit/kg (9000 unit) IVPUSH PROTOCOL BOLUS PRN; Protocol PRN Reason: 80 unit/kg - Heparin Protocol Heparin Sodium (Porcine) (Heparin Sodium,Porcine 5,000 Unit/Ml Vial) 4,500 unit 40 unit/kg (4500 unit) IVPUSH PROTOCOL BOLUS PRN; Protocol PRN Reason: 40 unit/kg - Heparin Protocol Heparin Sodium/Sodium Chloride (Heparin Sodium,Porcine/1/2ns) 25,000 unit in 250 mls @ 0 mls/hr IVCONT .Q0M ARIANNA; Protocol Melatonin (Melatonin 3 Mg Tablet) 6 mg PO BEDTIME PRN PRN Reason: Insomnia Morphine Sulfate (Morphine Sulfate 4 Mg/Ml Cartridge) 2 mg IVPUSH Q6H PRN; Protocol PRN Reason: Chest Pain Sodium Chloride (0.9 % Sodium Chloride Flush 3 Ml Syringe) 3 ml IVFLUSH QSHIFT [facility] Home Medications ?Medication ?Instructions ?Recorded ?Confirmed ?Last Taken ?Type meloxicam 15 mg tablet 15 mg PO DAILY 10/25/24 Unknown History tadalafil 5 mg tablet 20 mg PO DAILY 10/25/24 Unknown History Physical Exam Vital Signs and Narrative: Vital Signs: Last Vital Signs Temp 98.2 F 10/25/24 11:36 Pulse 76 10/25/24 11:36 Resp 18 10/25/24 11:36 BP 145/78 H 10/25/24 14:21 Pulse Ox 98 10/25/24 11:36 BMI result Body Mass Index 33.5 Constitutional - Awake and Alert, No apparent distress. Pleasant. Cooperative. HEENT - PER, EOMI Heart - S1S2, RRR, No murmurs. Lungs - Normal lung expansion, Normal respiratory effort, No respiratory distress. No tachypnea. Minimal bibasilar crackles R>L Gastrointestinal - NT / ND; +BS; No rebound or guarding Extremities - no calf tenderness bilaterally, no swelling Musculoskeletal - Normal inspection, normal ROM Skin - Warm/Dry. No pallor. No jaundice. Neurological - Alert & oriented x3. No focal weakness grossly noted. Normal speech. Psychological - Appropriate affect Results Labs 10/25/24 16:49 10/25/24 11:54 Labs: Laboratory Results - last 24 hr 10/25/24 10/25/24 10/25/24 11:54 12:53 13:53 MCV 89.5 MCH 30.5 MCHC 34.1 RDW 12.6 Plt Count 201 MPV 10.4 Immature Gran % (Auto) 0.2 Neut % (Auto) 64.1 Lymph % (Auto) 25.6 [place] % (Auto) 6.6 Eos % (Auto) 2.6 Baso % (Auto) 0.9 Lymph # (Auto) 1.2 [place] # (Auto) 0.3 Eos # (Auto) 0.1 Baso # (Auto) 0.0 Abs Immat Gran (auto) 0.01 Absolute Neuts (auto) 2.9 Absolute Nucleated RBC 0.000 Nucleated RBC % (auto) 0.0 PT INR APTT D-Dimer High Sensitivty < 150 Anion Gap 9 L Estim Creat Clear Calc 105.0 Estimated GFR > 60 Random Glucose 131 H Calcium 8.9 Magnesium 2.0 Total Bilirubin 0.4 AST 27 ALT 24 Alkaline Phosphatase 58 Troponin I High Sens 133.0 H* B-Natriuretic Peptide < 10 Total Protein 8.2 H Albumin 4.1 Lipase 21 Influenza Type A (PCR) NEGATIVE Influenza Type B (PCR) NEGATIVE RSV RNA Qual (PCR) NEGATIVE SARS-CoV-2 RNA (RT-PCR) NEGATIVE 10/25/24 10/25/24 15:01 15:56 MCV MCH MCHC RDW Plt Count MPV Immature Gran % (Auto) Neut % (Auto) Lymph % (Auto) [place] % (Auto) Eos % (Auto) Baso % (Auto) Lymph # (Auto) [place] # (Auto) Eos # (Auto) Baso # (Auto) Abs Immat Gran (auto) Absolute Neuts (auto) Absolute Nucleated RBC Nucleated RBC % (auto) PT 12.6 H INR 1.1 APTT 25.6 L D-Dimer High Sensitivty Anion Gap Estim Creat Clear Calc Estimated GFR Random Glucose Calcium Magnesium Total Bilirubin AST ALT Alkaline Phosphatase Troponin I High Sens 225.7 H* D B-Natriuretic Peptide Total Protein Albumin Lipase Influenza Type A (PCR) Influenza Type B (PCR) RSV RNA Qual (PCR) SARS-CoV-2 RNA (RT-PCR) Imaging Radiologist's Impressions: Impressions Chest X-Ray 10/25/24 11:35 IMPRESSION: Patchy opacity at the right lung base, suspicious for early pneumonia. Follow-up is recommended, to document resolution. Electronically signed by: Shimon Laird MD 10/25/2024 11:50 AM EDT Assessment and Plan (1) Non-ST elevation CA (NSTEMI): Status: Acute (2) Essential hypertension: Status: Acute Plan Ramiro Coleman is a 64 yea/o man admitted with: Non-ST elevation myocardial infarction, currently free of chest pain. Admit to hospitalist service. Telemetry. Aspirin 325 mg PO STAT then 81 mg p.o. daily. Continue heparin IV infusion. Continue statin. Obtain TTE. Check lipid panel. Trend troponin. Cardiology consult -per ED Dr. Briggs aware. Right lower base opacity ? Pneumonia (however no symptoms of PNA, PE showed mild bibasilar crackles; BNP negative). Check routine chest CT scan without contrast for better evaluation of lung parenchyma. Essential hypertension, uncontrolled. Nitroglycerin ointment. Continue losartan. Hyperlipidemia. Continue statin. Obstructive sleep apnea. Nocturnal CPAP. DVT prophylaxis: On heparin IV infusion Code status: Full Patient will need hospitalization for at least 2 midnights for non-STEMI treatment/evaluation with continuous cardiac monitoring, IV heparin and evaluation by subspecialty. Quality Stroke Does the patient have a stroke diagnosis?: No VTE Prior VTE?: No VTE Risk Level:: Medical - moderate - high VTE Device Contraindication: Treatment Not Indicated VTE Drug Contraindication: N/A - Med Ordered
--- NOTE | 2024-10-25 17:01 | PC.NURSE ---
Delay in administration of heparin drip due to order issues. Pharmacy contacted, pending new orders for start time.
[2024-10-25 17:03] LABS: INTERNATIONAL NORM RATIO 1.1 (0.9-1.1); Prothrombin Time 12.8 SEC (10.9-12.4)
[2024-10-25 17:05] LABS: PTT Heparin Drip 82.3 SEC (53-77.9)
[2024-10-25] MEDS: Heparin Sodium,Porcine/1/2NS 25,000 UNIT/250 ML IV.SOLN 10 UNIT IVCONT (17:09)
[2024-10-25] MEDS: Nitroglycerin 2 % Oint 1 GM Packet 0.5 INCH TRANSDERMA (17:38)
--- NOTE | 2024-10-25 18:13 | PC.NURSE ---
PTT results at 1649 drawn by lab DROBIM were mistakenly drawn after IV heparin bolus given. Drip started @ 10mL/hr after initial correct 25.6 PTT result. aware, CN aware.
[2024-10-25 18:32] VITALS: BMI 33.6
--- NOTE | 2024-10-25 18:54 | PHA.MEDREC ---
Addendum entered by Lázaro Nelson PharmD 10/25/24 19:01: reviewed Original Note: Pharmacy Consult ? Medication Reconciliation Pharmacy has completed the medication reconciliation spoke to patient through special events driver service (Rita). to confirm med list. patient states he is no longer taking Atorvastatin 40 mg and Meloxicam 15 mg. Patient states he last had his medications yesterday.
[2024-10-25 19:16] VITALS: BP 145/84; PULSE 68; RESP 20; TEMP 36.3; O2SAT 96
[2024-10-25] MEDS: 0.9 % Sodium Chloride Flush 3 ML SYRINGE IVFLUSH (19:37)
[2024-10-25 20:25] LABS: PTT Heparin Drip 46.9 SEC (53-77.9)
[2024-10-25 23:38] VITALS: BP 138/81; PULSE 75; RESP 16; TEMP 36.7; O2SAT 95
[2024-10-25 23:48] LABS: PTT Heparin Drip 44.4 SEC (53-77.9)
[2024-10-26] MEDS: Heparin Sodium,Porcine 5,000 UNIT/ML VIAL 4500 UNIT IVPUSH ×2 (00:04→12:38)
[2024-10-26 03:26] VITALS: BP 162/87; PULSE 65; RESP 16; TEMP 36.7; O2SAT 96
--- NOTE | 2024-10-26 06:00 | ECG_ITS ---
Test Reason : f/u nstemi Blood Pressure : */* mmHG Vent. Rate : 67 BPM Atrial Rate : 67 BPM P-R Int : 174 ms QRS Dur : 116 ms QT Int : 402 ms P-R-T Axes : 50 42 52 degrees QTcB Int : 424 ms Normal sinus rhythm Normal ECG When compared with ECG of 25-Oct-2024 15:43, No significant change was found Referred By: Cliff Devi Electronically Signed By: BÁRBARA QUINN MD
[2024-10-26 06:35] LABS: Hematocrit 42.8 % (42.0-52.0); Hemoglobin 14.4 g/dl (14.0-18.0); Mean Corpuscular HGB Conc 33.6 g/dl (31.0-36.0); Mean Corpuscular Hemoglobin 29.8 pg (27.0-33.0); Mean Corpuscular Volume 88.6 fL (80.0-98.0); Mean Platelet Volume 10.4 fL (9.4-12.4); Platelet Count 198 X10*3/uL (160-400); Red Blood Count 4.83 X10*6/uL (4.60-5.80); Red Cell Distribution Width 12.6 % (11.0-16.0); White Blood Count 4.7 X10*3/uL (4.8-10.8)
--- NOTE | 2024-10-26 07:00 | CA_ITS ---
Transthoracic Echocardiogram Patient (Last, First, Middle): Ramiro Lerma A Gender: Male Date of : 1960 Age: 64 Procedure Date: 10/26/2024 Procedure Type: Transthoracic Echocardiogram Location[place] [facility] [place] Height: 182.88 cm Weight: 112.49 kg BSA: 2.33 m2 Heart Rate: bpm BP: 146 / 77 mmHg [employer]: TO Referring MD: Cliff Devi MD Renal Medicine Physician: Rick Briggs MD Symptoms: NSTEMI Study Quality: Fair/Contrast ECG Rhythm: Sinus Conclusions: - 1. Low normal LV ejection fraction 50-55% with impaired relaxation filling pattern 2. Normal cardiac valvular Dopplers 3. Normal RV systolic pressure 4. No gross pericardial effusion Findings Procedure Information Contrast agent, definity, is being given per protocol without apparent complications. Left Ventricle Normal left ventricular cavity size. There is normal left ventricular wall thickness. The left ventricular systolic function is low normal. The visually estimated ejection fraction is between 50-55%. Spectral Doppler is indicative of an impaired relaxation filling pattern. E/E prime ratio is between 8 and 15 consistent with indeterminate filling pressures. Wall Motion Rest Echo Findings The basal inferior and basal inferoseptal segments are hypokinetic. All other scored wall segments showed normal motion. Right Ventricle Normal right ventricular cavity size and systolic function. Atria Both atria are normal in size. There is no evidence of interatrial shunt. Aortic Valve There is mild calcification of the aortic valve. There is mild thickening of the aortic valve. There is no aortic valve stenosis. There is no aortic valve regurgitation. Mitral Valve Normal mitral valve structure and function. There is trace mitral valve regurgitation. There is no mitral valve stenosis. Pulmonic Valve The pulmonic valve was not well visualized. Tricuspid Valve Normal tricuspid valve structure. There is trace tricuspid valve regurgitation. The right ventricular systolic pressure is normal. The right ventricular systolic pressure is 28 mmHg. Normal right atrial pressure. There is no evidence of pulmonary hypertension. Great Vessels All visible segments of the aorta are normal in size. The pulmonary artery was not well visualized. There is no dilatation of the ascending aorta measuring 3.10 cm. Venous The inferior vena cava is normal in size and collapses greater than 50% with inspiration. Pericardium/Pleural There is no evidence of pericardial effusion. Measurements 2D Linear Measurements IVSd: 1.12 0.6-0.9/0.6-1.0 cm LVIDd: 5.17 3.9-5.3/4.2-5.9 cm LVIDd Index: 2.22 2.4-3.2/2.2-3.1 cm/m2 LVIDs: 3.84 2.0-3.6 cm LVPWd: 0.85 0.7-1.1 cm LV Mass: 235.47 67-162/88-224 g LV Mass Index: 101.06 43-95/49-115 g/m2 LVOT Diam: 2.30 3.0+(-)1.3 cm Mitral Valve MV Pk E: 0.50 MV PK A: 0.63 MV Decel Time: 239.00 E/A: 0.80 E'Lateral: 6.85 E'Medial: 4.79 E/E' Med: 10.40 E/E' Lat: 7.30 PHT: 70.00 MVA PHT: 3.14 Decel Leake: 2.08 Aortic Valve AoV Pk Zurdo: 1.54 AoV Mn Zurdo: 1.18 AoV VTI: 0.35 AoV Pk Grad: 9.00 Aov Mn Grad: 6.00 ROCK Cont.VTI: 2.42 LVOT LVOT Pk Zurdo: 1.04 LVOT Mn Zurdo: 0.65 LVOT VTI: 0.20 LVOT Pk Grad: 4.00 LVOT Mn Grad: 2.00 LVOT Diam: 2.30 LVOT Area: 4.15 Diastolic Function MV Pk E: 0.50 MV Pk A: 0.63 E/A: 0.80 E'Medial: 4.79 E/E' Med: 10.40 E' Laterial: 6.85 E/E' Lat: 7.30 Right Ventricle TAPSE (mm): 25.70 TVS' Zurdo: 13.10 Tricuspid Valve TR Pk Zurdo: 2.22 TR Pk Grad: 20.00 RA Press: 8.00 RVSP: 28.00 Great Vessels Aorta Sinus of Valsalva: 3.47 2.0-3.5 cm Ao Asc: 3.10 2.1-3.4 cm Updated in Other Vendor System with Status of Final Rick Briggs MD electronically signed on 10/26/2024 1:06:14 PM with status of Final
[2024-10-26 07:01] LABS: Anion Gap 11 (12-20); Blood Urea Nitrogen 14 mg/dL (9-16); Calcium 9.3 mg/dL (8.4-10.2); Carbon Dioxide 23 mmol/L (22-29); Chloride 108 mmol/L (96-108); Creatinine Clr Calc Pharmacy 112.5; Estimated Glomerular Filt Rate > 60; Glucose Random 92 mg/dL (60-115); INTERNATIONAL NORM RATIO 1.1 (0.9-1.1); Potassium 4.1 mmol/L (3.3-5.1); Prothrombin Time 12.9 SEC (10.9-12.4); Sodium 138 mmol/L (135-145)
[2024-10-26 07:04] LABS: PTT Heparin Drip 65.1 SEC (53-77.9)
[2024-10-26 07:07] LABS: Estimated Average Glucose 120 mg/dL; Hemoglobin A1C 150.0353 umol/L; Hemoglobin A1c % 5.8 % (<6.0); Total Hemoglobin (HGBA1C) 3809.5987 umol/L
[2024-10-26 07:17] VITALS: BP 146/77; PULSE 69; RESP 18; TEMP 36.2; O2SAT 97
[2024-10-26 07:33] LABS: Troponin-I High Sensitivity 350.9 ng/L (<3.5-35.0)
[2024-10-26] MEDS: 0.9 % Sodium Chloride Flush 3 ML SYRINGE IVFLUSH ×2 (07:40→15:48)
[2024-10-26] MEDS: Aspirin 81 MG TAB.CHEW PO (08:31)
[2024-10-26] MEDS: Losartan Potassium 25 MG TABLET PO (08:31)
--- NOTE | 2024-10-26 10:39 | MHC.CM.PN ---
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 HCP discussed and he will complete the form here and it will be added to his chart. He may be transferred to [facility] for cardiac care there. CM to follow for DC needs.
--- NOTE | 2024-10-26 11:07 | HO.PM.IMPN ---
Subjective Subjective Date of Service: 10/26/24 Review of Systems Follow up NSTEMI Denies chest pain, nausea, vomiting, diarrhea No shortness breath Physical Exam Vital Signs: Vital Signs: Last Vital Signs Temp 97.1 F 10/26/24 07:17 Pulse 69 10/26/24 07:17 Resp 18 10/26/24 07:17 BP 146/77 H 10/26/24 07:17 Pulse Ox 97 10/26/24 07:17 O2 Del Method Room Air 10/26/24 07:17 BMI result Body Mass Index 33.6 Appearing in no acute distress lung sounds are clear to auscultation heart regular rate rhythm, clear S1, S2 positive bowel sounds, abdomen is soft, nontender neuro patient is alert x3, no focal deficits Objective Data Active Medications Acetaminophen (Acetaminophen 325 Mg Tablet) 975 mg PO Q6H PRN PRN Reason: Pain, Mild 1-3,fever,headache Aspirin (Aspirin 81 Mg Tab.Chew) 81 mg PO DAILY [facility] Last Admin: 10/26/24 08:31 Dose: 81 mg Documented By: EDSON Atorvastatin Calcium (Atorvastatin Calcium 40 Mg Tablet) 40 mg PO BEDTIME [facility] Last Admin: 10/25/24 19:38 Dose: Not Given Documented By: PRABHJOT Non-Admin Reason: Patient Refused Calcium Carbonate (Calcium Carbonate 750 Mg Tab.Chew) 750 mg PO Q4H PRN PRN Reason: Heartburn Heparin Sodium (Porcine) (Heparin Sodium,Porcine 5,000 Unit/Ml Vial) 4,500 unit 40 unit/kg (4500 unit) IVPUSH PROTOCOL BOLUS PRN; Protocol PRN Reason: 40 unit/kg - Heparin Protocol Last Admin: 10/26/24 00:04 Dose: 4,500 unit Documented By: LIZ Heparin Sodium (Porcine) (Heparin Sodium,Porcine 5,000 Unit/Ml Vial) 9,000 unit 80 unit/kg (9000 unit) IVPUSH PROTOCOL BOLUS PRN; Protocol PRN Reason: 80 unit/kg - Heparin Protocol Heparin Sodium/Sodium Chloride (Heparin Sodium,Porcine/1/2ns) 25,000 unit in 250 mls @ 0 mls/hr IVCONT .Q0M [facility]; Protocol Last Titration: 10/26/24 07:24 Dose: 10.93 units/kg/hr, 12.25 mls/hr Documented By: INGRIS Co-signed By: IVY Losartan Potassium (Losartan Potassium 25 Mg Tablet) 25 mg PO DAILY [facility]; Protocol Last Admin: 10/26/24 08:31 Dose: 25 mg Documented By: EDSON Melatonin (Melatonin 3 Mg Tablet) 6 mg PO BEDTIME PRN PRN Reason: Insomnia Morphine Sulfate (Morphine Sulfate 4 Mg/Ml Cartridge) 2 mg IVPUSH Q6H PRN; Protocol PRN Reason: Chest Pain Sodium Chloride (0.9 % Sodium Chloride Flush 3 Ml Syringe) 3 ml IVFLUSH QSHIFT ARIANNA Last Admin: 10/26/24 07:40 Dose: 3 ml Documented By: EDSON Labs 10/26/24 06:14 10/26/24 06:14 Labs: Laboratory Results - last 24 hr 10/25/24 10/25/24 10/25/24 11:54 12:53 13:53 MCV 89.5 MCH 30.5 MCHC 34.1 RDW 12.6 Plt Count 201 MPV 10.4 Immature Gran % (Auto) 0.2 Neut % (Auto) 64.1 Lymph % (Auto) 25.6 [place] % (Auto) 6.6 Eos % (Auto) 2.6 Baso % (Auto) 0.9 Lymph # (Auto) 1.2 [place] # (Auto) 0.3 Eos # (Auto) 0.1 Baso # (Auto) 0.0 Abs Immat Gran (auto) 0.01 Absolute Neuts (auto) 2.9 Absolute Nucleated RBC 0.000 Nucleated RBC % (auto) 0.0 PT INR APTT aPTT Heparin Protocol D-Dimer High Sensitivty < 150 Anion Gap 9 L Estim Creat Clear Calc 105.0 Estimated GFR > 60 Random Glucose 131 H Estimat Average Glucose Hemoglobin A1c % Calcium 8.9 Magnesium 2.0 Total Bilirubin 0.4 AST 27 ALT 24 Alkaline Phosphatase 58 Troponin I High Sens 133.0 H* B-Natriuretic Peptide < 10 Total Protein 8.2 H Albumin 4.1 Lipase 21 Influenza Type A (PCR) NEGATIVE Influenza Type B (PCR) NEGATIVE RSV RNA Qual (PCR) NEGATIVE SARS-CoV-2 RNA (RT-PCR) NEGATIVE 10/25/24 10/25/24 10/25/24 15:01 15:56 16:49 MCV 88.1 MCH 30.5 MCHC 34.6 RDW 12.7 Plt Count 206 MPV 10.0 Immature Gran % (Auto) Neut % (Auto) Lymph % (Auto) [place] % (Auto) Eos % (Auto) Baso % (Auto) Lymph # (Auto) [place] # (Auto) Eos # (Auto) Baso # (Auto) Abs Immat Gran (auto) Absolute Neuts (auto) Absolute Nucleated RBC 0.000 Nucleated RBC % (auto) 0.0 PT 12.6 H 12.8 H INR 1.1 1.1 APTT 25.6 L aPTT Heparin Protocol 82.3 H D-Dimer High Sensitivty Anion Gap Estim Creat Clear Calc Estimated GFR Random Glucose Estimat Average Glucose Hemoglobin A1c % Calcium Magnesium Total Bilirubin AST ALT Alkaline Phosphatase Troponin I High Sens 225.7 H* D B-Natriuretic Peptide Total Protein Albumin Lipase Influenza Type A (PCR) Influenza Type B (PCR) RSV RNA Qual (PCR) SARS-CoV-2 RNA (RT-PCR) 10/25/24 10/25/24 10/25/24 19:56 21:07 23:18 MCV MCH MCHC RDW Plt Count MPV Immature Gran % (Auto) Neut % (Auto) Lymph % (Auto) [place] % (Auto) Eos % (Auto) Baso % (Auto) Lymph # (Auto) [place] # (Auto) Eos # (Auto) Baso # (Auto) Abs Immat Gran (auto) Absolute Neuts (auto) Absolute Nucleated RBC Nucleated RBC % (auto) PT INR APTT aPTT Heparin Protocol 46.9 L D 44.4 L D-Dimer High Sensitivty Anion Gap Estim Creat Clear Calc Estimated GFR Random Glucose Estimat Average Glucose Hemoglobin A1c % Calcium Magnesium Total Bilirubin AST ALT Alkaline Phosphatase Troponin I High Sens 464.0 H* D B-Natriuretic Peptide Total Protein Albumin Lipase Influenza Type A (PCR) Influenza Type B (PCR) RSV RNA Qual (PCR) SARS-CoV-2 RNA (RT-PCR) 10/26/24 06:14 MCV 88.6 MCH 29.8 MCHC 33.6 RDW 12.6 Plt Count 198 MPV 10.4 Immature Gran % (Auto) Neut % (Auto) Lymph % (Auto) [place] % (Auto) Eos % (Auto) Baso % (Auto) Lymph # (Auto) [place] # (Auto) Eos # (Auto) Baso # (Auto) Abs Immat Gran (auto) Absolute Neuts (auto) Absolute Nucleated RBC 0.000 Nucleated RBC % (auto) 0.0 PT 12.9 H INR 1.1 APTT aPTT Heparin Protocol 65.1 D D-Dimer High Sensitivty Anion Gap 11 L Estim Creat Clear Calc 112.5 Estimated GFR > 60 Random Glucose 92 Estimat Average Glucose 120 Hemoglobin A1c % 5.8 Calcium 9.3 Magnesium 2.0 Total Bilirubin AST ALT Alkaline Phosphatase Troponin I High Sens 350.9 H* B-Natriuretic Peptide Total Protein Albumin Lipase Influenza Type A (PCR) Influenza Type B (PCR) RSV RNA Qual (PCR) SARS-CoV-2 RNA (RT-PCR) Assessment and Plan (1) Non-ST elevation IN (NSTEMI): Status: Acute Plan 64-year-old man admitted for chest pain secondary to NSTEMI NSTEMI Chest pain resolved Monitor on telemetry Continue aspirin and statin IV heparin infusion Echocardiogram Cardiology consultation Possible pneumonia No hypoxia Chest CT Essential hypertension Continue losartan Hyperlipidemia Continue statin Sleep apnea Continue CPAP Obesity class 1. BMI 33.6 Weight management DVT prophylaxis with IV heparin infusion Full code Quality Stroke Does the patient have a stroke diagnosis?: No VTE Prior VTE?: No VTE Risk Level:: Medical - moderate - high VTE Device Contraindication: Treatment Not Indicated VTE Drug Contraindication: N/A - Med Ordered
[2024-10-26] MEDS: Heparin Sodium,Porcine/1/2NS 25,000 UNIT/250 ML IV.SOLN 12.25 UNIT IVCONT (11:28)
[2024-10-26 11:51] VITALS: BP 132/82; PULSE 70; RESP 16; TEMP 36.4; O2SAT 95
--- NOTE | 2024-10-26 12:17 | PM.CNCAR ---
History of Present Illness History of Present Illness Date of Service: 10/26/24 Requesting physician: Shanna Wild Consult reason: other (Acute coronary syndrome) Chief complaint: NSTEMI Narrative: I was consulted to see Mikey in cardiology consultation today for chest pain with elevated troponins with finding consistent with acute coronary syndrome. History was obtained with help of a leveling machine operator at bedside in presence of patient's . Patient with prior history of hypertension, hyperlipidemia. Patient came to the hospital with ongoing progressive nature of chest discomfort. Patient says the chest discomfort with left-sided burning in nature associated with pressure radiating to the back. The symptoms started about a month ago while he was exerting like walking around doing stuff or lifting heavy weights as reported by the . The symptoms would go when he would rest. Her symptoms got progressively worse and more severe including happening at rest and he therefore decided come to the emergency room. In the emergency room his EKGs not show any ischemic changes although troponins were elevated and subsequent troponins were further elevated with a delta consistent with myocardial injury and overall findings consistent with acute coronary syndrome. Patient was therefore admitted and started on IV heparin. Since then patient has not had any recurrent chest pain. Currently getting IV heparin, aspirin, high-intensity statin as well as his usual antihypertensive losartan. Patient denies any symptoms of heart failure. No prolonged palpitation irregular heartbeat. Review of Systems Constitutional: Constitutional: Reports no additional constitutional complaints Eyes: Eyes: Reports no additional eye complaints ENT: Reports system reviewed and no additional complaints, except as documented Cardiovascular: Cardiovascular: Reports chest pain at rest, Reports chest pain with activity, Denies rapid heart rate, Denies lightheadedness, Denies Loss of Consciousness, Denies palpitations and Denies dyspnea Respiratory: Respiratory: Reports no additional respiratory complaints and Denies dyspnea Gastrointestinal: Gastrointestinal: Reports no additional gastrointestinal complaints Genitourinary: Genitourinary: Reports no additional male genitourinary complaints Musculoskeletal: Musculoskeletal: Reports no additional musculoskeletal complaints Integumentary/Breasts: Skin/Breast: Reports system reviewed and no additional complaints, except as docu Neurologic: Reports system reviewed and no additional complaints, except as documented Psychiatric: Psychiatric: Reports no additional psychiatric complaints Endocrine: Endocrine: Denies palpitations PMFSH Past Medical History Medical History Left hand pain GARRET on CPAP Shortness of breath Low TSH level Abdominal pain Fatigue Muscle cramps Paresthesia Numbness of left hand Stiffness of right hand joint Nephrolithiasis Foreign body of right hand Physical exam ACTH elevation Degenerative arthritis of thoracic spine History of hyperprolactinemia Hyperthyroidism GERD (gastroesophageal reflux disease) Hypovitaminosis D Palpitations Polyarthralgia Obesity Essential hypertension Family History Family History Mother Heart problem Father Stroke Surgical History Surgical History Carpal tunnel syndrome of right wrist H/O colonoscopy H/O lithotripsy H/O umbilical hernia repair Social History Social History Household Members: Family Housing: Apartment Are you a primary gericare aide to a significant other at home: No Do you presently have visiting nurse or other home services: No Alcohol intake: current Alcohol intake frequency: does not drink Alcohol type: beer and hard liquor Patient Tobacco Use Status: Former Tobacco user Tobacco use type: Cigarette Years Smoked: 20 e-Cigarette/Vaping Use: Former Use Second Hand Smoke Exposure: No Advance Directives Date on File: 02/18/20 service: No Current occupational status: employed 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 Current occupational exposures/hazards: No Cognitive needs: No Hearing needs: No Vision needs: No Meds Allergies Allergy/AdvReac Type Severity Reaction Status Date / Time No Known Allergies Allergy Verified 10/25/24 11:37 [No Known Allergies*] Active Medications: Current Medications Acetaminophen (Acetaminophen 325 Mg Tablet) 975 mg PO Q6H PRN PRN Reason: Pain, Mild 1-3,fever,headache Aspirin (Aspirin 81 Mg Tab.Chew) 81 mg PO DAILY [facility] Last Admin: 10/26/24 08:31 Dose: 81 mg Atorvastatin Calcium (Atorvastatin Calcium 40 Mg Tablet) 40 mg PO BEDTIME ARIANNA Last Admin: 10/25/24 19:38 Dose: Not Given Calcium Carbonate (Calcium Carbonate 750 Mg Tab.Chew) 750 mg PO Q4H PRN PRN Reason: Heartburn Heparin Sodium (Porcine) (Heparin Sodium,Porcine 5,000 Unit/Ml Vial) 4,500 unit 40 unit/kg (4500 unit) IVPUSH PROTOCOL BOLUS PRN; Protocol PRN Reason: 40 unit/kg - Heparin Protocol Last Admin: 10/26/24 00:04 Dose: 4,500 unit Heparin Sodium (Porcine) (Heparin Sodium,Porcine 5,000 Unit/Ml Vial) 9,000 unit 80 unit/kg (9000 unit) IVPUSH PROTOCOL BOLUS PRN; Protocol PRN Reason: 80 unit/kg - Heparin Protocol Heparin Sodium/Sodium Chloride (Heparin Sodium,Porcine/1/2ns) 25,000 unit in 250 mls @ 0 mls/hr IVCONT .Q0M [facility]; Protocol Last Admin: 10/26/24 11:28 Dose: 10.93 units/kg/hr, 12.25 mls/hr Losartan Potassium (Losartan Potassium 25 Mg Tablet) 25 mg PO DAILY [facility]; Protocol Last Admin: 10/26/24 08:31 Dose: 25 mg Melatonin (Melatonin 3 Mg Tablet) 6 mg PO BEDTIME PRN PRN Reason: Insomnia Morphine Sulfate (Morphine Sulfate 4 Mg/Ml Cartridge) 2 mg IVPUSH Q6H PRN; Protocol PRN Reason: Chest Pain Sodium Chloride (0.9 % Sodium Chloride Flush 3 Ml Syringe) 3 ml IVFLUSH QSHIFT [facility] Last Admin: 10/26/24 07:40 Dose: 3 ml Physical Exam Vital Signs: Vital Signs: Last Vital Signs Temp 97.6 F 10/26/24 11:51 Pulse 70 10/26/24 11:51 Resp 16 10/26/24 11:51 BP 132/82 10/26/24 11:51 Pulse Ox 95 10/26/24 11:51 O2 Del Method Room Air 10/26/24 11:51 BMI result Body Mass Index 33.6 Const: General: cooperative, comfortable, no acute distress, alert, awake and Physically active Nutritional Appearance: overweight Orientation/consciousness: patient oriented x3 Limitations: no limitations HEENT: Head: Yes normocephalic and Yes atraumatic Neck: Neck: Yes trachea midline, Yes supple and Yes no JVD Resp: Effort & Inspection: normal respiratory effort Auscultation: clear to auscultation bilaterally Cardio: Jugular venous distension: no JVD Palpation: normal PMI Rate: regular rate Rhythm: regular rhythm Heart sounds: S1 normal heart sound present, S2 normal heart sound present, no click, no gallops, no murmurs and no rubs GI: Auscultation: normal bowel sounds Skin: General skin exam: no rashes or lesions noted Neuro: General: patient oriented x3 and no focal motor deficits Extrem: General: Yes no clubbing, cyanosis or edema Objective Labs and Meds 10/26/24 06:14 10/26/24 06:14 Lab results: Laboratory Results - last 24 hr 10/25/24 10/25/24 10/25/24 11:54 12:53 13:53 WBC RBC Hgb Hct MCV MCH MCHC RDW Plt Count MPV Absolute Nucleated RBC Nucleated RBC % (auto) PT INR APTT aPTT Heparin Protocol D-Dimer High Sensitivty < 150 Sodium 138 Potassium 4.2 Chloride 107 Carbon Dioxide 26 Anion Gap 9 L BUN 13 Creatinine 0.93 Estim Creat Clear Calc 105.0 Estimated GFR > 60 Random Glucose 131 H Estimat Average Glucose Hemoglobin A1c % Calcium 8.9 Magnesium 2.0 Total Bilirubin 0.4 AST 27 ALT 24 Alkaline Phosphatase 58 Troponin I High Sens 133.0 H* B-Natriuretic Peptide < 10 Total Protein 8.2 H Albumin 4.1 Lipase 21 Influenza Type A (PCR) NEGATIVE Influenza Type B (PCR) NEGATIVE RSV RNA Qual (PCR) NEGATIVE SARS-CoV-2 RNA (RT-PCR) NEGATIVE 10/25/24 10/25/24 10/25/24 15:01 15:56 16:49 WBC 5.4 RBC 4.89 Hgb 14.9 Hct 43.1 MCV 88.1 MCH 30.5 MCHC 34.6 RDW 12.7 Plt Count 206 MPV 10.0 Absolute Nucleated RBC 0.000 Nucleated RBC % (auto) 0.0 PT 12.6 H 12.8 H INR 1.1 1.1 APTT 25.6 L aPTT Heparin Protocol 82.3 H D-Dimer High Sensitivty Sodium Potassium Chloride Carbon Dioxide Anion Gap BUN Creatinine Estim Creat Clear Calc Estimated GFR Random Glucose Estimat Average Glucose Hemoglobin A1c % Calcium Magnesium Total Bilirubin AST ALT Alkaline Phosphatase Troponin I High Sens 225.7 H* D B-Natriuretic Peptide Total Protein Albumin Lipase Influenza Type A (PCR) Influenza Type B (PCR) RSV RNA Qual (PCR) SARS-CoV-2 RNA (RT-PCR) 10/25/24 10/25/24 10/25/24 19:56 21:07 23:18 WBC RBC Hgb Hct MCV MCH MCHC RDW Plt Count MPV Absolute Nucleated RBC Nucleated RBC % (auto) PT INR APTT aPTT Heparin Protocol 46.9 L D 44.4 L D-Dimer High Sensitivty Sodium Potassium Chloride Carbon Dioxide Anion Gap BUN Creatinine Estim Creat Clear Calc Estimated GFR Random Glucose Estimat Average Glucose Hemoglobin A1c % Calcium Magnesium Total Bilirubin AST ALT Alkaline Phosphatase Troponin I High Sens 464.0 H* D B-Natriuretic Peptide Total Protein Albumin Lipase Influenza Type A (PCR) Influenza Type B (PCR) RSV RNA Qual (PCR) SARS-CoV-2 RNA (RT-PCR) 10/26/24 06:14 WBC 4.7 L RBC 4.83 Hgb 14.4 Hct 42.8 MCV 88.6 MCH 29.8 MCHC 33.6 RDW 12.6 Plt Count 198 MPV 10.4 Absolute Nucleated RBC 0.000 Nucleated RBC % (auto) 0.0 PT 12.9 H INR 1.1 APTT aPTT Heparin Protocol 65.1 D D-Dimer High Sensitivty Sodium 138 Potassium 4.1 Chloride 108 Carbon Dioxide 23 Anion Gap 11 L BUN 14 Creatinine 0.87 Estim Creat Clear Calc 112.5 Estimated GFR > 60 Random Glucose 92 Estimat Average Glucose 120 Hemoglobin A1c % 5.8 Calcium 9.3 Magnesium 2.0 Total Bilirubin AST ALT Alkaline Phosphatase Troponin I High Sens 350.9 H* B-Natriuretic Peptide Total Protein Albumin Lipase Influenza Type A (PCR) Influenza Type B (PCR) RSV RNA Qual (PCR) SARS-CoV-2 RNA (RT-PCR) Imaging Radiologist's impression: Impressions Chest X-Ray 10/25/24 11:35 IMPRESSION: Patchy opacity at the right lung base, suspicious for early pneumonia. Follow-up is recommended, to document resolution. Electronically signed by: Shimon Laird MD 10/25/2024 11:50 AM EDT Assessment and Plan (1) Non-ST elevation [place] (NSTEMI): Status: Acute Acute coronary syndrome with high risk features elevated markers in this middle-aged man with multiple risk factors with progressive symptoms with more intense symptoms symptoms at rest. He will require further workup with cardiac catheterization and pursue invasive follow-up. Discussed that he needs cardiac catheterization and will need to be transferred to [facility]. I had a very detailed discussion about cardiac catheterization procedure including, risks, benefits, alternatives. He understands agrees. Further treatment based on the findings including possible need for stent. This was discussed with him. Continue aspirin, high-intensity statin along with IV heparin. Will arrange for transfer to [facility] and will require coordination. Greater than 45 minutes was spent in managing his care. Thank you for allowing me to partake in his care Procedures Date of Service Date of Service: 10/26/24
[2024-10-26 12:18] LABS: PTT Heparin Drip 52.4 SEC (53-77.9)
[2024-10-26 15:12] VITALS: BP 124/67; PULSE 64; RESP 14; TEMP 36.5; O2SAT 96
--- NOTE | 2024-10-26 15:20 | P.DS_ITS ---
DS: Providers Provider Date of Service: 10/26/24 Date of admission: 10/25/24 16:05 Date of discharge: 10/26/24 Primary care physician: Unknown Physician Consults: 10/25/24 16:57 Consult to Cardiology Routine Consulting Provider: [facility] Reason for consultation: NSTEMI Has provider been notified: Yes DS: Diagnosis Discharge Diagnosis (1) Non-ST elevation [place] (NSTEMI): Status: Acute DS: Summary Hospital Course Hospital Course: History and physical as per admitting provider. Ramiro Coleman is a 64 years old man with past medical history significant for essential hypertension and hyperlipidemia presents to the emergency department complaining of left- sided chest pain that has been going on for the last month but has been getting worse over the last 3 days. He described the pain as a burning sensation and radiate to the back. Intensity is 7/10 and released with rest. Pain increases with exertion. Last night he experience diaphoresis but denied nausea, vomiting or abdominal pain. He also reported associated shortness of breath with exertion. Denied cough, fever or chills. 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 He denies history of CAD/myocardial infarction, congestive heart failure and diabetes mellitus. He does not take aspirin daily. Denies tobacco smoking, alcohol abuse or illicit drug use. He is currently free of chest pain. In the ED, he was found to have stable vital signs. His blood pressure has been elevated (max 192/93). Last blood pressure is 145/78. There is no tachycardia, fever and oxygen saturation is normal on room air. Blood workup showed normal CBC. There are no electrolyte imbalances. BUN creatinine are normal. Initial troponin was 133, most recent 1 is 225.7. BNP is < 10. LFTs and lipase are normal. Viral testing is negative for COVID-19, influenza and RSV. ECG X2 showed normal sinus rhythm without ischemic changes. CXR showed patchy opacity in the right lung base suspicious for early pneumonia. ED tx: Heparin 4000 units IV x1. NSTEMI Chest pain resolved Monitored on telemetry Continue aspirin and statin IV heparin infusion Echocardiogram with EF of 50-55% with impaired relaxation, basal inferior and basal inferior septal segments are hypokinetic Cardiology recommends transfer to [facility] for cardiac catheterization Possible pneumonia No hypoxia Chest CT Essential hypertension Continue losartan Hyperlipidemia Continue statin Sleep apnea Continue CPAP Obesity class 1. BMI 33.6 Weight management Time Attestation Discharge Coordination Time (in mins): 40 Quality: Safe Use of Opioids Does Pt have an Active Cancer Diagnosis on the Problem List?: No Quality: Stroke Does the patient have a stroke diagnosis?: No Physical Exam Vital Signs: Vital Signs: Last Vital Signs Temp 97.7 F 10/26/24 15:12 Pulse 64 10/26/24 15:12 Resp 14 10/26/24 15:12 BP 124/67 10/26/24 15:12 Pulse Ox 96 10/26/24 15:12 O2 Del Method Room Air 10/26/24 15:12 BMI result Body Mass Index 33.6 Appearing in no acute distress head is normocephalic atraumatic eyes pupils are PERRLA sclera is anicteric mouth throat mucous membranes are intact and moist neck is supple no lymphadenopathy, no JVD noted lung sounds are clear to auscultation heart regular rate rhythm, clear S1, S2 positive bowel sounds, abdomen is soft, nontender neuro patient is alert x3, no focal deficits DS: Data Data Completed and Pending Labs on day of discharge: Laboratory Results - last 24 hr 10/25/24 10/25/24 10/25/24 15:01 15:56 16:49 WBC 5.4 RBC 4.89 Hgb 14.9 Hct 43.1 MCV 88.1 MCH 30.5 MCHC 34.6 RDW 12.7 Plt Count 206 MPV 10.0 Absolute Nucleated RBC 0.000 Nucleated RBC % (auto) 0.0 PT 12.6 H 12.8 H INR 1.1 1.1 APTT 25.6 L aPTT Heparin Protocol 82.3 H Sodium Potassium Chloride Carbon Dioxide Anion Gap BUN Creatinine Estim Creat Clear Calc Estimated GFR Random Glucose Estimat Average Glucose Hemoglobin A1c % Calcium Magnesium Troponin I High Sens 225.7 H* D 10/25/24 10/25/24 10/25/24 19:56 21:07 23:18 WBC RBC Hgb Hct MCV MCH MCHC RDW Plt Count MPV Absolute Nucleated RBC Nucleated RBC % (auto) PT INR APTT aPTT Heparin Protocol 46.9 L D 44.4 L Sodium Potassium Chloride Carbon Dioxide Anion Gap BUN Creatinine Estim Creat Clear Calc Estimated GFR Random Glucose Estimat Average Glucose Hemoglobin A1c % Calcium Magnesium Troponin I High Sens 464.0 H* D 10/26/24 10/26/24 06:14 11:58 WBC 4.7 L RBC 4.83 Hgb 14.4 Hct 42.8 MCV 88.6 MCH 29.8 MCHC 33.6 RDW 12.6 Plt Count 198 MPV 10.4 Absolute Nucleated RBC 0.000 Nucleated RBC % (auto) 0.0 PT 12.9 H INR 1.1 APTT aPTT Heparin Protocol 65.1 D 52.4 L Sodium 138 Potassium 4.1 Chloride 108 Carbon Dioxide 23 Anion Gap 11 L BUN 14 Creatinine 0.87 Estim Creat Clear Calc 112.5 Estimated GFR > 60 Random Glucose 92 Estimat Average Glucose 120 Hemoglobin A1c % 5.8 Calcium 9.3 Magnesium 2.0 Troponin I High Sens 350.9 H* Discharge Plan Discharge Anticipated Discharge Date/Time: 10/26/24 15:18 Patient Disposition: Xfer Acute Care Hospital Discharge Diagnosis: NSTEMI Discharge Medications: New heparin(porcine) in 0.45% NaCl 25,000 unit/250 mL Parenteral Solution 25,000 unit continuous IV infusion .Q0M Qty: 6000 0RF atorvastatin 40 mg Tablet 40 mg PO BEDTIME Qty: 30 0RF aspirin 81 mg Tablet,Chewable 81 mg PO DAILY Qty: 30 0RF Continued (DME) wrist splint See Rx Instructions .Route .MEDSUPPLY Qty: 1 0RF Rx Instructions: for right hand. wear nightly & as much as possible throughout the day losartan 25 mg tablet 25 mg PO DAILY 90 Days Qty: 90 3RF pantoprazole [Protonix] 40 mg tablet,delayed release (DR/EC) 40 mg PO DAILY 30 Days Qty: 30 1RF Discharge Orders: Discharge Order (Routine); Ordered 10/27/24 Ordered By: Bozena Garcia Diet: Advance to usual diet Activity on Discharge: As tolerated Stand Alone Forms: Patient Portal Discharge page Print Language: Cameroonian Care Plan Goals: Transfer to [facility] for cardiac catheterization Health Concerns: NSTEMI Plan of Treatment: IV heparin, aspirin and statin Assessment: See discharge summary Discharge Date/Time: 10/27/24 03:15
[2024-10-26 19:40] VITALS: BP 140/78; PULSE 74; RESP 16; TEMP 36.5; O2SAT 95
[2024-10-26] MEDS: Atorvastatin Calcium 40 MG TABLET PO (21:01)
[2024-10-26 23:42] VITALS: BP 143/82; PULSE 54; RESP 16; TEMP 36.6; O2SAT 95
== END 2024-10-27 03:15 | disposition short-term general hospital (02) | DRG 190 ==
LOC: HO.ED 16:15 → HO.EDOVER 16:16 → HO.IMC 16:59
PROVIDERS: Physician Assistant; Physician Assistant Medical; Admitting Provider Internal Medicine; Emergency Provider Emergency Medicine; PCP Internal Medicine; Visit Provider Nurse Practitioner Acute Care
DX: I21.4 Non-ST elevation (NSTEMI) myocardial infarction (principal); J18.9 Pneumonia, unspecified organism; E03.9 Hypothyroidism, unspecified; I10 Essential (primary) hypertension; E66.811 Obesity, class 1; Z71.3 Dietary counseling and surveillance; Z68.33 Body mass index [BMI] 33.0-33.9, adult; E78.5 Hyperlipidemia, unspecified; G47.33 Obstructive sleep apnea (adult) (pediatric); Z20.822 Contact with and (suspected) exposure to COVID-19; Z87.891 Personal history of nicotine dependence; Z79.899 Other long term (current) drug therapy
CPT/HCPCS: 0241U; 36415; 71046; 71250; 80048; 80053; 83036; 83690; 83735; 83880; 84484; 85025; 85027; 85379; 85610; 85730; 93005; 93306; 99285; J1644; Q9957

== ENCOUNTER → 2024-10-25 11:37 | Outpatient (BNV) | payer OTHER, SELFPAY | PROVIDERS: Visit Provider Radiology Diagnostic Radiology | DX: R91.8 Other nonspecific abnormal finding of lung field (principal) | CPT/HCPCS: 71046 ==

== ENCOUNTER 2024-10-25 16:05 | Outpatient (BNV) | payer OTHER, SELFPAY | END 2024-10-26 06:00 | PROVIDERS: Admitting Provider Internal Medicine; Emergency Provider Emergency Medicine; Visit Provider Internal Medicine Cardiovascular Disease | DX: I35.8 Other nonrheumatic aortic valve disorders (principal); I21.4 Non-ST elevation (NSTEMI) myocardial infarction | CPT/HCPCS: 93306 ==

== ENCOUNTER 2024-10-25 16:05 | Outpatient (BNV) | payer OTHER, SELFPAY | END 2024-10-26 07:00 | PROVIDERS: Admitting Provider Internal Medicine; Emergency Provider Emergency Medicine; PCP Internal Medicine; Visit Provider Radiology Diagnostic Radiology | DX: R91.8 Other nonspecific abnormal finding of lung field (principal) | CPT/HCPCS: 71250 ==

== ENCOUNTER → 2024-10-25 16:05 | Outpatient (BNV) | payer OTHER, SELFPAY | PROVIDERS: Admitting Provider Internal Medicine; Emergency Provider Emergency Medicine; Visit Provider Internal Medicine Cardiovascular Disease | DX: I21.4 Non-ST elevation (NSTEMI) myocardial infarction (principal) | CPT/HCPCS: 93010; 99223 ==

== ENCOUNTER → 2024-10-25 16:05 | Outpatient (BNV) | payer OTHER, SELFPAY | PROVIDERS: Admitting Provider Internal Medicine; Emergency Provider Emergency Medicine; Visit Provider Internal Medicine | DX: I21.4 Non-ST elevation (NSTEMI) myocardial infarction (principal); I10 Essential (primary) hypertension | CPT/HCPCS: 99222; 99232 ==

== ENCOUNTER → 2024-10-28 23:59 | Outpatient (BNV) | payer OTHER, SELFPAY | PROVIDERS: PCP Internal Medicine; Visit Provider Internal Medicine Cardiovascular Disease | DX: I21.4 Non-ST elevation (NSTEMI) myocardial infarction (principal) | CPT/HCPCS: 92928; 93458; 99152 ==

== ENCOUNTER 2024-11-01 14:28 | Outpatient (AMB) | payer OTHER, SELFPAY ==
--- NOTE | 2024-11-01 14:31 | AM.OFFWIN_ITS ---
Intake Vital Signs 11/01/24 14:32 Height 6 ft Weight 248 lb 6 oz BMI 33.7 BP 142/66 H Blood Pressure Location Rt brachial Position Sitting Pulse 74 Pulse Source Pulse Oximeter Temp 98.2 F Temp Source Oral Pulse Oximetry (%) 96 Oxygen Delivery Method Room Air Intake Visit Reasons: EP-body rash Patient Tobacco Use Status: Former Tobacco user Allergies No Known Allergies [No Known Allergies*] Allergy (Verified 11/01/24 14:38) Do you need a note to return to daycare/school/sports/work: No HPI HPI Comments History of Present Illness Details 64 y/o Male patient who presents to the walk in clinic with c/o very itchy red rash covering his entire body for 3 days now. Pt was recently [place] [facility] [place] then [facility] 10/28 for NSTEMI. He under-went Cardiac Catherization with Stent placement in his heart. He was started on new medications at discharge. [facility] Medical History (Updated 11/01/24 @ 15:01 by Malou Gerber NP) Rash and nonspecific skin eruption Left hand pain GARRET on CPAP Shortness of breath Low TSH level Abdominal pain Fatigue Muscle cramps Paresthesia Numbness of left hand Stiffness of right hand joint Nephrolithiasis Foreign body of right hand Physical exam ACTH elevation Degenerative arthritis of thoracic spine History of hyperprolactinemia Hyperthyroidism GERD (gastroesophageal reflux disease) Hypovitaminosis D Palpitations Polyarthralgia Obesity Essential hypertension Surgical History Carpal tunnel syndrome of right wrist H/O colonoscopy H/O lithotripsy H/O umbilical hernia repair Family History Mother Heart problem Father Stroke Social History Household Members: Family Housing: Apartment Are you a primary transitional care manager to a significant other at home: No Do you presently have visiting nurse or other home services: No Alcohol intake: current Alcohol intake frequency: does not drink Alcohol type: beer and hard liquor Patient Tobacco Use Status: Former Tobacco user Tobacco use type: Cigarette Years Smoked: 20 e-Cigarette/Vaping Use: Former Use Second Hand Smoke Exposure: No Advance Directives Date on File: 02/18/20 service: No 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 occupational status: employed 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 Current occupational exposures/hazards: No Cognitive needs: No Hearing needs: No Vision needs: No Review of Systems Const All systems reviewed & are unremarkable except as noted in HPI and below Physical Exam Vital Signs: Last Vital Signs Temp 98.2 F 11/01/24 14:32 Pulse 74 11/01/24 14:32 BP 142/66 H 11/01/24 14:32 Pulse Ox 96 11/01/24 14:32 Oxygen Delivery Method Room Air 11/01/24 14:32 BMI result Body Mass Index 33.7 Const General: no acute distress Nutritional Appearance: overweight Orientation/consciousness: patient oriented x3 Skin General skin exam: dry skin and erythema Rashes: rashes noted (Raised Hives all over body.) Neuro General: patient oriented x3 Psych Speech and movement: Normal speech and movement present Assessment & Plan Assessment & Plan (1) Rash and nonspecific skin eruption: Code(s): R21 - Rash and other nonspecific skin eruption Plan: DDx's: Dermatitis vs drug induce allergic reaction vs Eczema - due his recent Hospitalization. Will Treat with Topical and oral steroids. Ordered Hydroxyzine Medications: New prednisone 20 mg PO DAILY 10 tabs 0RF R21 - Rash and other nonspecific skin eruption hydroxyzine HCl 25 mg PO BID 14 days 30 tabs 0RF itching R21 - Rash and other nonspecific skin eruption betamethasone valerate 0.1% 1 appl topical BID 14 days 45 grams 0RF R21 - Rash and other nonspecific skin eruption Coding Level of Care Code Est Pt Level 4 (80670) Diagnoses Rash and nonspecific skin eruption R21 Time Spent (min) 20
[2024-11-01 14:32] VITALS: BP 142/66; PULSE 74; TEMP 36.8; O2SAT 96; BMI 33.7
--- OUTSIDE RECORDS SUMMARY | 2024-11-01 16:10 | XMS_ITS | Encounter Summary ---
Author Organization [employer] Address [address] [place] [address] Care Team Providers Care Ophthalmic Medical Technologist Name Role Phone Unavailable Primary Care Provider Unavailabl e Encounter Details Date Type Department Care Team (Latest Contact Info) Description 05/05/2019 Abstract [facility] CONVERSIONS Dental, Provider, DDS Social History [...]
== END 2024-11-01 15:05 | disposition home or self-care (01) ==
PROVIDERS: PCP Internal Medicine; Visit Provider Nurse Practitioner Family
DX: R21 Rash and other nonspecific skin eruption (principal)

== ENCOUNTER → 2024-11-01 14:28 | Outpatient (BNVA) | payer OTHER, SELFPAY | PROVIDERS: PCP Internal Medicine; Visit Provider Nurse Practitioner Family ==

== ENCOUNTER 2024-11-12 09:52 | Outpatient (REF) | payer OTHER, SELFPAY ==
--- NOTE | ~2024-11-12 | XR_ITS ---
EXAMINATION: XR CHEST CLINICAL INFORMATION: I21.4 - Non-ST elevation (NSTEMI) myocardial infarction COMPARISON: October 25, 2024 TECHNIQUE: 2 views of the chest were obtained. FINDINGS: Pulmonary reticular pattern. Bilateral apical lung scarring. Prominence of the interstitial markings in the perihilar region and patchy opacity in the inferior right pulmonary hilum right lung base and likely left lung base. No pleural effusion. No pneumothorax. No hyperinflation. Cardiomediastinal silhouette size is normal. Multilevel spondylosis. XR/XR chest 2V IMPRESSION: Acute on chronic airspace disease. Overall improved aeration since prior exam. Please refer to the CT chest findings on October 26, 2024.. Electronically signed by: Teodoro Hunter MD 11/12/2024 11:24 AM EDT
== END 2024-11-12 09:53 | disposition home or self-care (01) ==
LOC: HO.XRAY 09:52
PROVIDERS: PCP Internal Medicine; Visit Provider Nurse Practitioner Family
DX: R07.9 Chest pain, unspecified (principal); J18.9 Pneumonia, unspecified organism; I25.2 Old myocardial infarction; Z13.30 Encounter for screening examination for mental health and behavioral disorders, unspecified
CPT/HCPCS: 71046; 96127

== ENCOUNTER 2024-11-12 09:52 | Outpatient (AMB) | payer OTHER, SELFPAY ==
[2024-11-12 10:04] VITALS: BP 142/90; PULSE 76; TEMP 36.3; O2SAT 98; BMI 33.1
--- NOTE | 2024-11-12 10:04 | MHC.PC.OV ---
Vital Signs 11/12/24 10:04 Height 6 ft Weight 244 lb 6 oz BMI 33.1 BP 142/90 H Blood Pressure Location Lt brachial Position Sitting Pulse 76 Pulse Source Pulse Oximeter Temp 97.3 F Temp Source Temporal Artery Scan Pulse Oximetry (%) 98 Oxygen Delivery Method Room Air Intake Visit Reasons: [facility] 10[place]29 CHF Loan Broker Required: Yes Loan Broker Language: Sinhala Accompanied by: Self / Same As Patient Allergies No Known Allergies (No Known Allergies*) Allergy (Verified 11/12/24 10:11) Medication List - Last Reconciled 11/12/24 by Malou Gerber NP aspirin 81 mg PO DAILY atorvastatin 40 mg PO BEDTIME betamethasone valerate 0.1% 1 appl topical BID 14 days hydroxyzine HCl 25 mg PO BID 14 days losartan 25 mg PO DAILY 90 days metoprolol succinate ER 25 mg PO DAILY nitroglycerin 0.4 mg sublingual Q5M PRN ticagrelor 90 mg PO BID Tobacco use date assessed: 08/11/24 Dental Screening Dental Screen Date: 08/11/24 HPI HPI Comments History of Present Illness Details 64 y/o Male patient who presents to the clinic today for HDF. He was admitted at [facility] on 10/25 - 10/27 for an evaluation and treatment of NSTEMI. He was eventually transferred to [facility] on 10/27 - 10/29 for Cardiac catherization on 10/28/24. Pt was found to have Pneumonia on chest Xray in the hospital. Today Patient c/o Chest tightness and SOB. Denies cough, wheezing, Fevers or chills. [facility] Medical History (Updated 11/12/24 @ 11:12 by Malou Gerber NP) Pneumonia Chest pain Essential hypertension Rash and nonspecific skin eruption Left hand pain GARRET on CPAP Shortness of breath Low TSH level Abdominal pain Fatigue Muscle cramps Paresthesia Numbness of left hand Stiffness of right hand joint Nephrolithiasis Foreign body of right hand Physical exam ACTH elevation Degenerative arthritis of thoracic spine History of hyperprolactinemia Hyperthyroidism GERD (gastroesophageal reflux disease) Hypovitaminosis D Palpitations Polyarthralgia Obesity Essential hypertension Surgical History Carpal tunnel syndrome of right wrist H/O colonoscopy H/O lithotripsy H/O umbilical hernia repair Family History Mother Heart problem Father Stroke Social History Household Members: Family Housing: Apartment Are you a primary animal care specialist to a significant other at home: No Do you presently have visiting nurse or other home services: No Alcohol intake: current Alcohol intake frequency: does not drink Alcohol type: beer and hard liquor Patient Tobacco Use Status: Former Tobacco user Tobacco use type: Cigarette Years Smoked: 20 e-Cigarette/Vaping Use: Former Use Second Hand Smoke Exposure: No Advance Directives Date on File: 02/18/20 service: No Current occupational status: employed 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 1. Little interest or pleasure in doing things: not at all 2. Feeling down, depressed, or hopeless: not at all 3. Trouble falling or staying asleep, or sleeping too much: not at all 4. Feeling tired or having little energy: not at all 5. Poor appetite or overeating: not at all 6. Feeling bad about yourself - or that you are a failure or have let yourself or your family down: not at all 7. Trouble concentrating on things, such as reading the newspaper or watching television: not at all 8. Moving or speaking so slowly that other people could have noticed. Or the opposite - being so fidgety or restless that you have been moving around a lot more than usual: not at all 9. Thoughts that you would be better off or of hurting yourself in some way: not at all Total score: 0 Source: Developed by Drs. Shimon Kennedy, Hilda De Jesus, Ta De La Garza and colleagues, with an educational quita from [employer]. Thrive Questionnaire Date Thrive assessed: 11/12/24 I am a: Patient What is your living situation today?: I have a steady place to live Within the past 12 months, did the food you bought not last and you didn't have the money to get more?: Often true Within the past 12 months, did you worry whether your food would run out before you got money to buy more?: Never true Do you have trouble paying for medicines?: I choose not to answer this question Do you have trouble getting transportation to medical appointments?: I choose not to answer this question Do you have trouble paying your heating and electricity bill?: No Do you have trouble taking care of your child, family member or friend?: I choose not to answer this question Do you have trouble with day-to-day activities such as bathing, preparing meals, shopping, managing finances, etc.?: I choose not to answer this question Are you currently unemployed and looking for a job?: I choose not to answer this question Are you interested in more education?: No Please select the resources that you would like help with: None Currently or been in a relationship where the following occur: No concerns reported THRIVE Score: 1 ORIANA-7 AMB Questionnaire ORIANA-7 Date ORIANA - 7 assessed: 08/11/24 Feeling nervous, anxious, or on edge: 0 = Not at all Not being able to stop or control worryin = Not at all Worrying too much about different things: 0 = Not at all Trouble relaxin = Not at all Being so restless that it is hard to sit still: 0 = Not at all Becoming easily annoyed or irritable: 0 = Not at all Feeling afraid as if something awful might happen: 0 = Not at all Total ORIANA-7 score (0-4 normal; 5-9 mild; 10-14 moderate; 15-21 severe): 0 Source: Developed by Drs. Shimon Kennedy, Hilda De Jesus, Ta De La Garza and colleagues, with an educational quita from [employer]. ORIANA-7 Assessment Billing ORIANA-7 Assessment Tool: ORIANA-7 Assessment 37802 Review of Systems Const All systems reviewed & are unremarkable except as noted in HPI and below Physical exam (Primary Care) Vital Signs: Last Vital Signs Temp 97.3 F 11/12/24 10:04 Pulse 76 11/12/24 10:04 BP 142/90 H 11/12/24 10:04 Pulse Ox 98 11/12/24 10:04 Oxygen Delivery Method Room Air 11/12/24 10:04 BMI result Body Mass Index 33.1 Tobacco/Smoking Status: Tobacco use Status Tobacco use date assessed 08/11/24 11/12/24 10:10 Patient Tobacco Use Status Former Tobacco user 11/12/24 10:10 Tobacco use type Cigarette 11/12/24 10:10 e-Cigarette/Vaping Use Former Use 11/12/24 10:10 PHQ-9: PHQ-9 Score PHQ-9: Total score 0 11/12/24 10:42 Thrive Assessment: Date of Thrive Assessment Date Thrive assessed 11/12/24 11/12/24 10:10 Currently or been in a relationship where the following occur: No concerns reported Const General: comfortable Nutritional Appearance: well nourished Orientation/consciousness: patient oriented x3 Resp Effort & Inspection: normal respiratory effort, able to speak in complete sentences, no audible wheezes and no cough Auscultation: clear to auscultation bilaterally, no crackles, no rales, no rhonchi and no wheezes Cardio Heart sounds: S1 normal heart sound present and S2 normal heart sound present Neuro General: patient oriented x3, gait normal and moves all extremities Psych Speech and movement: Normal speech and movement present Coding Level of Care Code Est Pt Level 4 (77174) Diagnoses Non-ST elevation [place] (NSTEMI) I21.4 Pneumonia due to infectious organism, unspecified laterality, unspecified part of lung J18.9 Pneumonia type: due to unspecified organism Laterality: unspecified laterality Lung location: unspecified part of lung Additional Codes ORIANA-7 Assessment Billing - ORIANA-7 Assessment Tool: ORIANA-7 Assessment 62214 ([id number]) Time Spent (min) 20 Assessment & Plan Assessment & Plan (1) Non-ST elevation [place] (NSTEMI): Code(s): I21.4 - Non-ST elevation (NSTEMI) myocardial infarction Category: Medical Plan: Resolved. Had Cardiac Cath at [facility]. Has a F/U appointment with Cardiology November 16 (2) Pneumonia: Code(s): J18.9 - Pneumonia, unspecified organism Category: Medical Qualifiers: Pneumonia type: due to unspecified organism Laterality: unspecified laterality Lung location: unspecified part of lung Qualified Code(s): J18.9 - Pneumonia, unspecified organism Plan: Ordered Chest Xray Orders: Orders XR chest 2V Today I21.4 - Non-ST elevation (NSTEMI) myocardial infarction, R07.9 - Chest pain, unspecified Medications: Discontinued prednisone Discontinued Reason: No Longer Medically Relevant 20 mg PO DAILY 10 tabs 0RF R21 - Rash and other nonspecific skin eruption
--- OUTSIDE RECORDS SUMMARY | 2024-11-12 10:24 | XMS_ITS | Encounter Summary ---
Author Organization [employer] Address [address] [place] [address] Care Team Providers Care Oil Field Operator Name Role Phone Unavailable Primary Care Provider Unavailabl e Encounter Details Date Type Department Care Team (Latest Contact Info) Description 05/05/2019 Abstract [facility] CONVERSIONS Dental, Provider, DDS Social History [...]
== END 2024-11-12 10:57 | disposition home or self-care (01) ==
LOC: HO.HMCH 09:52
PROVIDERS: PCP Internal Medicine; Visit Provider Nurse Practitioner Family
DX: I25.2 Old myocardial infarction (principal); J18.9 Pneumonia, unspecified organism

== ENCOUNTER → 2024-11-12 10:49 | Outpatient (BNV) | payer OTHER, SELFPAY | PROVIDERS: PCP Internal Medicine; Visit Provider Radiology Diagnostic Radiology | DX: J84.9 Interstitial pulmonary disease, unspecified (principal) | CPT/HCPCS: 71046 ==

== ENCOUNTER 2024-11-16 08:55 | Outpatient (AMB) | payer OTHER, SELFPAY ==
[2024-11-16 08:58] VITALS: BP 120/72; PULSE 87; BMI 33.6
--- NOTE | 2024-11-16 08:58 | A.OFFVIS_ITS ---
Vital Signs 11/16/24 08:58 Height 6 ft Weight 247 lb 12.793 oz BMI 33.6 BP 120/72 Blood Pressure Location Lt brachial Position Sitting Pulse 87 Pulse Source Monitor Intake Visit Reasons: appt req by /chest pain,palpitations,sob Hat Lining Blocker Required: Yes Hat Lining Blocker Language: [employer] Name: voice powell [id number] Allergies No Known Allergies (No Known Allergies*) Allergy (Verified 11/16/24 09:00) Medication List - Last Reconciled 11/16/24 by Tayla Sun NP-C amoxicillin-pot clavulanate 875-125 mg 1 tab PO BID 7 days aspirin 81 mg PO DAILY atorvastatin 40 mg PO BEDTIME betamethasone valerate 0.1% 1 appl topical BID 14 days hydroxyzine HCl 25 mg PO BID 14 days losartan 25 mg PO DAILY 90 days metoprolol succinate ER 25 mg PO DAILY nitroglycerin 0.4 mg sublingual Q5M PRN ticagrelor 90 mg PO BID HPI HPI appt req by /chest pain,palpitations,sob: Details: Ramiro is a 64-year-old male past medical history of hypertension, hyperlipidemia, sleep apnea, GERD recently presented to [facility] with left-sided chest burning that radiated through to his back. His symptom had been intermittent for the last month and increased in the last 2 days prior to arrival. He did rule in for NSTEMI with troponin peak 464. An echocardiogram showed EF 50-55%, impaired relaxation, basal inferior and basal inferior septal hypokinetic. He was transferred to [facility] where he underwent cardiac catheterization showing 1st OM 90% stenosis, SAKINA placed. He was started on aspirin, Brilinta, metoprolol, atorvastatin and now presents for follow-up. Today he reports he has been doing well since his hospital discharge. He is noticing some mild shortness of breath with activity. He admits to being mostly sedentary since his procedure. He has not had any recurrent chest discomfort. No palpitations, lightheadedness, presyncope, syncope. No shortness of breath at rest, PND, orthopnea or edema. Compliant with all medications. Certified medical office administrator used. [facility] Medical History Pneumonia Chest pain Essential hypertension Rash and nonspecific skin eruption Left hand pain GARRET on CPAP Shortness of breath Low TSH level Abdominal pain Fatigue Muscle cramps Paresthesia Numbness of left hand Stiffness of right hand joint Nephrolithiasis Foreign body of right hand Physical exam ACTH elevation Degenerative arthritis of thoracic spine History of hyperprolactinemia Hyperthyroidism GERD (gastroesophageal reflux disease) Hypovitaminosis D Palpitations Polyarthralgia Obesity Essential hypertension Surgical History Carpal tunnel syndrome of right wrist H/O colonoscopy H/O lithotripsy H/O umbilical hernia repair Family History Mother Heart problem Father Stroke Social History (Reviewed 11/16/24 @ 09: by GEENA Vargas) Household Members: Family Housing: Apartment Are you a primary care management specialist to a significant other at home: No Do you presently have visiting nurse or other home services: No Alcohol intake: current Alcohol intake frequency: does not drink Alcohol type: beer and hard liquor Patient Tobacco Use Status: Former Tobacco user Tobacco use type: Cigarette Years Smoked: 20 e-Cigarette/Vaping Use: Former Use Second Hand Smoke Exposure: No Advance Directives Date on File: 02/18/20 service: No Current occupational status: employed 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 Current occupational exposures/hazards: No Cognitive needs: No Hearing needs: No Vision needs: No Review of Systems Const All systems reviewed & are unremarkable except as noted in HPI and below ENT Denies dizziness Card Denies chest pain, Denies chest pain at rest, Denies chest pain with activity, Denies rapid heart rate, Denies pedal edema, Denies edema, Denies leg edema, Denies lightheadedness, Denies palpitations, Denies dyspnea, Reports dyspnea on exertion and Denies orthopnea Resp Denies cough, Denies dyspnea and Reports dyspnea on exertion GI Denies hematochezia and Denies change in stool character Musc Denies abnormal gait, Denies limited range of motion, Denies muscle cramps, Denies muscle weakness, Denies numbness, Denies radiating pain into limb, Denies stiffness and Denies tingling Neuro Denies abnormal gait, Denies dizziness, Denies numbness and Denies tingling Endo Denies palpitations Physical Exam Vital Signs: Last Vital Signs Pulse 87 11/16/24 08:58 BP 120/72 11/16/24 08:58 BMI result Body Mass Index 33.6 Const General: cooperative, healthy appearing, comfortable and no acute distress Orientation/consciousness: patient oriented x3 Neck Neck: Yes normal visual inspection Resp Effort & Inspection: normal respiratory effort Auscultation: clear to auscultation bilaterally, no rales, no rhonchi and no wheezes Cardio Rate: regular rate Rhythm: regular rhythm Heart sounds: S1 normal heart sound present, S2 normal heart sound present, no gallops, no murmurs and no rubs Neuro General: patient oriented x3 Extrem Other: right radial cath site well healed with easily palpable radial pulse, hand assessment normal General: Yes normal to inspection and No no pedal edema Psych Appearance: grossly normal Mental Status: mental status grossly normal Speech and movement: Normal speech and movement present Office Procedures EKG Details: Today, read by me, Normal sinus rhythm, rate 87, Qtc 442ms [id number], Complete Assessment & Plan Assessment & Plan (1) Non-ST elevation [place] (NSTEMI): Code(s): I21.4 - Non-ST elevation (NSTEMI) myocardial infarction Category: Medical Plan: NSTEMI 10/25/2024 with symptom of left chest burning that radiated through to his back. Cardiac catheterization showed 1st OM 90% stenosis, SAKINA placed. Echocardiogram showed EF 50-55%, basal inferior and basal inferior septal hypokinetic. He is currently reporting some mild shortness of breath with activity. Will start cardiac rehab. Continue aspirin indefinitely. Continue Brilinta uninterrupted for at least 1 year. Continue atorvastatin with ideal LDL goal less than 70. Continue metoprolol and losartan. All the above reviewed with him, questions answered. Cardiology follow-up 3 months, sooner if needed. (2) Chest pain: Code(s): R07.9 - Chest pain, unspecified Category: Medical (3) S/P cardiac cath: Comment: 10/28/2024, RCA and lad minimal luminal irregularities, 1st OM 90% stenosis, SAKINA placed Code(s): Z98.890 - Other specified postprocedural states Category: Surgical Plan: Right radial catheterization site well healed (4) Essential hypertension: Code(s): I10 - Essential (primary) hypertension Category: Medical Plan: Blood pressure goal less than 130/80. Well controlled at this time. Continue metoprolol and losartan. (5) Pure hypercholesterolemia: Code(s): E78.00 - Pure hypercholesterolemia, unspecified Category: Medical Plan: [place] LDL goal less than 70. Recently started on high-dose atorvastatin. Plan for fasting lipid profile around time of next visit. (6) Hospital discharge follow-up: Code(s): Z09 - Encounter for follow-up examination after completed treatment for conditions other than malignant neoplasm Category: Medical Plan: Discharge summary and notes reviewed. Plan I reviewed the recent cardiac catheterization findings with coronary stent placement. We discussed coronary artery disease and risk factor modification. I discussed with the patient the continuation of Brilinta despite mild shortness of breath, as it is a known side effect. We agreed on the importance of cardiac rehabilitation to improve his physical condition, and I will arrange for the sessions to be conducted at the local hospital. I advised him to monitor for any increase in symptoms and to contact us if they occur. A follow-up appointment is scheduled for three months, with the option to come in sooner if necessary. Medications: New ticagrelor 90 mg PO BID 180 tabs 3RF metoprolol succinate ER 25 mg PO DAILY 90 tabs 3RF Refilled aspirin 81 mg PO DAILY 90 tabs 3RF atorvastatin 40 mg PO BEDTIME 90 tabs 3RF Patient Instructions: - Continue taking all prescribed medications, including Brilinta. - Attend cardiac rehabilitation sessions as scheduled. - Report any increase in shortness of breath or chest discomfort immediately. - Follow up in three months or sooner if symptoms worsen. Patient was informed and verbally consented to the use of an ambient scribe for clinic note documentation during this visit. Visit time spent on chart review, interview, assessment, orders, documentation. Coding Level of Care Code Est Pt Level 4 (94083) Complex EM visit Add On G2211 Diagnoses Non-ST elevation [place] (NSTEMI) I21.4 Chest pain R07.9 S/P cardiac cath Z98.890 Essential hypertension I10 Pure hypercholesterolemia E78.00 Hospital discharge follow-up Z09 CPT Codes EKG - CPT: [id number], Complete ([id number]) Time Spent (min) 32
--- OUTSIDE RECORDS SUMMARY | 2024-11-16 09:18 | XMS_ITS | Encounter Summary ---
Author Organization [employer] Address [address] [facility] [address] [place] [address] Care Team Providers Care Surg Tech Name Role Phone Unavailable Primary Care Provider Unavailabl e Encounter Details Date Type Department Care Team (Latest Contact Info) Description 05/05/2019 Abstract [facility] CONVERSIONS Dental, Provider, DDS Social History [...]
== END 2024-11-16 09:27 | disposition home or self-care (01) ==
LOC: HO.HCS 08:56
PROVIDERS: PCP Internal Medicine; Visit Provider Nurse Practitioner Family
DX: I21.4 Non-ST elevation (NSTEMI) myocardial infarction (principal); R07.9 Chest pain, unspecified; Z98.890 Other specified postprocedural states; I10 Essential (primary) hypertension; E78.00 Pure hypercholesterolemia, unspecified; Z09 Encounter for follow-up examination after completed treatment for conditions other than malignant neoplasm
CPT/HCPCS: 93010; 99214

== ENCOUNTER → 2024-11-16 08:55 | Outpatient (BNVA) | payer OTHER, SELFPAY | PROVIDERS: PCP Internal Medicine; Visit Provider Nurse Practitioner Family | DX: I10 Essential (primary) hypertension (principal); R07.9 Chest pain, unspecified; I21.4 Non-ST elevation (NSTEMI) myocardial infarction | CPT/HCPCS: 93005 ==

== ENCOUNTER 2024-12-16 15:34 | Outpatient (AMB) | payer OTHER, SELFPAY ==
--- OUTSIDE RECORDS SUMMARY | 2024-12-16 15:38 | XMS_ITS | Encounter Summary ---
Author Organization [employer] Address [address] [place] [address] [address] [place] [address] Care Team Providers Care Announcer Name Role Phone Unavailable Primary Care Provider Unavailabl e Encounter Details Date Type Department Care Team (Latest Contact Info) Description 05/05/2019 Abstract [facility] CONVERSIONS Dental, Provider, DDS Social History [...] as of this encounter Plan of Treatment Upcoming Encounters Date Type Department Care Team (Late st Contact Info) Description 02/17/2025 9:15 AM EDT Office Visit [facility] MEDICINE [address] [place] [address] Florina Banuelos MD [address] [place] [address] documented as of this encounter Visit Diagnoses Not on filedocumented in this encounter
[2024-12-16 15:39] VITALS: BP 122/78; BMI 34.2
--- NOTE | 2024-12-16 15:39 | MHC.PC.OV ---
Vital Signs 12/16/24 15:39 Height 6 ft Weight 252 lb BMI 34.2 BP 122/78 Blood Pressure Location Lt brachial Position Sitting Intake Visit Reasons: lipid Intake Note: Patient here for a follow up Lipids Marketing Communications Coordinator Required: No Accompanied by: Self / Same As Patient Allergies No Known Allergies (No Known Allergies*) Allergy (Verified 12/16/24 16:03) Medication List - Last Reconciled 12/16/24 by Florina Martinez MD aspirin 81 mg PO DAILY atorvastatin 40 mg PO BEDTIME losartan 25 mg PO DAILY 90 days metoprolol succinate ER 25 mg PO DAILY nitroglycerin 0.4 mg sublingual Q5M PRN ticagrelor 90 mg PO BID Tobacco use date assessed: 08/11/24 Dental Screening Dental Screen Date: 08/11/24 HPI HPI Comments History of Present Illness Details The patient is a 64-year-old male presenting with follow-up care after a myocardial infarction. Last month, the patient experienced a non-ST elevation myocardial infarction, for which he was hospitalized. During hospitalization, an echocardiogram showed an ejection fraction of 50-55%, and elevated troponin levels were noted. The patient also has a history of coronary artery disease, for which he is on secondary prophylaxis with aspirin and atorvastatin. He is currently taking losartan, metoprolol, nitroglycerin as needed for chest pain, and ticagrelor due to stent placement. The patient reports adherence to his medication regimen. Additionally, the patient has been experiencing symptoms of sciatica, with pain radiating to the left buttock and intermittent numbness in the leg. He reports that the pain is exacerbated by certain movements and has been advised to be cautious with his movements. The patient denies any current smoking but has a history of smoking in his youth. He consumes alcohol infrequently, approximately once a year. [facility] Medical History (Updated 12/16/24 @ 16:17 by Florina Martinez MD) Pneumonia Chest pain Essential hypertension Rash and nonspecific skin eruption Left hand pain GARRET on CPAP Shortness of breath Low TSH level Abdominal pain Fatigue Muscle cramps Paresthesia Numbness of left hand Stiffness of right hand joint Nephrolithiasis Foreign body of right hand Physical exam ACTH elevation Degenerative arthritis of thoracic spine History of hyperprolactinemia Hyperthyroidism GERD (gastroesophageal reflux disease) Hypovitaminosis D Palpitations Polyarthralgia Obesity Essential hypertension Surgical History Carpal tunnel syndrome of right wrist H/O colonoscopy H/O lithotripsy H/O umbilical hernia repair Family History Mother Heart problem Father Stroke Social History (Updated 12/16/24 @ 16:10 by Florina Martinez MD) Household Members: Family Housing: Apartment Are you a primary administrator health care facility to a significant other at home: No Do you presently have visiting nurse or other home services: No Alcohol intake: current Alcohol intake frequency: holidays/special occasions only Alcohol type: beer and hard liquor Patient Tobacco Use Status: Former Tobacco user Tobacco use type: Cigarette Years Smoked: 20 e-Cigarette/Vaping Use: Former Use Second Hand Smoke Exposure: No Advance Directives Date on File: 02/18/20 service: No Current occupational status: employed 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 Current occupational exposures/hazards: No Cognitive needs: No Hearing needs: No Vision needs: No Questionnaire Thrive Questionnaire Date Thrive assessed: 11/12/24 I am a: Patient What is your living situation today?: I have a steady place to live Within the past 12 months, did the food you bought not last and you didn't have the money to get more?: Often true Within the past 12 months, did you worry whether your food would run out before you got money to buy more?: Never true Do you have trouble paying for medicines?: I choose not to answer this question Do you have trouble getting transportation to medical appointments?: I choose not to answer this question Do you have trouble paying your heating and electricity bill?: No Do you have trouble taking care of your child, family member or friend?: I choose not to answer this question Do you have trouble with day-to-day activities such as bathing, preparing meals, shopping, managing finances, etc.?: I choose not to answer this question Are you currently unemployed and looking for a job?: I choose not to answer this question Are you interested in more education?: No Please select the resources that you would like help with: None Currently or been in a relationship where the following occur: No concerns reported THRIVE Score: 1 ORIANA-7 AMB Questionnaire ORIANA-7 Date ORIANA - 7 assessed: 08/11/24 Source: Developed by Drs. Shimon Kennedy, Hilda De Jesus, Ta De La Garza and colleagues, with an educational quita from [employer]. Review of Systems Const All systems reviewed & are unremarkable except as noted in HPI and below Card Denies chest pain at rest, Denies chest pain with activity, Denies edema, Denies irregular heart rhythm, Denies claudication, Denies dyspnea, Denies dyspnea on exertion, Denies orthopnea, Denies paroxysmal nocturnal dyspnea and Denies slow heart rate Resp Denies cough, Denies dyspnea and Denies dyspnea on exertion GI Denies abdominal pain, Denies change in bowel habits, Denies excessive flatus, Denies nausea and Denies vomiting Skin/Breast Denies bleeding lesions, Denies changing lesions and Denies rash Neuro Denies lack of coordination Physical exam (Primary Care) Vital Signs: Last Vital Signs BP 122/78 12/16/24 15:39 BMI result Body Mass Index 34.2 Tobacco/Smoking Status: Tobacco use Status Tobacco use date assessed 08/11/24 12/16/24 15:44 Patient Tobacco Use Status Former Tobacco user 12/16/24 16:10 Tobacco use type Cigarette 12/16/24 16:10 e-Cigarette/Vaping Use Former Use 12/16/24 16:10 Thrive Assessment: Date of Thrive Assessment Date Thrive assessed 11/12/24 12/16/24 15:44 Currently or been in a relationship where the following occur: No concerns reported Resp Effort & Inspection: normal respiratory effort Auscultation: clear to auscultation bilaterally Cardio Jugular venous distension: no JVD Rate: regular rate Rhythm: regular rhythm Heart sounds: S1 normal heart sound present and S2 normal heart sound present Extrem General: Yes full ROM Coding Level of Care Code Est Pt Level 4 (70483) Complex EM visit Add On G2211 Diagnoses Essential hypertension I10 Non-ST elevation NV (NSTEMI) I21.4 Pure hypercholesterolemia E78.00 Left sided sciatica M54.32 Time Spent (min) 24 Assessment & Plan Assessment & Plan (1) Essential hypertension: Code(s): I10 - Essential (primary) hypertension Category: Medical (2) Non-ST elevation NV (NSTEMI): Code(s): I21.4 - Non-ST elevation (NSTEMI) myocardial infarction Category: Medical (3) Pure hypercholesterolemia: Code(s): E78.00 - Pure hypercholesterolemia, unspecified Category: Medical (4) Left sided sciatica: Code(s): M54.32 - Sciatica, left side Category: Medical Plan The patient will undergo a repeat chest CT to monitor the ground-glass nodules observed previously. Laboratory tests will be deferred until March to avoid redundancy, given the recent extensive testing. The patient is advised to continue current medications, including aspirin, atorvastatin, losartan, metoprolol, nitroglycerin as needed, and ticagrelor for at least one year due to stent placement. The patient is encouraged to be cautious with movements to manage sciatica symptoms and is advised on proper posture and movement techniques. Patient was informed and verbally consented to the use of an ambient scribe for clinic note documentation during this visit. Orders: Orders Lipid Panel 12/16/24 E78.5 - Hyperlipidemia, unspecified CT chest wo/w IV con 12/16/24 J18.9 - Pneumonia, unspecified organism, R91.1 - Solitary pulmonary nodule XR lumbar spine 2-3V 12/16/24 M54.32 - Sciatica, left side Comprehensive [place]. Panel Fast 12/16/24 I10 - Essential (primary) hypertension NT-proBNP 12/16/24 R06.00 - Dyspnea, unspecified PT Evaluation and Treatment 12/16/24 M54.32 - Sciatica, left side
== END 2024-12-16 16:22 | disposition home or self-care (01) ==
LOC: HO.HMCH 15:34
PROVIDERS: PCP Internal Medicine; Visit Provider Internal Medicine
DX: I10 Essential (primary) hypertension (principal); I25.2 Old myocardial infarction; E78.00 Pure hypercholesterolemia, unspecified; M54.32 Sciatica, left side

== ENCOUNTER 2024-12-20 10:37 | Outpatient (REF) | payer OTHER, SELFPAY ==
--- NOTE | ~2024-12-20 | XR_ITS ---
EXAMINATION: XR LUMBAR SPINE 2-3 VIEWS HISTORY: M54.32 - Sciatica, left side COMPARISON: Comparison is made with the prior examination dated 04/05/2024. FINDINGS: AP, lateral, and coned down views of the lumbar spine are submitted. Osseous mineralization is normal. Five nonrib-bearing lumbar vertebral bodies are identified, maintaining normal height and alignment without evidence of fracture or spondylolisthesis. Again seen are degenerative changes at the L2-3 level with disc space narrowing and osteophyte formation. The posterior elements are intact. The visualized paraspinal soft tissues are unremarkable. XR/XR lumbar spine 2-3V IMPRESSION: Degenerative change at L2-3 without significant change. Electronically signed by: Shimon Laird MD 12/20/2024 11:23 AM EDT
--- OUTSIDE RECORDS SUMMARY | 2024-12-20 11:24 | XMS_ITS | Encounter Summary ---
Author Organization [employer] Address [address] [place] [address] [address] [place] [address] Care Team Providers Care Project Coordinator Name Role Phone Unavailable Primary Care Provider Unavailabl e Encounter Details Date Type Department Care Team (Latest Contact Info) Description 05/05/2019 Abstract [facility] CONVERSIONS Dental, Provider, DDS Social [...] Description 02/17/2025 9:15 AM EDT Office Visit [facility] MEDICINE [address] [place] [address] Florina Banuelos MD [address] [place] [address] documented as of this encounter Visit Diagnoses Not on filedocumented in this encounter
== END 2024-12-20 10:38 | disposition home or self-care (01) ==
LOC: HO.XRAY 10:37
PROVIDERS: PCP Internal Medicine; Visit Provider Internal Medicine
DX: M54.32 Sciatica, left side (principal)
CPT/HCPCS: 72100

== ENCOUNTER → 2024-12-20 10:45 | Outpatient (BNV) | payer OTHER, SELFPAY | PROVIDERS: PCP Internal Medicine; Visit Provider Radiology Diagnostic Radiology | DX: M51.369 Other intervertebral disc degeneration, lumbar region without mention of lumbar back pain or lower extremity pain (principal) | CPT/HCPCS: 72100 ==

== ENCOUNTER 2024-12-22 08:44 | Outpatient (REF) | payer OTHER, SELFPAY ==
--- NOTE | ~2024-12-22 | FL_ITS ---
EXAMINATION: XR FLUOROSCOPY BARIUM SWALLOW CLINICAL INFORMATION: GERD without esophagitis. COMPARISON: None TECHNIQUE: Fluoroscopic double contrast barium swallow examination was performed utilizing standard techniques with thin and thick barium and effervescent granules. Numerous spot images were obtained. Several fluoroscopic image hold cine sequences were also obtained. FINDINGS: ESOPHAGRAM: Lateral cine images of the oropharynx and hypopharynx demonstrate normal swallow mechanism with normal epiglottic inversion and soft palate elevation. No laryngeal penetration, glottic or subglottic aspiration identified. No nasopharyngeal reflux present. Hypopharyngeal structures appear normal without evidence of mass or diverticulum. There was no significant cricopharyngeal achalasia. Dual and single contrast images of the esophagus demonstrate normal caliber, contour, and mucosal pattern. No evidence of stricture, mass, or ulcerations identified. Esophageal peristalsis is mildly disordered. Small to moderate sized type I hiatus hernia identified. No significant gastroesophageal reflux was seen during the course of the examination and on reflux views. Dual contrast and single contrast images of the stomach are limited due to patient inability to retain the effervescent granule gas. There was grossly normal contour without evidence of mass or large ulceration. There is diffuse prominence of the area gastricae suggesting gastritis. Likewise, there was prominence of the gastric rugal folds. Contrast freely passed into the gastric antrum and duodenal bulb without delay. Single and air-contrast images of the duodenal bulb demonstrate no abnormality. The duodenal sweep has a normal appearance, course, and mucosal fold appearance. FLUOROSCOPY TIME: 2 minutes 59 seconds Number of Spot Images:11 Number of cines obtained: 8 DOSE AREA PRODUCT: 4273 uGy-m2 (microgray-meter squared) FL/FL barium swallow IMPRESSION: 1. Mildly disordered esophageal peristalsis. 2. No definite gastroesophageal reflux observed during the course of the examination. 3. There is a small to moderate sized type I hiatus hernia. 4. Mildly limited examination of the stomach as detailed. Thickening of the areae gastricae and prominence of the rugal folds suggests underlying gastritis. Electronically signed by: Johnny Mansfield MD 12/22/2024 10:00 AM EDT
--- OUTSIDE RECORDS SUMMARY | 2024-12-22 08:58 | XMS_ITS | Encounter Summary ---
Author Organization [employer] Address [address] [place] [address] [address] [place] [address] Care Team Providers Care Lithograph Printer Name Role Phone Unavailable Primary Care Provider Unavailabl e Encounter Details Date Type Department Care Team (Latest Contact Info) Description 05/05/2019 Abstract [facility] CONVERSIONS Dental, Provider, DDS Social [...] Description 02/17/2025 9:15 AM EDT Office Visit [facility] MEDICINE [address] [place] [address] Florina Banuelos MD [address] [place] [address] documented as of this encounter Visit Diagnoses Not on filedocumented in this encounter
== END 2024-12-22 08:45 | disposition home or self-care (01) ==
LOC: HO.XRAY 08:44
PROVIDERS: PCP Internal Medicine; Visit Provider Nurse Practitioner
DX: K21.9 Gastro-esophageal reflux disease without esophagitis (principal)
CPT/HCPCS: 74220

== ENCOUNTER → 2024-12-22 08:46 | Outpatient (BNV) | payer OTHER, SELFPAY | PROVIDERS: PCP Internal Medicine; Visit Provider Radiology Diagnostic Radiology | DX: K44.9 Diaphragmatic hernia without obstruction or gangrene (principal) | CPT/HCPCS: 74221 ==

== ENCOUNTER 2025-01-16 10:57 | Emergency (ER) | payer OTHER, SELFPAY ==
--- NOTE | ~2025-01-16 | CT_ITS ---
CLINICAL HISTORY: Left abd pain, severe colitis V. Diverticulitis CT abdomen and pelvis with contrast Comparison: CT - CT ABDOMEN PELVIS W IV CON - 01/16/25 13:[address]/SR - CT CHEST WO IV CON - 10/26/24 09:38 EDT Findings: Stable 10 mm ground-glass nodule within the right middle lobe medial segment anteriorly (image 5). Stable 18 mm nodule within the left lower lobe posteromedially (image 6). Unremarkable gallbladder and solid organs. No urolithiasis. No bowel obstruction, pneumoperitoneum, or pneumatosis. Mildly thickened and fluid-filled small bowel loops predominantly within the left abdomen and pelvis. Pelvic contents unremarkable. Normal appendix. No acute fracture. IMPRESSION: 1. Stable bibasilar pulmonary nodules as above. 2. Findings suggestive of gastroenteritis. This document has been electronically signed by: Bela Suazo MD on 01/16/2025 13:57:34
--- NOTE | 2025-01-16 11:10 | ED.ABDPAIN ---
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 No dysuria, no frequency urination, no blood in the urine, never had intra-abdominal surgery in the past, sexually active with 1 partner with no urethral discharge or urinary symptoms and confirm low risk for STDs. Otherwise no fever or chills. Related Data Home Medications ?Medication ?Instructions ?Recorded ?Confirmed nitroglycerin 0.4 mg sublingual 0.4 mg sublingual Q5M PRN 11/12/24 12/16/24 tablet Previous Rx's ?Medication ?Instructions ?Recorded aspirin 81 mg chewable tablet 81 mg PO DAILY #90 tabs 11/16/24 atorvastatin 40 mg tablet 40 mg PO BEDTIME #90 tabs 11/16/24 metoprolol succinate 25 mg 25 mg PO DAILY #90 tabs 11/16/24 tablet,extended release 24 hr ticagrelor 90 mg tablet 90 mg PO BID #180 tabs 11/16/24 losartan 25 mg tablet 25 mg PO DAILY 90 days #90 tabs 11/22/24 Allergies Allergy/AdvReac Type Severity Reaction Status Date / Time No Known Allergies (No Known Allergy Verified 01/16/25 11:13 Allergies*) Review of Systems Review of Systems All other systems are reviewed and are negative Constitutional: Reports as per HPI and Reports no additional constitutional complaints Eyes: Reports as per HPI and Reports no additional eye complaints Reports system reviewed and no additional complaints, except as documented Cardiovascular: Reports as per HPI and Reports no additional cardiovascular complaints Respiratory: Reports as per HPI and Reports no additional respiratory complaints Gastrointestinal: Reports as per HPI and Reports no additional gastrointestinal complaints Genitourinary: Reports no additional female genitourinary complaints Musculoskeletal: Reports no additional musculoskeletal complaints Skin/Breast: Reports system reviewed and no additional complaints, except as docu Psychiatric: Reports no additional psychiatric complaints Endocrine: Reports no additional endocrine complaints Hematologic/Lymphatic: Reports no additional hematologic/lymphatic complaints Allergic/Immunologic: Reports no additional allergic/immunologic complaints Reports system reviewed and no additional complaints, except as documented and Reports Abnormal speech present [facility] Past Medical History Medical History Pneumonia Chest pain Essential hypertension Rash and nonspecific skin eruption Left hand pain GARRET on CPAP Shortness of breath Low TSH level Abdominal pain Fatigue Muscle cramps Paresthesia Numbness of left hand Stiffness of right hand joint Nephrolithiasis Foreign body of right hand Physical exam ACTH elevation Degenerative arthritis of thoracic spine History of hyperprolactinemia Hyperthyroidism GERD (gastroesophageal reflux disease) Hypovitaminosis D Palpitations Polyarthralgia Obesity Essential hypertension Surgical History Carpal tunnel syndrome of right wrist H/O colonoscopy H/O lithotripsy H/O umbilical hernia repair Family History Family History Mother Heart problem Father Stroke Social History Social History Household Members: Family Housing: Apartment Are you a primary resident care supervisor to a significant other at home: No Do you presently have visiting nurse or other home services: No Unable to assess alcohol history related to: Unknown Alcohol intake: current Alcohol intake frequency: holidays/special occasions only Alcohol type: beer and hard liquor Patient Tobacco Use Status: Former Tobacco user Tobacco use type: Cigarette Years Smoked: 20 Smoked in Last 30 Days: No e-Cigarette/Vaping Use: Former Use Second Hand Smoke Exposure: No Use of substances other than those prescribed or required for medical reasons: Unknown Advance Directives: Yes Advance Directives Information Provided: Yes Advance Directives on File: No Advance Directives Date on File: 02/18/20 service: No Current occupational status: employed 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 Blood pressure elevated. Heart rate normal. Respiratory rate normal. Temperature normal. Oxygen saturation normal. Appearance: Alert. Oriented X3. No acute distress. Head: Normal external exam. Normocephalic. Atraumatic. No Du signs noted. No raccoon eyes noted Eyes: PERRLA. EOMI. Conjunctiva and sclera normal. Eyelids normal. ENT: TM's Normal. Pharynx normal. Uvula midline. Moist mucous membranes. No trismus noted. No drooling noted. No muffled voice noted. Neck: Normal inspection. Neck supple. FROM. No adenopathy. Thyroid Normal. No meningeal signs. No neck mass noted. CVS: Normal heart rate and rhythm. Heart sound normal. No murmurs noted. Pulses normal throughout. Respiratory: No respiratory distress. Painless inspiration. Breath sounds normal. No wheezes/rales/rhonchi noted. Chest nontender. No accessory muscle usage noted or decreased air movement noted. Abdomen: Soft, obese, mild tenderness in the left lower quadrant, no guarding, no rebound tenderness. Bowel sounds normal in all 4 quadrants. No distention noted. No organomegaly noted. No visible injury noted. Back: No CVA tenderness. Full range of motion noted. Skin: Skin warm and dry. Normal skin color. Normal skin turgor. No rashes/lesions/lacerations noted. Extremities: No lower extremity edema. Extremities exhibit normal range of motion. Extremities nontender. Neuro: Oriented X 3. Cranial nerve exam: II-XII are grossly intact No motor deficit. No sensory deficit. Reflexes normal. Course Course Course Narrative: This is a Rapid Medical Examination (RME) performed by Kayy Anaya PA-C in triage. Full HPI, ROS, assessment and treatment plan per primary provider in the Main ED. Hx: 64 yo M w/ left sided abd pain and nausea x2wks, no vomiting/fever/chills. Plan: labs, UA Reevaluation(s) Reevaluation #1: Abdominal pain, nausea, and vomiting x1 week, unremarkable labs/UA, CT abdomen pelvis is consistent with a gastroenteritis. Stable and unchanged lung nodule. Time: 15:36 Medical Decision Making Differential Diagnosis Differential Diagnoses: The differential diagnosis associated with the presentation includes (Colitis, diverticulitis, gastroenteritis, food poisoning, dehydration, severe anemia, appendicitis, pancreatitis, electrolyte derangement, UTI, pyelonephritis.) Admission/Observation Consideration of admission/observation: Escalation of care including admission/observation considered Lab Data MDM Lab Attestation statement: I reviewed the patient's lab results. 01/16/25 11:27 01/16/25 11:27 Labs: Lab Results 01/16/25 Range/Units 11:27 WBC 7.7 (4.8-10.8) X10*3/uL RBC 5.05 (4.60-5.80) X10*6/uL Hgb 15.4 (14.0-18.0) g/dl Hct 44.0 (42.0-52.0) % MCV 87.1 (80.0-98.0) fL MCH 30.5 (27.0-33.0) pg MCHC 35.0 (31.0-36.0) g/dl RDW 12.9 (11.0-16.0) % Plt Count 244 (160-400) X10*3/uL MPV 9.9 (9.4-12.4) fL Immature Gran % (Auto) 0.3 (0.0-0.4) % Neut % (Auto) 65.3 (45-73) % Lymph % (Auto) 22.4 (20-40) % [place] % (Auto) 7.6 (2-11) % Eos % (Auto) 3.4 (0-4) % Baso % (Auto) 1.0 (0-2) % Lymph # (Auto) 1.7 (1.2-4.9) X10*3/uL [place] # (Auto) 0.6 (0.1-1.2) X10*3/uL Eos # (Auto) 0.3 (0.0-0.4) X10*3/uL Baso # (Auto) 0.1 (0.0-0.2) X10*3/uL Abs Immat Gran (auto) 0.02 (0.00-0.03) X10*3/uL Absolute Neuts (auto) 5.1 (2.0-8.3) x10*3/uL Absolute Nucleated RBC 0.000 (0.0-0.012) X10*3/uL Nucleated RBC % (auto) 0.0 (0.0-0.2) /100WBC Sodium 137 (135-145) mmol/L Potassium 4.4 (3.3-5.1) mmol/L Chloride 106 (96-108) mmol/L Carbon Dioxide 20 L (22-29) mmol/L Anion Gap 15 (12-20) BUN 18 H (9-16) mg/dL Creatinine 1.23 (0.5-1.4) mg/dL Estim Creat Clear Calc 80.5 Estimated GFR 59 Random Glucose 90 (60-115) mg/dL Calcium 9.1 (8.4-10.2) mg/dL Magnesium 2.2 (1.6-2.6) mg/dL Total Bilirubin 0.4 (0.0-1.0) mg/dL AST 33 (5-37) U/L ALT 64 H (0-40) U/L Alkaline Phosphatase 70 (39-117) U/L Total Protein 8.8 H (6.5-8.0) g/dL Albumin 4.4 (3.5-5.0) g/dL Lipase 20 (8-78) U/L Urine Color Yellow Urine Appearance Clear Urine pH 5.5 (5.0-9.0) Ur Specific [place] 1.020 (1.005-1.025) Urine Protein Negative (Neg-Trace) mg/dL Urine Glucose (UA) Negative (Negative) mg/dL Urine Ketones Negative (Negative) mg/dL Urine Blood Negative (Negative) Urine Nitrite Negative (Negative) Ur Leukocyte Esterase Negative (Negative) Independent Interpretation I performed an independent interpretation of an: CT Scan (Abdomen and pelvis:1. Stable bibasilar pulmonary nodules as above. 2. Findings suggestive of gastroenteritis.) Radiology Impression Discussion of test interpretation with radiology: I have reviewed the radiologist's reading. Medications Administered Discontinued Medications Generic Name Dose Route Start Last Admin Trade Name Freq PRN Reason Stop Dose Admin Iohexol 100 ml 01/16/25 13:14 01/16/25 13:14 Iohexol 350 Mg/Ml 100 Ml Infus..Btl IV 01/16/25 13:15 100 ml ONCE ONE Administration Discharge Plan Discharge Clinical Impression: Gastroenteritis Patient Disposition: Home, Self-Care Instructions: Gastroenteritis (DC) Prescriptions: No Action losartan 25 mg tablet 25 mg PO DAILY 90 Days Qty: 90 3RF aspirin 81 mg tablet,chewable 81 mg PO DAILY Qty: 90 3RF atorvastatin 40 mg tablet 40 mg PO BEDTIME Qty: 90 3RF metoprolol succinate 25 mg tablet extended release 24 hr 25 mg PO DAILY Qty: 90 3RF ticagrelor 90 mg tablet 90 mg PO BID Qty: 180 3RF nitroglycerin 0.4 mg tablet, sublingual 0.4 mg sublingual Q5M PRN Rx Instructions: do not exceed 3 doses per episode Referrals: Florina Kincaid MD [Primary Care Provider, Internal Medicine] Print Language: Mexican
[2025-01-16 11:11] VITALS: BP 163/76; PULSE 87; RESP 18; TEMP 36.5; O2SAT 100; BMI 34.5
--- OUTSIDE RECORDS SUMMARY | 2025-01-16 11:30 | XMS_ITS | Clinical Summary ---
Author Organization [facility] [employer] Address [address] [place] [address] 7 [place] [address] Care Team Providers Care Oracle Reports Developer Name Role Phone Unavailable Primary Care Provider Unavailabl e Encounters Date Type Department Care Team Description 11/25/2024 Telephone [facility] [address] [place] [address] [phone] Erlin Romo MD New Patient appt. from Last 3 Months Social History Tobacco Use Types Packs/Day Years [...] 07/22/2019 12:03 AM EST Plan of Treatment Upcoming Encounters Date Type Department Care Team (Late st Contact Info) Description 02/17/2025 9:15 AM EDT Office Visit [facility] [address] [place] [phone] Florina Banuelos MD [address] [place], [place] [phone] Health Maintenance Due Date Last Done Comments CT Colonography 1961 Colonoscopy 1961 Colorectal Cancer Screening 1961 Depression Screening 1961 FIT DNA/Cologuard 1961 FIT 1961 FOBT 1961 HIV Screening 1961 Lipid Panel 1961 SDOH Screening 1961 Sigmoidoscopy 1961 Disability Screening 1961 Alcohol/Substance Use Screening 1973 Tobacco Screening 1973 Hepatitis C Screening 07/19/1979 DTaP/Tdap/Td Vaccines (1 - Tdap) 1980 Pneumococcal Vaccine: 50+ Years (1 of 1 - PCV) 07/19/2011 Zoster Vaccines (1 of 2) 07/19/2011 COVID-19 Vaccine (4 - season) 2024 08/03/2021, 07/06/2020, 06/08/2020 Influenza Vaccine (#1) 2025 9, 02/26/2018, 02/12/2017, Additional history exists RSV [...] on patient[place] [id number] [facility] [place] [id number]
--- OUTSIDE RECORDS SUMMARY | 2025-01-16 11:30 | XMS_ITS | Encounter Summary ---
Author Organization [employer] Address [address] [place] [address] 7 [place] [address] Care Team Providers Care Psychosocial Rehabilitation Counselor Name Role Phone Unavailable Primary Care Provider Unavailabl e Encounter Details Date Type Department Care Team (Latest Contact Info) Description 05/05/2019 Abstract [facility] CONVERSIONS Dental, Provider, DDS Social History [...] Description 02/17/2025 9:15 AM EDT Office Visit [facility] [address] [place] [address] Florina Banuelos MD [address] [place] [address] documented as of this encounter Visit Diagnoses Not on filedocumented in this encounter
[2025-01-16 11:31] LABS: MANUAL DIFF FLAG NO
[2025-01-16 11:33] LABS: Appearance Urine Clear; Glucose Urine UA Negative (Negative); Hematocrit 44.0 % (42.0-52.0); Hemoglobin 15.4 g/dl (14.0-18.0); Imm Gran Abs Auto 0.02 X10*3/uL (0.00-0.03); Imm Gran Pct Auto 0.3 % (0.0-0.4); Lymphocytes Absolute Auto 1.7 X10*3/uL (1.2-4.9); Mean Corpuscular HGB Conc 35.0 g/dl (31.0-36.0); Mean Corpuscular Hemoglobin 30.5 pg (27.0-33.0); Mean Corpuscular Volume 87.1 fL (80.0-98.0); NRBC Abs Auto 0.000 X10*3/uL (0.0-0.012); NRBC Pct Auto 0.0 /100WBC (0.0-0.2); PH 5.5 (5.0-9.0); Platelet Count 244 X10*3/uL (160-400); Red Blood Count 5.05 X10*6/uL (4.60-5.80); Specific Gravity - Urine 1.020 (1.005-1.025); White Blood Count 7.7 X10*3/uL (4.8-10.8)
[2025-01-16 11:55] LABS: Alanine Aminotransferase 64 U/L (0-40); Albumin Level 4.4 g/dL (3.5-5.0); Alkaline Phosphatase 70 U/L (39-117); Anion Gap 15 (12-20); Aspartate Amino Transferase 33 U/L (5-37); Blood Urea Nitrogen 18 mg/dL (9-16); Calcium 9.1 mg/dL (8.4-10.2); Carbon Dioxide 20 mmol/L (22-29); Chloride 106 mmol/L (96-108); Creatinine Clr Calc Pharmacy 80.5; Estimated Glomerular Filt Rate 59; Lipase 20 U/L (8-78); Magnesium 2.2 mg/dL (1.6-2.6); Potassium 4.4 mmol/L (3.3-5.1); Sodium 137 mmol/L (135-145); Total Protein 8.8 g/dL (6.5-8.0)
[2025-01-16 12:44] VITALS: BP 126/76; PULSE 70; RESP 16; TEMP 36.6; O2SAT 95
[2025-01-16] MEDS: iohexoL 350 MG/ML 100 ML INFUS..BTL IV (13:14)
[2025-01-16 14:44] VITALS: BP 124/75; PULSE 71; RESP 18; TEMP 36.3; O2SAT 96
[2025-01-16 16:14] VITALS: BP 132/62; PULSE 76; RESP 14; TEMP 36.6; O2SAT 97
== END 2025-01-16 16:15 | disposition home or self-care (01) ==
PROVIDERS: Physician Assistant Medical; Emergency Provider Emergency Medicine; PCP Internal Medicine
DX: K52.9 Noninfective gastroenteritis and colitis, unspecified (principal); R10.2 Pelvic and perineal pain; R11.0 Nausea; Z79.899 Other long term (current) drug therapy
CPT/HCPCS: 36415; 74177; 80053; 81003; 83690; 83735; 85025; 99284; 99285; Q9967

== ENCOUNTER → 2025-01-16 12:44 | Outpatient (BNV) | payer OTHER, SELFPAY | PROVIDERS: Emergency Provider Emergency Medicine; PCP Internal Medicine; Visit Provider Radiology Diagnostic Radiology | DX: R10.9 Unspecified abdominal pain (principal) | CPT/HCPCS: 74177 ==

== ENCOUNTER 2025-01-20 08:22 | Outpatient (REF) | payer OTHER, SELFPAY ==
--- NOTE | ~2025-01-20 | CT_ITS ---
EXAMINATION: CT CHEST WITH CONTRAST CLINICAL INFORMATION: Solitary pulmonary nodule. COMPARISON: CT abdomen and pelvis 01/16/2025 CT chest 10/26/2024. TECHNIQUE: Multidetector volumetric CT imaging of the chest was obtained after the administration of 50 mL of Omnipaque 350 intravenous contrast without immediate adverse reactions. Axial MIP volume rendering provided. Sagittal and coronal reformatted images were obtained. This CT examination was performed using dose optimization techniques as appropriate, variously including the following: *Automated exposure control *Adjustment of mA and/or kV according to patient size (this includes techniques or standardized protocols for targeted exams where dose is matched to indication/reason for exam; i.e. extremities or head) *Use of iterative reconstruction technique FINDINGS: NODULES: Within the right apex posteriorly, there is a 7 x 4 mm linear nodule (series 5, image 26). This is stable. Within the right upper lobe posterior segment there is a linear groundglass nodular opacity measuring 1.8 x 1.0 cm (series 5, image 49), stable in size, appearance suggestive of inflammatory etiology. In the medial left lower lobe, there is a 1.5 x 1.2 cm oval circumscribed nodule (series 5, image 106) with low density foci internally, measuring down to -5 Hounsfield units, suggestive of fat. This is stable in size. This is likely a hamartoma. Within the right middle lobe, there is a groundglass nodule measuring 1.3 cm in diameter, without solid component. This is unchanged in size. (Series 5, image 99). Within the most inferior right upper lobe abutting the minor fissure, there is a 1.1 x 0.6 cm groundglass nodule measuring low attenuation consistent with a inflammatory etiology (series 5, image 81). This is slightly larger. Within the most medial anterior right upper lobe, there is a 1.8 x 1.8 cm oval nodule with internal low attenuation measuring up to 164 Hounsfield units (series 5, image 69), also highly suggestive of a benign etiology. (This previously measured 1.3 x 1.5 cm) There is a 3 mm nodule in the subpleural left lower lobe (series 5, image 113). LUNGS: Mild right apical scarring is present with mild centrilobular and paraseptal emphysematous changes. Aside from the above nodules, there is dependent type atelectasis present. There is mild scarring within the synovial segment of the right middle lobe. No consolidations are or pleural effusion. No pneumothorax. Small airways appear normal. MEDIASTINUM: There is global enlargement of the thyroid gland without dominant nodule seen. There are subcentimeter lymph nodes in the mediastinum. There is no pathologic lymphadenopathy. There are calcified lymph node abutting the azygos vein. Central airways appear normal. The aorta is normal in caliber and course. Normal branching pattern. Main pulmonary artery is normal in size. Heart size is normal. There are mild to moderate coronary calcifications. Esophagus is mildly patulous in appearance. AXILLA/CHEST WALL: No abnormal lymphadenopathy. There are subcentimeter axillary lymph nodes bilaterally. UPPER ABDOMEN: There is diffuse fatty infiltration of liver. There is no focal liver abnormality. Remainder the imaged upper abdominal contents appear normal. OSSEOUS STRUCTURES: There is no suspicious lytic or blastic bone lesion. CT/CT chest w IV con IMPRESSION: 1. There are numerous scattered pulmonary nodules measuring up to 1.8 x 1.8 cm in the medial right upper lobe, and 1.5 x 1.2 cm in the medial left lower lobe. These nodules are either groundglass attenuation, or demonstrate foci of internal low attenuation suggesting benign etiology (inflammatory lesions). A few of these nodules are slightly larger than when compared with 10/26/2024. Would recommend [address] follow-up to ensure stability given the probably benign (inflammatory) findings. 2. There is mild centrilobular and paraseptal emphysema. There is apical scarring. 3. There are subcentimeter mediastinal and axillary lymph nodes. Reactive etiology favored. There is no pathologic adenopathy present. 4. There is global thyroid enlargement. Electronically signed by: Johnny Mansfield MD 01/20/2025 10:07 AM EDT
--- OUTSIDE RECORDS SUMMARY | 2025-01-20 08:44 | XMS_ITS | Encounter Summary ---
Author Organization [employer] Address [address] [place] [address] 7 [place] [address] Care Team Providers Care Solution Design And Analysis Manager Name Role Phone Unavailable Primary Care Provider Unavailabl e Encounter Details Date Type Department Care Team (Latest Contact Info) Description 05/05/2019 Abstract [facility] CONVERSIONS Dental, Provider, DDS Social History [...] Description 02/17/2025 9:15 AM EDT Office Visit [facility] [address] [place] [address] Florina Banuelos MD [address] [place] [address] documented as of this encounter Visit Diagnoses Not on filedocumented in this encounter
--- OUTSIDE RECORDS SUMMARY | 2025-01-20 08:44 | XMS_ITS | Clinical Summary ---
Author Organization [employer] Address [address] [place] [address] [address] [address] Care Team Providers Care Power Transformer Assembler Name Role Phone Unavailable Primary Care Provider Unavailabl e Encounters Date Type Department Care Team Description 11/25/[address] [facility] [address] [place] [address] [phone] Erlin Romo MD New Patient appt. from [...] Description 02/17/2025 9:15 AM EDT Office Visit [facility] [address] [place] [address] [phone] Florina Banuelos MD [address] [place], [place] [phone] Health Maintenance Due Date Last Done Comments [...] age [place] [id number] [place] [id number]
[2025-01-20] MEDS: iohexoL 350 MG/ML 100 ML INFUS..BTL IV (09:30)
== END 2025-01-20 08:23 | disposition home or self-care (01) ==
LOC: HO.CT 08:22
PROVIDERS: PCP Internal Medicine; Visit Provider Internal Medicine
DX: R91.1 Solitary pulmonary nodule (principal); J18.9 Pneumonia, unspecified organism
CPT/HCPCS: 71260; Q9967

== ENCOUNTER → 2025-01-20 08:23 | Outpatient (BNV) | payer OTHER, SELFPAY | PROVIDERS: PCP Internal Medicine; Visit Provider Radiology Diagnostic Radiology | DX: R91.8 Other nonspecific abnormal finding of lung field (principal); E04.9 Nontoxic goiter, unspecified | CPT/HCPCS: 71260 ==

== ENCOUNTER 2025-01-24 08:52 | Outpatient (REF) | payer OTHER, SELFPAY ==
--- OUTSIDE RECORDS SUMMARY | 2025-01-24 09:56 | XMS_ITS | Clinical Summary ---
Author Organization [employer] Address [address] [place] [address] [address], [place] [address] Care Team Providers Care Sales Agent Trading Stamps Name Role Phone Unavailable Primary Care Provider Unavailabl e Encounters Date Type Department Care Team Description 11/25/2024 Telephone [facility] [address] [place] [address] [phone] Erlin Romo MD New Patient appt. from [...] Description 02/17/2025 9:15 AM EDT Office Visit [facility] [address] [place] [address] [phone] Florina Banuelos MD [address] [place], [place] [phone] Health Maintenance Due Date Last Done Comments [...] 2) 07/19/2011 COVID-19 Vaccine (4 - season) 2025 08/03/2021, 07/06/2020, 06/08/2020 Influenza Vaccine (#1) 2025 [...] age [place] [id number] [facility] [place] [id number]
--- OUTSIDE RECORDS SUMMARY | 2025-01-24 09:56 | XMS_ITS | Encounter Summary ---
Author Organization [employer] Address [address] [place] [address] 7 [place] [address] Care Team Providers Care Assembly Line Robot Operator Name Role Phone Unavailable Primary Care Provider Unavailabl e Encounter Details Date Type Department Care Team (Latest Contact Info) Description 05/05/2019 Abstract [facility] CONVERSIONS Dental, Provider, DDS Social History Tobacco [...] Description 02/17/2025 9:15 AM EDT Office Visit [facility] [address] [place] [address] Florina Banuelos MD [address] [place] [address] documented as of this encounter Visit Diagnoses Not on filedocumented in this encounter
[2025-01-24 10:06] LABS: Alanine Aminotransferase 54 U/L (0-40); Albumin Level 4.4 g/dL (3.5-5.0); Alkaline Phosphatase 68 U/L (39-117); Anion Gap 12 (12-20); Aspartate Amino Transferase 34 U/L (5-37); Blood Urea Nitrogen 10 mg/dL (9-16); Calcium 8.7 mg/dL (8.4-10.2); Carbon Dioxide 23 mmol/L (22-29); Chloride 108 mmol/L (96-108); Cholesterol 204 mg/dL (<200); Estimated Glomerular Filt Rate > 60; HDL Cholesterol 34 mg/dL (>40); Potassium 4.1 mmol/L (3.3-5.1); Sodium 139 mmol/L (135-145); Total Protein 8.5 g/dL (6.5-8.0); Triglycerides 119 mg/dL (<150)
[2025-01-24 10:10] LABS: Free T4 (Free Thyroxine) 0.92 ng/dL (0.71-1.85); Thyroid Stimulating Hormone 1.12 uIU/mL (0.32-4.0)
[2025-01-26 18:33] LABS: Thyroglobulin Antibodies <1 IU/mL (< or = 1)
== END 2025-01-24 08:53 | disposition home or self-care (01) ==
LOC: HO.LAB 08:52
PROVIDERS: PCP Internal Medicine; Visit Provider Internal Medicine
DX: E78.00 Pure hypercholesterolemia, unspecified (principal); E04.9 Nontoxic goiter, unspecified; E78.5 Hyperlipidemia, unspecified; R06.00 Dyspnea, unspecified
CPT/HCPCS: 36415; 80053; 80061; 83880; 84439; 84443; 86376; 86800

== ENCOUNTER 2025-01-31 09:23 | Outpatient (AMB) | payer OTHER, SELFPAY ==
--- NOTE | 2025-01-31 09:33 | MHC.AMNUTRGE ---
VS Expanded 01/31/25 09:36 Height 6 ft Weight 252 lb 6.868 oz BMI 34.2 Intake Visit Reasons: Pure hypercholesterolemia Allergies No Known Allergies (No Known Allergies*) Allergy (Verified 01/16/25 11:13) Nutrition Presentation Details: Pt presents for MNT for hypercholesterolemia food frequency fish : 0-1wk fruits: 0-1/d dairy: cheese (1>/d fried foods 0-1/wk vegetables : 2x/wk water: 3-4 bottles/d (16 oz each) coffee 2- c coffee black per day B: eggs, scrambled, simon, cheese , avocado, coffee /cake L sandwich (ham/cheese/whole grain bread, water soda or juice D: varies (root veg, meat or rice/beans chicken or soup withbeef/chicken snack fruits or empty nile food 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/smoking -denies BS Monitoring Most Recent Diabetes Results: Cholesterol, (<200) 204 mg/dL H 01/24/25 HDL Cholesterol, (>40) 34 mg/dL L 01/24/25 Triglycerides, (<150) 119 mg/dL 01/24/25 Creatinine, (0.5-1.4) 0.97 mg/dL 01/24/25 BUN, (9-16) 10 mg/dL 01/24/25 Sodium, (135-145) 139 mmol/L 01/24/25 Potassium, (3.3-5.1) 4.1 mmol/L 01/24/25 Chloride, (96-108) 108 mmol/L 01/24/25 Carbon Dioxide, (22-29) 23 mmol/L 01/24/25 Calcium, (8.4-10.2) 8.7 mg/dL 01/24/25 AST, (5-37) 34 U/L 01/24/25 ALT, (0-40) 54 U/L H 01/24/25 Total Protein, (6.5-8.0) 8.5 g/dL H 01/24/25 Albumin, (3.5-5.0) 4.4 g/dL 01/24/25 NGC-Fthczer-Ih.Jeor Equation Height: 6 ft Weight: 252 lb Resting Metabolic Rate: 1979.95 Calculated Activity Level: Mild Activity Calories Needed to Maintain Weight: 2722.43 Diagnosis Nutrition problem #1: altered nutrition labs As related to (etiology) #1: diagnosis As evidenced by (sign/symptom) #1: abnormal lab values (elevated chol and low HDL, bmi at 34 (02/10)) and food recall [facility] Medical History Pneumonia Chest pain Essential hypertension Rash and nonspecific skin eruption Left hand pain GARRET on CPAP Shortness of breath Low TSH level Abdominal pain Fatigue Muscle cramps Paresthesia Numbness of left hand Stiffness of right hand joint Nephrolithiasis Foreign body of right hand Physical exam ACTH elevation Degenerative arthritis of thoracic spine History of hyperprolactinemia Hyperthyroidism GERD (gastroesophageal reflux disease) Hypovitaminosis D Palpitations Polyarthralgia Obesity Essential hypertension Surgical History Carpal tunnel syndrome of right wrist H/O colonoscopy H/O lithotripsy H/O umbilical hernia repair Family History Mother Heart problem Father Stroke Social History Household Members: Family Housing: Apartment Are you a primary managed care specialist to a significant other at home: No Do you presently have visiting nurse or other home services: No Unable to assess alcohol history related to: Unknown Alcohol intake: current Alcohol intake frequency: holidays/special occasions only Alcohol type: beer and hard liquor Patient Tobacco Use Status: Former Tobacco user Tobacco use type: Cigarette Years Smoked: 20 e-Cigarette/Vaping Use: Former Use Second Hand Smoke Exposure: No Advance Directives Date on File: 02/18/20 service: No Current occupational status: employed 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 Current occupational exposures/hazards: No Cognitive needs: No Hearing needs: No Vision needs: No Assessment & Plan Assessment & Plan (1) Pure hypercholesterolemia: Code(s): E78.00 - Pure hypercholesterolemia, unspecified Category: Medical Plan: current wt: 114 kg ( 02/10 ) est kcal needs as per MSJ: 2700 est protein needs as per 1 g/kg BW: 110 est fluid needs as per 30 ml/kg BW: 3400 Recommended fiber > 12 g /day and gradually increase up to 25-28 g /day or as tolerated Sodium recommendation: less than 2300 mg/dl unless otherwise specified by MD Nutrition topics discussed : Reviewed (R), Pt verbalized understanding (V) , not applicable (N/A) R, : Healthy Plate Method Concept: R, V, N/A: Carbohydrates: food sources of carbohydrates, relationship of carbohydrates to blood glucose, fatty liver GI health. Recommended total amount of carbohydrates per meals and snack. Differences between simple carbohydrates and complex carbohydrates R, : Lean protein foods including vegan , vegetarian sources of protein. Benefits of protein (including but not limited to healing, nutritional value , benefits in weight loss, glucose control R, : Fats : Source of fats, benefits of fats. Difference between saturated and unsaturated fats. Saturated fats and its contribution to inflammation R, V, N/A: Fiber: food sources and role of fiber in the diet (including but not limited to its role as a prebiotic, benefits in constipation, role in IBS , role in glucose control and cholesterol level) R,: Hydration: role of hydration and prevention of dehydration or over hydration. Foods and water content. R, V, N/A: Vitamins and Minerals in foods and supplements R, V, N/A: Interpreting food labels, including serving size, macronutrients, vitamins, minerals, allergens, ingredient list , % daily value Patient Instructions: Work on reducing saturated fats (fried foods/processed foods/meats, cheese sauces , organ meats, visible fats) , replace with monounsaturated fats (avocado, seeds, fish at least twice a week Include fiber rich foods in your diet : switch to whole grain breads, cereals, include 1/2 cup of nons tarchy vegetable at dinner on a daily basis Keep hydrated by having water with meals and snack s see meal plan for ideas Coding Level of Care Code Nutr Indiv Intake (79184) Diagnoses Pure hypercholesterolemia E78.00 Time Spent (min) 30
[2025-01-31 09:36] VITALS: BMI 34.2
--- OUTSIDE RECORDS SUMMARY | 2025-01-31 11:09 | XMS_ITS | Encounter Summary ---
Author Organization [employer] Address [address] [place] [address] 7 [place] [address] Care Team Providers Care Pre School Manager Name Role Phone Unavailable Primary Care Provider Unavailabl e Encounter Details Date Type Department Care Team (Latest Contact Info) Description 05/05/2019 Abstract [facility] CONVERSIONS Dental, Provider, DDS Social History Tobacco [...] EDT Office Visit [facility] [address] [place] [address] Florina Banuelos MD [address] [place] [address] documented as of this encounter Visit Diagnoses Not on filedocumented in this encounter
--- OUTSIDE RECORDS SUMMARY | 2025-01-31 11:09 | XMS_ITS | Clinical Summary ---
Author Organization [employer] Address [address] [place] [address] [address] [address] Care Team Providers Care Paper Tube Machine Operator Name Role Phone Unavailable Primary Care Provider Unavailabl e Encounters Date Type Department Care Team Description 11/25/2024 Telephone [facility] [address] [place] [address] [phone] Erlin Romo MD New Patient appt. from [...] Description 02/17/2025 9:15 AM EDT Office Visit [facility] [address] [place] [address] [phone] Florina Banuelos MD [address] [place], [place] [phone] Health Maintenance Due Date Last Done Comments [...] age [place] [id number] [facility] [place] [id number]
[2025-02-01 20:49] VITALS: BMI 34.2
== END 2025-01-31 10:12 | disposition home or self-care (01) ==
LOC: HO.ENCR 09:24
PROVIDERS: PCP Internal Medicine; Visit Provider Dietitian, Registered
DX: E78.00 Pure hypercholesterolemia, unspecified (principal)

== ENCOUNTER → 2025-01-31 09:23 | Outpatient (BNVA) | payer OTHER, SELFPAY | PROVIDERS: PCP Internal Medicine; Visit Provider Dietitian, Registered | DX: Z71.3 Dietary counseling and surveillance (principal); E78.00 Pure hypercholesterolemia, unspecified | CPT/HCPCS: 97802 ==

== ENCOUNTER 2025-02-10 08:53 | Outpatient (AMB) | payer OTHER, SELFPAY ==
--- NOTE | 2025-02-10 09:03 | MHC.OFFVIS ---
Vital Signs 02/10/25 09:05 Height 6 ft Weight 248 lb 3.848 oz BMI 33.7 BP 146/80 H Blood Pressure Location Lt brachial Position Sitting Pulse 72 Intake Visit Reasons: F/U Barium Swallow , GERD Intake Note: Ramiro returns in follow up of GERD and barium swallow results. CC: Patient reports haiving GERD. Patient reports having RUQ abd pain and nausea back in October and had an X ray done after going to his PCP. He also c/o left lower back. 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 BUT he is forgetting to take the pantoprazole EVERY DAY. This prompts education about the need to take it every day, I s uggest that he move it to qhs dosing to promote easier compliance. After Barium Swallow Barium swallow 12/22/2024 FINDINGS: ESOPHAGRAM: Lateral cine images of the oropharynx and hypopharynx demonstrate normal swallow mechanism with normal epiglottic inversion and soft palate elevation. No laryngeal penetration, glottic or subglottic aspiration identified. No nasopharyngeal reflux present. Hypopharyngeal structures appear normal without evidence of mass or diverticulum. There was no significant cricopharyngeal achalasia. Dual and single contrast images of the esophagus demonstrate normal caliber, contour, and mucosal pattern. No evidence of stricture, mass, or ulcerations identified. Esophageal peristalsis is mildly disordered. Small to moderate sized type I hiatus hernia identified. No significant gastroesophageal reflux was seen during the course of the examination and on reflux views. Dual contrast and single contrast images of the stomach are limited due to patient inability to retain the effervescent granule gas. There was grossly normal contour without evidence of mass or large ulceration. There is diffuse prominence of the area gastricae suggesting gastritis. Likewise, there was prominence of the gastric rugal folds. Contrast freely passed into the gastric antrum and duodenal bulb without delay. Single and air-contrast images of the duodenal bulb demonstrate no abnormality. The duodenal sweep has a normal appearance, course, and mucosal fold appearance. FLUOROSCOPY TIME: 2 minutes 59 seconds Number of Spot Images:11 Number of cines obtained: 8 DOSE AREA PRODUCT: [id number] uGy-m2 (microgray-meter squared) FL/FL barium swallow with air IMPRESSION: 1. Mildly disordered esophageal peristalsis. 2. No definite gastroesophageal reflux observed during the course of the examination. 3. There is a small to moderate sized type I hiatus hernia. 4. Mildly limited examination of the stomach as detailed. Thickening of the areae gastricae and prominence of the rugal folds suggests underlying gastritis. Today's visit [place] #Annemarie Hawley [facility] Medical History (Updated 02/10/25 @ 09:16 by MERRICK Villasenor) Hospital discharge follow-up Pneumonia Left hand pain Osteoarthritis of right hand Pure hypercholesterolemia Chest pain Essential hypertension Rash and nonspecific skin eruption GARRET on CPAP Shortness of breath Low TSH level Abdominal pain Fatigue Muscle cramps Paresthesia Numbness of left hand Stiffness of right hand joint Nephrolithiasis Foreign body of right hand Physical exam ACTH elevation Degenerative arthritis of thoracic spine History of hyperprolactinemia Hyperthyroidism GERD (gastroesophageal reflux disease) Hypovitaminosis D Palpitations Polyarthralgia Obesity Essential hypertension Surgical History (Updated 02/10/25 @ 09:16 by MERRICK Villasenor) S/P cardiac cath Carpal tunnel syndrome of right wrist H/O colonoscopy H/O lithotripsy H/O umbilical hernia repair Family History Mother Heart problem Father Stroke Social History Household Members: Family Housing: Apartment Are you a primary grounds caretaker to a significant other at home: No Do you presently have visiting nurse or other home services: No Unable to assess alcohol history related to: Unknown Alcohol intake: current Alcohol intake frequency: holidays/special occasions only Alcohol type: beer and hard liquor Patient Tobacco Use Status: Former Tobacco user Tobacco use type: Cigarette Years Smoked: 20 e-Cigarette/Vaping Use: Former Use Second Hand Smoke Exposure: No Advance Directives Date on File: 02/18/20 service: No Current occupational status: employed 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 Current occupational exposures/hazards: No Cognitive needs: No Hearing needs: No Vision needs: No Review of Systems Const Reports fatigue, Denies fever(s), Reports malaise, Denies night sweats, Denies poor appetite and Denies weight loss ENT Reports Normal hearing present, Denies dental pain, Denies dysphagia, Denies hearing loss, Denies mouth pain, Reports nasal congestion, Reports nasal discharge, Denies odynophagia, Denies throat swelling, Denies tongue swelling and Reports other (Dentition adequate) Card Reports no additional complaints and Reports dyspnea on exertion Resp Reports cough and Reports dyspnea on exertion GI Details: Denies abdominal pain, Denies melena, Denies bloating, Denies hematochezia, Denies constipation, Denies GI cramping, Denies dysphagia, Denies excessive flatus, Denies early satiety, Denies heartburn, Denies diarrhea, Denies nausea, Denies odynophagia, Denies vomiting and Denies hematemesis Skin/Breast Denies pruritus, Denies lesions, Denies rash and Denies jaundice Neuro Reports Normal hearing present and Denies Abnormal speech present Endo Reports fatigue Aller/Immun Denies throat swelling and Denies tongue swelling Physical Exam Vital Signs: Last Vital Signs Pulse 72 02/10/25 09:05 BP 146/80 H 02/10/25 09:05 BMI result Body Mass Index 33.7 Const General: cooperative, no acute distress, well developed and well groomed Nutritional Appearance: well nourished and overweight Orientation/consciousness: oriented to person, oriented to place and oriented to time Limitations: language barrier HEENT Head: Yes normocephalic and Yes atraumatic Eyes General: appearance normal, both eyes and all related structures Pupils: Equal, round and reactive pupils present Neck Neck: Yes normal visual inspection and Yes no lymphadenopathy Thyroid: Thyroid normal Resp Effort & Inspection: normal respiratory effort and able to speak in complete sentences GI Inspection: No distended and No Abdominal panniculus present Palpation (GI): Soft to palpation, nontender, no guarding, not rigid and No hepatosplenomegaly present Percussion: Yes normal to percussion Auscultation: normal bowel sounds Rectal Exam - Male: Yes deferred Skin General skin exam: no rashes or lesions noted, turgor normal, skin not dry, no jaundice, No spider nevi and no striae Rashes: no rashes Nails: normal Neuro General: oriented to person, oriented to place and oriented to time Cranial nerves: Yes Equal, round and reactive pupils present and Yes Normal hearing present Speech: No Abnormal speech present Extrem General: Yes normal to inspection, No clubbing, No cyanosis and No edema Psych Appearance: grossly normal and well kempt Mental Status: mental status grossly normal Speech and movement: Normal speech and movement present Affect: normal affect Attitude: cooperative Thought process: Normal thought process present and not confabulating Thought content: Normal thought content present Insight: Limited insight present (Psych) Judgement: Limited judgement present (Psych) Assessment & Plan Assessment & Plan (1) GERD (gastroesophageal reflux disease): Code(s): K21.9 - Gastro-esophageal reflux disease without esophagitis Category: Medical Qualifiers: Esophagitis presence: esophagitis presence not specified Qualified Code(s): K21.9 - Gastro-esophageal reflux disease without esophagitis Plan [place] # Annemarie Live He has been through quite a lot with his health since I last saw him in September. He had an NSTEMI in October and subsequently a pneumonia. He continues to have respiratory problems saying he feels like he has ?a cold that has gone on for a month. ? Apparently he was treated for the pneumonia and he is waiting to see pulmonology. He ran out of his pantoprazole. It looks like someone to get off of his medication list and that may be why the refill was missed. However, I advise him whenever he has serious health problems to call the office and tell us what is happening and I will not withhold his medications. We will get it refilled today. Fortunately, he is able to tell the difference between cardiac pain and his heartburn. Otherwise, these comorbid conditions could obscure whether or not the GI regimen is effective. We review the ultrasound he does have a [id number] hiatal hernia. Medical management would be preferable to surgery and I explained to him that we do not do esophageal surgery unless medication therapy has failed. Return office visit in 6 months Medications: New pantoprazole (Protonix) 40 mg PO DAILY 30 days 30 tabs 6RF pantoprazole (Protonix) 40 mg PO DAILY 30 tabs 6RF 30 days Coding Level of Care Code Est Pt Level 3 (69662) Diagnoses Gastroesophageal reflux disease, unspecified whether esophagitis present K21.9 Esophagitis presence: esophagitis presence not specified
[2025-02-10 09:05] VITALS: BP 146/80; PULSE 72; BMI 33.7
--- OUTSIDE RECORDS SUMMARY | 2025-02-10 09:33 | XMS_ITS | Clinical Summary ---
Author Organization [employer] Address [address] [place] [address] Care Team Providers Care Dental Treatment Coordinator Name Role Phone Unavailable Primary Care Provider Unavailabl e Encounters Date Type Department Care Team Description 02/09/2025 Patient Outreach [facility] MEDICINE [address] [place] [address] Florina Banuelos MD Pre-visit Planning (SDOH screening negative and tobacco screening negative) 11/25/2024 Telephone [facility] MEDICINE [address] [place] [address] Erlin Romo MD New Patient appt. from Last 3 Months Social History Tobacco Use Types Packs/Day Years Used Date Smoking Tobacco: Never Assessed Housing Stability Answer Date Recorded What is your housing situation today? I have ava sing 02/09/[address] you li ve. Do you have problems with any of the following? None of the above 02/09/2025 Food Insecurity Answer Date Recorded Within the past 12 months, y ou worried that your food would run out before you got money to buy more: Never True 02/09/2025 Within the past 12 months,th e food you bought just didn't last and you didn't have enough money to get more: Never True Transportation Answer Date Recorded In the past 12 months, has l ack of transportation kept you from medical appts, meetings, work or from getting things needed for daily living? No 02/09/2025 Utilities Answer Date Recorded In the past 12 months, has t he electric, gas, oil or water company threatened to shut off services in your home? No 02/09/2025 Internet Access Answer Date Recorded Internet Access Q1 Yes 02/09/2025 Internet Access Q2 Not on file 02/09/2025 Sex and Gender Information Value Date Recorded [...] Description 02/17/2025 9:15 AM EDT Office Visit [facility] MEDICINE [address] [place] [address] Florina Banuelos MD [address] [place] [address] Health Maintenance Due Date Last Done Comments CT Colonography 1961 Colonoscopy 1961 Colorectal Cancer Screening 1961 Depression Screening 1961 FIT DNA/Cologuard 1961 FIT 1961 FOBT 1961 HIV Screening 1961 Lipid Panel 1961 Sigmoidoscopy 1961 Disability Screening 1961 Alcohol/Substance Use Screening 1973 Tobacco Screening 1973 Hepatitis C Screening 07/19/1979 DTaP/Tdap/Td Vaccines (1 - Tdap) 1980 Pneumococcal Vaccine: 50+ Years (1 of 1 - PCV) 07/19/2011 Zoster Vaccines (1 of 2) 07/19/2011 COVID-19 Vaccine (4 - season) 2025 08/03/2021, 07/06/2020, 06/08/2020 Influenza Vaccine (#1) 2025 9, 02/26/2018, 02/12/2017, Additional history exists SDOH Screening 02/09/2026 02/09/2025 RSV Patients and Patients Aged 60 years [...] patient's age to complete this topic Insurance [facility] [place] [address] [place] [address]
--- OUTSIDE RECORDS SUMMARY | 2025-02-10 09:33 | XMS_ITS | Encounter Summary ---
Author Organization [employer] Address [address] [place] [address] [address] [place] [address] Care Team Providers Care Servomechanism Designer Name Role Phone Unavailable Primary Care Provider Unavailabl e Encounter Details Date Type Department Care Team (Latest Contact Info) Description 05/05/2019 Abstract [facility] CONVERSIONS Dental, Provider, DDS Social History [...] Description 02/17/2025 9:15 AM EDT Office Visit [facility] MEDICINE [address] [place] [address] Florina Banuelos MD [address] [place] [address] documented as of this encounter Visit Diagnoses Not on filedocumented in this encounter
--- OUTSIDE RECORDS SUMMARY | 2025-02-10 09:33 | XMS_ITS | Encounter Summary ---
Author Organization [employer] Address [address] [place] [address] [address] [place] [address] Care Team Providers Care Counterintelligence Specialist Name Role Phone Unavailable Primary Care Provider Unavailabl e Reason for Visit * Reason Comments Pre-visit Planning SDOH screening negat chasity and tobacco screening negative Encounter Details Date Type Department Care Team ([facility] st Contact Info) Description 02/09/[address] [facility] MEDICINE [address] [place] [address] Florina Banuelos MD [address] [place] [address] Pre-visit Planning (SDOH screening negative and tobacco screening negative) Social History Tobacco Use Types Packs/Day Years Used Date Smoking Tobacco: Never Assessed Housing Stability Answer Date Recorded What is your housing situation today? I have ava rommel 02/09/[address] you li [...] AM EDT documented as of this encounter Progress Notes * Shanna Pelaez - 02/09/2025 10:02 AM EDT CC Shanna placed successful outbound call to patient for pre-visit planning. Patient name and confirmed. Patient confirms appt date and time, and has transportation. Biggest concern for appointment at this time is none Patient advised to bring to appointment a photo id and insurance card. Appropriate screenings completed in anticipation of appointment. documented in this encounter Plan of Treatment Upcoming Encounters Date Type Department Care Team (Late st Contact Info) Description 02/17/2025 9:15 AM EDT Office Visit [facility] MEDICINE [address] [place] [address] Florina Banuelos MD [address] [place] [address] documented as of this encounter Visit Diagnoses Not on filedocumented in this encounter
== END 2025-02-10 11:16 | disposition home or self-care (01) ==
LOC: HO.HGI 08:53
PROVIDERS: PCP Internal Medicine; Visit Provider Nurse Practitioner
DX: K21.9 Gastro-esophageal reflux disease without esophagitis (principal)
CPT/HCPCS: 99213

== ENCOUNTER 2025-02-17 10:21 | Outpatient (REF) | payer OTHER, SELFPAY ==
--- NOTE | ~2025-02-17 | XR_ITS ---
EXAMINATION: XR LUMBOSACRAL SPINE WITH OBLIQUES CLINICAL INFORMATION: LBP + elft hip pain x 1y COMPARISON: December 20, 2024 TECHNIQUE: AP oblique and lateral views FINDINGS: Marginal osteophyte formation and syndesmophyte formation, L2-3 with superior endplate sclerosis and sclerotic Schmorl node , L3. Mild S-shaped curvature apex at L2-3. 1 mm retrolisthesis L2-3. No lytic or blastic lesions. Vascular calcifications, aorta. 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 Electronically signed by: Teodoro Hunter MD 02/17/2025 10:52 AM EDT
--- OUTSIDE RECORDS SUMMARY | 2025-02-17 09:15 | XMS_ITS | Encounter Summary ---
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 (Primary Dx); Nasal congestion; Lung nodules; Chronic bilateral low back pain without sciatica; Primary hypertension; Enlarged thyroid; Centrilobular emphysema (HCC) Social History Tobacco Use Types Packs/Day Years Used Date Smoking Tobacco: Former Cigarettes S tarted: 1996 Passive Smoke Exposure: Never Smokeless Tobacco: Never Alcohol Use Standard Drinks/Week Comments Not Currently 0 (1 standard drink = 0.6 oz pur e alcohol) 1-2x/y Depression Answer Date Recorded Patient Health Questionnaire-9 Score 2 02/17/2025 Patient Health Questionnaire-9 Score 2 02/17/2025 Last PHQ-9: Questionnaire Data Not on file 1 Housing Stability Answer Date Recorded What is your housing situation today? I have ava carney 02/09/[address] you li [...] off services in your home? No 02/09/2025 Depression Answer Date Recorded Patient Health Questionnaire-2 Score 1 02/17/2025 Internet Access Answer Date Recorded Internet Access Q1 Yes 02/09/2025 Internet Access Q2 Not on file 02/09/2025 Sex and Gender Information Value Date Recorded Sex Assigned at Male 03/18/2022 10:25 AM EDT Legal Sex Male 10:25 AM EDT Gender Identity Choose not to disclose 10:25 AM EDT Sexual Orientation Choose not to disclose 2021 10:25 AM EDT documented as of this encounter Last Filed Vital Signs Vital Sign Reading Time Taken Comments Blood Pressure 142/70 02/17/2025 9:26 AM EDT Pulse 92 02/17/2025 9:26 AM EDT Temperature 36.3 C (97.3 F) 02/17/2025 9:26 AM EDT Respiratory Rate 22 02/17/2025 9:26 AM EDT Oxygen Saturation - - Inhaled Oxygen Concentration - - Weight 113 kg (249 lb 6 oz) 02/17/2025 9:26 AM E DT Height 182.9 cm (6') 02/17/2025 9:26 AM EDT Body Mass Index 33.82 02/17/2025 9:26 AM EDT documented in this encounter Functional Status * Over the past 2 weeks, how often have you been bothered by any of the following problems? Question Answer Date of Assessment Author Patient Health Questionnaire-2 Score 1 06/2024 9:28 AM EDT Luisa Bocanegra MA * Little interest or pleasure in doing things Answer Date of Assessment Author Several days 02/17/2025 9:28 AM EDT Luisa Bocanegra MA * Feeling down, depressed, or hopeless Answer Date of Assessment Author Not at all 02/17/2025 9:28 AM EDT Luisa Bocanegra MA * Trouble falling or staying asleep, or sleeping too much Answer Date of Assessment Author Several days 02/17/2025 9:28 AM EDT Luisa Bocanegra MA * Feeling tired or having little energy Answer Date of Assessment Author Not at all 02/17/2025 9:28 AM EDT Luisa Bocanegra MA * Poor appetite or overeating Answer Date of Assessment Author Not at all 02/17/2025 9:28 AM EDT Luisa Bocanegra MA * Feeling bad about yourself - or that you are a failure or have let yourself or your family down Answer Date of Assessment Author Not at all 02/17/2025 9:28 AM EDT Luisa Bocanegra MA * Trouble concentrating on things, such as reading the newspaper or watching television Answer Date of Assessment Author Not at all 02/17/2025 9:28 AM EDT Luisa Bocanegra MA * Moving or speaking so slowly that other people could have noticed? Or the opposite - being so fidgety or restless that you have been moving around a lot more than usual. Answer Date of Assessment Author Not at all 02/17/2025 9:28 AM EDLuisa Lugo MA * Thoughts that you would be better off or hurting yourself in some way Answer Date of Assessment Author Not at all 02/17/2025 9:28 AM Luisa Dodd MA * Patient Health Questionnaire-9 Score Answer Date of Assessment Author 2 02/17/2025 9:28 AM EDDEIT Luisa Bocanegra MA * How difficult have these problems made it for you to do your work, take care of things at home, or get along with other people? Answer Date of Assessment Author Not difficult at all 02/17/2025 9:28 AM EDT Luisa Del Rio MA * Over the last 2 weeks, how often have you been bothered by any of the following problems? Question Answer Date of Assessment Author Feeling nervous, anxious, or on edge 0 06/2024 9:28 AM EDT Luisa Bocanegra MA Not being able to stop or co ntrol worrying 0 02/17/2025 9:28 AM EDT Bocanegra, Luisa, M A Worrying too much about diff erent things 0 02/17/2025 9:28 AM EDT BocanegraLuisa M A Trouble relaxing 0 02/17/2025 9:28 AM EDT M ronLuisa barrettCAPRI Being so restless that it is hard to sit still 0 02/17/2025 9:28 AM EDT BocanegraLuisa M A Becoming easily annoyed or irritable 0 06/2024 9:28 AM EDT Luisa Bocanegra CAPRI Feeling afraid as if somethi ng awful might happen 0 02/17/2025 9:28 AM EDT BocanegraLuisa M A ORIANA-7 Total Score 0 02/17/2025 9:28 AM EDT Luisa Bocanegra CAPRI documented as of this encounter Plan of Treatment Upcoming Encounters Date Type Department Care Team (Late st Contact Info) Description 04/29/2025 9:45 AM EST Office Visit [facility] [address] [place], [place] [phone] Florina Banuelos MD [address] [place] [address] Scheduled Orders Name Type Priority Associated Diagnoses Orde r Schedule CBC auto differential Lab Routine 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 Nasal congestion Expected: 02/17/2025 (Approximate), Expires: 02/17/2026 Comprehensive Metabolic Panel Lab Routine 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 Expected: 02/17/2025 (Approximate), Expires: 02/17/2026 Lipid Panel with Reflex to Direct LDL Lab Routine 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 Primary hypertension Expected: 02/17/2025 (Approximate), Expires: 02/17/2026 TSH with Reflex to Free T4 Lab Routine Enlarged thyroid Expected: 02/17/2025 (Approximate), Expires: 02/17/2026 T-SPOT .TB Lab Routine Lung nodules Expected: 02/17/2025 (Approximate), Expires: 02/17/2026 HIV-1/2 Antigen and Antibodies, Fourth Generation, with Reflexes Lab Routine Lung nodules Expected: 02/17/2025 (Approximate), Expires: 02/17/2026 Hepatitis Panel, General Lab Routine Lung nodules Expected: 02/17/2025 (Approximate), Expires: 02/17/2026 Syphilis Screen Lab Routine Lung nodules Expected: 02/17/2025 (Approximate), Expires: 02/17/2026 documented as of this encounter Procedures Procedure Name Priority Date/Time Associated Diagnosis Comments XR LUMBAR SPINE COMPLETE 4+ VIEWS Routine 02/17/2025 10:45 AM EDT Chronic bilateral low back pain without sciatica POCT INFLUENZA B (ID NOW RAPID MOLECULAR) Routine 02/17/2025 9:41 AM EDT Nasal congestion POCT INFLUENZA A (ID NOW RAPID MOLECULAR) Routine 02/17/2025 9:40 AM EDT Nasal congestion POCT RAPID COVID ANTIGEN Routine 02/17/2025 9:40 AM EDT Nasal congestion documented in this encounter Results * XR Lumbar Spine Complete 4+ Views (02/17/2025 10:45 AM EDT) Anatomical Region Laterality Modality Spine, L-spine Radiographic Kiera ging 02/17/2025 10:4 5 AM EDT Narrative 02/17/2025 10:55 AM EDT [address] [address] XRay Report Signed Patient: Ramiro Lerma MR#: [id number] : 1960 Acct:[id number] Age/Sex: 64 / M ADM Date: 02/17/25 Loc: HO.HHCX Attending Dr: Florina Banuelos MD Ordering Physician: Florina Banuelos MD Date of Service: 02/17/25 Procedure(s): XR lumbar spine 4V min Accession Number(s): [id number] cc: Florina Banuelos MD Reason for Exam: LBP + elft hip pain x 1y EXAMINATION: XR LUMBOSACRAL SPINE WITH OBLIQUES CLINICAL INFORMATION: LBP + elft hip pain x 1y COMPARISON: December 20, 2024 TECHNIQUE: AP oblique and lateral views FINDINGS: Marginal osteophyte formation and syndesmophyte formation, L2-3 with superior endplate sclerosis and sclerotic Schmorl node , L3. Mild S-shaped curvature apex at L2-3. 1 mm retrolisthesis L2-3. No lytic or blastic lesions. Vascular calcifications, aorta. 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 Electronically signed by: Teodoro Hunter MD 02/17/2025 10:52 AM EDT RP Dictated By: Teodoro Gamez MD Signed By: <Electronically signed by Teodoro Elam MD in OV> 02/17/25 1052 DD/ 1045 TD/TT: 02/17/25 1045 Manager Social Responsibility: Procedure Note Donotuseinterpreter, Image - 02/17/2025 [place] [address] XRay Report Signed Patient: Ramiro Lerma AMR#: [id number] : 1960cct:[id number] Age/Sex: 64 / MADM Date: 02/17/25 Loc: HO.HHCX Attending Dr: Florina Banuelos MD Ordering Physician: Florina Banuelos MD Date of Service: 02/17/25 Procedure(s): XR lumbar spine 4V min Accession Number(s): [id number] cc: Florina Banuelos MD Reason for Exam: LBP + elft hip pain x 1y EXAMINATION: XR LUMBOSACRAL SPINE WITH OBLIQUES CLINICAL INFORMATION: LBP + elft hip pain x 1y COMPARISON: December 20, 2024 TECHNIQUE: AP oblique and lateral views FINDINGS: Marginal osteophyte formation and syndesmophyte formation, L2-3 with superior endplate sclerosis and sclerotic Schmorl node , L3. Mild S-shaped curvature apex at L2-3. 1 mm retrolisthesis L2-3. No lytic or blastic lesions. Vascular calcifications, aorta. 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 Electronically signed by: Teodoro Hunter MD 02/17/2025 10:52 AM EDT RP Dictated By: Teodoro Gamez MD Signed By: <Electronically signed by Teodoro Elam MDin OV> 02/17/25 1052 DD/ 1045 TD/TT: 02/17/25 1045 Manager Social Responsibility: us Florina Banuelos MD IMG XR PROCEDURES Edited Result - Final * POCT Rapid Influenza B TARANGO ID NOW (02/17/2025 9:41 AM EDT) Influenza B Negative Negative, Indeterminate [facility] QC Media Lot # [id number] [facility] Lot# Expiration Date [facility] Swab 02/17/2025 9:41 AM EDT us Florina Banuelos MD POINT OF CARE TEST ENTER /EDIT ORDERABLES Final Result Performing Organization Address City/State/[facility] Co de Phone Number [facility] [address] [place] [phone] * POCT Rapid Covid-19 BinaxNOW (02/17/2025 9:40 AM EDT) Rapid COVID Ag Negative QC Media Lot # [id number] Lot# Expiration Date Swab 02/17/2025 9:40 AM EDT Florina Banuelos MD POINT OF CARE TEST ENTER /EDIT ORDERABLES Final Result * POCT Rapid Influenza A TARANGO ID NOW (02/17/2025 9:40 AM EDT) Influenza A Negative Negative, Indeterminate [facility] QC Media Lot # [id number] [facility] Lot# Expiration Date [facility] Swab 02/17/2025 9:40 AM EDT Florina Banuelos MD POINT OF CARE TEST ENTER /EDIT ORDERABLES Final Result 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- Primary Nasal congestion Other diseases of nasal cavity and sinuses Lung nodules Other diseases of lung, not elsewhere classified Chronic bilateral low back pain without sciatica Primary hypertension Unspecified essential hypertension Enlarged thyroid Goiter, unspecified Centrilobular emphysema (HCC) documented in this encounter Additional Health Concerns Assessment Noted Time PHQ-9 Depression Total Score: 2 02/18/20 9:28 AM EDT documented as of this encounter Care Teams Production Line Solderer Relationship Specialty Start Date End Date Florina Banuelos MD [address] [place] [phone] PCP - General Internal Medicine 02/17/25 documented as of this encounter
--- OUTSIDE RECORDS SUMMARY | 2025-02-17 11:49 | XMS_ITS | Encounter Summary ---
Author Organization [employer] Address [address] [facility] [address]t [place] [address] Care Team Providers Care Exercise Science Instructor Name Role Phone Florina Banuelos MD Primary Care Provider + Encounter Details Date Type Department Care Team (Latest Contact Info) Description 02/17/2025 Travel Social History Tobacco Use Types Packs/Day Years [...] AM EDT documented as of this encounter Functional Status * Over the [...] 9:28 AM EDT Luisa Bocanegra MA * Thoughts that you would be better off or hurting yourself in some way Answer Date of Assessment Author Not at all 02/17/2025 9:28 AM EDT Luisa Bocanegra MA * Patient Health Questionnaire-9 Score Answer Date of Assessment Author 2 02/17/2025 9:28 AM EDT Luisa Bocanegra MA * How difficult have [...] ntrol worrying 0 02/17/2025 9:28 AM EDT Luisa Bocanegra M A Worrying too much about diff erent things 0 02/17/2025 9:28 AM EDT Luisa Bocanegra M A Trouble relaxing 0 02/17/2025 9:28 AM EDT Luisa Ramirez MA Being so restless that it is hard to sit still 0 02/17/2025 9:28 AM EDT Luisa Bocanegra M A Becoming easily annoyed or irritable 0 06/2024 9:28 AM EDT Luisa Bocanegra MA Feeling afraid as if somethi ng awful might happen 0 02/17/2025 9:28 AM EDT Luisa Bocanegra M A ORIANA-7 Total Score 0 02/17/2025 9:28 AM EDT Luisa Bocanegra MA documented as of this encounter Plan of Treatment Upcoming Encounters Date Type Department Care Team (Late st Contact Info) Description 04/29/2025 9:45 AM EST Office Visit [facility] MEDICINE [address] [place] [address] Florina Banuelos MD [address] [place] [address] documented as of this encounter Visit Diagnoses Not on filedocumented in this encounter Additional Health Concerns Assessment Noted Time PHQ-9 Depression Total Score: 2 02/18/20 25 9:28 AM EDT documented as of this encounter Care Teams Exercise Science Instructor Relationship Specialty Start Date End Date Florina Banuelos MD [address] [place] [phone] PCP - General Internal Medicine 02/17/25 documented as of this encounter
--- OUTSIDE RECORDS SUMMARY | 2025-02-17 11:49 | XMS_ITS | Encounter Summary ---
Author Organization [employer] Address [address] [place] [address] [address]t [place] [address] Care Team Providers Care Floorwalker Name Role Phone Florina Banuelos MD Primary Care Provider + Encounter Details Date Type Department Care Team (Latest Contact Info) Description 05/05/2019 Abstract [facility] Dental, Provider, DDS Social History [...] Description 04/29/2025 9:45 AM EST Office Visit [facility] [address] [place] [address] Florina Banuelos MD [address] [place] [address] documented as of this encounter Visit Diagnoses Not on filedocumented in this encounter Care Teams Floorwalker Relationship Specialty Start Date End Date Florina Banuelos MD [address] [place] [address] PCP - General Internal Medicine 02/17/25 documented as of this encounter
--- OUTSIDE RECORDS SUMMARY | 2025-02-17 11:49 | XMS_ITS | Clinical Summary ---
Author Organization [employer] Address [address] [facility] 7t [place] [address] Care Team Providers Care Photographic Laboratory Technician Name Role Phone Florina Banuelos MD Primary Care Provider + Allergies No known active allergies Medications acetaminophen (Tylenol Extra Strength) 500 MG tablet Take 1 tablet (500 mg) by mouth every 6 (six) hours if needed for mild pain. 120 tablet 5 03/19/20 25 Active cetirizine (ZyrTEC) 10 MG tablet Take 1 tablet (10 mg) by mouth Once per day. 30 tablet 2 5 05/18/20 25 Active fluticasone (Flonase) 50 MCG/ACT nasal spray Administer 1 spray into each nostril Once per day. 16 g 2 5 03/19/20 25 Active rosuvastatin (Crestor) 20 MG tablet Take 1 tablet (20 mg) by mouth at bedtime. 30 tablet 5 02/18/20 26 Active Active Problems Problem Noted Date Diagnosed Date Coronary artery disease invo lving [place] coronary artery of [place] heart without angina pectoris 02/17/2025 Nasal congestion 02/17/2025 Lung nodules 02/17/2025 Chronic bilateral low back pain without sciatica 02/17/2025 Primary hypertension 02/17/2025 Centrilobular emphysema 02/17/2025 Enlarged thyroid 02/17/2025 Encounters Date Type Department Care Team Description 02/17/2025 9:15 AM EDT Office Visit [facility] [address] [place] [address] Florina Banuelos MD Coronary artery disease involving [place] coronary artery of [place] heart without angina pectoris (Primary Dx); Nasal congestion; Lung nodules; Chronic bilateral low back pain without sciatica; Primary hypertension; Enlarged thyroid; Centrilobular emphysema (HCC) 02/17/2025 Travel 02/17/2025 Telephone [facility] [address] [place] [phone] Florina Banuelos MD Chart Prep 02/09/2025 Patient Outreach [facility] [address] [place], [place] [phone] Florina Banuelos MD Pre-visit Planning (SDOH screening negative and tobacco screening negative) 11/25/[address] [facility] [address] [place] [address] Erlin Romo MD New Patient appt. from [...] Mass Index 33.82 02/17/2025 9:26 AM EDT Plan of Treatment Upcoming Encounters Date Type Department Care Team (Late st Contact Info) Description 04/29/2025 9:45 AM EST Office Visit [facility] [address] [place] [phone] Florina Banuelos MD [address] [place] [address] Health Maintenance Due Date Last Done Comments CT Colonography 1960 Colonoscopy 1960 Colorectal Cancer Screening 1960 FIT DNA/Cologuard 1960 FIT 1960 FOBT 1960 HIV Screening 1960 Lipid Panel 1960 Sigmoidoscopy 1960 Disability Screening 1961 Alcohol/Substance Use Screening 1973 Hepatitis C Screening 07/19/1979 DTaP/Tdap/Td Vaccines (1 - Tdap) 1980 Pneumococcal Vaccine: 50+ Years (1 of 2 - PCV) 1980 Zoster Vaccines (1 of 2) 07/19/2011 RSV Patients and Patients Aged 60 years or older (1 - Risk 60-74 years 1-dose series) 2021 COVID-19 Vaccine (4 - 2024- season) 2025 08/03/2021, 07/06/2020, 06/08/2020 Influenza Vaccine (#1) 2025 9, 02/26/2018, 02/12/2017, Additional history exists SDOH Screening 02/09/2026 02/09/2025 Depression Screening 02/17/2026 02/17/2025, 02/18/20 Tobacco Screening 02/17/2026 02/17/2025 Hepatitis B Vaccines Aged Out 09/12/2017, 10/21/2016, [...] on patient's age to complete this topic Procedures Procedure Name Priority Date/Time Associated Diagnosis Comments XR LUMBAR SPINE COMPLETE 4+ VIEWS Routine 02/17/2025 10:45 AM EDT Chronic bilateral low back pain without sciatica POCT INFLUENZA B (ID NOW RAPID MOLECULAR) Routine 02/17/2025 9:41 AM EDT Nasal congestion POCT RAPID COVID ANTIGEN Routine 02/17/2025 9:40 AM EDT Nasal congestion POCT INFLUENZA A (ID NOW RAPID MOLECULAR) Routine 02/17/2025 9:40 AM EDT Nasal congestion from Last 3 Months Results * XR Lumbar Spine Complete 4+ Views (02/17/2025 10:45 AM EDT) Anatomical Region Laterality Modality Spine, L-spine Radiographic Kiera ging 02/17/2025 10:4 5 AM EDT Narrative 02/17/2025 10:55 AM EDT [address] [address] XRay Report Signed Patient: Ramiro Lerma MR#: [id number] : 1960 Acct:[id number] Age/Sex: 64 / M ADM Date: 02/17/25 Loc: HO.HHCX Attending Dr: Florina Banuelos MD Ordering Physician: Florina Banuelos MD Date of Service: 02/17/25 Procedure(s): XR lumbar spine 4V min Accession Number(s): [id number] cc: Flornia Banuelos MD Reason for Exam: LBP + [...] Teodoro Hunter MD 02/17/2025 10:52 AM EDT Dictated By: Teodoro Gamez MD Signed By: <Electronically signed by Teodoro Elam MD in OV> 02/17/25 1052 DD/ 1045 TD/TT: 02/17/25 1045 Medical Office Assistant: Procedure Note Donotuseinterpreter, Image - 02/17/2025 [facility] [address] [place] [address] XRay Report Signed Patient: Ramiro Lerma AMR#: [id number] : 2Acct:[id number] Age/Sex: 64 / MADM Date: 02/17/25 Loc: HO.HHX Attending Dr: Florina Banuelos MD Ordering Physician: Florina Banuelos MD Date of Service: 02/17/25 Procedure(s): XR lumbar spine 4V min Accession Number(s): [id number] cc: Florina Banuelos MD Reason for Exam: [...] Teodoro Hunter MD 02/17/2025 10:52 AM EDT Dictated By: Teodoro Gamez MD Signed By: <Electronically signed by Teodoro Elam MDin OV> 02/17/25 1052 DD/ 1045 TD/TT: 02/17/25 1045 Medical Office Assistant: Florina Banuelos MD IMG XR PROCEDURES Edited Result - Final * POCT Rapid Influenza B TARANGO ID NOW (02/17/2025 9:41 AM EDT) Influenza B Negative Negative, Indeterminate [facility] QC Media Lot # [id number] [facility] Lot# Expiration Date [facility] Swab 02/17/2025 9:41 AM EDT Florina Banuelos MD POINT OF CARE TEST ENTER /EDIT ORDERABLES Final Result Performing Organization Address [facility] Co de Phone Number [facility] [address] [place] [address] [phone] * POCT Rapid Influenza A TARANGO ID NOW (02/17/2025 9:40 AM EDT) Influenza A Negative Negative, Indeterminate [facility] QC Media Lot # [id number] [facility] Lot# Expiration Date [facility] Swab 02/17/2025 9:40 AM EDT Florina Banuelos MD POINT OF CARE TEST ENTER /EDIT ORDERABLES Final Result Performing Organization Address [facility] Co de Phone Number [facility] [address] [place] [address] [phone] * POCT Rapid Covid-19 BinaxNOW (02/17/2025 9:40 AM EDT) Rapid COVID Ag Negative QC Media Lot # [id number] Lot# Expiration Date Swab 02/17/2025 9:40 AM EDT Florina Banuelos MD POINT OF CARE TEST ENTER /EDIT ORDERABLES Final Result from Last 3 Months Insurance [facility] PPO Care Teams Photographic Laboratory Technician Relationship Specialty Start Date End Date Florina Banuelos MD [address] [place] [phone] PCP - General Internal Medicine 02/17/25
--- OUTSIDE RECORDS SUMMARY | 2025-02-17 11:49 | XMS_ITS | Encounter Summary ---
Author Organization [employer] Address [address] [place] [address] [place] [address] Care Team Providers Care Production Lapping Machine Operator Name Role Phone Florina Banuelos MD Primary Care Provider + Reason for Visit * Reason Onset Date Comments Chart Prep 02/17/2025 Encounter Details Date Type Department Care Team ([facility] Contact Info) Description 02/17/2025 Telephone [facility] [address] [place] [address] Florina Banuelos MD [address] [place] [address] Chart Prep Social History Tobacco Use Types Packs/Day Years [...] is your housing situation today? I have avayazmin carney 02/09/[address] you [...] AM EDT documented as of this encounter Miscellaneous Notes * Telephone Encounter - Kamille Knight MA - 02/17/2025 7:31 AM EDT Chart Prep Labs: not applicable Images: not applicable Referrals: not applicable Vaccines due: Covid, Flu, PCV20, Tdap, and Zoster Screenings: colonoscopy and HIV Screening, Hepatitis C Screening Overdue care gaps: SBIRT, PHQ-9, ORIANA-7, Oral health screening, and Disability screen documented in this encounter Plan of Treatment Upcoming Encounters Date Type Department Care Team (Late st Contact Info) Description 04/29/2025 9:45 AM EST Office Visit [facility] [address] [place] [phone] Florina Banuelos MD [address] [place] [address] documented as of this encounter Visit Diagnoses Not on filedocumented in this encounter Additional Health Concerns Assessment Noted Time PHQ-9 Depression Total Score: 2 02/18/20 9:28 AM EDT documented as of this encounter Care Teams Production Lapping Machine Operator Relationship Specialty Start Date End Date Florina Banuelos MD [address] [place] [phone] PCP - General Internal Medicine 02/17/25 documented as of this encounter
== END 2025-02-17 10:22 | disposition home or self-care (01) ==
LOC: HO.HHCX 10:21
PROVIDERS: Visit Provider Internal Medicine
DX: M54.50 Low back pain, unspecified (principal); G89.29 Other chronic pain
CPT/HCPCS: 72110

== ENCOUNTER → 2025-02-17 10:22 | Outpatient (BNV) | payer OTHER, SELFPAY | PROVIDERS: Visit Provider Radiology Diagnostic Radiology | DX: M47.816 Spondylosis without myelopathy or radiculopathy, lumbar region (principal) | CPT/HCPCS: 72110 ==

== ENCOUNTER 2025-03-07 08:22 | Outpatient (AMB) | payer OTHER, SELFPAY ==
--- NOTE | 2025-03-07 08:31 | MHC.OFFVIS ---
Vital Signs 03/07/25 08:32 Height 6 ft Weight 249 lb 1.957 oz BMI 33.8 BP 110/62 Blood Pressure Location Lt brachial Position Sitting Pulse 71 Pulse Source Pulse Oximeter Intake Visit Reasons: 3 mth f/up Seam Checker Required: Yes Seam Checker Name: bright perez [id number] Allergies No Known Allergies (No Known Allergies*) Allergy (Verified 03/07/25 08:34) Medication List - Last Reconciled 03/07/25 by Tayla Sun NP-C aspirin 81 mg PO DAILY atorvastatin 40 mg PO BEDTIME losartan 25 mg PO DAILY 90 days metoprolol succinate ER 25 mg PO DAILY nitroglycerin 0.4 mg sublingual Q5M PRN pantoprazole (Protonix) 40 mg PO DAILY 30 days ticagrelor 90 mg PO BID HPI HPI 3 mth f/up: Details: Ramiro is a 64-year-old male past medical history of hypertension, hyperlipidemia, sleep apnea, GERD, NSTEMI 10/2024 with SAKINA placed to OM1 who presents for follow-up. Today he reports he has been doing well since his hospital discharge. He has not had any recurrent chest or activity. He is attending cardiac rehab. He is not noticing shortness of breath like previously reported. No PND, orthopnea or edema. He does have occasional heart palpitations where he feels his heart going fast for a brief period of time then resolving. He said he had this symptom prior to the heart attack as well. No lightheadedness, presyncope, syncope. Compliant with all medications. Works full-time at [employer] [place] Certified japanese interpreter used. [facility] Medical History Hospital discharge follow-up Pneumonia Left hand pain Osteoarthritis of right hand Pure hypercholesterolemia Chest pain Essential hypertension Rash and nonspecific skin eruption GARRET on CPAP Shortness of breath Low TSH level Abdominal pain Fatigue Muscle cramps Paresthesia Numbness of left hand Stiffness of right hand joint Nephrolithiasis Foreign body of right hand Physical exam ACTH elevation Degenerative arthritis of thoracic spine History of hyperprolactinemia Hyperthyroidism GERD (gastroesophageal reflux disease) Hypovitaminosis D Palpitations Polyarthralgia Obesity Essential hypertension Surgical History S/P cardiac cath Carpal tunnel syndrome of right wrist H/O colonoscopy H/O lithotripsy H/O umbilical hernia repair Family History Mother Heart problem Father Stroke Social History Household Members: Family Housing: Apartment Are you a primary inspector health care facilities to a significant other at home: No Do you presently have visiting nurse or other home services: No Alcohol intake: current Alcohol intake frequency: holidays/special occasions only Alcohol type: beer and hard liquor Patient Tobacco Use Status: Former Tobacco user Tobacco use type: Cigarette Years Smoked: 20 e-Cigarette/Vaping Use: Former Use Second Hand Smoke Exposure: No Advance Directives Date on File: 02/18/20 service: No Current occupational status: employed 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 Current occupational exposures/hazards: No Cognitive needs: No Hearing needs: No Vision needs: No Review of Systems Const All systems reviewed & are unremarkable except as noted in HPI and below ENT Denies dizziness Card Denies chest pain, Denies chest pain at rest, Denies chest pain with activity, Reports rapid heart rate, Denies pedal edema, Denies edema, Denies leg edema, Denies lightheadedness, Denies palpitations, Denies dyspnea, Denies dyspnea on exertion and Denies orthopnea Resp Denies cough, Denies dyspnea and Denies dyspnea on exertion GI Denies hematochezia and Denies change in stool character Musc Denies abnormal gait, Denies limited range of motion, Denies muscle cramps, Denies muscle weakness, Denies numbness, Denies radiating pain into limb, Denies stiffness and Denies tingling Neuro Denies abnormal gait, Denies dizziness, Denies numbness and Denies tingling Endo Denies palpitations Physical Exam Vital Signs: Last Vital Signs Pulse 71 03/07/25 08:32 BP 110/62 03/07/25 08:32 BMI result Body Mass Index 33.8 Const General: cooperative, healthy appearing, comfortable and no acute distress Orientation/consciousness: patient oriented x3 Neck Neck: Yes normal visual inspection Resp Effort & Inspection: normal respiratory effort Auscultation: clear to auscultation bilaterally, no rales, no rhonchi and no wheezes Cardio Rate: regular rate Rhythm: regular rhythm Heart sounds: S1 normal heart sound present, S2 normal heart sound present, no gallops, no murmurs and no rubs Neuro General: patient oriented x3 Extrem Other: right radial cath site well healed with easily palpable radial pulse, hand assessment normal General: Yes normal to inspection and No no pedal edema Psych Appearance: grossly normal Mental Status: mental status grossly normal Speech and movement: Normal speech and movement present Assessment & Plan Assessment & Plan (1) Non-ST elevation CT (NSTEMI): Code(s): I21.4 - Non-ST elevation (NSTEMI) myocardial infarction Category: Medical Plan: NSTEMI 10/25/2024 with symptom of left chest burning that radiated through to his back. Cardiac catheterization showed 1st OM 90% stenosis, SAKINA placed. Echocardiogram showed EF 50-55%, basal inferior and basal inferior septal hypokinetic. Currently no anginal symptoms. Continue cardiac rehab. Continue aspirin indefinitely. Continue Brilinta uninterrupted for at least 1 year. Continue atorvastatin with ideal LDL goal less than 70. Continue metoprolol and losartan. Cardiology follow-up 4 months, sooner if needed. (2) S/P cardiac cath: Comment: 10/28/2024, RCA and lad minimal luminal irregularities, 1st OM 90% stenosis, SAKINA placed Code(s): Z98.890 - Other specified postprocedural states Category: Surgical Plan: As above (3) Essential hypertension: Code(s): I10 - Essential (primary) hypertension Category: Medical Plan: Blood pressure goal less than 130/80. Well controlled at this time. Continue metoprolol and losartan. (4) Pure hypercholesterolemia: Code(s): E78.00 - Pure hypercholesterolemia, unspecified Category: Medical Plan: Kipling LDL goal less than 70. Recently started on high-dose atorvastatin. Orders for fasting lipid profile in system. Patient reminded to obtain. (5) Palpitations: Code(s): R00.2 - Palpitations Category: Medical Plan: Reports of intermittent palpitations where his heart is beating rapid. Will check a Holter monitor to assess for arrhythmia. Continue metoprolol. Plan I discussed with the patient the plan to use a heart monitor to evaluate for abnormal rhythms and emphasized the importance of continuing cardiac rehabilitation. We reviewed the need to monitor cholesterol levels and to continue his current medication regime. Follow-up was arranged for four months, with instructions to return sooner if symptoms worsen. Orders: Orders ECG 3 day holter monitor Today R00.2 - Palpitations Patient Instructions: - Use the heart monitor as instructed and you will be called with results. - Monitor cholesterol level as advised. - Continue cardiac rehabilitation - Follow up in four months or sooner if symptoms worsen. Patient was informed and verbally consented to the use of an ambient scribe for clinic note documentation during this visit. Visit time spent on chart review, interview, assessment, orders, documentation. Coding Level of Care Code Est Pt Level 4 (35373) Complex EM visit Add On G2211 Diagnoses Non-ST elevation CT (NSTEMI) I21.4 S/P cardiac cath Z98.890 Essential hypertension I10 Pure hypercholesterolemia E78.00 Palpitations R00.2 Time Spent (min) 32
[2025-03-07 08:32] VITALS: BP 110/62; PULSE 71; BMI 33.8
--- OUTSIDE RECORDS SUMMARY | 2025-03-07 08:46 | XMS_ITS | Clinical Summary ---
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 3 to 4 months ago. No residual angina Continue ASA, metoprolol and statin. I will Rx Crestor to take for the next month and patient will get back to me depending on GI tolerance. Continue cardiac rehabilitation, exercise as tolerated Will obtain cardiology records and follow-up in 4 to 6 weeks Nasal congestion 02/17/2025 Assessment & Plan (02/17/2025 2:28 PM EDT): Rapid viral test are negative today. Take Flonase nasal daily for the next 3 to 4 days and to consult as needed fever, worsening of symptoms Advised to be out of work x 1 day Lung nodules 02/17/2025 Assessment & Plan (02/17/2025 2:33 PM EDT): Ex smoker, followed by pulmonology Obtain pulmonology notes, advised to avoid smoking Chronic bilateral low back pain without sciatica 02/17/2025 Assessment & Plan (02/17/2025 2:33 PM EDT): Most likely DJD/DDD lumbar spine or hips, take Tylenol as needed, apply heat to affected area Ordered x-rays, will call as needed to change POC or otherwise follow-up at next visit. Will hold off on physical therapy for now until patient completes cardiac rehab Primary hypertension 02/17/2025 Assessment & Plan (02/17/2025 2:26 PM EDT): Fairly controlled. Compliant w/meds Continue lisinopril and metoprolol same dose. Order labs and follow-up in 4 to 6 weeks Counseled re low salt diet/increase moderate physical activity. Check home BP BIW and prn CP/FRANK/WHITE Non smoking patient. Centrilobular emphysema 02/17/2025 Assessment & Plan (02/17/2025 2:34 PM EDT): Chest CT scan finding, patient is largely asymptomatic, follow-up with activated sludge operator No need for Rx at this time. Advised to avoid smoking Will follow-up on vaccinations at next visit Enlarged thyroid 02/17/2025 Assessment & Plan (02/17/2025 2:32 PM EDT): Will obtain TFTs, order thyroid ultrasound Encounters Date Type Department Care Team Description 02/17/2025 9:15 AM EDT Office Visit [facility] [address] [place] [phone] Florina Banuelos MD Coronary artery disease involving seneca coronary artery of seneca heart without angina pectoris (Primary Dx); Primary hypertension; Lung nodules; Chronic bilateral low back pain without sciatica; Centrilobular emphysema (HCC); Enlarged thyroid; Nasal congestion 02/17/2025 Travel 02/17/[address] [address] Florina Banuelos MD Chart Prep 02/09/2025 Patient Outreach [address] [address] Florina Banuelos MD Pre-visit Planning (SDOH screening negative and tobacco screening negative) from Last 3 Months Social History Tobacco [...] Description 04/29/2025 9:45 AM EST Office Visit [facility] [address] [place] [address] Florina Banuelos MD [address] [place] [address] Health Maintenance Due Date Last Done Comments CT Colonography 1960 FIT DNA/Cologuard 1960 FIT 1960 FOBT [...] 60-74 years 1-dose series) 2021 COVID-19 Vaccine (2024- season) 2025 08/03/2021, 07/06/2020, 06/08/2020 Influenza Vaccine (#1) 2025 9, 02/26/2018, 02/12/2017, Additional history exists SDOH Screening 02/09/2026 02/09/2025 Depression Screening 02/17/2026 02/17/2025, 02/18/20 25 Tobacco Screening 02/17/2026 02/17/2025 Colonoscopy 02/16/2029 Colorectal Cancer Screening 02/16/2029 Hepatitis B Vaccines Aged Out 09/12/2017, 10/21/2016, [...] AM EDT Narrative 02/17/2025 10:55 AM EDT [address] [address] XRay Report Signed Patient: Ramiro Lerma MR#: [id number] : 1960 Acct:[id number] Age/Sex: 64 / M ADM Date: 02/17/25 Loc: .HHCX Attending Dr: Florina Banuelos MD Ordering Physician: Florina Banuelos MD Date of Service: 02/17/25 Procedure(s): XR lumbar spine 4V min Accession Number(s): [id number] cc: Florina Banuelos MD Reason for Exam: [...] 02/17/25 1052 DD/ 1045 TD/TT: 02/17/25 1045 Vice President Supply Chain: Procedure Note Donotuseinterpreter, Image - 02/17/2025 [facility] [address] [place] [address] XRay Report Signed Patient: Ramiro Lerma AMR#: [id number] : 2Acct:[id number] Age/Sex: 64 / MADM Date: 02/17/25 Loc: HO.HHCX Attending Dr: Florina Banuelos MD Ordering Physician: Florina Banuelos MD Date of Service: 02/17/25 Procedure(s): XR lumbar spine 4V min Accession Number(s): [id number] cc: Florina Banuelos MD Reason for Exam: [...] 02/17/25 1052 DD/ 1045 TD/TT: 02/17/25 1045 Vice President Supply Chain: Florina Banuelos MD IMG XR PROCEDURES Edited Result - Final * POCT Rapid Influenza B TARANGO ID NOW (02/17/2025 9:41 AM EDT) Influenza B Negative Negative, Indeterminate [facility] QC Media Lot # [id number] [facility] Lot# Expiration Date [facility] Swab 02/17/2025 9:41 AM EDT Florina Banuelos MD POINT OF CARE TEST ENTER /EDIT ORDERABLES Final Result Performing Organization Address [facility]/ZIP Co de Phone Number [facility] [address] [place] [phone] * POCT Rapid Influenza A TARANGO ID NOW (02/17/2025 9:40 AM EDT) Influenza A Negative Negative, Indeterminate [facility] QC Media Lot # [id number] [facility] Lot# Expiration Date [facility] Swab 02/17/2025 9:40 AM EDT Florina Banuelos MD POINT OF CARE TEST ENTER /EDIT ORDERABLES Final Result Performing Organization Address [facility] Co de Phone Number [facility] [address] [place] [phone] * POCT Rapid Covid-19 BinaxNOW (02/17/2025 9:40 AM EDT) Rapid COVID Ag Negative QC Media Lot # [id number] Lot# Expiration Date Swab 02/17/2025 9:40 AM EDT Florina Banuelos MD POINT OF CARE TEST ENTER /EDIT ORDERABLES Final Result from Last 3 Months Insurance [facility] PPO Care Teams Credit Resolution Representative Relationship Specialty Start Date End Date Florina Banuelos MD [address] [place] [phone] PCP - General Internal Medicine 02/17/25
--- OUTSIDE RECORDS SUMMARY | 2025-03-07 08:46 | XMS_ITS | Encounter Summary ---
Author Organization [employer] Address [address] [place] [address] [address]t [place] [address] Care Team Providers Care Skiver Heel Tap Name Role Phone Florina Banuelos MD Primary Care Provider + Encounter Details Date Type Department Care Team (Latest Contact Info) Description 05/05/2019 Abstract [facility] CON[facility] Dental, Provider, DDS Social History [...] Description 04/29/2025 9:45 AM EST Office Visit [facility] [address] [place] [address] Florina Banuelos MD [address] [place] [address] documented as of this encounter Visit Diagnoses Not on filedocumented in this encounter Care Teams Skiver Heel Tap Relationship Specialty Start Date End Date Florina Banuelos MD [address] [place] [address] PCP - General Internal Medicine 02/17/25 documented as of this encounter
== END 2025-03-07 08:57 | disposition home or self-care (01) ==
LOC: HO.HCS 08:23
PROVIDERS: PCP Internal Medicine; Visit Provider Nurse Practitioner Family
DX: I21.4 Non-ST elevation (NSTEMI) myocardial infarction (principal); Z98.890 Other specified postprocedural states; I10 Essential (primary) hypertension; E78.00 Pure hypercholesterolemia, unspecified; R00.2 Palpitations
CPT/HCPCS: 99214

== ENCOUNTER → 2025-03-11 13:31 | Outpatient (REF) | payer OTHER, SELFPAY ==
--- NOTE | 2025-03-11 13:36 | HM_ITS ---
* Total monitoring time 3 days. * Underlying rhythm is sinus with an average rate of 73/Min. * Rare supraventricular ectopy. * Rare ventricular ectopy. * No significant pauses or high-grade AV blocks. * No patient markers or diary events. MTDD
--- OUTSIDE RECORDS SUMMARY | 2025-03-11 15:32 | XMS_ITS | Clinical Summary ---
Author Organization [employer] Address [address] [facility] [address]t [place] [address] Care Team Providers Care Web Press Roll Tender Name Role Phone Florina Banuelos MD Primary [...] Diagnosed Date Coronary artery disease invo lving nenana coronary artery of nenana heart without angina pectoris 02/17/2025 Overview (03/02/2025): Cardiac cath at [facility] on 10/2024, had PCI to OM1 Assessment & Plan (02/17/2025 2:27 PM EDT): Sp PTCA/stent at [facility] 3 to 4 months ago. No residual [...] finding, patient is largely asymptomatic, follow-up with hoseman No need for Rx at this time. Advised to avoid smoking Will follow-up on vaccinations at next visit Enlarged thyroid 02/17/2025 Assessment & Plan (02/17/2025 2:32 PM EDT): Will obtain TFTs, order thyroid ultrasound Encounters Date Type Department Care Team Description 02/17/2025 9:15 AM EDT Office Visit [facility] [address] [place] [phone] Florina Banuelos MD Coronary artery disease involving nenana coronary artery of nenana heart without angina pectoris (Primary Dx); Primary hypertension; Lung nodules; Chronic bilateral low back pain without sciatica; Centrilobular emphysema (HCC); Enlarged thyroid; Nasal congestion 02/17/2025 Travel 02/17/[address] [address] Florina Banuelos MD Chart Prep 02/09/2025 Patient Outreach [address] [address] Florina Banuelos MD Pre-visit Planning (SDOH screening [...] Description 04/29/2025 9:45 AM EST Office Visit [facility] [address] [place] [address] Florina Banuelos MD [address] [place] [address] Health Maintenance Due Date Last Done Comments [...] AM EDT Narrative 02/17/2025 10:55 AM EDT [address] [address] XRay Report Signed Patient: Ramiro Lerma MR#: [id number] : 1960 Acct:[id number] Age/Sex: 64 / M ADM Date: 02/17/25 Loc: .HHCX Attending Dr: Florina Banuelos MD Ordering Physician: Florina Banuelos MD Date of Service: 02/17/25 Procedure(s): XR lumbar spine 4V min Accession Number(s): [id number] cc: Florina Banuelos MD Reason for Exam: [...] 02/17/25 1052 DD/ 1045 TD/TT: 02/17/25 1045 Finding Fastener: Procedure Note Donotuseinterpreter, Image - 02/17/2025 [facility] [address] [place] [address] XRay Report Signed Patient: Ramiro Lerma AMR#: [id number] : 2Acct:[id number] Age/Sex: 64 / MADM Date: 02/17/25 Loc: HO.HHCX Attending Dr: Florina Banuelos MD Ordering Physician: Florina Banuelos MD Date of Service: 02/17/25 Procedure(s): XR lumbar spine 4V min Accession Number(s): [id number] cc: Florina Banuelos MD Reason for Exam: [...] 02/17/25 1052 DD/ 1045 TD/TT: 02/17/25 1045 Finding Fastener: Florina Banuelos MD IMG XR PROCEDURES Edited Result - Final * POCT Rapid Influenza B TARANGO ID NOW (02/17/2025 9:41 AM EDT) Influenza B Negative Negative, Indeterminate [facility] QC Media Lot # [id number] [facility] Lot# Expiration Date [facility] Swab 02/17/2025 9:41 AM EDT Florina Banuelos MD POINT OF CARE TEST ENTER /EDIT ORDERABLES Final Result Performing Organization Address [facility]/ZIP Co de Phone Number [facility] [address] [place] [address] [phone] * POCT Rapid Influenza A TARANGO ID NOW (02/17/2025 9:40 AM EDT) Influenza A Negative Negative, Indeterminate [facility] QC Media Lot # [id number] [facility] Lot# Expiration Date [facility] Swab 02/17/2025 9:40 AM EDT Florina Banuelos MD POINT OF CARE TEST ENTER /EDIT ORDERABLES Final Result Performing Organization Address [facility] Co de Phone Number [facility] [address] [place] [phone] * POCT Rapid Covid-19 BinaxNOW (02/17/2025 9:40 AM EDT) Rapid COVID Ag Negative QC Media Lot # [id number] Lot# Expiration Date Swab 02/17/2025 9:40 AM EDT Florina Banuelos MD POINT OF CARE TEST ENTER /EDIT ORDERABLES Final Result from Last 3 Months Insurance [facility] PPO Care Teams Web Press Roll Tender Relationship Specialty Start Date End Date Florina Banuelos MD [address] [place] [phone] PCP - General Internal Medicine 02/17/25
--- OUTSIDE RECORDS SUMMARY | 2025-03-11 15:32 | XMS_ITS | Encounter Summary ---
Author Organization [employer] Address [address] [place] [address] [address] [place] [address] Care Team Providers Care Loan Specialist Name Role Phone Florina Banuelos MD Primary Care Provider + Encounter Details Date Type Department Care Team (Latest Contact Info) Description 05/05/2019 Abstract [facility] CONVERSIONS Dental, Provider, DDS Social [...] Description 04/29/2025 9:45 AM EST Office Visit [facility] [address] [place] [address] Florina Banuelos MD [address] [place] [address] documented as of this encounter Visit Diagnoses Not on filedocumented in this encounter Care Teams Loan Specialist Relationship Specialty Start Date End Date Florina Banuelos MD [address] [place] [address] PCP - General Internal Medicine 02/17/25 documented as of this encounter
== END ==
LOC: HO.CARD 13:31
PROVIDERS: PCP Internal Medicine; Visit Provider Nurse Practitioner Family
DX: R00.2 Palpitations (principal)
CPT/HCPCS: 93242

== ENCOUNTER → 2025-03-11 13:36 | Outpatient (BNV) | payer OTHER, SELFPAY | PROVIDERS: PCP Internal Medicine; Visit Provider Internal Medicine | DX: I47.10 Supraventricular tachycardia, unspecified (principal); I49.3 Ventricular premature depolarization | CPT/HCPCS: 93244 ==

== ENCOUNTER 2025-03-18 13:31 | Outpatient (AMB) | payer OTHER, SELFPAY ==
[2025-03-18 13:38] VITALS: BP 130/64; PULSE 76; O2SAT 97; BMI 34.2
--- NOTE | 2025-03-18 13:38 | A.OFFVIS_ITS ---
Vital Signs 03/18/25 13:38 Height 6 ft Weight 252 lb 6.868 oz BMI 34.2 BP 130/64 Blood Pressure Location Lt brachial Position Sitting Pulse 76 Pulse Source Pulse Oximeter Pulse Oximetry (%) 97 Oxygen Delivery Method Room Air Intake Visit Reasons: Abnormal CT scan Change Over Required: Yes Change Over Services: Change Over Present Change Over Name: [id number] Allergies No Known Allergies (No Known Allergies*) Allergy (Verified 03/18/25 13:42) HPI HPI Abnormal CT scan: Details: 64-year-old gentleman, previously seen for GARRET on CPAP, now referred abnormal CT scan that shows bilateral ground-glass nodules on the background of known rheumatoid factor positivity and, also, MGUS. Patient was noted to have bilateral ground-glass nodules with mild increase from prior scan. He denies any pulmonary related concerns or complaints. [facility] Medical History Hospital discharge follow-up Pneumonia Left hand pain Osteoarthritis of right hand Pure hypercholesterolemia Chest pain Essential hypertension Rash and nonspecific skin eruption GARRET on CPAP Shortness of breath Low TSH level Abdominal pain Fatigue Muscle cramps Paresthesia Numbness of left hand Stiffness of right hand joint Nephrolithiasis Foreign body of right hand Physical exam ACTH elevation Degenerative arthritis of thoracic spine History of hyperprolactinemia Hyperthyroidism GERD (gastroesophageal reflux disease) Hypovitaminosis D Palpitations Polyarthralgia Obesity Essential hypertension Surgical History S/P cardiac cath Carpal tunnel syndrome of right wrist H/O colonoscopy H/O lithotripsy H/O umbilical hernia repair Family History Mother Heart problem Father Stroke Social History Household Members: Family Housing: Apartment Are you a primary care specialist to a significant other at home: No Do you presently have visiting nurse or other home services: No Alcohol intake: current Alcohol intake frequency: holidays/special occasions only Alcohol type: beer and hard liquor Patient Tobacco Use Status: Former Tobacco user Tobacco use type: Cigarette Years Smoked: 20 e-Cigarette/Vaping Use: Former Use Second Hand Smoke Exposure: No Advance Directives Date on File: 02/18/20 service: No Current occupational status: employed 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 Current occupational exposures/hazards: No Cognitive needs: No Hearing needs: No Vision needs: No Review of Systems Const Denies daytime sleepiness, Denies excessive sweating, Denies fatigue, Denies fever(s), Denies lethargy, Denies malaise, Denies night sweats, Denies snoring and Denies weight loss Eyes Denies blurry vision and Denies itchy eyes ENT Denies nasal congestion, Denies post nasal drip, Denies sinus pain, Denies sinus pressure and Denies other ( Thrush) Card Denies chest pain, Denies pedal edema, Denies dyspnea, Denies orthopnea and Denies paroxysmal nocturnal dyspnea Resp Denies cough, Denies hemoptysis, Denies excessive phlegm production, Denies dyspnea, Denies snoring and Denies wheezing GI Denies abdominal pain and Denies heartburn Musc Denies myalgias, Denies arthralgias and Denies joint swelling Skin/Breast Denies rash Neuro Denies memory loss and Denies seizure-like activity Psych Denies abnormal sleep pattern, Denies anxiety and Denies memory loss Endo Denies excessive sweating, Denies fatigue and Denies heat intolerance Rajinder/Lymph Denies easy bruising Aller/Immun Denies itchy eyes, Denies seasonal rhinorrhea and Denies wheezing Physical Exam Vital Signs: Last Vital Signs Pulse 76 03/18/25 13:38 BP 130/64 03/18/25 13:38 Pulse Ox 97 03/18/25 13:38 Oxygen Delivery Method Room Air 03/18/25 13:38 BMI result Body Mass Index 34.2 Const General: no acute distress and alert Nutritional Appearance: not obese Orientation/consciousness: Other orientation findings ( oriented) HEENT Head: Yes atraumatic Eyes General: appearance normal, both eyes and all related structures Sclerae: sclerae normal EOM: EOMs intact bilaterally Neck Neck: Yes supple Lymphatic: no lymphadenopathy noted Resp Effort & Inspection: normal respiratory effort and no use of accessory muscles Auscultation: clear to auscultation bilaterally Cardio Rate: regular rate Rhythm: regular rhythm Heart sounds: no gallops, no murmurs and no rubs Skin General skin exam: other ( warm) Extrem General: No clubbing, No cyanosis and No edema Assessment & Plan Assessment & Plan (1) Lung nodules: Code(s): R91.8 - Other nonspecific abnormal finding of lung field Category: Medical Plan: CT chest results reviewed, underlying bilateral ground pulmonary nodules, likely inflammatory considering underlying background of rheumatoid factor positivity and MGUS. Will repeat CT chest in 6 months, if continue to consolidate increase, will consider systemic glucocorticoids versus biopsy. (2) GARRET (obstructive sleep apnea): Code(s): G47.33 - Obstructive sleep apnea (adult) (pediatric) Category: Medical Plan: Controlled on CPAP therapy. Continue CPAP therapy. Coding Level of Care Code New Pt Level 4 (11926) Diagnoses Lung nodules R91.8 GARRET (obstructive sleep apnea) G47.33
--- OUTSIDE RECORDS SUMMARY | 2025-03-18 14:32 | XMS_ITS | Encounter Summary ---
Author Organization [employer] Address [address] [place] [address] [address] [place] [address] Care Team Providers Care Electrician Control Equipment Name Role Phone Florina Banuelos MD Primary Care Provider + Encounter Details Date Type Department Care Team (Latest Contact Info) Description 05/05/2019 Abstract [facility] CONVERSIONS Dental, Provider, DDS Social History [...] Description 04/29/2025 9:45 AM EST Office Visit [facility] [address] [place] [address] Florina Banuelos MD [address] [place] [address] documented as of this encounter Visit Diagnoses Not on filedocumented in this encounter Care Teams Electrician Control Equipment Relationship Specialty Start Date End Date Florina Banuelos MD [address] [place] [address] PCP - General Internal Medicine 02/17/25 documented as of this encounter
--- OUTSIDE RECORDS SUMMARY | 2025-03-18 14:32 | XMS_ITS | Clinical Summary ---
Author Organization [employer] Address [address] [place] [address] [address] [place] [address] Care Team Providers Care Vmware Systems Administrator Name Role Phone Florina Banuelos MD Primary [...] Diagnosed Date Coronary artery disease invo lving asa'carsarmi[place] coronary artery of asa'[place] heart without angina pectoris 02/17/2025 Overview (03/02/2025): Cardiac cath at [facility] on 10/2024, had PCI to OM1 Assessment & Plan (02/17/2025 2:27 PM EDT): Sp PTCA/stent at [facility] 3 to 4 months ago. No residual [...] finding, patient is largely asymptomatic, follow-up with employee service officer No need for Rx at this time. Advised to avoid smoking Will follow-up on vaccinations at next visit Enlarged thyroid 02/17/2025 Assessment & Plan (02/17/2025 2:32 PM EDT): Will obtain TFTs, order thyroid ultrasound Encounters Date Type Department Care Team Description 02/17/2025 9:15 AM EDT Office Visit [facility] [address] [place] [address] Florina Banuelos MD Coronary artery disease involving asa'[place]armi[place] coronary artery of asa'carsarmi[place] heart without angina pectoris (Primary Dx); Primary hypertension; Lung nodules; Chronic bilateral low back pain without sciatica; Centrilobular emphysema (HCC); Enlarged thyroid; Nasal congestion 02/17/2025 Travel 02/17/[address] [address] Florina Banuelos MD Chart Prep 02/09/2025 Patient Outreach [address] [address] Florina Banuelos MD Pre-visit Planning (SDOH screening [...] Description 04/29/2025 9:45 AM EST Office Visit [facility] [address] [place] [address] Florina Banuelos MD [address] [place] [address] Health Maintenance Due Date Last Done Comments [...] AM EDT Narrative 02/17/2025 10:55 AM EDT [address] [address] XRay Report Signed Patient: Ramiro Lerma MR#: [id number] : 1960 Acct:[id number] Age/Sex: 64 / M ADM Date: 02/17/25 Loc: .[facility]X Attending Dr: Florina Banuelos MD Ordering Physician: Florina Banuelos MD Date of Service: 02/17/25 Procedure(s): XR lumbar spine 4V min Accession Number(s): [id number] cc: Florina Banuelos MD Reason for Exam: [...] 02/17/25 1052 DD/ 1045 TD/TT: 02/17/25 1045 Electro Mechanical Technologist: Procedure Note Donotuseinterpreter, Image - 02/17/2025 [facility] [address] [place] [address] XRay Report Signed Patient: Ramiro Lerma AMR#: [id number] : 2Acct:[id number] Age/Sex: 64 / MADM Date: 02/17/25 Loc: HO.HHCX Attending Dr: Florina Banuelos MD Ordering Physician: Florina Banuelos MD Date of Service: 02/17/25 Procedure(s): XR lumbar spine 4V min Accession Number(s): [id number] cc: Florina Banuelos MD Reason for Exam: [...] 02/17/25 1052 DD/ 1045 TD/TT: 02/17/25 1045 Electro Mechanical Technologist: Florina Banuelos MD IMG XR PROCEDURES Edited Result - Final * POCT Rapid Influenza B TARANGO ID NOW (02/17/2025 9:41 AM EDT) Influenza B Negative Negative, Indeterminate [facility] QC Media Lot # [id number] [facility] Lot# Expiration Date [facility] Swab 02/17/2025 9:41 AM EDT Florina Banuelos MD POINT OF CARE TEST ENTER /EDIT ORDERABLES Final Result Performing Organization Address [facility]/ZIP Co de Phone Number [facility] [address] [place] [address] [phone] * POCT Rapid Influenza A TARANGO ID NOW (02/17/2025 9:40 AM EDT) Influenza A Negative Negative, Indeterminate [facility] QC Media Lot # [id number] [facility] Lot# Expiration Date [facility] Swab 02/17/2025 9:40 AM EDT Florina Banuelos MD POINT OF CARE TEST ENTER /EDIT ORDERABLES Final Result Performing Organization Address [facility] Co de Phone Number [facility] [address] [place] [phone] * POCT Rapid Covid-19 BinaxNOW (02/17/2025 9:40 AM EDT) Rapid COVID Ag Negative QC Media Lot # [id number] Lot# Expiration Date Swab 02/17/2025 9:40 AM EDT Florina Banuelos MD POINT OF CARE TEST ENTER /EDIT ORDERABLES Final Result from Last 3 Months Insurance [facility] PPO Care Teams Vmware Systems Administrator Relationship Specialty Start Date End Date Florina Banuelos MD [address] [place] [phone] PCP - General Internal Medicine 02/17/25
== END 2025-03-18 13:54 | disposition home or self-care (01) ==
LOC: HO.HPS 13:31
PROVIDERS: PCP Internal Medicine; Referring Provider Internal Medicine; Visit Provider Internal Medicine Pulmonary Disease
DX: R91.8 Other nonspecific abnormal finding of lung field (principal); G47.33 Obstructive sleep apnea (adult) (pediatric)
CPT/HCPCS: 99204

== ENCOUNTER 2025-03-29 10:42 | Outpatient (AMB) | payer OTHER, SELFPAY ==
[2025-03-29 10:56] VITALS: BMI 34.5
--- NOTE | 2025-03-29 10:56 | A.OFFVIS_ITS ---
VS Expanded 03/29/25 10:56 Height 6 ft Weight 254 lb 3.088 oz BMI 34.5 Intake Visit Reasons: High cholesterol Allergies No Known Allergies (No Known Allergies*) Allergy (Verified 03/18/25 13:42) Nutrition Presentation Details: Pt presents for MNT for high cholesterol Pt acknowledges diet is high in higher fat foods (fritter, high fat meats) Pt reports on making some dietary changes and reports understanding diet concepts and importance of reducing high fat foods. BS Monitoring Most Recent Diabetes Results: Cholesterol, (<200) 222 mg/dL H 04/01/25 HDL Cholesterol, (>40) 36 mg/dL L 04/01/25 Triglycerides, (<150) 140 mg/dL 04/01/25 Creatinine, (0.5-1.4) 1.12 mg/dL 04/01/25 BUN, (9-16) 17 mg/dL H 04/01/25 Sodium, (135-145) 140 mmol/L 04/01/25 Potassium, (3.3-5.1) 4.2 mmol/L 04/01/25 Chloride, (96-108) 110 mmol/L H 04/01/25 Carbon Dioxide, (22-29) 23 mmol/L 04/01/25 Calcium, (8.4-10.2) 8.7 mg/dL 04/01/25 AST, (5-37) 33 U/L 04/01/25 ALT, (0-40) 47 U/L H 04/01/25 Total Protein, (6.5-8.0) 8.5 g/dL H 04/01/25 Albumin, (3.5-5.0) 4.4 g/dL 04/01/25 [facility] Medical History Hospital discharge follow-up Pneumonia Left hand pain Osteoarthritis of right hand Pure hypercholesterolemia Chest pain Essential hypertension Rash and nonspecific skin eruption GARRET on CPAP Shortness of breath Low TSH level Abdominal pain Fatigue Muscle cramps Paresthesia Numbness of left hand Stiffness of right hand joint Nephrolithiasis Foreign body of right hand Physical exam ACTH elevation Degenerative arthritis of thoracic spine History of hyperprolactinemia Hyperthyroidism GERD (gastroesophageal reflux disease) Hypovitaminosis D Palpitations Polyarthralgia Obesity Essential hypertension Surgical History S/P cardiac cath Carpal tunnel syndrome of right wrist H/O colonoscopy H/O lithotripsy H/O umbilical hernia repair Family History Mother Heart problem Father Stroke Social History Household Members: Family Housing: Apartment Are you a primary point of care technician to a significant other at home: No Do you presently have visiting nurse or other home services: No Alcohol intake: current Alcohol intake frequency: holidays/special occasions only Alcohol type: beer and hard liquor Patient Tobacco Use Status: Former Tobacco user Tobacco use type: Cigarette Years Smoked: 20 e-Cigarette/Vaping Use: Former Use Second Hand Smoke Exposure: No Advance Directives Date on File: 02/18/20 service: No Current occupational status: employed 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 Current occupational exposures/hazards: No Cognitive needs: No Hearing needs: No Vision needs: No Assessment & Plan Assessment & Plan (1) Pure hypercholesterolemia: Code(s): E78.00 - Pure hypercholesterolemia, unspecified Category: Medical Plan: current wt: 114 kg ( 02/10 ), 04/12 est kcal needs as per MSJ: 2700 (90 g of fat or less per day choose MUFA/PUFA in place of saturated fats, 270 g total carb per day - choose whole grain, fiber rich foods) est protein needs as per 1 g/kg BW: 110 est fluid needs as per 30 ml/kg BW: 3400 Recommended fiber > 12 g /day and gradually increase up to 25-28 g /day or as tolerated Sodium recommendation: less than 2300 mg/dl unless otherwise specified by MD Nutrition topics discussed : Reviewed (R), Pt verbalized understanding (V) , not applicable (N/A) R, : Healthy Plate Method Concept: R, : Carbohydrates: food sources of carbohydrates, relationship of carbohydrates to blood glucose, fatty liver GI health. Recommended total amount of carbohydrates per meals and snack. Differences between simple carbohydrates and complex carbohydrates R, : Lean protein foods including vegan , vegetarian sources of protein. Benefits of protein (including but not limited to healing, nutritional value , benefits in weight loss, glucose control R, : Fats : Source of fats, benefits of fats. Difference between saturated and unsaturated fats. Saturated fats and its contribution to inflammation R, V, N/A: Fiber: food sources and role of fiber in the diet (including but not limited to its role as a prebiotic, benefits in constipation, role in IBS , role in glucose con trol and cholesterol level) R,: Hydration: role of hydration and prevention of dehydration or over hydration. Foods and water content. R, V, N/A: Vitamins and Minerals in foods and supplements R, V, N/A: Interpreting food labels, including serving size, macronutrients, vitamins, minerals, allergens, ingredient list , % daily value Patient Instructions: Choose lower fat food options and lower fat cooking methods - choose baked, steamed, less fried foods, reduce frequency of organ meat consumption Add vegetables, non starchy vegetables to at least one meal a day - see meal ideas Coding Level of Care Code Nutr Indiv Subseq (39576) Diagnoses Pure hypercholesterolemia E78.00 Time Spent (min) 30
--- OUTSIDE RECORDS SUMMARY | 2025-03-29 12:23 | XMS_ITS | Encounter Summary ---
Author Organization [employer] Address [address] [place] [address] [address] [place] [address] Care Team Providers Care Ice Cream Chef Name Role Phone Florina Banuelos MD Primary Care Provider + Encounter Details Date Type Department Care Team (Latest Contact Info) Description 05/05/2019 Abstract [facility] CONVERSIONS Dental, Provider, DDS Social History [...] Description 04/29/2025 9:45 AM EST Office Visit [facility] [address] [place] [address] Florina Banuelos MD [address] [place] [address] documented as of this encounter Visit Diagnoses Not on filedocumented in this encounter Care Teams Ice Cream Chef Relationship Specialty Start Date End Date Florina Banuelos MD [address] [place] [address] PCP - General Internal Medicine 02/17/25 documented as of this encounter
--- OUTSIDE RECORDS SUMMARY | 2025-03-29 12:23 | XMS_ITS | Clinical Summary ---
Author Organization [employer] Address [address] [facility] [address] [place] [address] Care Team Providers Care Superintendent Communications Name Role Phone Florina Banuelos MD Primary Care Provider + Allergies No known active allergies Medications cetirizine (ZyrTEC) 10 MG tablet Take 1 tablet (10 mg) by mouth Once per day. 30 tablet 2 5 05/18/20 25 Active fluticasone (Flonase) 50 MCG/ACT nasal spray Administer 1 spray into each nostril Once per day. 16 g 2 5 Active rosuvastatin (Crestor) 20 MG tablet Take 1 tablet (20 mg) by mouth at bedtime. 30 tablet 5 02/18/20 26 Active acetaminophen (Tylenol Extra Strength) 500 MG tablet Take 1 tablet (500 mg) by mouth every 6 (six) hours if needed for mild pain. 120 tablet 5 03/19/20 25 Active Problems Problem Noted Date Diagnosed Date Coronary artery disease invo lving [place] coronary artery of eastern [place] heart without angina pectoris 02/17/2025 Overview (03/02/2025): Cardiac cath at [facility] on 10/2024, had PCI to OM1 Assessment & Plan (02/17/2025 2:27 PM EDT): Sp PTCA/stent at [facility] 3 to 4 months ago. No residual [...] finding, patient is largely asymptomatic, follow-up with assignment desk editor No need for Rx at this time. Advised to avoid smoking Will follow-up on vaccinations at next visit Enlarged thyroid 02/17/2025 Assessment & Plan (02/17/2025 2:32 PM EDT): Will obtain TFTs, order thyroid ultrasound Encounters Date Type Department Care Team Description 02/17/2025 9:15 AM EDT Office Visit [facility] [address] [place] [address] Florina Banuelos MD Coronary artery disease involving [place] coronary artery of eastern sh[place] heart without angina pectoris (Primary Dx); Primary hypertension; Lung nodules; Chronic bilateral low back pain without sciatica; Centrilobular emphysema (HCC); Enlarged thyroid; Nasal congestion 02/17/2025 Travel 02/17/2025 Telephone [facility] [address] [place] [address] Florina Banuelos MD Chart Prep 02/09/2025 Patient Outreach [facility] [address] [place] [address] Florina Banuelos MD Pre-visit Planning (SDOH screening [...] Description 04/29/2025 9:45 AM EST Office Visit [facility] [address] [place] [address] Florina Banuelos MD [address] [place] [address] Health Maintenance Due Date Last Done Comments [...] 60-74 years 1-dose series) 2021 COVID-19 Vaccine ( season) 2025 08/03/2021, 07/06/2020, 06/08/2020 Influenza Vaccine [...] AM EDT Narrative 02/17/2025 10:55 AM EDT [address] [address] XRay Report Signed Patient: Ramiro Lerma MR#: [id number] : 1960 Acct:[id number] Age/Sex: 64 / M ADM Date: 02/17/25 [facility]: Florina Banuelos MD Ordering Physician: Florina Banuelos MD Date of Service: 02/17/25 Procedure(s): XR lumbar spine 4V min Accession Number(s): [id number] cc: Florina Banuelos MD Reason for Exam: [...] 02/17/25 1052 DD/ 1045 TD/TT: 02/17/25 1045 Training Executive: Procedure Note Donotuseinterpreter, Image - 02/17/2025 [facility] [address] [place] [address] XRay Report Signed Patient: Ramiro Lerma AMR#: [id number] : 1960cct:[id number] Age/Sex: 64 / MADM Date: 02/17/25 Loc: .HHX Attending Dr: Florina Banuelos MD Ordering Physician: Florina Banuelos MD Date of Service: 02/17/25 Procedure(s): XR lumbar spine 4V min Accession Number(s): [id number] cc: Florina Banuelos MD Reason for Exam: [...] 02/17/25 1052 DD/ 1045 TD/TT: 02/17/25 1045 Training Executive: Florina Banuelos MD IMG XR PROCEDURES Edited Result - Final * POCT Rapid Influenza B TARANGO ID NOW (02/17/2025 9:41 AM EDT) Influenza B Negative Negative, Indeterminate [facility] QC Media Lot # [id number] [facility] Lot# Expiration Date [facility] Swab 02/17/2025 9:41 AM EDT Florina Banuelos MD POINT OF CARE TEST ENTER /EDIT ORDERABLES Final Result Performing Organization Address [facility] Co de Phone Number [facility] [address] [place] [phone] * POCT Rapid Influenza A TARANGO ID NOW (02/17/2025 9:40 AM EDT) Influenza A Negative Negative, Indeterminate [facility] QC Media Lot # [id number] [facility] Lot# Expiration Date [facility] Swab 02/17/2025 9:40 AM EDT Florina Banuelos MD POINT OF CARE TEST ENTER /EDIT ORDERABLES Final Result Performing Organization Address [facility] Co de Phone Number [facility] [address] [place] [phone] * POCT Rapid Covid-19 BinaxNOW (02/17/2025 9:40 AM EDT) Rapid COVID Ag Negative QC Media Lot # [id number] Lot# Expiration Date Swab 02/17/2025 9:40 AM EDT Florina Banuelos MD POINT OF CARE TEST ENTER /EDIT ORDERABLES Final Result from Last 3 Months Insurance BS PPO [employer] Care Teams Superintendent Communications Relationship Specialty Start Date End Date Florina Banuelos MD [address] [place] [phone] PCP - General Internal Medicine 02/17/25
== END 2025-03-29 11:38 | disposition home or self-care (01) ==
LOC: HO.ENCR 10:42
PROVIDERS: PCP Internal Medicine; Visit Provider Dietitian, Registered
DX: E78.00 Pure hypercholesterolemia, unspecified (principal)

== ENCOUNTER → 2025-03-29 10:42 | Outpatient (BNVA) | payer OTHER, SELFPAY | PROVIDERS: PCP Internal Medicine; Visit Provider Dietitian, Registered | DX: Z71.3 Dietary counseling and surveillance (principal); E78.00 Pure hypercholesterolemia, unspecified | CPT/HCPCS: 97803 ==

== ENCOUNTER 2025-03-30 16:13 | Outpatient (REF) | payer OTHER, SELFPAY ==
--- OUTSIDE RECORDS SUMMARY | 2025-03-30 11:30 | XMS_ITS | Encounter Summary ---
Author Organization [employer] Address [address] [place] [address] 7t [place] [address] Care Team Providers Care Funeral Pre Need Consultant Name Role Phone Florina Banuelos MD Primary Care Provider + Reason for Referral * Consultation (Urgent) - Authorized Specialty Diagnoses / Procedures Referred By Rowdy garnica Referred To Contact Pain Medicine Diagnoses Chronic bilateral low back pain without sciatica Myah Hodgson DO [address] [place] [address] Phone: tel: fax: [facility], [address] [place], [place] Phone: tel: fax: Referral ID Status Reason Start Date Expiration Date Visits Requested Visits Authorized [id number] Authorized Specialty Services Required 03/30/2026 1 1 Encounter Details Date Type Department Care Team (Late st Contact Info) Description 03/30/2025 11:30 AM EST Office Visit [facility] [address] [place], [place] [phone] Myah Hodgson DO [address] [place], [place] [phone] Acute UTI (Primary Dx); Chronic bilateral low [...] 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 Banuelos which showed arthritis. [...] Problem List Diagnosis Coronary artery disease involving [place] coronary artery of [place] heart without angina pectoris Nasal congestion Lung [...] for sensitivities -send urine GC/CT -advised contact [facility] if sx do not resolve Chronic [...] Description 04/29/2025 9:45 AM EST Office Visit [facility] [address] [place] [address] Florina Banuelos MD [address] [place], [place] [phone] Scheduled Orders Name Type Priority Associated Diagnoses Orde r Schedule Culture, Urine, Routine Microbiology Routine Acute UTI Expected: 03/30/2025 (Approximate), Expires: 03/30/2026 Chlamydia/N. Gonorrhoeae, PCR, Urine Lab Routine Acute UTI Ordered: 03/30/2025 Scheduled Referrals Name Type Priority Associated Diagnoses Orde r Schedule Referral to Pain Medicine Outpatient Referral Urgent Chronic bilateral low back pain without sciatica Expected: 03/30/2025 (Approximate), Expires: 03/30/2026 documented as of this encounter Procedures Procedure Name Priority Date/Time Associated Diagnosis Comments POCT URINALYSIS DIPSTICK Routine 03/30/2025 11:57 AM EST Acute UTI documented in this encounter Results * (ABNORMAL) POCT Urinalysis (03/30/2025 11:57 AM [...] Urine (Urine, Random) 03/30/2025 11:57 AM EST us Myah Meichecoenedina DO POINT OF CARE TEST ENTER/LAUREN T ORDERABLES Final Result documented in this encounter Visit Diagnoses Diagnosis Acute UTI- Primary Urinary tract infection, site not specified Chronic bilateral low back pain without sciatica documented in this encounter Additional Health Concerns Assessment Noted Time PHQ-9 Depression Total Score: 2 02/18/20 25 9:28 AM EDT documented as of this encounter Care Teams Funeral Pre Need Consultant Relationship Specialty Start Date End Date Florina Banuelos MD [address] [place] [phone] PCP - General Internal Medicine 02/17/25 documented as of this encounter
--- OUTSIDE RECORDS SUMMARY | 2025-03-30 19:00 | XMS_ITS | Encounter Summary ---
Author Organization [employer] Address [address] [place] [address] 7t [place] [address] Care Team Providers Care Residential Care Officer Name Role Phone Florina Banuelos MD Primary Care Provider + Encounter Details Date Type Department Care Team (Latest Contact Info) Description 05/05/2019 Abstract [facility] CONVERSIONS Dental, Provider, DDS Social [...] Description 04/29/2025 9:45 AM EST Office Visit [facility] [address] [place] [address] Florina Banuelos MD [address] [place] [address] documented as of this encounter Visit Diagnoses Not on filedocumented in this encounter Care Teams Residential Care Officer Relationship Specialty Start Date End Date Florina Banuelos MD [address] [place] [address] PCP - General Internal Medicine 02/17/25 documented as of this encounter
--- OUTSIDE RECORDS SUMMARY | 2025-03-30 19:00 | XMS_ITS | Clinical Summary ---
Author Organization [employer] Address [address] [place] [address] 7t [place] [address] Care Team Providers Care Road Mechanic Name Role Phone Florina Banuelos MD Primary [...] bedtime. 30 tablet 5 02/18/20 26 Active sulfamethoxazol e-trimethoprim (Bactrim DS) 800-160 MG tablet Take 1 tablet by mouth 2 times daily for 7 days. 14 tablet 5 04/06/20 25 Active baclofen (Lioresal) 10 MG tablet Take 1 tablet (10 mg) by mouth if needed in the morning, at noon, and at bedtime for muscle spasms. 60 tablet 1 5 05/29/19 26 Active Diclofenac Sodium 1 % gel Apply 2 g topically if needed in the morning, at noon, in the evening, and at bedtime (pain). 150 g 1 5 Active traMADol (Ultram) 50 MG tabletIndicatio ns:Chronic bilateral low back pain without sciatica Take 1 tablet (50 mg) by mouth if needed in the morning and at bedtime for severe pain for up to 5 days. 10 tablet 5 04/04/20 25 Active acetaminophen (Tylenol 8 Hour) 650 MG ER tablet Take 1 tablet (650 mg) by mouth every 8 (eight) hours if needed for mild pain. Do not crush, chew, or split. 40 tablet 1 5 04/29/20 25 Active acetaminophen (Tylenol Extra Strength) 500 MG tablet Take 1 tablet (500 mg) by mouth every 6 (six) hours if needed for mild pain. 120 tablet 5 03/19/20 25 Active Problems Problem Noted Date Diagnosed Date Coronary artery disease invo lving [place] de[place]-ni' coronary artery of [place] heart without angina pectoris 02/17/2025 Overview (03/02/2025): Cardiac cath at [facility] on 10/2024, had PCI to OM1 Assessment & Plan (02/17/2025 2:27 PM EDT): Sp PTCA/stent at [facility] 3 to 4 months ago. 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 Advised to avoid smoking Will follow-up on vaccinations at next visit Enlarged thyroid 02/17/2025 Assessment & Plan (02/17/2025 2:32 PM EDT): Will obtain TFTs, order thyroid ultrasound Encounters Date Type Department Care Team Description 03/30/2025 11:30 AM EST Office Visit [address] [phone] Myah Hodgson DO Acute UTI (Primary Dx); Chronic bilateral low back pain without sciatica 03/30/2025 Travel 03/29/[address] [address] Florina Banuelos MD Nurse Triage 02/17/2025 9:15 AM EDT Office Visit [address] [address] Florina Banuelos MD Coronary artery disease involving [place]' coronary artery of [place]' heart without angina pectoris (Primary Dx); Primary hypertension; Lung nodules; Chronic bilateral low back pain without sciatica; Centrilobular emphysema (HCC); Enlarged thyroid; Nasal congestion 02/17/2025 Travel 02/17/[address] [address] Florina Banuelos MD Chart Prep 02/09/2025 Patient Outreach [facility] [address] [place] [address] Florina Banuelos MD Pre-visit Planning (SDOH screening [...] Mass Index 34.31 03/30/2025 11:30 AM EST Plan of Treatment Upcoming Encounters Date Type Department Care Team (Late st Contact Info) Description 04/29/2025 9:45 AM EST Office Visit [facility] [address] [place], [place] [phone] Florina Banuelos MD [address] [place], [place] [phone] Health Maintenance Due Date Last Done Comments CT Colonography 1961 FIT DNA/Cologuard 1961 FIT 1961 FOBT 1961 HIV Screening 1961 Lipid Panel 1961 Sigmoidoscopy 1961 Disability Screening 1961 Alcohol/Substance Use Screening 1973 Hepatitis C Screening 07/19/1979 DTaP/Tdap/Td Vaccines (1 - Tdap) 1980 Pneumococcal Vaccine: 50+ Years (1 of 2 - PCV) 1980 RSV Patients and Patients Aged 60 years or older (1 - Risk 50-74 years 1-dose series) 07/19/2011 Zoster Vaccines (1 of 2) 07/19/2011 COVID-19 Vaccine ( season) 2025 08/03/2021, 07/06/2020, 06/08/2020 Influenza Vaccine (#1) 2025 9, 02/26/2018, 02/12/2017, Additional history exists SDOH Screening 02/09/2026 02/09/2025 Depression Screening 02/17/2026 02/17/2025, 02/18/20 25 Tobacco Screening 03/30/2026 03/30/2025 Colonoscopy 02/16/2029 Colorectal Cancer Screening 02/16/2029 Hepatitis [...] Routine 03/30/2025 11:57 AM EST Acute UTI XR LUMBAR SPINE COMPLETE 4+ VIEWS Routine 02/17/2025 10:45 AM EDT Chronic bilateral low back pain without sciatica POCT INFLUENZA B (ID NOW RAPID MOLECULAR) Routine 02/17/2025 9:41 AM EDT Nasal congestion POCT RAPID COVID ANTIGEN Routine 02/17/2025 9:40 AM EDT Nasal congestion POCT INFLUENZA A (ID NOW RAPID MOLECULAR) Routine 02/17/2025 9:40 AM EDT Nasal congestion from Last 3 Months Results * (ABNORMAL) POCT Urinalysis (03/30/2025 11:57 AM EST) Color, UA Yellow Clarity, UA Cloudy Glucose, UA Negative Bilirubin, UA Negative Ketones, UA Negative Spec Grav, UA 1.020 Blood, UA Positive(A) Negative, None Detected Comment:Trace-Intact pH, UA 6.0 Protein, UA Negative Urobilinogen, UA 0.2 Nitrite, UA Negative Negative, None Detected QC Media Lot # [id number] Lot# Expiration Date Urine (Urine, Random) 03/30/2025 11:57 AM EST Myah Hodgson DO POINT OF CARE TEST ENTER/LAUREN T ORDERABLES Final Result * XR Lumbar Spine Complete 4+ Views (02/17/2025 10:45 AM EDT) Anatomical Region Laterality Modality Spine, L-spine Radiographic Kiera ging 02/17/2025 10:4 5 AM EDT Narrative 02/17/2025 10:55 [place] [address] XRay Report Signed Patient: Ramiro Lerma MR#: [id number] : 1960 Acct:[id number] Age/Sex: 64 / M ADM Date: 02/17/25 Loc: HO.HHCX Attending Dr: Florina Banuelos MD Ordering Physician: Florina Banuelos MD Date of Service: 02/17/25 Procedure(s): XR lumbar spine 4V min Accession Number(s): [id number] cc: Florina Banuelos MD Reason for Exam: [...] by Teodoro Elam MD in OV> 02/17/25 105 DD/ 44 TD/TT: 02/17/251044 Cyanide Pot Tender: Procedure Note Donotuseinterpreter, Image - 02/17/[address] [address] XRay Report Signed Patient: Ramiro Lerma AMR#: [id number] : 1960cct:[id number] Age/Sex: 64 / MADM Date: 02/17/25 Loc: .HHCX Attending Dr: Florina Banuelos MD Ordering Physician: Florina Banuelos MD Date of Service: 02/17/25 Procedure(s): XR lumbar spine 4V min Accession Number(s): [id number] cc: Florina Banuelos MD Reason for Exam: [...] signed by Teodoro Elam MDin OV> 02/17/25 105 DD/ 44 TD/TT: 02/17/251044 Cyanide Pot Tender: us Florina Banuelos MD IMG XR PROCEDURES Edited Result - Final * POCT Rapid Influenza B TARANGO ID NOW (02/17/2025 9:41 AM EDT) Influenza B Negative Negative, Indeterminate [facility] QC Media Lot # [id number] [facility] Lot# Expiration Date [facility] Swab 02/17/2025 9:41 AM EDT Florina Banuelos MD POINT OF CARE TEST ENTER /EDIT ORDERABLES Final Result Performing Organization Address [facility]/ZIP Co de Phone Number [facility] [address] [place] [phone] * POCT Rapid Influenza A TARANGO ID NOW (02/17/2025 9:40 AM EDT) Influenza A Negative Negative, Indeterminate [facility] QC Media Lot # [id number] [facility] Lot# Expiration Date [facility] Swab 02/17/2025 9:40 AM EDT Florina Banuelos MD POINT OF CARE TEST ENTER /EDIT ORDERABLES Final Result Performing Organization Address [facility]/ZIP Co de Phone Number [facility] [address] [place] [phone] * POCT Rapid Covid-19 BinaxNOW (02/17/2025 9:40 AM EDT) Rapid COVID Ag Negative QC Media Lot # [id number] Lot# Expiration Date Swab 02/17/2025 9:40 AM EDT Florina Banuelos MD POINT OF CARE TEST ENTER /EDIT ORDERABLES Final Result from Last 3 Months Insurance Care Teams Road Mechanic Relationship Specialty Start Date End Date Florina Banuelos MD [address] [place] [phone] PCP - General Internal Medicine 02/17/25
--- OUTSIDE RECORDS SUMMARY | 2025-03-30 19:00 | XMS_ITS | Encounter Summary ---
Author Organization [employer] Address [address] [facility] 7t [place] [address] Care Team Providers Care Automatic Operator Name Role Phone Florina Banuelos MD Primary Care Provider + Encounter Details Date Type Department Care Team (Latest Contact Info) Description 03/30/2025 Travel Social History Tobacco Use Types Packs/Day [...] Description 04/29/2025 9:45 AM EST Office Visit [facility] [address] [place] [phone] Florina Banuelos MD [address] [place] [phone] documented as of this encounter Visit Diagnoses Not on filedocumented in this encounter Additional Health Concerns Assessment Noted Time PHQ-9 Depression Total Score: 2 02/18/20 9:28 AM EDT documented as of this encounter Care Teams Automatic Operator Relationship Specialty Start Date End Date Florina Banuelos MD [address] [place] [phone] PCP - General Internal Medicine 02/17/25 documented as of this encounter
--- OUTSIDE RECORDS SUMMARY | 2025-03-30 19:00 | XMS_ITS | Encounter Summary ---
Author Organization [employer] Address [address] [place] [address] 7 [place] [address] Care Team Providers Care National Recruiter Name Role Phone Florina Banuelos MD Primary Care Provider + Reason for Visit * Reason Onset Date Comments Nurse Triage 03/29/2025 Encounter Details Date Type Department Care Team ([facility] st Contact Info) Description 03/29/2025 Telephone [facility] [address] [place] [address] Florina Banuelos MD [address] [place] [address] Nurse Triage Social History Tobacco Use Types Packs/Day Years [...] encounter Miscellaneous Notes * Telephone Encounter - Shai Sarabia RN - 03/29/2025 3:11 PM EST Tc placed to patient using BLS #ID [id number]. Patient reported increased lower left sided back pain with taking prescribed acetaminophen. Denies any new injury. X- ray done of the lower back on 02/17/2025.Patient also c/o a strong urine odor with urine frequency. RN scheduled an appt with a provider on 03/30. RN advised patient if his symptoms worsen overnight to go to the ED for further evaluation. Patient verbalized understanding. Protocol Used: Back Pain (Adult) Protocol-Based Disposition: See in Office or Video Visit within 3 Days Video visit not offered Positive Triage Questions: * Moderate back pain (e.g., interferes with normal activities) and present > 3 days * Patient wants to be seen * Back pain lasts > 2 weeks * Back pain * All higher-acuity triage questions were negative Care Advice Discussed: * Reassurance and Education - Back Pain * Cold or Heat * Sleep * Continue Activity * Pain Medicines * Reasons To Call Back - Severe pain not better after taking pain medicines - Pain begins to shoot into the leg - Fever occurs - Numbness or weakness occurs - Loss of control of your bladder or bowel - You become worse * Telephone Encounter - Angela Mercado - 03/29/2025 2:31 PM EST Symptom: Back Pain - Not From Injury Outcome: Schedule an appointment to be seen within 3 days Reason: Caller denied all higher acuity questions The caller accepted this outcome. Contact pt at [phone] (bhutanese) documented in this encounter Plan of Treatment Upcoming Encounters Date Type Department Care Team (Late st Contact Info) Description 04/29/2025 9:45 AM EST Office Visit [facility] [address] [place] [address] [phone] Florina Banuelos MD [address] [place] [phone] documented as of this encounter Visit Diagnoses Not on filedocumented in this encounter Additional Health Concerns Assessment Noted Time PHQ-9 Depression Total Score: 2 02/18/20 9:28 AM EDT documented as of this encounter Care Teams National Recruiter Relationship Specialty Start Date End Date Florina Banuelos MD [address] [place] [address] [phone] PCP - General Internal Medicine 02/17/25 documented as of this encounter
[2025-03-31 03:32] LABS: CT PCR Urine NOT DETECTED (Not Detect.); NG PCR Urine NOT DETECTED (Not Detect.)
== END 2025-03-30 16:14 | disposition home or self-care (01) ==
LOC: HO.HHCLNP 16:13
PROVIDERS: Visit Provider Family Medicine
DX: Z20.2 Contact with and (suspected) exposure to infections with a predominantly sexual mode of transmission (principal); N39.0 Urinary tract infection, site not specified; R10.A0 Flank pain, unspecified side
CPT/HCPCS: 87086; 87491; 87591

== ENCOUNTER 2025-04-01 07:06 | Outpatient (REF) | payer OTHER, SELFPAY ==
--- OUTSIDE RECORDS SUMMARY | 2025-03-30 11:30 | XMS_ITS | Encounter Summary ---
Author Organization [employer] Address [address] [place] [address] 7t [place] [address] Care Team Providers Care Outpatient Facility Physical Therapist Name Role Phone Florina Banuelos MD Primary Care Provider + Reason for Referral * Consultation (Urgent) - Authorized Specialty Diagnoses / Procedures Referred By Rowdy garnica Referred To Contact Pain Medicine Diagnoses Chronic bilateral low back pain without sciatica Myah Hodgson DO [address] [place] [address] Phone: tel: fax: [facility], [address] [place], [place] Phone: tel: fax: Referral ID Status Reason Start Date Expiration Date Visits Requested Visits Authorized [id number] Authorized Specialty Services Required 03/30/2026 1 1 Encounter Details Date Type Department Care Team (Late st Contact Info) Description 03/30/2025 11:30 AM EST Office Visit [facility] [address] [place], [place] [phone] Myah Hodgson DO [address] [place], [place] [phone] Acute UTI (Primary Dx); Chronic bilateral low back pain without sciatica Social History Tobacco Use Types Packs/Day Years [...] Sign Reading Time Taken Comments Blood Pressure 136/70 03/30/2025 11:30 AM EST Pulse 85 03/30/2025 11:30 AM EST Temperature 36.9 C (98.4 F) 03/30/2025 11:30 AM EST Respiratory Rate 20 03/30/2025 11:30 AM EST Oxygen Saturation 97% 03/30/2025 11:30 AM EST Inhaled Oxygen Concentration - - Weight 115 kg (253 lb) 03/30/2025 11:30 AM EST Height 182.9 cm (6') 03/30/2025 11:30 AM EST Body Mass Index 34.31 03/30/2025 11:30 AM EST documented in this encounter Progress Notes * Myah Rema, DO - 03/30/2025 11:30 AM EST SUBJECTIVE Ramiro Coleman is a 64 y.o. male who presents for Sick Visit. He called yesterday c/o worsening back pain and urine with strong odor. He says he is having severe pain in his low-back on the L side. He says that the pain is worse whensitting and lying down. 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 Banuelos which showed arthritis. He says he has been using tylenol for pain but it has not been helping much. Hesays the pain sometimes goes into his L buttocks, but no radiation to LE. He denies any LE numbnessor tingling. He denies any incontinence. He says he stopped going to cardiac rehab because they told him that he was fine. He says that he has been having urinary frequency and strong odor with urination for a while. He's not sure when symptoms started. He denies any burning with urination or hematuria. He denies any penile discharge or itching. He is sexually active with of 45 years. Review of Systems Constitutional: Negative for activity change, appetite change, fever and unexpected weight change. Respiratory: Negative for cough and chest tightness. Cardiovascular: Negative for chest pain and palpitations. Gastrointestinal: Negative for abdominal pain, diarrhea, nausea and vomiting. Genitourinary: Positive for flank pain, frequency (+odiferous urine) and hematuria. Negative for difficulty urinating, dysuria, penile discharge and penile pain. Musculoskeletal: Positive for back pain. Neurological: Negative for dizziness, weakness and headaches. Patient Active Problem List Diagnosis Coronary artery disease involving [place] coronary artery of [place] heart without angina pectoris Nasal congestion Lung nodules Chronic bilateral low back pain without sciatica Primary hypertension Centrilobular emphysema (HCC) Enlarged thyroid No Known Allergies OBJECTIVE Visit Vitals BP 136/70 (BP Location: Left arm, Patient Position: Sitting, BP Cuff Size: Adult) Pulse 85 Temp 98.4 ??F (36.9 ??C) (Oral) Resp 20 Ht 6' (1.829 m) Wt 253 lb (115 kg) SpO2 97% BMI 34.31 kg/m?? Smoking Status Former BSA 2.42 m?? Physical Exam Constitutional: General: He is not in acute distress. Appearance: Normal appearance. Cardiovascular: Rate and Rhythm: Normal rate and regular rhythm. Heart sounds: Normal heart sounds. No murmur heard. Pulmonary: Effort: Pulmonary effort is normal. Breath sounds: Normal breath sounds. No wheezing or rhonchi. Abdominal: General: Bowel sounds are normal. Palpations: Abdomen is soft. There is no mass. Tenderness: There is no abdominal tenderness. There is no right CVA tenderness or left CVA tenderness. Musculoskeletal: Lumbar back: Spasms and tenderness present. No swelling, deformity or bony tenderness. Decreased range of motion. Negative right straight leg raise test and negative left straight leg raise test. Comments: L SI joint TTP Neurological: General: No focal deficit present. Mental Status: He is alert and oriented to person, place, and time. Cranial Nerves: No cranial nerve deficit. Motor: No weakness. Gait: Gait normal. Psychiatric: Mood and Affect: Mood normal. Office Visit on 03/30/2025 Component Date Value Ref Range Status Color, UA 03/30/2025 Yellow Final Clarity, UA 03/30/2025 Cloudy Final Glucose, UA 03/30/2025 Negative Final Bilirubin, UA 03/30/2025 Negative Final Ketones, UA 03/30/2025 Negative Final Spec Grav, UA 03/30/2025 1.020 Final Blood, UA 03/30/2025 Positive (A) Negative, None Detected Final Trace-Intact pH, UA 03/30/2025 6.0 Final Protein, UA 03/30/2025 Negative Final Urobilinogen, UA 03/30/2025 0.2 Final Nitrite, UA 03/30/2025 Negative Negative, None Detected Final QC Media Lot # 03/30/2025 [id number] Final Lot# Expiration Date 03/30/[phone] Final Assessment/Plan Diagnoses and all orders for this visit: Acute UTI -treat empirically with bactrim x 1 week -send Ucx for sensitivities -send urine GC/CT -advised contact [facility] if sx do not resolve Chronic bilateral low back pain without sciatica Recent worsening with left SI joint TTP and grossly nml neuro exam -L-spine XR with mild scoliosis, spondylosis, and likely grade-1 retrolisthesis L2-L3 FEB 2025 -encouraged standing doses of tylenol -trial baclofen TID to help with mm spasm -trial diclofenac gel prn -trial tramadol BID to help with severe pain, 5-day supply given -he declines referral to PT -referred to PM for eval -advised contact C if sx change or worsen, he agrees with plans --Follow-up with PCP as scheduled or sooner prn-- Current Outpatient Medications: acetaminophen (Tylenol 8 Hour) 650 MG ER tablet, Take 1 tablet (650 mg) by mouth every 8 (eight) hours if needed for mild pain. Do not crush, chew, or split., Disp: 40 tablet, Rfl: 1 baclofen (Lioresal) 10 MG tablet, Take 1 tablet (10 mg) by mouth if needed in the morning, at noon,and at bedtime for muscle spasms., Disp: 60 tablet, Rfl: 1 cetirizine (ZyrTEC) 10 MG tablet, Take 1 tablet (10 mg) by mouth Once per day., Disp: 30 tablet, Rfl: 2 Diclofenac Sodium 1 % gel, Apply 2 g topically if needed in the morning, at noon, in the evening, and at bedtime (pain)., Disp: 150 g, Rfl: 1 fluticasone (Flonase) 50 MCG/ACT nasal spray, Administer 1 spray into each nostril Once per day., Disp: 16 g, Rfl: 2 rosuvastatin (Crestor) 20 MG tablet, Take 1 tablet (20 mg) by mouth at bedtime., Disp: 30 tablet, Rfl: 0 sulfamethoxazole-trimethoprim (Bactrim DS) 800-160 MG tablet, Take 1 tablet by mouth 2 times daily for 7 days., Disp: 14 tablet, Rfl: 0 traMADol (Ultram) 50 MG tablet, Take 1 tablet (50 mg) by mouth if needed in the morning and at bedtime for severe pain for up to 5 days., Disp: 10 tablet, Rfl: 0 Scribe Attestation: Mamie, Zach Cummings, am serving as a scribe to document services personally performed by Myah Aj, based on the patient's response to questions by provider and provider's statements to me. 03/30/25 1:20 PM Physicians Attestation: I, Myah Hodgson DO, have reviewed the information by the scribe, Zach Cummings, for accuracy and agree with its content. documented in this encounter Plan of Treatment Upcoming Encounters Date Type Department Care Team (Late st Contact Info) Description 04/29/2025 9:45 AM EST Office Visit [facility] [address] [place] [address] Florina Banuelos MD [address] [place] [address] Pending Results Name Type Priority Associated Diagnoses Date /Time Culture, Urine, Routine Microbiology Routine Acute UTI 03/30/2025 12:00 PM EST Scheduled Referrals Name Type Priority Associated Diagnoses Orde r Schedule Referral to Pain Medicine Outpatient Referral Urgent Chronic bilateral low back pain without sciatica Expected: 03/30/2025 (Approximate), Expires: 03/30/2026 documented as of this encounter Procedures Procedure Name Priority Date/Time Associated Diagnosis Comments CHLAMYDIA/TRICHOMONA S/NEISSERIA GONORRHOEAE, PCR, URINE Routine 03/30/2025 12:00 PM EST Acute UTI CULTURE, URINE, ROUTINE Routine 03/30/2025 12:00 PM EST Acute UTI POCT URINALYSIS DIPSTICK Routine 03/30/2025 11:57 AM EST Acute UTI documented in this encounter Results * Chlamydia/N. Gonorrhoeae, PCR, Urine (03/30/2025 12:00 PM EST) CT PCR, Urine NOT DETECTED Not Detect. [facility] Comment:A not detected test result does not exclude the possibilityof infection because test results can be affected byimproper specimen collection, concurrent antibiotic therapy,or the number of organisms in the specimen which may bebelow the sensitivity of the test. As with many diagnostictests, results from the Xpert CT/NG assay should beinterpreted in conjunction with other laboratory andclinical data available to the clinician.The Xpert CT/NG assay should not be used for the evaluationof suspected sexual abuse or for other medico-legalindications. Additional testing is recommended in anycircumstance when false positive or false negative resultscould lead to adverse medical, social or psychologicalconsequences. NG PCR, Urine NOT DETECTED Not Detect. [facility] Comment:A not detected test result does not exclude the possibilityof infection because test results can be affected byimproper specimen collection, concurrent antibiotic therapy,or the number of organisms in the specimen which may bebelow the sensitivity of the test. As with many diagnostictests, results from the Xpert CT/NG assay should beinterpreted in conjunction with other laboratory andclinical data available to the clinician.The Xpert CT/NG assay should not be used for the evaluationof suspected sexual abuse or for other medico-legalindications. Additional testing is recommended in anycircumstance when false positive or false negative resultscould lead to adverse medical, social or psychologicalconsequences. Urine (Urine, Random) 03/30/2025 12:00 PM EST 03/30/2025 4:14 PM EST Myah Hodgson DO LAB URINE ORDERABLES Final R esult [facility] [address] [place] [phone] * (ABNORMAL) POCT Urinalysis (03/30/2025 11:57 AM EST) Color, UA Yellow Clarity, UA Cloudy Glucose, UA Negative Bilirubin, UA Negative Ketones, UA Negative Spec Grav, UA 1.020 Blood, UA Positive(A) Negative, None Detected Comment:Trace-Intact pH, UA 6.0 Protein, UA Negative Urobilinogen, UA 0.2 Nitrite, UA Negative Negative, None Detected QC Media Lot # [id number] Lot# Expiration Date ,026 Urine (Urine, Random) 03/30/2025 11:57 AM EST Myah Hodgson DO POINT OF CARE TEST ENTER/LAUREN T ORDERABLES Final Result documented in this encounter Visit Diagnoses Diagnosis Acute UTI- Primary Urinary tract infection, site not specified Chronic bilateral low back pain without sciatica documented in this encounter Additional Health Concerns Assessment Noted Time PHQ-9 Depression Total Score: 2 02/18/20 25 9:28 AM EDT documented as of this encounter Care Teams Outpatient Facility Physical Therapist Relationship Specialty Start Date End Date Florina Banuelos MD [address] [place] [phone] PCP - General Internal Medicine 02/17/25 documented as of this encounter
--- OUTSIDE RECORDS SUMMARY | 2025-04-01 07:07 | XMS_ITS | Encounter Summary ---
Author Organization [employer] Address [address] [place] [address] 7t [place] [address] Care Team Providers Care Tankerman Name Role Phone Florina Banuelos MD Primary Care Provider + Encounter Details Date Type Department Care Team (Latest Contact Info) Description 05/05/2019 Abstract [facility] Dental, Provider, DDS Social History Tobacco [...] Description 04/29/2025 9:45 AM EST Office Visit [facility] [address] [place] [address] Florina Banuelos MD [address] [place] [address] documented as of this encounter Visit Diagnoses Not on filedocumented in this encounter Care Teams Tankerman Relationship Specialty Start Date End Date Florina Banuelos MD [address] [place] [address] PCP - General Internal Medicine 02/17/25 documented as of this encounter
--- OUTSIDE RECORDS SUMMARY | 2025-04-01 07:07 | XMS_ITS | Clinical Summary ---
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 No [...] finding, patient is largely asymptomatic, follow-up with lead applications developer No need for Rx at this time. Advised to avoid smoking Will follow-up on vaccinations at next visit Enlarged thyroid 02/17/2025 Assessment & Plan (02/17/2025 2:32 PM EDT): Will obtain TFTs, order thyroid ultrasound Encounters Date Type Department Care Team Description 03/30/2025 11:30 AM EST Office Visit [address] [address] Myah Hodgson DO Acute UTI (Primary Dx); Chronic bilateral low back pain without sciatica 03/30/2025 Travel 03/29/[address] [address] Florina Banuelos MD Nurse Triage 02/17/2025 9:15 AM EDT Office Visit [address] [address] Florina Banuelos MD Coronary artery disease involving [place] coronary artery of [place]ul[place] heart without angina pectoris (Primary Dx); Primary hypertension; Lung nodules; Chronic bilateral low back pain without sciatica; Centrilobular emphysema (HCC); Enlarged thyroid; Nasal congestion 02/17/2025 Travel 02/17/[address] [address] Florina Banuelos MD Chart Prep 02/09/2025 Patient Outreach [facility] [address] [place] [address] Florina Banuelos MD Pre-visit Planning (SDOH screening [...] Description 04/29/2025 9:45 AM EST Office Visit [facility] [address] [place], [place] [phone] Florina Banuelos MD [address] [place], [place] [phone] Health Maintenance Due Date Last Done Comments [...] congestion from Last 3 Months Results * Chlamydia/N. Gonorrhoeae, PCR, Urine (03/30/2025 12:00 PM EST) CT PCR, Urine NOT DETECTED Not Detect. [facility] Comment:A not detected test result does [...] NG PCR, Urine NOT DETECTED Not Detect. [facility] Comment:A not detected test result does [...] 12:00 PM EST 03/30/2025 4:14 PM EST us Myah Hodgson DO LAB URINE ORDERABLES Final R esult [facility] [address] [place] [phone] * (ABNORMAL) POCT Urinalysis (03/30/2025 11:57 AM EST) Color, UA Yellow Clarity, UA Cloudy Glucose, UA Negative Bilirubin, UA Negative Ketones, UA Negative Spec Grav, UA 1.020 Blood, UA Positive(A) Negative, None Detected Comment:Trace-Intact pH, UA 6.0 Protein, UA Negative Urobilinogen, UA 0.2 Nitrite, UA Negative Negative, None Detected QC Media Lot # [id number] Lot# Expiration Date , Urine (Urine, Random) 03/30/2025 11:57 AM EST Myahmary Meichecoenedina DO POINT OF CARE TEST ENTER/LAUREN T ORDERABLES Final Result * XR Lumbar Spine Complete 4+ Views (02/17/2025 10:45 AM EDT) Anatomical Region Laterality Modality Spine, L-spine Radiographic Kiera ging 02/17/2025 10:4 5 AM EDT Narrative 02/17/2025 10:55 [place] [address] XRay Report Signed Patient: Ramiro Lerma MR#: [id number] : 1960 Acct:[id number] Age/Sex: 64 / M ADM Date: 02/17/25 Loc: HO.HHCX Attending Dr: Florina Banuelos MD Ordering Physician: Florina Banuelos MD Date of Service: 02/17/25 Procedure(s): XR lumbar spine 4V min Accession Number(s): [id number] cc: Florina Banuelos MD Reason for Exam: [...] OV> 02/17/25 105 DD/ 44 TD/TT: 02/17/251044 Pulp Refiner Operator: Procedure Note Donotuseinterpreter, Image - 02/17/[address] [address] XRay Report Signed Patient: Ramiro Lerma AMR#: [id number] : 1960cct:[id number] Age/Sex: 64 / MADM Date: 02/17/25 Loc: HO.HHCX Attending Dr: Florina Banuelos MD Ordering Physician: Florina Banuelos MD Date of Service: 02/17/25 Procedure(s): XR lumbar spine 4V min Accession Number(s): [id number] cc: Florina Banuelos MD Reason for Exam: [...] Teodoro Elam MDin OV> 02/17/25 1052 DD/ 44 TD/TT: 02/17/251044 Pulp Refiner Operator: Florina Banuelos MD IMG XR PROCEDURES Edited Result - Final * POCT Rapid Influenza B TARANGO ID NOW (02/17/2025 9:41 AM EDT) Influenza B Negative Negative, Indeterminate [facility] QC Media Lot # [id number] [facility] Lot# Expiration Date [facility] Swab 02/17/2025 9:41 AM EDT Florina Banuelos MD POINT OF CARE TEST ENTER /EDIT ORDERABLES Final Result Performing Organization Address [facility] Co de Phone Number [facility] [address] [place] [phone] * POCT Rapid Influenza A TARANGO ID NOW (02/17/2025 9:40 AM EDT) Influenza A Negative Negative, Indeterminate [facility] QC Media Lot # [id number] [facility] Lot# Expiration Date [facility] Swab 02/17/2025 9:40 AM EDT Florina Banuelos MD POINT OF CARE TEST ENTER /EDIT ORDERABLES Final Result Performing Organization Address [facility] Co de Phone Number [facility] [address] [place] [phone] * POCT Rapid Covid-19 BinaxNOW (02/17/2025 9:40 AM EDT) Rapid COVID Ag Negative QC Media Lot # [id number] Lot# Expiration Date Swab 02/17/2025 9:40 AM EDT Florina Banuelos MD POINT OF CARE TEST ENTER /EDIT ORDERABLES Final Result from Last 3 Months Insurance BC PPO Care Teams Motor Vehicle Escort Driver Relationship Specialty Start Date End Date Florina Banuelos MD [address] [place] [phone] PCP - General Internal Medicine 02/17/25
--- OUTSIDE RECORDS SUMMARY | 2025-04-01 07:07 | XMS_ITS | Encounter Summary ---
Author Organization [employer] Address [address] [facility] 7t [place] [address] Care Team Providers Care Resource Economist Name Role Phone Florina Banuelos MD Primary [...] Description 04/29/2025 9:45 AM EST Office Visit [facility] [address] [place] [phone] Florina Banuelos MD [address] [place] [address] documented as of this encounter Visit Diagnoses Not on filedocumented in this encounter Additional Health Concerns Assessment Noted Time PHQ-9 Depression Total Score: 2 02/18/20 9:28 AM EDT documented as of this encounter Care Teams Resource Economist Relationship Specialty Start Date End Date Florina Banuelos MD [address] [place] [phone] PCP - General Internal Medicine 02/17/25 documented as of this encounter
--- OUTSIDE RECORDS SUMMARY | 2025-04-01 07:07 | XMS_ITS | Encounter Summary ---
Author Organization [employer] Address [address] [place] [address] [address], [place] [address] Care Team Providers Care Cyber Forensic Specialist Name Role Phone Florina Banuelos MD Primary Care Provider + Reason for Visit * Reason Onset Date Comments Nurse Triage 03/29/2025 Encounter Details Date Type Department Care Team ([facility] st Contact Info) Description 03/29/2025 Telephone [facility] [address] [place] [address] Florina Banuelos MD [address] [place] [address] Nurse Triage Social History Tobacco Use Types [...] Tc placed to patient using BLS #ID [id number]. Patient reported increased lower left sided back [...] caller accepted this outcome. Contact pt at [phone] (serbian) documented in this encounter Plan of Treatment Upcoming Encounters Date Type Department Care Team (Late st Contact Info) Description 04/29/2025 9:45 AM EST Office Visit [facility] [address] [place] [address] [phone] Florina Banuelos MD [address] [place] [phone] documented as of this encounter Visit Diagnoses Not on filedocumented in this encounter Additional Health Concerns Assessment Noted Time PHQ-9 Depression Total Score: 2 02/18/20 9:28 AM EDT documented as of this encounter Care Teams Cyber Forensic Specialist Relationship Specialty Start Date End Date Florina Banuelos MD [address] [place] [address] [phone] PCP - General Internal Medicine 02/17/25 documented as of this encounter
[2025-04-01 07:29] LABS: MANUAL DIFF FLAG NO
[2025-04-01 07:40] LABS: Hematocrit 45.0 % (42.0-52.0); Hemoglobin 15.1 g/dl (14.0-18.0); Imm Gran Abs Auto 0.01 X10*3/uL (0.00-0.03); Imm Gran Pct Auto 0.2 % (0.0-0.4); Lymphocytes Absolute Auto 1.6 X10*3/uL (1.2-4.9); Mean Corpuscular HGB Conc 33.6 g/dl (31.0-36.0); Mean Corpuscular Hemoglobin 29.9 pg (27.0-33.0); Mean Corpuscular Volume 89.1 fL (80.0-98.0); NRBC Abs Auto 0.000 X10*3/uL (0.0-0.012); NRBC Pct Auto 0.0 /100WBC (0.0-0.2); Platelet Count 219 X10*3/uL (160-400); Red Blood Count 5.05 X10*6/uL (4.60-5.80); White Blood Count 5.0 X10*3/uL (4.8-10.8)
[2025-04-01 08:43] LABS: Alanine Aminotransferase 47 U/L (0-40); Albumin Level 4.4 g/dL (3.5-5.0); Alkaline Phosphatase 65 U/L (39-117); Anion Gap 11 (12-20); Aspartate Amino Transferase 33 U/L (5-37); Blood Urea Nitrogen 17 mg/dL (9-16); Calcium 8.7 mg/dL (8.4-10.2); Carbon Dioxide 23 mmol/L (22-29); Chloride 110 mmol/L (96-108); Cholesterol 222 mg/dL (<200); Estimated Glomerular Filt Rate > 60; HDL Cholesterol 36 mg/dL (>40); Potassium 4.2 mmol/L (3.3-5.1); Sodium 140 mmol/L (135-145); Total Protein 8.5 g/dL (6.5-8.0); Triglycerides 140 mg/dL (<150)
[2025-04-01 08:55] LABS: HBS Num1 0.33 mIU/mL (0-7.99); HBc Num1 0.06 S/CO (0.00-0.79); HBsAGNum1 0.36 S/CO (0.00-0.99); HIV Num 1 0.05 S/CO (0.00-0.99); Hepatitis A Antibody IgM 0.22 Index (0-0.79); Hepatitis B Surface Antigen Negative (Negative); ~HepC Num1 0.14 S/CO (0.00-0.79); ~Hepatitis A Antibody IgM Nonreactive (Nonreactive); ~Hepatitis B Surface Antibody NONREACTIVE (Nonreactive); ~Hepatitis C Antibody Nonreactive (Nonreactive)
[2025-04-01 08:56] LABS: Syphilis Screen Nonreactive (Nonreactive)
[2025-04-01 09:25] LABS: Reflex LDLD? No
[2025-04-04 09:13] LABS: TS Negative Control Passed; TS Panel A 0; TS Panel B 0; TS Positive Control Passed; TSpotTB Negative (Negative)
== END 2025-04-01 07:07 | disposition home or self-care (01) ==
LOC: HO.LAB 07:06
PROVIDERS: PCP Internal Medicine; Visit Provider Internal Medicine
DX: Z11.1 Encounter for screening for respiratory tuberculosis (principal); Z11.4 Encounter for screening for human immunodeficiency virus [HIV]; I25.10 Atherosclerotic heart disease of native coronary artery without angina pectoris; E04.9 Nontoxic goiter, unspecified; I10 Essential (primary) hypertension; R09.81 Nasal congestion; R91.8 Other nonspecific abnormal finding of lung field; Z20.6 Contact with and (suspected) exposure to human immunodeficiency virus [HIV]; Z20.1 Contact with and (suspected) exposure to tuberculosis
CPT/HCPCS: 36415; 80053; 80061; 84443; 85025; 86481; 86704; 86706; 86709; 86780; 86803; 87340; 87389

== ENCOUNTER 2025-04-13 15:42 | Outpatient (REF) | payer OTHER, SELFPAY ==
--- NOTE | ~2025-04-13 | US_ITS ---
EXAMINATION: US THYROID CLINICAL INFORMATION: Global thyroid enlargement seen on 01/20/2025 CT chest. COMPARISON: None available. TECHNIQUE: Linear transducer grayscale and color Doppler examination with attention to the region of the thyroid. FINDINGS: SIZE: Measurements of the thyroid lobes and nodules are given in sagittal, anteroposterior and transverse dimensions respectively. Right Thyroid Lobe: 7.5 x 3.2 x 2.9 cm, volume 37 mL. Parenchyma: The gland echotexture is mildly heterogeneous. Thyroid vascularity is normal. Left Thyroid Lobe: 6.8 x 3.8 x 3.0 cm, volume 41 mL. Parenchyma: The gland echotexture is mildly heterogeneous. Thyroid vascularity is normal. Isthmus: 1.0 cm in maximum AP dimension. There are no thyroid nodules present. NODES: No lymphadenopathy is seen in the tissue surrounding the thyroid gland. US/US thyroid IMPRESSION: 1. Mildly globally enlarged thyroid gland without discrete nodules present. Electronically signed by: Johnny Mansfield MD 04/13/2025 04:19 PM [facility]
== END 2025-04-13 15:43 | disposition home or self-care (01) ==
LOC: HO.US 15:42
PROVIDERS: PCP Internal Medicine; Visit Provider Internal Medicine
DX: E04.9 Nontoxic goiter, unspecified (principal)
CPT/HCPCS: 76536

== ENCOUNTER → 2025-04-13 15:46 | Outpatient (BNV) | payer OTHER, SELFPAY | PROVIDERS: PCP Internal Medicine; Visit Provider Radiology Diagnostic Radiology | DX: E04.9 Nontoxic goiter, unspecified (principal) | CPT/HCPCS: 76536 ==

== ENCOUNTER 2025-04-24 07:52 | Emergency (ER) | payer OTHER, SELFPAY ==
--- NOTE | ~2025-04-24 | CT_ITS ---
CLINICAL HISTORY: R flank pain CT abdomen and pelvis without contrast Comparison: CT/REG/[place]/SR - CT ABDOMEN PELVIS W IV CON - 01/16/25 13:14 EDT Findings: 1.6 cm nodule at the left base is unchanged. Semi solid nodule in the right middle lobe is also unchanged measuring up to 1.2 cm in greatest diameter. Unremarkable gallbladder and solid organs. No urolithiasis. No bowel obstruction, pneumoperitoneum, or pneumatosis. There is prostatomegaly. There is a right-sided hydrocele. The bones are intact. IMPRESSION: 1. No acute findings. Stable pulmonary nodules. Consider PET imaging to exclude malignancy. 2. Right-sided hydrocele. This document has been electronically signed by: Carlos Enrique Manrique MD on 04/24/2025 10:22:35
--- NOTE | ~2025-04-24 | US_ITS ---
CLINICAL HISTORY: TESTICLE PAIN US Scrotum with Doppler Comparison: None provided Findings: Right testicle normal echotexture, 4.1 x 3.1 x 2.9 cm. Left testicle normal echotexture, 3.4 x 1.9 x 3.3 cm. Normal color flow and arterial/venous spectral tracing of both testicles. Epididymides are unremarkable. No varicoceles. Large bilateral hydroceles. IMPRESSION: 1. Large bilateral hydroceles 2. No evidence of torsion. This document has been electronically signed by: Julius Lira MD on 04/24/2025 08:37:27
[2025-04-24 08:25] VITALS: BP 153/80; PULSE 114; RESP 18; TEMP 36.8; O2SAT 97; BMI 32.9
--- NOTE | 2025-04-24 08:50 | ED_ITS ---
HPI - General Adult General Chief complaint: General Medical Stated complaint: ? 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 States last bowel movement was yesterday and was normal. Also complaining of right groin pain radiating to right lower quadrant. Complains of pressure and burning with urination and some right testicular pain. Denies fever, chills, body aches. Denies hematochezia or melena. MD complaint: rectal pain Onset (ago): day(s) Related Data Home Medications ?Medication ?Instructions ?Recorded ?Confirmed nitroglycerin 0.4 mg sublingual 0.4 mg sublingual Q5M PRN 11/12/24 03/07/25 tablet Previous Rx's ?Medication ?Instructions ?Recorded losartan 25 mg tablet 25 mg PO DAILY 90 days #90 t abs 11/22/24 pantoprazole 40 mg tablet,delayed 40 mg PO DAILY 30 da ys #30 tabs 02/10/25 release (Protonix) metoprolol succinate 25 mg 25 mg PO DAILY #90 tabs 06/12 tablet,extended release 24 hr aspirin 81 mg chewable tablet 81 mg PO DAILY #90 tabs 02/23/25 ticagrelor 90 mg tablet 90 mg PO BID #180 tabs 02/23 atorvastatin 80 mg tablet (Lipitor) 80 mg PO BEDTIME 9 0 days #90 tabs 04/04/25 hydrocortisone 1 % topical cream 1 appl topical TID GA N skin 04/13/25 (Cortisone (hydrocortisone)) irritation 2 weeks #28.4 grams levofloxacin 750 mg tablet 750 mg PO DAILY 4 weeks #28 tabs 04/24/25 Allergies Allergy/AdvReac Type Severity Reaction Status Date / Time No Known Allergies (No Known Allergy Verified 04/24/25 08:27 Allergies*) Review of Systems Review of Systems: as per hpi Yes all other systems are reviewed and are negative Constitutional: Constitutional: Reports as per HPI PMFSH Past Medical History Medical History Hospital discharge follow-up Pneumonia Left hand pain Osteoarthritis of right hand Pure hypercholesterolemia Chest pain Essential hypertension Rash and nonspecific skin eruption GARRET on CPAP Shortness of breath Low TSH level Abdominal pain Fatigue Muscle cramps Paresthesia Numbness of left hand Stiffness of right hand joint Nephrolithiasis Foreign body of right hand Physical exam ACTH elevation Degenerative arthritis of thoracic spine History of hyperprolactinemia Hyperthyroidism GERD (gastroesophageal reflux disease) Hypovitaminosis D Palpitations Polyarthralgia Obesity Essential hypertension Surgical History S/P cardiac cath Carpal tunnel syndrome of right wrist H/O colonoscopy H/O lithotripsy H/O umbilical hernia repair Family History Family History Mother Heart problem Father Stroke Social History Social History Household Members: Family Housing: Apartment Are you a primary care management coordinator to a significant other at home: No Do you presently have visiting nurse or other home services: No Alcohol intake: current Alcohol intake frequency: holidays/special occasions only Alcohol type: beer and hard liquor Patient Tobacco Use Status: Former Tobacco user Tobacco use type: Cigarette Years Smoked: 20 e-Cigarette/Vaping Use: Former Use Second Hand Smoke Exposure: No Advance Directives: No Advance Directives Information Provided: Yes Advance Directives Date on File: 02/18/20 Do you have a plan to hurt others: No Plan service: No Current occupational status: employed 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 Blood pressure normal. Heart rate mildly tachycardic. Respiratory rate normal. Temperature normal. Oxygen saturation normal. Const General: cooperative, healthy appearing and no acute distress Orientation/consciousness: oriented to person, oriented to place, oriented to time and patient oriented x3 Limitations: no limitations HENMT Head: Yes normocephalic and Yes atraumatic Ears: external ears normal General nose exam: Normal external nose present Face and sinus: Yes face symmetric Mouth: oropharynx normal and moist mucous membranes Throat: Yes uvula midline Eyes Pupils: Equal, round and reactive pupils present Neck Neck: Yes normal visual inspection and Yes supple Resp Effort & Inspection: normal respiratory effort and able to speak in complete sentences Auscultation: clear to auscultation bilaterally Cardio Rate: regular rate Rhythm: regular rhythm Heart sounds: S1 normal heart sound present and S2 normal heart sound present GI Other: Rectal exam chaperoned by NICOLASA Castillo Palpation (GI): Soft to palpation and nontender Auscultation: normoactive bowel sounds Rectal Exam - Male: Yes normal sphincter tone, Yes prostate abnormal (tenderness) and Yes External hemorrhoid(s) present General: Yes no CVA tenderness Back/Spine/Pelvis Back: no CVA tenderness Skin General skin exam: elasticity normal and turgor normal Neuro General: oriented to person, oriented to place, oriented to time, patient oriented x3, moves all extremities, no focal motor deficits and CN's II-XI intact bilaterally Cranial nerves: Yes Equal, round and reactive pupils present Cognition (Neuro): normal cognition Extrem General: Yes full ROM, Yes no pedal edema and Yes no calf tenderness Psych Mental Status: mental status grossly normal Affect: normal affect Thought process: Normal thought process present Medical Decision Making Medical Decision Making MDM Narrative: Patient is a 64-year-old Ecuadorean-speaking male with past medical history of hypertension, BPH, nephrolithiasis, hypothyroidism, GERD presenting to the emergency department with complaint of rectal pressure, worse with sitting and bowel movements since Friday. On exam patient is awake, A+Ox3, VS WNL, afebrile, normal neurological exam without focal deficits, physical exam findings as above. Given reported symptoms and physical exam findings, initial differential includes but is not limited to prostatitis, hydrocele, epididymitis, epididymo- orchitis, hydrocele, obstructing calculi, UTI, STI. UA without evidence of infection. CT NG pending, patient will be contacted with any positive results. Ultrasound notable for large bilateral hydroceles. CT A/P notable for no evidence of obstructing calculi, right hydrocele again identified. CT also notable for stable pulmonary nodules. My interpretation is in agreement with the radiologist's interpretation. Clinically patient showing signs of prostatitis, will treat with course of levofloxacin and refer to urology for further evaluation and management. Results discussed with patient and all questions answered. Return precautions discussed. Patient verbalized understanding of and agreement with plan. In-person budder was utilized for all interactions, assessments, and discussions. Differential Diagnosis Differential Diagnoses: The differential diagnosis associated with the presentation includes As per [facility] Admission/Observation Consideration of admission/observation: Escalation of care including admission/observation considered Patient would have been admitted to the hospital and transferred to appropriate facility had their clinical presentation warranted hospital admission. Lab Data [facility] Lab Attestation statement: I reviewed the patient's lab results. as per [facility] Labs: Lab Results 04/24/25 Range/Units 09:01 Urine Color Yellow Urine Appearance Clear Urine pH 6.0 (5.0-9.0) Ur Specific [place] 1.020 (1.005-1.025) Urine Protein 30 (1+) H (Neg-Trace) mg/dL Urine Glucose (UA) Negative (Negative) mg/dL Urine Ketones Negative (Negative) mg/dL Urine Blood Negative (Negative) Urine Nitrite Negative (Negative) Ur Leukocyte Esterase Trace H (Negative) Urine RBC 0-2 (0-2) /HPF Urine WBC 0-5 (0-5) /HPF Ur Squamous Epith Cells 0-2 (0-2) /HPF Urine Bacteria None Seen (None Seen) Hyaline Casts 0-2 (0-2) /LPF Independent Interpretation I performed an independent interpretation of an: Ultrasound and CT Scan Interpretation: Ultrasound notable for large bilateral hydroceles. CT A/P notable for no evidence of obstructing calculi, right hydrocele again identified. CT also notable for stable pulmonary nodules. Radiology Impression Discussion of test interpretation with radiology: I have reviewed the radiologist's reading. Radiologist Impression: CT abdomen and pelvis without contrast Comparison: CT/REG/GA/SR - CT ABDOMEN PELVIS W IV CON - 01/16/25 13:14 EDT Findings: 1.6 cm nodule at the left base is unchanged. Semi solid nodule in the right middle lobe is also unchanged measuring up to 1.2 cm in greatest diameter. Unremarkable gallbladder and solid organs. No urolithiasis. No bowel obstruction, pneumoperitoneum, or pneumatosis. There is prostatomegaly. There is a right-sided hydrocele. The bones are intact. IMPRESSION: 1. No acute findings. Stable pulmonary nodules. Consider PET imaging to exclude malignancy. 2. Right-sided hydrocele. US Scrotum with Doppler Comparison: None provided Findings: Right testicle normal echotexture, 4.1 x 3.1 x 2.9 cm. Left testicle normal echotexture, 3.4 x 1.9 x 3.3 cm. Normal color flow and arterial/venous spectral tracing of both testicles. Epididymides are unremarkable. No varicoceles. Large bilateral hydroceles. IMPRESSION: 1. Large bilateral hydroceles 2. No evidence of torsion. External Record Review External record reviewed: Inpatient record, Office record and Outpatient record Prescription Management I considered prescription management with: Antibiotic Discharge Plan Discharge Clinical Impression: Prostatitis, Bilateral hydrocele Patient Disposition: Home, Self-Care Instructions: Levofloxacin (By mouth), Prostatitis (ED) Additional Instructions: You are being discharged after treatment for?hydrocele?(fluid collection around the testicle) and?prostatitis?(infection or inflammation of the prostate gland). Please follow these instructions carefully to ensure proper healing. Medications For Prostatitis: * Take your prescribed antibiotic exactly as directed, even if you start feeling better. Do not stop early.[1-2] * If you were prescribed a fluoroquinolone (such as ciprofloxacin or levofloxacin) or trimethoprim-sulfamethoxazole, you will likely need to take it for?2 to 4 weeks.[2] * If you have chronic bacterial prostatitis, you may need antibiotics for?4 to 12 weeks.[1][5] * Take pain relievers (such as ibuprofen) as directed for discomfort.[2] * If prescribed an alpha-eric medication (such as tamsulosin or alfuzosin) for urinary symptoms, take it as directed.[2][6] For Hydrocele: * Most hydroceles do not require medication and will be managed with observation.[4] * Take [id number] pain relievers as needed for discomfort. Activity and Self-Care * Rest?as needed during the first few days after discharge. * Avoid heavy lifting, strenuous exercise, and sexual activity until approved by your doctor. * Wear supportive underwear to help reduce discomfort from the hydrocele.[4] * Apply ice packs to the scrotum for 15-20 minutes at a time to reduce swelling (wrap ice in a towel, do not apply directly to skin). * Drink plenty of water to help flush bacteria from your urinary system. * Avoid alcohol, caffeine, and spicy foods, which may irritate your bladder and prostate. What to Watch For Call your doctor or seek medical attention if you experience: * Fever of 100.4?F (38?C) or higher * Worsening pain in your pelvis, testicles, or lower abdomen * Inability to urinate or difficulty urinating * Blood in your urine * Nausea, vomiting, or inability to keep down fluids * Rapid increase in size of the hydrocele * Redness, warmth, or drainage from the scrotum * Symptoms that do not improve after 48-72 hours of antibiotic treatment[2] Go to the emergency room immediately if you have: * Severe pain that is not relieved by medication * Complete inability to urinate * Signs of severe infection (high fever, chills, confusion, rapid heartbeat) Follow-Up Care * Schedule a follow-up appointment?with your doctor in 1-2 weeks or as directed. * You may need a urine culture after completing antibiotics to ensure the infection has cleared.[5] * For chronic prostatitis, you may need follow-up at 6 months even if symptoms improve.[5] * For hydrocele, your doctor will monitor the fluid collection and discuss whether surgery is needed if it does not resolve or causes significant discomfort.[4] Important Reminders * Complete the full course of antibiotics even if you feel better?stopping early can lead to the infection coming back.[1] * Prostatitis symptoms may take several weeks to fully resolve, even with proper treatment.[6] * Many hydroceles resolve on their own without surgery, especially if they are small and not causing symptoms.[4] * Keep all follow-up appointments to ensure proper healing. If you have any questions or concerns, contact your doctor's office. Prescriptions: New levofloxacin 750 mg tablet 750 mg PO DAILY 28 Days Qty: 28 0RF No Action losartan 25 mg tablet 25 mg PO DAILY 90 Days Qty: 90 3RF metoprolol succinate 25 mg tablet extended release 24 hr 25 mg PO DAILY Qty: 90 3RF ticagrelor 90 mg tablet 90 mg PO BID Qty: 180 3RF aspirin 81 mg tablet,chewable 81 mg PO DAILY Qty: 90 3RF atorvastatin [Lipitor] 80 mg tablet 80 mg PO BEDTIME 90 Days Qty: 90 3RF Rx Instructions: dose increased hydrocortisone [Cortisone (hydrocortisone)] 1 % cream 1 appl topical TID PRN (Reason: skin irritation) 14 Days Qty: 28.4 0RF pantoprazole [Protonix] 40 mg tablet,delayed release (DR/EC) 40 mg PO DAILY 30 Days Qty: 30 6RF nitroglycerin 0.4 mg tablet, sublingual 0.4 mg sublingual Q5M PRN Rx Instructions: do not exceed 3 doses per episode Referrals: [facility] [place] [facility] [Provider Group, Urology] - 1 week Clinical Impression: Prostatitis; Bilateral hydrocele Print Language: Ecuadorean
[2025-04-24 09:11] LABS: Appearance Urine Clear; Glucose Urine UA Negative (Negative); PH 6.0 (5.0-9.0); Specific Gravity - Urine 1.020 (1.005-1.025); UMIC TRIGGER UACC YES
[2025-04-24 10:39] LABS: CT PCR Urine NOT DETECTED (Not Detect.); NG PCR Urine NOT DETECTED (Not Detect.)
[2025-04-24 11:13] VITALS: BP 127/86; PULSE 92; RESP 18; TEMP 36.4; O2SAT 100
[2025-04-24 11:15] VITALS: BP 127/86; PULSE 92; RESP 18; TEMP 36.4; O2SAT 100
== END 2025-04-24 11:20 | disposition home or self-care (01) ==
PROVIDERS: Registered Nurse Emergency; Emergency Provider Emergency Medicine; PCP Internal Medicine
DX: N43.3 Hydrocele, unspecified (principal); N41.9 Inflammatory disease of prostate, unspecified
CPT/HCPCS: 74176; 76870; 81001; 87491; 87591; 93975; 99283; 99284

== ENCOUNTER → 2025-04-24 08:09 | Outpatient (BNV) | payer OTHER, SELFPAY | PROVIDERS: Emergency Provider Emergency Medicine; PCP Internal Medicine; Visit Provider Specialist | DX: N43.3 Hydrocele, unspecified (principal); R91.8 Other nonspecific abnormal finding of lung field | CPT/HCPCS: 74176; 93975 ==

== ENCOUNTER 2025-04-27 10:53 | Outpatient (AMB) | payer OTHER, SELFPAY ==
[2025-04-27 10:54] VITALS: BP 144/87; PULSE 100; RESP 16; O2SAT 96; BMI 32.8
--- NOTE | 2025-04-27 10:54 | MHC.OFFVIS ---
Vital Signs 04/27/25 10:54 Height 6 ft 1 in Weight 249 lb BMI 32.8 BP 144/87 H Blood Pressure Location Rt brachial Position Sitting Respiration 16 Pulse 100 Pulse Source Pulse Oximeter Pulse Oximetry (%) 96 Oxygen Delivery Method Room Air Intake Visit Reasons: CHRONIC BILATERAL LOW BACK PAIN Commercial Accountant Required: Yes Commercial Accountant Language: Fraud Examiner Services: Commercial Accountant Present Commercial Accountant Name: Aracelis [id number] Information Interpreted: non-clinical & clinical Accompanied by: Self / Same As Patient Allergies No Known Allergies (No Known Allergies*) Allergy (Verified 04/27/25 10:58) HPI Comments Details: Ramiro is back in my office after 1 year of absence. Last time he presented in my office with the complains on pain in the lower back. He was sent for physical therapy however he never went. I recommend him to go to physical therapy. We will start him on cyclobenzaprine. Prior: very pleasant 63 years old gentleman he is employee of [employer], he has Thai-speaking individual, he presented today in my office with complains on 2 months of the lower back pain. Pain is mostly located in the projection of the most lateral portion of the left iliac crest. He denies radiation of the pain. Flexing forward and flexing backwards does not aggravate the pain. Prolonged sitting or prolonged standing does not aggravate the pain. He has onset of the pain was gradual. x-ray of the lumbar spine results of which dictated as below. It demonstrates some spondylotic changes. It demonstrates straightening of the lumbar spine. [facility] Medical History Hospital discharge follow-up Pneumonia Left hand pain Osteoarthritis of right hand Pure hypercholesterolemia Chest pain Essential hypertension Rash and nonspecific skin eruption GARRET on CPAP Shortness of breath Low TSH level Abdominal pain Fatigue Muscle cramps Paresthesia Numbness of left hand Stiffness of right hand joint Nephrolithiasis Foreign body of right hand Physical exam ACTH elevation Degenerative arthritis of thoracic spine History of hyperprolactinemia Hyperthyroidism GERD (gastroesophageal reflux disease) Hypovitaminosis D Palpitations Polyarthralgia Obesity Essential hypertension Surgical History S/P cardiac cath Carpal tunnel syndrome of right wrist H/O colonoscopy H/O lithotripsy H/O umbilical hernia repair Family History Mother Heart problem Father Stroke Social History Household Members: Family Housing: Apartment Are you a primary resident care provider to a significant other at home: No Do you presently have visiting nurse or other home services: No Alcohol intake: current Alcohol intake frequency: holidays/special occasions only Alcohol type: beer and hard liquor Patient Tobacco Use Status: Former Tobacco user Tobacco use type: Cigarette Years Smoked: 20 e-Cigarette/Vaping Use: Former Use Second Hand Smoke Exposure: No Advance Directives Date on File: 02/18/20 service: No Current occupational status: employed 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 Current occupational exposures/hazards: No Cognitive needs: No Hearing needs: No Vision needs: No Review of Systems Const All systems reviewed & are unremarkable except as noted in HPI and below ENT Reports Normal hearing present Neuro Reports Normal hearing present, Denies Abnormal speech present, Denies confusion and Denies Sensory deficit (Neuro) Psych Denies confusion Physical Exam Vital Signs: Last Vital Signs Pulse 100 04/27/25 10:54 Resp 16 04/27/25 10:54 BP 144/87 H 04/27/25 10:54 Pulse Ox 96 04/27/25 10:54 Oxygen Delivery Method Room Air 04/27/25 10:54 BMI result Body Mass Index 32.8 Const General: no acute distress; No confusion Orientation/consciousness: patient oriented x3 and No confusion Eyes General: appearance normal, both eyes and all related structures Pupils: Equal, round and reactive pupils present EOM: EOMs intact bilaterally Neck Neck: Yes full ROM Chest Chest palpation & inspection: normal inspection of the chest Resp Effort & Inspection: normal respiratory effort, able to speak in complete sentences, normal respiratory pattern, no audible wheezes and no cough Cardio Jugular venous distension: no JVD GI Inspection: Yes normal to inspection Back/Spine/Pelvis Other: There is tenderness on palpation in projection of the most lateral portion of the left iliac crest. No tenderness on palpation in projection of the lumbar spine or medial left iliac crest. Sage test is negative on the left. Flexing forward and flexing backwards do not affect his pain. Valsalva maneuver is negative for pain increase. The pain is not radiating into the lower extremities. Neuro General: patient oriented x3, gait normal and No confusion Cranial nerves: Yes CN's II-XII intact bilaterally, Yes Equal, round and reactive pupils present, Yes Normal hearing present and Yes Ability to bilaterally elevate shoulders present Speech: No Abnormal speech present Gait exam (Neuro): Normal gait present Motor exam (neuro): 5/5 motor strength present throughout Sensory Exam: No Sensory deficit (Neuro) Extrem General: No pedal edema Psych Speech and movement: Normal speech and movement present Affect: normal affect Attitude: cooperative Thought process: Normal thought process present Thought content: Normal thought content present Insight: Good insight present (Psych) Judgement: Good judgement present (Psych) Results Reviewed Results Reviewed: XR LUMBOSACRAL SPINE CLINICAL INFORMATION: pain, injury COMPARISON: Lumbar spine 09/08/2000 TECHNIQUE: Three views of the lumbosacral spine. FINDINGS: There is straightening of the lumbar spine. Degenerative changes are seen at L2-L3 with some disc space narrowing sclerosis and osteophyte formation. These findings have progressed slightly when compared to 09/08/2020. No acute finding is seen. Assessment & Plan Assessment & Plan (1) Low back pain: Code(s): M54.50 - Low back pain, unspecified Category: Medical (2) Lumbar pain: Code(s): M54.50 - Low back pain, unspecified Category: Medical (3) Spondylosis of lumbar region without myelopathy or radiculopathy: Code(s): M47.816 - Spondylosis without myelopathy or radiculopathy, lumbar region Category: Medical (4) Spondylosis of lumbar joint: Code(s): M47.816 - Spondylosis without myelopathy or radiculopathy, lumbar region Category: Medical Plan The x-ray changes of this patient are demonstrating mostly advanced changes at L2-L3 interval. However patient complains on most lower back pain. I need to send him for physical therapy. Patient was explained that this is a prerequisite for the further treatment. I will start him on cyclobenzaprine. He will give us a call to schedule appointment after he will complete physical therapy. Home exercise program was also explained. Orders: Orders PT Evaluation and Treatment Today M47.816 - Spondylosis without myelopathy or radiculopathy, lumbar region, M54.50 - Low back pain, unspecified Medications: New cyclobenzaprine 10 mg PO BEDTIME 30 tabs 8RF 30 days Coding Level of Care Code Est Pt Level 3 (59979) Diagnoses Low back pain M54.50 Lumbar pain M54.50 Spondylosis of lumbar region without myelopathy or radiculopathy M47.816 Spondylosis of lumbar joint M47.816
== END 2025-04-27 11:13 | disposition home or self-care (01) ==
LOC: HO.PMC 10:53
PROVIDERS: PCP Internal Medicine; Visit Provider Anesthesiology
DX: M54.50 Low back pain, unspecified (principal); M47.816 Spondylosis without myelopathy or radiculopathy, lumbar region
CPT/HCPCS: 99214